=== PATIENT | male | born 1965 | race Asian ===

== ENCOUNTER 2024-12-13 15:51 | Inpatient (IN) | payer MEDICAID, SELFPAY ==
[2024-12-13] VITALS (12 sets, daily range): BP systolic 82–129; BP diastolic 28–87; PULSE 90–138; RESP 18–24; TEMP 36.4–39.4; O2SAT 93–98; BMI 27.3
--- NOTE | 2024-12-13 16:04 | PD.EDRME ---
Rapid Medical Screening Exam RME Arrival date/time: 12/13/24 15:51 59-year-old male with history of malignant neoplasm of right leg presents the emergency department today stating he has pain, swelling, infection to the right lower Sepsis protocol initiated Chief Complaint: Extremity Injury, Lower Time Seen by Provider: 12/13/24 15:55 Vital signs: Vital Signs Temperature 103.0 F H 12/13/24 15:59 Pulse Rate 138 H 12/13/24 15:59 Respiratory Rate 20 12/13/24 15:59 Blood Pressure 129/87 H 12/13/24 15:59 Pulse Oximetry (%) 95 12/13/24 15:59 Oxygen Delivery Method Room Air 12/13/24 15:59
[2024-12-13] MEDS: ACETAMINOPHEN 500 MG TABLET 1000 MG PO (16:07)
--- NOTE | 2024-12-13 16:40 | XR_ITS ---
Examination: CT pelvis with intravenous contrast. 2-D sagittal and coronal reconstructions. Date and time of exam:December 13, 2024 at 1914 hours INDICATIONS: Generalized pelvic discomfort beginning 5 days ago CTDI: vol (mGy) : 7.17 DLP: (mGycm) : 269 Technique: Multiple 3 mm axial sections of the pelvis have been obtained with the 64 slice high resolution scanner. 2-D sagittal and coronal reconstructions. Low dose protocols were performed. One or more of the following dose reduction techniques were used; automated exposure control, adjustment of the mA and/or KV according to patient size, use of iterative reconstruction technique. Findings: Normal appendix No bowel obstruction No diverticulitis Mildly distended urinary bladder Transverse prostate dimension 4.3 cm Large soft tissue mass posterior right pelvis, posterior to the right hip and right ischium transverse dimension 11.5 cm, AP dimension and at least 8.9 cm cephalocaudad dimension at least 13 cm this mass is destroying the right ischium and posterior portion of the right inferior pubic ramus as well as the proximal posterior right femoral shaft extending to the subtrochanteric region The masses also destroying the posterior right acetabulum and portions of the posterior right iliac bone 3.4 cm soft tissue tumor mass versus metastatic lymph node anterior to the right common femoral vein with smaller adjacent lymph nodes Soft tissue tumor is also infiltrating into the medial thigh musculature with air densities IMPRESSION: Extensive pelvic mass destroying right ischium right inferior pubic ramus proximal right femoral shaft posterior right acetabulum posterior right iliac bone as above This mass is amenable to CT-guided biopsy for cytologic analysis as well as culture and sensitivity as clinically warranted
--- NOTE | 2024-12-13 16:40 | XR_ITS ---
Examination: CT right lower extremity with intravenous contrast. 2-D sagittal reconstructions. 2-D coronal reconstructions. 3-D reconstructions. Date and time of exam:December 13, 2024 1714 hours INDICATIONS: Discharge and exudate in the leg post surgery 2021 CTDI: vol (mGy):8.03 DLP: (mGycm):815 Technique: Multiple 1.25 mm axial sections of the right lower extremity have been obtained. 2-D sagittal and coronal reconstructions have been obtained. 3-D reconstructions have been obtained. 60 cc [id number] Low dose protocols were performed. One or more of the following dose reduction techniques were used; automated exposure control, adjustment of the mA and/or KV according to patient size, use of iterative reconstruction technique. Findings: Please see the CT pelvis report indicating extensive soft tissue pelvic mass destroying the right ischium and right inferior pubic ramus, proximal right femoral shaft, posterior right acetabulum, posterior right iliac bone This mass extends caudad into the semimembranosus abductor longus and gracilis musculature with air densities at the caudad and There is fluid in the subcutaneous fatty tissue posterior to the distal femur The mass does not extend into the lower leg IMPRESSION: Please see the CT pelvis report indicating extensive soft tissue mass destroying the right ischium, right inferior pubic ramus, proximal right femoral shaft, posterior right acetabulum, posterior right iliac bone This mass extends caudad into the medial thigh muscles as above
--- NOTE | 2024-12-13 16:43 | EDNOTE_ITS ---
ED General RME/HPI General Chief complaint: Extremity Injury, Lower Stated complaint: RIGHT UPPER LEG PAIN AND OOZING Time Seen by Provider: 12/13/24 15:55 Arrival date/time: 12/13/24 15:51 CC: Right leg pain right leg oozing pus HPI ongoing for the past 2 weeks. 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 The patient was initially followed by Dr. Dee and Dr. Granados of the cancer treatment center through July 2024. Patient states he has no primary care doctor takes no medications has no medical allergies. Patient states there is been smelly pus coming from open sites to the back of his right leg. And the pain is significant that he can no longer stand. Patient is awake alert oriented denies chest pain shortness of breath or difficulty breathing. RME / HPI RME / HPI narrative: 12/13/24 15:51 59-year-old male with history of malignant neoplasm of right leg presents the emergency department today stating he has pain, swelling, infection to the right lower Sepsis protocol initiated Related Data Allergies Allergy/AdvReac Type Severity Reaction Status Date / Time No Known Allergies Allergy Verified 04/03/22 14:27 Review of Systems Review of Systems Narrative Review of Systems: GEN: No fever, no chills, no weight loss EYES: No discharge, no visual changes, no pain HEENT: No ear pain, no congestion, no sore throat PULM: No shortness of breath, no cough, no congestion CV: No chest pain, no dyspnea on exertion, no palpitations GI: No nausea, no vomiting, no diarrhea, no pain, no constipation : No frequency, no urgency, no dysuria MUSC/SKEL: + right leg pain SKIN: No rash PSYCH: No hallucinations, no depression HEME/LYMPH: No easy bleeding or bruising tendencies NEURO: No weakness, no headache Past Medical History Past Medical History NEUROLOGIC: Negative Neurological Disorders CARDIAC: Negative Congestive Heart Failure RESPIRATORY: Negative Chronic Obstructive Pulmonary Disease (COPD) GASTROINTESTINAL: Negative Gastrointestinal Disorders GENITOURINARY: Negative Genitourinary Disorders or Renal Disease REPRODUCTIVE: Negative Fibroids MUSCULOSKELETAL: Negative Musculoskeletal Disorders ENDOCRINE: Negative Endocrine Disorders or Diabetes Mellitus Type 1 HEMATOLOGIC: Negative Blood Disorders OTHER HISTORY: Positive Cancer (Tumor on right thigh); Negative Autoimmune Disease, Anesthesia Reactions or MRSA Social History SMOKING STATUS: Never smoker ED Exam Narrative Physical exam: [General: Thin but not emaciated, not in any acute distress Head normocephalic HEENT: Within acceptable limits Neck is supple nontender Chest equal chest rise nontender to palpation Respiratory: Clear to auscultation no wheezes crackles or rubs CV: Rate rhythm is regular no murmurs rubs or clicks Abdomen is distended secondary to body habitus soft nontender no masses positive bowel sounds all 4 quadrants Back: No CVA tenderness no spinous process tenderness from cervical spine thoracic and lumbar spine Skin: Old excoriation with multiple open sites oozing through the base posterior of the right upper leg, including the right buttock, scrotum is not involved this also extends into the medial thigh of the right leg with attenuation with the trunk. It is not warm to touch but darkened colored, firm and warm to touch. Old surgical scar that extends down the posterior upper right leg is well-healed. Cap refill in the right toes is less than 2 seconds neurosensory intact otherwise skin is intact no petechiae rash induration ulceration or crepitus Extremities: Moving all extremity against resistance cap refill less than 2 seconds neurosensory intact Neuro: Awake alert oriented x3 Glascow coma 15 no focal deficits] Course Course Course Narrative: Patient's case discussed with Dr. Rasmussen, for Dr. Abram Wheeler's agrees to accept the patient for admission patient and I had a lengthy discussion in front of Dr. Rasmussen regarding his disposition, the patient wants to seek treatment for his sarcoma but his hip and his leg. He understands that we do not give him chemotherapy in the hospital rather find where the potential source of infection is causing the sepsis and order arrange for him for primary care and follow-up for outpatient oncology. The patient is in agreement with doing this because he wants to continue to seek treatment. Quality Measures none Orders Category Date Time Status Bedside COVID-19 Antigen Test NOW Care 12/13/24 18:[address] Screening NOW Care 12/13/24 16:[address] Screening NOW Care 12/13/24 16:41 Active Insert IV NOW Care 12/13/24 16:[address] lower leg RT w con Stat Exams 12/13/24 16:[address] pelvis w con Stat Exams 12/13/24 16:40 Completed XR chest 1V Stat Exams 12/13/24 20:19 Taken Blood Culture (Lab) Stat Lab 12/13/24 16:16 Received CBC Stat Lab 12/13/24 16:16 Completed CMP [Comprehensive Metabolic Panel] Stat Lab 12/13/24 16:16 Completed CRP [C-Reactive Protein] Stat Lab 12/13/24 16:16 Completed ESR [Sed Rate (ESR)] Stat Lab 12/13/24 16:16 Completed Lactic Acid [Lactate (Lactic Acid)] Stat Lab 12/13/24 16:16 Completed Lactic Acid, 3 HR Stat Lab 12/13/24 20:34 Completed PT [Prothrombin Time with INR] Stat Lab 12/13/24 16:16 Completed Procalcitonin Stat Lab 12/13/24 16:16 Completed Urinalysis, C/S if Indicated Stat Lab 12/13/24 20:19 Ordered Acetaminophen Ivpb [Ofirmev Inj] Med 12/13/24 16:49 Discontinued 1,000 mg in 100 ml IV NOW Acetaminophen Tab [Tylenol ES Tab] Med 12/13/24 16:03 Discontinued 1,000 mg PO X1 ONE HYDROmorphone INJ [Dilaudid Inj] Med 12/13/24 18:47 Discontinued 1 mg IVP X1 ONE Ondansetron Inj [Zofran Inj] Med 12/13/24 18:48 Discontinued 4 mg IV X1 ONE Piper/Tazo 3.375 gm [Zosyn] Med 12/13/24 16:04 Discontinued 3.375 gm in 50 ml IV X1 Ringers Lactated 1000 ml [Lactated Ringers] 1,000 ml Med 12/13/24 17:44 Discontinued IV 999 mls/hr Ringers Lactated 1000 ml [Lactated Ringers] 1,000 ml Med 12/13/24 17:44 Discontinued IV 999 mls/hr Ringers Lactated 500 ml [Lactated Ringers] 500 ml Med 12/13/24 17:44 Discontinued IV 999 mls/hr Vancomycin Inj 1,000 mg Med 12/13/24 16:04 Discontinued Sodium Chloride 0.9% 250 ml [Ns] 250 ml IV X1 Vital Signs Vital signs: Vital Signs Temperature 103.0 F H 12/13/24 15:59 Pulse Rate 138 H 12/13/24 15:59 Respiratory Rate 20 12/13/24 15:59 Blood Pressure 129/87 H 12/13/24 15:59 Pulse Oximetry (%) 95 12/13/24 15:59 Oxygen Delivery Method Room Air 12/13/24 15:59 [facility] Patient data External records reviewed:: [facility] previous records Clinical information provided by:: patient Social determinants that could affect healthcare access:: none Patient has the following chronic illnesses:: Sarcoma with recent surgery How is presenting disease/condition affected by chronic disease/condition?: e xacerbated by Evaluation data The following diagnostics were reviewed and interpreted by me:: lab results, radiology exam(s) and EKG tracing(s) Lab and/or radiology exams considered but not ordered:: CBC shows a leukocytosis of 12.6 anemia and thrombocytopenia CMP shows sodium 133 potassium 3.3 no other significant lecture light imbalances glucose of 141. C-reactive 0.11 0.0 Chest x-ray interpreted me shows no acute infiltrate CT of the pelvis is significant for large mass that is eroding most of the bony structures in the pelvis itself. There appears to be no abscesses interpreted by me and read by radiology. Interpretation Summary: Patient's case discussed with with Dr. Rasmussen resident who agrees to accept on behalf of Dr. Abram Wheeler's attending for admission for sepsis intractable leg pain Medications Medications considered but not ordered:: None Medication administrations:: Medication Administration History Discontinued Medications Acetaminophen (Acetaminophen 500 Mg Tablet) 1,000 mg PO X1 ONE Stop: 12/13/24 16:04 Last Admin: 12/13/24 16:07 Dose: 1,000 mg Documented By: BRITNEY Hydromorphone HCl (Hydromorphone Inj 2 Mg/Ml Vial) 1 mg IVP X1 ONE Stop: 12/13/24 18:48 Last Admin: 12/13/24 18:59 Dose: 1 mg Documented By: JEROMY Piperacillin/Tazobactam/Dextrose (Zosyn) 3.375 gm in 50 mls @ 100 mls/hr IV X1 ONE Stop: 12/13/24 16:33 Last Infusion: 12/13/24 17:45 Dose: Infused Documented By: Admin: 12/13/24 16:56 Dose: 100 mls/hr Documented By: ROWAN Vancomycin HCl 1,000 mg/ (Sodium Chloride) 250 mls @ 150 mls/hr IV X1 ONE Stop: 12/13/24 17:43 Last Infusion: 12/13/24 19:12 Dose: Infused Documented By: Admin: 12/13/24 16:57 Dose: 150 mls/hr Documented By: ROWAN Acetaminophen (Ofirmev Inj) 1,000 mg in 100 mls @ 250 mls/hr IV NOW ONE Stop: 12/13/24 17:12 Last Admin: 12/13/24 18:12 Dose: Not Given Documented By: JEROMY Non-Admin Reason: Cancelled by Provider Lactated Ringer's (Lactated Ringers) 1,000 mls @ 999 mls/hr IV .Q1H1M ONE Stop: 12/13/24 18:44 Last Infusion: 12/13/24 19:11 Dose: Infused Documented By: Admin: 12/13/24 17:55 Dose: 999 mls/hr Documented By: JEROMY Lactated Ringer's (Lactated Ringers) 1,000 mls @ 999 mls/hr IV .Q1H1M ONE Stop: 12/13/24 18:44 Last Infusion: 12/13/24 19:12 Dose: Infused Documented By: Admin: 12/13/24 17:55 Dose: 999 mls/hr Documented By: JEROMY Lactated Ringer's (Lactated Ringers) 500 mls @ 999 mls/hr IV .Q31M ONE Stop: 12/13/24 18:14 Last Admin: 12/13/24 19:04 Dose: 999 mls/hr Documented By: JEROMY Ondansetron HCl (Ondansetron Inj 2 Mg/Ml Inj 2 Ml) 4 mg IV X1 ONE; Protocol Stop: 12/13/24 18:49 Last Admin: 12/13/24 18:58 Dose: 4 mg Documented By: JEROMY None Consultations Consultation(s) initiated? (list below): No Diagnosis Differential Diagnosis ED Complaint MDM: Pelvic mass, sepsis, fever Most likely diagnosis given after review of the tests above:: Sepsis with fever pelvic mass right upper leg mass Admission Indicated Admission indicated?: indicated Explain why admission is indicated or not indicated:: Quires further medical medical workup Admission Request Was there a request for admission?: No Disposition Plan Disposition Plan: Admit Medical Decision Making Differential Diagnosis Differential Diagnosis: Pelvic mass, sepsis, fever Lab Data 12/13/24 16:16 12/13/24 16:16 Labs: Lab Results 12/13/24 12/13/24 Range/Units 16:16 20:34 WBC 12.6 H (3.8-10.6) Thou/mm3 RBC 4.62 (4.50-5.90) Miln/mm3 Hgb 13.9 (13.5-16.0) g/dL Hct 41.1 (41.0-53.0) % MCV 89 (80-100) fL MCH 30.1 (25.0-35.0) pg MCHC 33.8 (31.0-37.0) g/dl RDW Std Deviation 42.4 (35.1-43.9) fL Plt Count 454 H (140-440) Thou/mm3 Neut % (Auto) 82 H (37-80) % Lymph % (Auto) 6 L (10-50) % Prentiss % (Auto) 9 (0-12) % Eos % (Auto) 2 (0-10) % Baso % (Auto) 0 (0-2.5) % Neut # (Auto) 10.3 H (1.8-7.7) Thou/mm3 Lymph # (Auto) 0.8 L (1.0-4.8) Thou/mm3 Prentiss # (Auto) 1.1 H (0.0-0.8) Thou/mm3 Eos # (Auto) 0.3 (0.0-0.5) Thou/mm3 Baso # (Auto) 0.1 (0.0-0.2) Thou/mm3 Immature Gran # (Auto) 0.08 H (0.00-0.00) Thou/mm3 Absolute Nucleated RBC 0.00 (0.00-0.00) Thou/mm3 Immature Gran % 1 H (0-0) % Nucleated RBC % 0 (0) /100 WBC ESR 127 H (0-20) mm/hr PT 11.7 (9.0-12.2) Seconds INR 1.1 (0.9-1.3) Sodium 133 L (136-145) mMol/L Potassium 3.3 L (3.4-5.1) mMol/L Chloride 98 (98-107) mMol/L Carbon Dioxide 23.8 (20.0-31.0) mMol/L Anion Gap 11 (7-16) BUN 14 (9-23) mg/dL Creatinine 1.2 (0.6-1.3) mg/dL Estim Creat Clear Calc 63.3 (>60) mL/min eGFR > 60 (60 - ) See Note BUN/Creatinine Ratio 12 (12-20) Ratio Glucose 141 H (74-106) mg/dL Calculated Osmolality 268 L (275-295) Lactic Acid 4.2 H* 1.6 (0.4-2.0) mMol/L Calcium 9.3 (8.3-10.6) mg/dL Corrected Calcium 9.3 (8.5-10.1) mg/dL Total Bilirubin 0.4 (0.3-1.2) mg/dL AST 22 (0-34) U/L ALT 30 (10-49) U/L Alkaline Phosphatase 103 (46-116) U/L C-Reactive Prot, Quant 11.0 H (0.0-0.9) mg/dL Total Protein 7.8 (5.7-8.2) gm/dL Albumin 4.1 (3.4-4.8) gm/dL Globulin 3.7 H (2.3-3.5) gm/dL Albumin/Globulin Ratio 1.1 L (1.2-2.2) Procalcitonin 0.11 (0.0-0.49) ng/ml Discharge Plan Plan Patient Disposition: Other Care w/in Hosp ([facility]) Patient condition on transfer: Stable Prescriptions/Referrals Referrals: No Primary/Family,Physician [Primary Care Provider] - In 1 week Problem List Clinical Impression: Pelvic mass in male, Leg mass, Intractable neuropathic pain of right lower extremity, Fever, Sepsis Patient/Caregiver Discharge Instructions Print Language: Ecuadorean Stand Alone Forms: Elvia Award Info., Patient Portal Info Letter PA/JONO Supervising Physician RADHA/JONO Supervising Physician: Rafiq Smith ENP
[2024-12-13 16:51] LABS: Basophils # (Auto) 0.1 Thou/mm3 (0.0-0.2); Basophils % (Auto) 0 % (0-2.5); Eosinophils # (Auto) 0.3 Thou/mm3 (0.0-0.5); Eosinophils % (Auto) 2 % (0-10); Hematocrit 41.1 % (41.0-53.0); Hemoglobin 13.9 g/dL (13.5-16.0); Immature Granulocytes % (Auto) 1 % (0-0); Immature Granulocytes Auto 0.08 Thou/mm3 (0.00-0.00); Lymphocytes # (Auto) 0.8 Thou/mm3 (1.0-4.8); Lymphocytes % (Auto) 6 % (10-50); Mean Corpuscular HGB Conc 33.8 g/dl (31.0-37.0); Mean Corpuscular Hemoglobin 30.1 pg (25.0-35.0); Mean Corpuscular Volume 89 fL (80-100); Monocytes # (Auto) 1.1 Thou/mm3 (0.0-0.8); Monocytes % (Auto) 9 % (0-12); Neutrophils # (Auto) 10.3 Thou/mm3 (1.8-7.7); Neutrophils % (Auto) 82 % (37-80); Nucleated Red Blood Cell % 0 /100 WBC (0); Platelet Count 454 Thou/mm3 (140-440); RDW Standard Deviation 42.4 fL (35.1-43.9); Red Blood Count 4.62 Miln/mm3 (4.50-5.90); White Blood Count 12.6 Thou/mm3 (3.8-10.6)
[2024-12-13] MEDS: PIPER/TAZO 3.375 GM 3.375 GM/50 ML BAG IV (16:56)
[2024-12-13 16:57] LABS: Lactate (Lactic Acid) 4.2 mMol/L (0.4-2.0)
[2024-12-13] MEDS: Vancomycin Inj 1,000 MG in SODIUM CHLORIDE 0.9% 250 ML 250 ML 150 MG IV (16:57)
[2024-12-13 17:04] LABS: INR 1.1 (0.9-1.3); Prothrombin Time 11.7 Seconds (9.0-12.2)
[2024-12-13 17:19] LABS: Alanine Aminotransferase 30 U/L (10-49); Albumin, Serum 4.1 gm/dL (3.4-4.8); Albumin/Globulin Ratio 1.1 (1.2-2.2); Alkaline Phosphatase 103 U/L (46-116); Anion Gap 11 (7-16); Aspartate Amino Transferase 22 U/L (0-34); BUN/Creatinine Ratio 12 Ratio (12-20); Bilirubin,Total 0.4 mg/dL (0.3-1.2); Blood Urea Nitrogen 14 mg/dL (9-23); Calcium 9.3 mg/dL (8.3-10.6); Calcium (Corrected) 9.3 mg/dL (8.5-10.1); Carbon Dioxide 23.8 mMol/L (20.0-31.0); Chloride 98 mMol/L (98-107); Creatinine (Component) 1.2 mg/dL (0.6-1.3); Estimated Creatinine Clearance 63.3 mL/min (>60); Globulin 3.7 gm/dL (2.3-3.5); Glucose 141 mg/dL (74-106); Osmolality,Calculated 268 (275-295); Potassium 3.3 mMol/L (3.4-5.1); Procalcitonin 0.11 ng/ml (0.0-0.49); Sodium 133 mMol/L (136-145); Total Protein 7.8 gm/dL (5.7-8.2); eGFR > 60 See Note
[2024-12-13 17:41] LABS: Sed Rate (ESR) 127 mm/hr (0-20)
[2024-12-13] MEDS: RINGERS LACTATED 1000 ML 1,000 ML 999 ML IV ×2 (17:55)
[2024-12-13] MEDS: ONDANSETRON INJ 2 MG/ML INJ 2 ML 4 MG IV (18:58)
[2024-12-13] MEDS: HYDROmorphone INJ 2 MG/ML VIAL 1 MG IVP (18:59)
[2024-12-13] MEDS: RINGERS LACTATED 500 ML 500 ML 999 ML IV (19:04)
[2024-12-13 19:46] LABS: Reflex Lactate? Y
--- NOTE | 2024-12-13 20:19 | XR_ITS ---
Examination: AP chest single view TECHNIQUE: AP portable upright chest single view Exam done: December 13, 2024 202 hours INDICATION: Onset chest pain shortness of breath today, diagnosis malignant neoplasm lower leg FINDINGS: Normal heart size The lungs are clear. No mediastinal lymphadenopathy Prominent osteopenia IMPRESSION: No pneumonia or pulmonary edema
[2024-12-13 20:44] LABS: Lactic Acid, 3 HR 1.6 mMol/L (0.4-2.0)
--- NOTE | 2024-12-13 21:40 | PD.RESHP ---
Documentation for date of: 12/13/24 HPI History of Present Illness Chief complaint: Right lower extremity swelling and pain History of present illness: Patient is a poor historian. 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 Patient does not remember the exact month/year of last chemotherapy cycle, but endorsed that he completed all his chemotherapy. Since 6 weeks, patient noted pain in his leg lower extremity which is making him debilitating and mostly bedridden, relieving with Alleve, also noticed slight discharge coming from the site of sarcoma. Endorsed that he is having fever since 1 week associated with chills and rigors. Denies cough, shortness of breath, low backache, abdominal pain, burning micturition. ED Course: -Initial vitals were blood pressure 129/87 mmHg, pulse rate of 138 bpm, respiratory rate 20/min, temperature 103 ?F, SpO2 95% with room air -Labs significant for WBC 12.6, platelets 454, ESR 127, sodium 133, potassium 3.3, CRP 11, procalcitonin 0.11. Urinalysis showed 5 RBC. -Lower extremity and pelvis CT showed Extensive pelvic mass destroying right ischium right inferior pubic ramus, proximal right femoral shaft posterior right acetabulum posterior right iliac -chest x-ray showed no pulmonary infiltrates. -In the ED, patient was given Zosyn, vancomycin, Dilaudid and IV fluids -Patient was admitted for recurrent sarcoma of posterior right thigh. Past medical history: Sarcoma Past surgical history: Sarcoma removal Social history: Stopped smoking after sarcoma surgery, smoked 1 pack in 3 days for 40 years, occasional alcohol use and denies other illicit drug abuse. Lives at home with his girlfriend Review of Systems Review of Systems Narrative Review of Systems: Constitutional: No Weight Change, Fever, No Chills, No Night Sweats, Fatigue, Malaise ENT/Mouth: No Hearing Changes, No Ear Pain, No Nasal Congestion, No Sinus Pain, No Hoarseness, No sore throat, No Rhinorrhea, No Swallowing Difficulty Eyes: No Eye Pain, No Swelling, No Redness, No Foreign Body, No Discharge, No Vision Changes Cardiovascular: No Chest Pain, No SOB, No PND, No Dyspnea on Exertion, No Orthopnea, No Edema, No Palpitations Respiratory: No Cough, No Sputum, No Wheezing, No Dyspnea Gastrointestinal: No Nausea, No Vomiting, No Diarrhea, No Constipation, No Pain, No Heartburn, No Anorexia, No Dysphagia, No Hematochezia, No Melena, No Flatulence, No Jaundice Genitourinary: No Dysuria, No Urinary Frequency, No Hematuria, No Urinary Incontinence, No Urgency, No Flank Pain, No Urinary Flow Changes, No Hesitancy Musculoskeletal: No Arthralgias, Myalgias , No Joint Swelling, No Joint Stiffness, No Back Pain, No Neck Pain, No Injury History Skin: No Skin Lesions, No Pruritis Neuro: No Weakness, No Numbness, No Paresthesias, No Loss of Consciousness, No Syncope, No Dizziness, No Headache, No Coordination Changes, No Recent Falls Exam Vital Signs Temp Pulse Resp BP Pulse Ox O2 Del Method 97.5 F 94 18 100/65 97 Room Air 12/13/24 18:09 12/13/24 21:00 12/13/24 21:00 12/13/24 21:00 12/13/24 21:00 12/13/24 20:00 Narrative Exam General: Awake. Answers questions appropriately HEENT: Normocephalic, atraumatic, mucous membranes dry. Heart: Regular rate and rhythm, no murmurs. Lungs: Clear to auscultation with no wheezing or crackles. Abdomen: Soft, nondistended, nontender, positive bowel sounds. ?No guarding or rebound tenderness. Neurologic: Alert and oriented x3, no gross neurological deficit, and patient able to move all 4 extremities. Extremities: Right lower extremity wasting is noted, on right posterior thigh, induration and nodular surface is noted with erythema with ulcerations Skin: Erythema on posterior right thigh Results: Labs 12/13/24 16:16 12/13/24 16:16 Labs: Short CBC 12/13/24 Range/Units 16:16 WBC 12.6 H (3.8-10.6) Thou/mm3 Hgb 13.9 (13.5-16.0) g/dL Hct 41.1 (41.0-53.0) % Plt Count 454 H (140-440) Thou/mm3 BMP 12/13/24 16:16 Sodium 133 L Potassium 3.3 L Chloride 98 Carbon Dioxide 23.8 BUN 14 Creatinine 1.2 Glucose 141 H Calcium 9.3 Liver Function 12/13/24 Range/Units 16:16 Total Bilirubin 0.4 (0.3-1.2) mg/dL AST 22 (0-34) U/L ALT 30 (10-49) U/L Alkaline Phosphatase 103 (46-116) U/L Albumin 4.1 (3.4-4.8) gm/dL Quality Measures Quality Measures none Medications Home Medications and Allergies Allergies Allergy/AdvReac Type Severity Reaction Status Date / Time No Known Allergies Allergy Verified 04/03/22 14:27 Visit Medications Acetaminophen (Acetaminophen 325 Mg Tablet) 650 mg PO Q6H PRN PRN Reason: Fever >101.5 Stop: 01/12/25 21:22 Hydrocodone Bitart/Acetaminophen (Hydrocodone/Apap 5/325 Tablet) 1 tab PO Q4HR PRN PRN Reason: Pain Scale 6-10 Stop: 12/18/24 21:28 Enoxaparin Sodium (Enoxaparin Sod Inj 40 Mg/0.4 Ml Syringe) 40 mg SC QDAY BRIAN Stop: 12/28/24 08:59 Magnesium Hydroxide (Milk Of Magnesia Susp 30 Ml Udc) 30 ml PO QDAY PRN; Protocol PRN Reason: CONSTIPATION Stop: 01/12/25 21:22 Ondansetron HCl (Ondansetron Inj 2 Mg/Ml Inj 2 Ml) 4 mg IV Q6H PRN; Protocol PRN Reason: NAUSEA OR VOMITING Stop: 01/12/25 21:22 Discontinued Medications Acetaminophen (Acetaminophen 500 Mg Tablet) 1,000 mg PO X1 ONE Stop: 12/13/24 16:04 Last Admin: 12/13/24 16:07 Dose: 1,000 mg Hydromorphone HCl (Hydromorphone Inj 2 Mg/Ml Vial) 1 mg IVP X1 ONE Stop: 12/13/24 18:48 Last Admin: 12/13/24 18:59 Dose: 1 mg Piperacillin/Tazobactam/Dextrose (Zosyn) 3.375 gm in 50 mls @ 100 mls/hr IV X1 ONE Stop: 12/13/24 16:33 Last Infusion: 12/13/24 17:45 Dose: Infused Vancomycin HCl 1,000 mg/ (Sodium Chloride) 250 mls @ 150 mls/hr IV X1 ONE Stop: 12/13/24 17:43 Last Infusion: 12/13/24 19:12 Dose: Infused Acetaminophen (Ofirmev Inj) 1,000 mg in 100 mls @ 250 mls/hr IV NOW ONE Stop: 12/13/24 17:12 Last Admin: 12/13/24 18:12 Dose: Not Given Lactated Ringer's (Lactated Ringers) 1,000 mls @ 999 mls/hr IV .Q1H1M ONE Stop: 12/13/24 18:44 Last Infusion: 12/13/24 19:11 Dose: Infused Lactated Ringer's (Lactated Ringers) 1,000 mls @ 999 mls/hr IV .Q1H1M ONE Stop: 12/13/24 18:44 Last Infusion: 12/13/24 19:12 Dose: Infused Lactated Ringer's (Lactated Ringers) 500 mls @ 999 mls/hr IV .Q31M ONE Stop: 12/13/24 18:14 Last Admin: 12/13/24 19:04 Dose: 999 mls/hr Ondansetron HCl (Ondansetron Inj 2 Mg/Ml Inj 2 Ml) 4 mg IV X1 ONE; Protocol Stop: 12/13/24 18:49 Last Admin: 12/13/24 18:58 Dose: 4 mg Potassium Chloride (Potassium Chloride 20 Meq Tabcr) 40 meq PO X1 ONE Stop: 12/13/24 21:38 Assessment & Plan Plan A 59-year-old male with past medical history of Stage IIIb (pT4, NX), 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 status post wide excision in [facility] (12/07/2021), S/p adjuvant radiation therapy (01/30/2022 - 03/19/2022), AIM chemotherapy in the adjuvant setting (06/09/2022, 6 cycles per patient), Hepatitis B infection presented to the hospital with chief complaints of pain in the right lower extremity since 6 weeks and fever since 1 week and admitted for Recurrent posterior thigh sarcoma and possible superimposed cellulitis # SIRS - Neoplastic fever versus less likely sepsis # Recurrent sarcoma of posterior right thigh # History of undifferentiated pleomorphic sarcoma s/p chemotherapy and radiotherapy # Suspicion of possible superimposed cellulitis -Patient was diagnosed with pleomorphic sarcoma of posterior right thigh, underwent surgery in [facility] on 12/08/2021 including neurolysis of sciatic and peroneal tibial nerves with clearance of margins of 0.1 cm -Later patient underwent palliative adjuvant radiotherapy by Dr. Dee in 2021 -Later patient underwent chemotherapy in [facility], completed 6 cycles per patient in 2021 -Since then patient did not follow-up with any cancer doctor and patient does not have any primary doctor -Since 6 weeks patient noticed worsening of pain in the posterior right extremity and also developed fever since 1 week. -On examination, posterior right indurated, irregular surface with erythema and small ulcers with discharge was noted, patient did not tolerate complaint of any pain on palpation -Patient fits into sepsis criteria with temperature 103 ?F, pulse rate 138 bpm -Labs showed WBC 12.6, platelets 454, ESR 127, CRP 11 -Lower extremity and pelvis CT showed Extensive pelvic mass destroying right ischium right inferior pubic ramus, proximal right femoral shaft posterior right acetabulum posterior right iliac Plan -Patient received IV fluids in the ED -Started on ceftriaxone 1 g IV daily -Blood cultures were sent -Dr. Streeter saw the patient in the ED and said there is no surgical intervention from her side, official consult was not done -[place] p.o. as needed every fourth hourly -Consulted Dr. Dee # Right foot drop -Patient endorsed that it is present only since 2 weeks -But on chart review, as per patient's history patient underwent neurolysis of sciatic and peroneal tibial nerves which could be causing the foot drop -No acute intervention needed as of now, follow-up in outpatient basis #? Hepatitis B -Dr. Olivera note stated that patient is having hepatitis B and is on Entecavir -No evidence found on chart review -Ordered hepatitis B surface antigen and antibody, follow-up with results Hospital Maintenance: Dispo: MedSurg DVT ppx: Lovenox GI ppx: Not needed Diet: Regular IV lines: Peripheral Code status: Full code Patient plan of care was discussed with the attending physician, Dr. Nini Arenas, PGY1 Attending Provider Attestation/Addendum 59-year-old male patient with right buttock and posterior thigh sarcoma diagnosed 4 years ago. The patient had treatment done in [place]. Patient has draining wound on his right buttock area. Patient is admitted for sepsis secondary to wound infection/cellulitis. Patient is on IV antibiotics he has lactic acidosis. Patient states that he does not have a provider he regularly sees at this point. Will need case finishing machine adjuster/socially responsible investment adviser evaluation.
[2024-12-13] MEDS: POTASSIUM CHLORIDE 20 mEq TABCR 40 MEQ PO (22:00)
[2024-12-13 22:07] LABS: Collection Type, Urine Clean Catch; Squamous Epithelial Cell,Urine 0 /hpf (0-5)
[2024-12-13 22:23] LABS: Magnesium 1.8 mg/dL (1.6-2.6)
[2024-12-13 22:38] LABS: Bilirubin,Urine Negative (Negative); Blood,Urine Negative (Negative); Clarity,Urine Clear (Clear/Hazy); Color,Urine Lt-Yellow (Lt Yel-Yel); Culture Indicated,Urine Not Indicated; Glucose, Urine Negative (Negative); Ketones,Urine Negative (Negative); Leukocyte Esterase,Urine Negative (Negative); Nitrite,Urine Negative (Negative); PH,Urine 6.5 (5.0-7.0); Protein,Urine Negative (Neg - Trace); RBC,Urine 5 /hpf (0-3); Specific Gravity,Urine 1.016 (1.001-1.035); Urobilinogen,Urine Negative mg/dL (0.0-1.0); WBC,Urine 1 /hpf (0-5)
--- NOTE | 2024-12-13 23:02 | XR_ITS ---
Examination: Duplex scan of the lower extremity, unilateral right complete Date and time of exam: December 14, 2024 0108 hours INDICATIONS: Right leg numbness and swelling beginning 2 weeks ago Technique: Duplex scan of the extremity veins using B-mode/grayscale imaging and Doppler spectral analysis and color flow Attention is directed to internal echogenicity, compression and augmentation involving these veins, color flow assessment, spectral analysis Findings: Major deep venous structures in the extremity demonstrate normal course and caliber. There is no evidence of deep vein thrombosis. Normal color flow and spectral analysis Impression: Negative for DVT.. Solid mass in the right groin 2.7 x 3.1 x 2.1 cm, differential would include metastatic lymphadenopathy
[2024-12-14] VITALS (14 sets, daily range): BP systolic 88–152; BP diastolic 60–98; PULSE 81–871; RESP 17–22; TEMP 36.2–36.8; O2SAT 95–100
[2024-12-14] MEDS: cefTRIAXone/D5w 1gm IV premix 50 ML IV ×2 (00:20→09:09)
[2024-12-14 06:42] LABS: Basophils # (Auto) 0.1 Thou/mm3 (0.0-0.2); Basophils % (Auto) 0 % (0-2.5); Eosinophils # (Auto) 0.3 Thou/mm3 (0.0-0.5); Eosinophils % (Auto) 3 % (0-10); Hematocrit 36.1 % (41.0-53.0); Hemoglobin 12.2 g/dL (13.5-16.0); Immature Granulocytes % (Auto) 0 % (0-0); Immature Granulocytes Auto 0.04 Thou/mm3 (0.00-0.00); Lymphocytes # (Auto) 1.2 Thou/mm3 (1.0-4.8); Lymphocytes % (Auto) 11 % (10-50); Mean Corpuscular HGB Conc 33.8 g/dl (31.0-37.0); Mean Corpuscular Hemoglobin 30.1 pg (25.0-35.0); Mean Corpuscular Volume 89 fL (80-100); Monocytes # (Auto) 1.2 Thou/mm3 (0.0-0.8); Monocytes % (Auto) 10 % (0-12); Neutrophils # (Auto) 8.4 Thou/mm3 (1.8-7.7); Neutrophils % (Auto) 75 % (37-80); Nucleated Red Blood Cell % 0 /100 WBC (0); Platelet Count 375 Thou/mm3 (140-440); RDW Standard Deviation 42.6 fL (35.1-43.9); Red Blood Count 4.05 Miln/mm3 (4.50-5.90); White Blood Count 11.2 Thou/mm3 (3.8-10.6)
[2024-12-14 07:01] LABS: Glucose Estimated Average 114 mg/dL (80-131); Hemoglobin A1C 5.6 % Hgb (4.8-6.0)
[2024-12-14 07:26] LABS: Anion Gap 7 (7-16); BUN/Creatinine Ratio 12 Ratio (12-20); Blood Urea Nitrogen 11 mg/dL (9-23); Chloride 101 mMol/L (98-107); Creatinine (Component) 0.9 mg/dL (0.6-1.3); Estimated Creatinine Clearance 84.4 mL/min (>60); Glucose 106 mg/dL (74-106); Osmolality,Calculated 269 (275-295); Phosphorous 3.1 mg/dL (2.4-5.1); Potassium 3.8 mMol/L (3.4-5.1); Sodium 135 mMol/L (136-145); Thyroid Stimulating Hormone 2.16 uIU/mL (0.55-4.78); eGFR > 60 See Note
--- NOTE | 2024-12-14 09:00 | PC.NURSE ---
[facility]24 from 0100 to 0700.
[2024-12-14] MEDS: POTASSIUM CHLORIDE 20 mEq TABCR PO (09:09)
[2024-12-14] MEDS: ENOXAPARIN SOD INJ 40 MG/0.4 ML SYRINGE SC (09:09)
--- NOTE | 2024-12-14 09:45 | ESPR_ITS ---
Documentation for date of: 12/14/24 Subjective Subjective Interval history: No overnight events. Patient admitted overnight. Patient has a past medical history of stage III undifferentiated pleomorphic sarcoma s/p resection (12/07/2021), status post radiation (01/30/2022-03/19/2022) with chemo therapy completed (started on 06/09/2022), and history of Hepatitis B w/ Entecavir as a home medication (not noted in EMR system). Patient stated he fell June of 2024 and noticed increasing pain. Patient stated he has not followed up with a provider in over 2 years and may not have Entecavir on board as a home medication as he does not have a pcp. Patient stated there is pain to site of lesion. Only noted discharge from lesion about 1 week ago. Had pyrexia at home which promoted him to seek medical attention. Denied chills. Denied sick contacts. Denied recent weight loss. Denied hematochezia or melena. Patient stated his femoral biceps feels contracted. Previous history of neurolysis of sciatic, peroneal, tibial. *PT recommend [facility]. and outpatient PT services. Penidng biopsy of site. Continue antibiotics. Added Nystatin cream for possible fungal infection. Dr. Dee, radiation oncology, following patient. Exam Vital Signs Temp Pulse Resp BP Pulse Ox O2 Del Method 97.2 F 84 17 94/65 95 Room Air 12/14/24 08:00 12/14/24 08:00 12/14/24 08:00 12/14/24 08:00 12/14/24 08:00 12/14/24 08:00 Narrative Exam General Appearance: Alert & Oriented X3, well-nourished male who is lying in bed in no acute distress. Open lesion to gluteal region, moving towards biceps femoris, warm to touch, with white discharge. Nondularity noted on physical exam to site as well as right inguinal groin. HEENT: Skull symmetrical and atraumatic. Conjunctivae pink and moist. Pupils equal, round, reactive to light and accommodation (PERRL). External ear without lesion or discharge. Straight, nares patient, mucosa pink, no discharge. No thyroid nodule appreciated. Cardio: Normal Rate and Rhythm with S1 and S2 heart sounds. No murmurs or extra heart sounds auscultated. No bruits on carotid auscultation. No peripheral edema or cyanosis. Lungs: Symmetric with good expansion. Chest and back non-tender. Breath sounds vesicular without crackles, wheezing or rhonchi Abdomen: Non-tender, Non-distended, Normal Reactive Bowel Sounds Neuro: Alert, cooperative, oriented to person, place, and time. Speech clear. CN grossly intact. Upper motor strength 5/5 and Lower motor strength 5/5. Sensation intact. Objective Labs 12/16/24 05:25 12/16/24 05:25 Labs: Laboratory Results - last 24 hr 12/13/24 12/13/24 12/13/24 16:16 20:34 22:00 WBC 12.6 H RBC 4.62 Hgb 13.9 Hct 41.1 MCV 89 MCH 30.1 MCHC 33.8 RDW Std Deviation 42.4 Plt Count 454 H Neut % (Auto) 82 H Lymph % (Auto) 6 L [place] % (Auto) 9 Eos % (Auto) 2 Baso % (Auto) 0 Neut # (Auto) 10.3 H Lymph # (Auto) 0.8 L [place] # (Auto) 1.1 H Eos # (Auto) 0.3 Baso # (Auto) 0.1 Immature Gran # (Auto) 0.08 H Absolute Nucleated RBC 0.00 Immature Gran % 1 H Nucleated RBC % 0 ESR 127 H PT 11.7 INR 1.1 Sodium 133 L Potassium 3.3 L Chloride 98 Carbon Dioxide 23.8 Anion Gap 11 BUN 14 Creatinine 1.2 Estim Creat Clear Calc 63.3 eGFR > 60 BUN/Creatinine Ratio [address] Glu mg/dL Hemoglobin A1c Calculated Osmolality 268 L Lactic Acid 4.2 H* 1.6 Calcium 9.3 Corrected Calcium 9.3 Phosphorus Magnesium 1.8 Total Bilirubin 0.4 AST 22 ALT 30 Alkaline Phosphatase 103 C-Reactive Prot, Quant 11.0 H Total Protein 7.8 Albumin 4.1 Globulin 3.7 H Albumin/Globulin Ratio 1.1 L Procalcitonin 0.11 TSH Ur Collection Type Clean Catch Urine Color Lt-Yellow Urine Clarity Clear Urine pH 6.5 Ur Specific [place] 1.016 Urine Protein Negative Urine Glucose (UA) Negative Urine Ketones Negative Urine Blood Negative Urine Nitrite Negative Urine Bilirubin Negative Urine Urobilinogen (Auto) Negative Ur Leukocyte Esterase Negative Urine RBC 5 H Urine WBC 1 Ur Squamous Epith Cells 0 Urine Bacteria None Ur Culture Indicated? Not Indicated 12/14/24 05:42 WBC 11.2 H RBC 4.05 L Hgb 12.2 L Hct 36.1 L MCV 89 MCH 30.1 MCHC 33.8 RDW Std Deviation 42.6 Plt Count 375 D Neut % (Auto) 75 Lymph % (Auto) 11 [place] % (Auto) 10 Eos % (Auto) 3 Baso % (Auto) 0 Neut # (Auto) 8.4 H Lymph # (Auto) 1.2 [place] # (Auto) 1.2 H Eos # (Auto) 0.3 Baso # (Auto) 0.1 Immature Gran # (Auto) 0.04 H Absolute Nucleated RBC 0.00 Immature Gran % 0 Nucleated RBC % 0 ESR PT INR Sodium 135 L Potassium 3.8 D Chloride 101 Carbon Dioxide 27.0 Anion Gap 7 BUN 11 Creatinine 0.9 Estim Creat Clear Calc 84.4 eGFR > 60 BUN/Creatinine Ratio [address] Glu mg/dL 114 Hemoglobin A1c 5.6 Calculated Osmolality 269 L Lactic Acid Calcium 9.0 Corrected Calcium Phosphorus 3.1 Magnesium 2.0 Total Bilirubin AST ALT Alkaline Phosphatase C-Reactive Prot, Quant Total Protein Albumin Globulin Albumin/Globulin Ratio Procalcitonin TSH 2.16 Ur Collection Type Urine Color Urine Clarity Urine pH Ur Specific [place] Urine Protein Urine Glucose (UA) Urine Ketones Urine Blood Urine Nitrite Urine Bilirubin Urine Urobilinogen (Auto) Ur Leukocyte Esterase Urine RBC Urine WBC Ur Squamous Epith Cells Urine Bacteria Ur Culture Indicated? Quality Measures Quality Measures none Assessment & Plan Assessment Current Active Medications: Generic Name Dose Route Start Last Admin Trade Name Freq PRN Reason Stop Dose Admin Acetaminophen 650 mg 12/13/24 23:42 Acetaminophen 325 Mg Tablet PO 01/12/25 21:22 Q6H PRN Fever >100.4 or Pain Hydrocodone Bitart/Acetaminophen 1 tab 12/13/24 21:29 Hydrocodone/Apap 5/325 Tablet PO 12/18/24 21:28 Q4HR PRN Pain Scale 6-10 Enoxaparin Sodium 40 mg 12/14/24 09:00 12/14/24 09:09 Enoxaparin Sod Inj 40 Mg/0.4 Ml Syringe SC 12/28/24 08:59 40 mg QDAY BRIAN Administration Ceftriaxone Sodium/Dextrose 50 mls @ 100 mls/hr 12/13/24 23:37 01/28/25 09:09 Rocephin/D5w 1gm Iv Premix IV 12/20/24 23:36 100 mls/hr QDAY BRIAN Administration Magnesium Hydroxide 30 ml 12/13/24 21:23 Milk Of Magnesia Susp 30 Ml Udc PO 01/12/25 21:22 QDAY PRN CONSTIPATION Protocol Ondansetron HCl 4 mg 12/13/24 21:23 Ondansetron Inj 2 Mg/Ml Inj 2 Ml IV 01/12/25 21:22 Q6H PRN NAUSEA OR VOMITING Protocol Plan A 59-year-old male with past medical history of Stage IIIb (pT4, NX), 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 #Sepsis, secondary to soft tissue infection #Soft Tissue Infection #Leukocytosis On admission patient met SIRs Criteria with elevated WBC 138, RR 22, and Temperature of 103 F with a known source of infection to lesion at right hamstring region. Site is warm to touch, with drainage, and leukocytosis. Diagnostics: Labs showed WBC 12.6, platelets 454, ESR 127, CRP 11 Lower extremity and pelvis CT showed Extensive pelvic mass destroying right ischium right inferior pubic ramus, proximal right femoral shaft posterior right acetabulum posterior right iliac Blood Culture negative 24 hours. Plan -Started on ceftriaxone 1 g IV daily 12/13/2024 -Blood culture Pending Final report -Wound Care -[place] -OP Wound Healing Dep Routine -Tylenol 650 PRN # Recurrent sarcoma of posterior right thigh #History of undifferentiated polymorphic sarcoma s/p chemotherapy and radiotherapy Patient has a past medical history of sarcoma with s/p chemotherapy and radiotherapy. Patient stated he completed all chemotherapy but has not followed up with a primary care provider or seen Dr. Dee at least 2 years. Patient was under the impression that cancer was under remission. High suspicion of reoccurrence of malignancy given physical exam. Plan -biopsy -[place] p.o. as needed every fourth hourly -Radiation Oncology consulted, Dr. Dee, appreciate recommendations. # Right foot drop #Contracted hamstrings. Adri stated he recently had a fall in June 2024 with worsening symptoms within the last 2 weeks. 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 This could also be reoccurrence of Sarcoma that is now involving nerves as hamstring muscles appear contracted plus the foot drop. Plan: -PT-->FWW and outpatient PT -No acute intervention needed as of now, follow-up in outpatient basis #History Hepatitis B Per chart review,Dr. Olivera note stated that patient is hepatitis B and is on Entecavir. No evidence of continued medication use, may be chronic. Please follow up outpatient. Diagnostics: -Hep Bs Antigen Reactive A, Hep Bs Ag confirmation Pending, Hep Bs antibody Non- reactive Plan: -No evidence found on chart review -Ordered hepatitis B surface antigen and antibody, follow-up with results Hospital Maintenance: Dispo: MedSurg DVT ppx: Lovenox GI ppx: Not needed Diet: Regular IV lines: Peripheral Code status: Full code - The patient's plan was discussed with attending Dr. Roman and senior residents Dr. Saranya Gonzalez MD PGY1 Internal Medicine Senior Resident Attestation: I discussed with and supervised the video editing internship physician involved in the care of this patient. I personally saw and examined the patient and discussed the assessment and plan with the entire medicine team, including my attending. I agree with the assessment and plan as documented above. [Patient seen and examined. Pending biopsy of the right lower extremity. There is a concern for recurrence of the sarcoma. Dr. Dee consulted.] - Patient's care was discussed with my attending physician. Kd Beaver MD Internal Medicine PGY-3 Attending Provider Attestation/Addendum I have examined the patient, reviewed labs and imaging findings, discussed the case with the resident(s), and reviewed entered orders. I agree with the plan of care as outlined in this note, with these additional summaries/recommendations: Patient seen at bedside. Today patient endorses right thigh/pelvic pain although improved from admission. Patient has history of undifferentiated polymorphic sarcoma and received chemotherapy plus radiation and does not appear to have followed up with oncology for surveillance. Patient now presented with severe right thigh pain/pelvic pain with evidence of likely reoccurrence. Pelvis CT showed extensive pelvic mass destroying the right ischium, right inferior pubic ramus, proximal right femoral shaft, posterior right acetabulum, and right iliac bone. Right lower extremity CT revealed extensive soft tissue mass destroying the right ischium, right inferior pubic ramus, proximal right femoral shaft, posterior right acetabulum, and posterior right iliac bone. Oncology was consulted and patient went for IR biopsy today. Possible patient has superimposed cellulitis and we will continue IV antibiotics for now. Wound and blood cultures taken and we will follow-up results when available. Patient also appears to have right foot drop and we will obtain physical therapy evaluation. Consult wound care. Patient has chronic hepatitis B and continue home Entecavir, patient advised to bring to hospital. Repeat hematology and chemistry panel in AM. Dr. Roman
--- NOTE | 2024-12-14 09:45 | PD.ONCCONS ---
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 Patient underwent surgery at [facility] 12/08/2021 undergoing radical surgery involving the right thigh with removal of posterior mass 29 x 18 x 13 cm. Patient received postop radiation therapy [facility]3] 6000 cGy and AIM chemotherapy 6 cycles at [facility]. Patient failed to show after last follow-up in July 2022. Recently patient having pain in the right thigh area which she attributed to possible infection. Came to ER and pelvis and lower extremity CT 12/13/2024 revealed extensive pelvic mass destroying right ischium right inferior pubic ramus proximal right femoral shaft right posterior acetabulum posterior right iliac bone. Chest x-ray negative venous Doppler shows right groin mass. Patient now referred for oncological consultation. Patient states that pain which was severe prior to coming to hospital is better with meds received in the hospital. 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[facility] lives with girlfriend has grown children Past Medical History Comments PMH COMMENT: Denies other than above Meds Home Medications and Allergies Allergies Allergy/AdvReac Type Severity Reaction Status Date / Time No Known Allergies Allergy Verified 04/03/22 14:27 Exam Vital Signs Temp Pulse Resp BP Pulse Ox O2 Del Method 97.2 F 84 17 94/65 95 Room Air 12/14/24 08:00 12/14/24 08:00 12/14/24 08:00 12/14/24 08:00 12/14/24 08:00 12/14/24 08:00 Narrative Exam Lying comfortably answers questions appropriately Results Labs 12/14/24 05:42 12/14/24 05:42 Labs: Short CBC 12/13/24 12/14/24 Range/Units 16:16 05:42 WBC 12.6 H 11.2 H (3.8-10.6) Thou/mm3 Hgb 13.9 12.2 L (13.5-16.0) g/dL Hct 41.1 36.1 L (41.0-53.0) % Plt Count 454 H 375 D (140-440) Thou/mm3 BMP 12/13/24 12/14/24 16:16 05:42 Sodium 133 L 135 L Potassium 3.3 L 3.8 D Chloride 98 101 Carbon Dioxide 23.8 27.0 BUN 14 11 Creatinine 1.2 0.9 Glucose 141 H 106 Calcium 9.3 9.0 Liver Function 12/13/24 Range/Units 16:16 Total Bilirubin 0.4 (0.3-1.2) mg/dL AST 22 (0-34) U/L ALT 30 (10-49) U/L Alkaline Phosphatase 103 (46-116) U/L Albumin 4.1 (3.4-4.8) gm/dL Urine 12/13/24 Range/Units 22:00 Urine Color Lt-Yellow (Lt Yel-Yel) Urine Clarity Clear (Clear/Hazy) Urine pH 6.5 (5.0-7.0) Ur Specific [place] 1.016 (1.001-1.035) Urine Protein Negative (Neg - Trace) Urine Glucose (UA) Negative (Negative) Assessment and Plan Additional Assessment & Plan Additional Plan: 1. 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 2. Postop XRT [address] [facility] and chemo AIM 6 cycles [facility] completed 2021 3. Did not get regular checkups posttreatment and now appears to have major recurrence in the right pelvic area. 4. Patient agrees to get a biopsy at the recurrent area and willing to get what ever further treatments may benefit him. Will l now order. 5. Thank you for allowing me to evaluate this patient.
--- NOTE | 2024-12-14 10:04 | XR_ITS ---
Examination: CT guided percutaneous biopsy posterior right pelvic mass ET pelvis without intravenous contrast Date and time of procedure: December 14, 2024 1342 hours INDICATIONS: Large soft tissue posterior pelvic mass destroying bones of the pelvis and right femoral shaft on CT examination December 13, 2024 Informed consent provided. A timeout was completed verifying correct patient, procedure, site and positioning. Technique: Axial 3 mm sections were obtained for localization of the posterior right pelvic mass Appropriate area is marked. The patient's site was prepped and draped in sterile fashion Maximal sterile barrier technique utilized, including hand hygiene Local anesthesia was obtained with 1% lidocaine. Low dose protocols were performed. One or more of the following dose reduction techniques were used; automated exposure control, adjustment of the mA and/or KV according to patient size, use of iterative reconstruction technique. Utilizing CT fluoroscopic guidance 2 core biopsies obtained of the soft tissue posterior pelvic mass Arterial bleeding precluded additional biopsies Patient appears in stable condition during this procedure. At completion of the procedure, the patient is in satisfactory condition. Estimated blood loss 10 cc Complete pathology culture and sensitivity report to follow. Impression: Successful CT-guided percutaneous biopsy soft tissue posterior pelvic mass
--- NOTE | 2024-12-14 13:31 | PC.PT ---
PT eval only. Patient was xI with bed mobility, transfers and required only supervision with ambulation using a FWW. Patient is safe to ambulate in the gr and to the bathroom with a FWW and 1 staff assist. RN notified.
[2024-12-14 13:52] LABS: Hepatitis B Surface Ab NonReact(Not Immune) (Immune)
[2024-12-14] MEDS: fentaNYL CIT INJ 50 mCg/ML AMP 2ML 75 MCG IVP (13:58)
[2024-12-14 14:34] LABS: Hepatitis B Surface Antigen Reactive (Non React)
[2024-12-14 14:36] LABS: ZZHep B Surface Ag Confrm* See Sep Rpt
--- NOTE | 2024-12-14 15:28 | PC.SS ---
Addendum entered by Lianne Zacarias 12/14/24 15:37: SS follow up note; SS submitted DME inquiry for a FWW through [employer]. Original Note: SS follow up note SS attempted multiple times to complete initial assessment, howerver patient getting procedure. SS was notified by Bassem from PT that patient was needing FWW. Bassem informed SS that patient would benefit for outpatient PT. SS was also contacted by wound care, nurse Tania and informed SS that patient would need HH for wound care. SS will stand by for further needs.
--- NOTE | 2024-12-14 15:37 | PC.SS ---
Patient Chung Peres is a 59 Year old male admitted for Sarcoma. SS contacted patient's , Dong Robert, howerver did not speak greenlandic, She provided me with patient's daughter, Tea's contact information to translate [phone]. Eboni reported that she would be the point of contact since her mother does not speak [place]. She reports that patient's is the decision maker, [phone]. Patient lives at home with family. Prior to admission patient was ambulating with Cane and was able to complete all ADL's independently. Choice of pharmacy is [facility]. Patient's PCP is Nae Flowers. At time of discharge patient will return Home with HH. SS contacted Dr. Beaver and informed him patient would need HH at time of discharge. Family has no HH preference. Emergency Contact, Daughter, Eboni [phone].. Patient's makes decisions, however does not speak [place] Discharge Plan: Home
[2024-12-14] MEDS: BALSAM PERU/CASTOR OIL (Venelex) 60 GM TUBE TOP (21:54)
[2024-12-15] VITALS: BP 108/68; PULSE 78; RESP 17; TEMP 36.7; O2SAT 96
[2024-12-15 04:00] VITALS: BP 99/71; PULSE 76; RESP 18; TEMP 36.8; O2SAT 97
[2024-12-15] MEDS: HYDROcodone/APAP 5/325 TABLET 1 TAB PO ×2 (05:23→22:58)
[2024-12-15 06:16] LABS: Basophils # (Auto) 0.1 Thou/mm3 (0.0-0.2); Basophils % (Auto) 1 % (0-2.5); Eosinophils # (Auto) 0.5 Thou/mm3 (0.0-0.5); Eosinophils % (Auto) 5 % (0-10); Hematocrit 36.6 % (41.0-53.0); Hemoglobin 12.2 g/dL (13.5-16.0); Immature Granulocytes % (Auto) 0 % (0-0); Immature Granulocytes Auto 0.04 Thou/mm3 (0.00-0.00); Lymphocytes % (Auto) 9 % (10-50); Mean Corpuscular HGB Conc 33.3 g/dl (31.0-37.0); Mean Corpuscular Hemoglobin 29.6 pg (25.0-35.0); Mean Corpuscular Volume 89 fL (80-100); Monocytes # (Auto) 1.2 Thou/mm3 (0.0-0.8); Monocytes % (Auto) 11 % (0-12); Neutrophils % (Auto) 75 % (37-80); Nucleated Red Blood Cell % 0 /100 WBC (0); Platelet Count 358 Thou/mm3 (140-440); RDW Standard Deviation 42.7 fL (35.1-43.9); Red Blood Count 4.12 Miln/mm3 (4.50-5.90); White Blood Count 10.8 Thou/mm3 (3.8-10.6)
[2024-12-15 07:18] LABS: Alanine Aminotransferase 20 U/L (10-49); Albumin, Serum 3.5 gm/dL (3.4-4.8); Albumin/Globulin Ratio 1.1 (1.2-2.2); Alkaline Phosphatase 84 U/L (46-116); Anion Gap 9 (7-16); Aspartate Amino Transferase 21 U/L (0-34); BUN/Creatinine Ratio 11 Ratio (12-20); Bilirubin,Total 0.5 mg/dL (0.3-1.2); Blood Urea Nitrogen 10 mg/dL (9-23); Calcium 9.5 mg/dL (8.3-10.6); Calcium (Corrected) 9.9 mg/dL (8.5-10.1); Carbon Dioxide 25.5 mMol/L (20.0-31.0); Chloride 104 mMol/L (98-107); Creatinine (Component) 0.9 mg/dL (0.6-1.3); Estimated Creatinine Clearance 84.4 mL/min (>60); Globulin 3.2 gm/dL (2.3-3.5); Glucose 103 mg/dL (74-106); Magnesium 2.1 mg/dL (1.6-2.6); Osmolality,Calculated 274 (275-295); Phosphorous 3.5 mg/dL (2.4-5.1); Potassium 3.8 mMol/L (3.4-5.1); Sodium 138 mMol/L (136-145); Total Protein 6.7 gm/dL (5.7-8.2); eGFR > 60 See Note
--- NOTE | 2024-12-15 07:55 | ESPR_ITS ---
Documentation for date of: 12/15/24 Subjective Subjective Interval history: Patient underwent successful biopsy of the right pelvic mass yesterday and tolerated well. Exam Vital Signs Temp Pulse Resp BP Pulse Ox O2 Del Method O2 Flow Rate 98.2 F 76 18 99/71 97 Room Air 3 12/15/24 04:00 12/15/24 04:00 12/15/24 04:00 12/15/24 04:00 12/15/24 04:00 12/15/24 04:00 12/14/24 14:09 Objective Labs 12/15/24 05:57 12/15/24 05:57 Labs: Laboratory Results - last 24 hr 12/13/24 12/15/24 20:34 05:57 WBC 10.8 H RBC 4.12 L Hgb 12.2 L Hct 36.6 L MCV 89 MCH 29.6 MCHC 33.3 RDW Std Deviation 42.7 Plt Count 358 Neut % (Auto) 75 Lymph % (Auto) 9 L Cloud % (Auto) 11 Eos % (Auto) 5 Baso % (Auto) 1 Neut # (Auto) 8.0 H Lymph # (Auto) 1.0 Cloud # (Auto) 1.2 H Eos # (Auto) 0.5 Baso # (Auto) 0.1 Immature Gran # (Auto) 0.04 H Absolute Nucleated RBC 0.00 Immature Gran % 0 Nucleated RBC % 0 Sodium 138 Potassium 3.8 Chloride 104 Carbon Dioxide 25.5 Anion Gap 9 BUN 10 Creatinine 0.9 Estim Creat Clear Calc 84.4 eGFR > 60 BUN/Creatinine Ratio 11 L Glucose 103 Calculated Osmolality 274 L Calcium 9.5 Corrected Calcium 9.9 Phosphorus 3.5 Magnesium 2.1 Total Bilirubin 0.5 AST 21 ALT 20 Alkaline Phosphatase 84 Total Protein 6.7 Albumin 3.5 D Globulin 3.2 Albumin/Globulin Ratio 1.1 L Hep Bs Antigen Reactive A Hep Bs Antibody NonReact(Not Immune) L Assessment & Plan A&P Narrative 1. 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 2. Postop XRT 6000 cGy [facility] and chemo AIM 6 cycles [facility] completed 2021 3. Did not get regular checkups posttreatment and now appears to have major recurrence in the right pelvic area. 4. Underwent successful CT-guided biopsy of soft tissue posterior pelvic mass yesterday. 5. Patient will be scheduled at the cancer Center next week for follow-up. Time Spent With Patient Time: Total time spent is greater than 50% in coordination of care (as documented) at patient's floor/unit and/or counseling patient:
[2024-12-15 08:00] VITALS: BP 95/66; PULSE 72; RESP 18; TEMP 36.2; O2SAT 97
[2024-12-15] MEDS: NYSTATIN CR 30 GM TUBE TOP ×2 (08:57→20:51)
[2024-12-15] MEDS: cefTRIAXone/D5w 1gm IV premix 50 ML IV (08:58)
[2024-12-15] MEDS: BALSAM PERU/CASTOR OIL (Venelex) 60 GM TUBE TOP ×2 (08:58→20:51)
[2024-12-15] MEDS: POTASSIUM CHLORIDE 20 mEq TABCR PO (09:00)
--- NOTE | 2024-12-15 10:34 | PC.SS ---
SS made an [facility] appointment for Dec 22 at 1030am, SS provided information to pt dtr.
[2024-12-15 12:00] VITALS: BP 115/75; PULSE 82; RESP 20; TEMP 36.3; O2SAT 97
[2024-12-15 13:24] VITALS: BMI 27.3
--- NOTE | 2024-12-15 13:31 | PD.RESPRO ---
Documentation for date of: 12/15/24 Subjective Subjective Interval history: No overnight events. Patient denied pyrexia overnight or chills. Patient is doing well after biopsy. Explained the likely probability of this being a reoccurrence of previous cancer. Patient understand that he needs to follow up with Dr. Dee, radiation oncology. Patient denied pyrexia. Patient denied chills. Improved pain. PT-->FWW & outpatient PT. One of two blood cultures growing gram negative rods, already on antibiotics. Exam Vital Signs Temp Pulse Resp BP Pulse Ox O2 Del Method O2 Flow Rate 97.3 F 82 20 115/75 97 Room Air 3 12/15/24 12:00 12/15/24 12:00 12/15/24 12:00 12/15/24 12:00 12/15/24 12:00 12/15/24 12:00 12/14/24 14:09 Objective Labs 12/16/24 05:25 12/16/24 05:25 Labs: Laboratory Results - last 24 hr 12/13/24 12/15/24 20:34 05:57 WBC 10.8 H RBC 4.12 L Hgb 12.2 L Hct 36.6 L MCV 89 MCH 29.6 MCHC 33.3 RDW Std Deviation 42.7 Plt Count 358 Neut % (Auto) 75 Lymph % (Auto) 9 L Banner % (Auto) 11 Eos % (Auto) 5 Baso % (Auto) 1 Neut # (Auto) 8.0 H Lymph # (Auto) 1.0 Banner # (Auto) 1.2 H Eos # (Auto) 0.5 Baso # (Auto) 0.1 Immature Gran # (Auto) 0.04 H Absolute Nucleated RBC 0.00 Immature Gran % 0 Nucleated RBC % 0 Sodium 138 Potassium 3.8 Chloride 104 Carbon Dioxide 25.5 Anion Gap 9 BUN 10 Creatinine 0.9 Estim Creat Clear Calc 84.4 eGFR > 60 BUN/Creatinine Ratio 11 L Glucose 103 Calculated Osmolality 274 L Calcium 9.5 Corrected Calcium 9.9 Phosphorus 3.5 Magnesium 2.1 Total Bilirubin 0.5 AST 21 ALT 20 Alkaline Phosphatase 84 Total Protein 6.7 Albumin 3.5 D Globulin 3.2 Albumin/Globulin Ratio 1.1 L Hep Bs Antigen Reactive A Hep Bs Antibody NonReact(Not Immune) L Quality Measures Quality Measures none Assessment & Plan Assessment Current Active Medications: Generic Name Dose Route Start Last Admin Trade Name Freq PRN Reason Stop Dose Admin Acetaminophen 650 mg 12/14/24 14:37 Acetaminophen 325 Mg Tablet PO 01/12/25 21:22 Q6H PRN Fever >100.3 or Pain Hydrocodone Bitart/Acetaminophen 1 tab 12/13/24 21:29 12/15/24 05:23 Hydrocodone/Apap 5/325 Tablet PO 12/18/24 21:28 1 tab Q4HR PRN Administration Pain Scale 6-10 Balsam [place] Oil 0 gm 12/14/24 21:00 12/15/24 08:58 Balsam [place] Oil (Venelex) 60 Gm Tube TOP 01/13/25 20:59 1 applicatio BID BRIAN Administration Enoxaparin Sodium 40 mg 12/14/24 09:00 12/14/24 09:09 Enoxaparin Sod Inj 40 Mg/0.4 Ml Syringe SC 12/28/24 08:59 40 mg QDAY BRIAN Administration Ceftriaxone Sodium/Dextrose 50 mls @ 100 mls/hr 12/13/24 23:37 12/15/24 08:58 Rocephin/D5w 1gm Iv Premix IV 12/20/24 23:36 100 mls/hr QDAY BRIAN Administration Magnesium Hydroxide 30 ml 12/13/24 21:23 Milk Of Magnesia Susp 30 Ml Udc PO 01/12/25 21:22 QDAY PRN CONSTIPATION Protocol Nystatin 0 gm 12/14/24 21:00 12/15/24 08:57 Nystatin Cr 30 Gm Tube TOP 01/13/25 20:59 1 applicatio BID BRIAN Administration Ondansetron HCl 4 mg 12/13/24 21:23 Ondansetron Inj 2 Mg/Ml Inj 2 Ml IV 01/12/25 21:22 Q6H PRN NAUSEA OR VOMITING Protocol Plan A 59-year-old male with past medical history of Stage IIIb (pT4, NX), 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 status post wide excision in [facility] (12/07/2021), S/p adjuvant radiation therapy (01/30/2022 - 03/19/2022), AIM chemotherapy in the adjuvant setting (06/09/2022, 6 cycles per patient), Hepatitis B infection presented to the hospital with chief complaints of pain in the right lower extremity since 6 weeks and fever since 1 week and admitted for Recurrent posterior thigh sarcoma and possible superimposed cellulitis. #Sepsis, secondary to soft tissue infection, improved #Soft Tissue Infection #Leukocytosis, improving On admission patient met SIRs Criteria with elevated WBC 138, RR 22, and Temperature of 103 F with a known source of infection to lesion at right hamstring region. Site is warm to touch, with drainage, and leukocytosis. Diagnostics: Labs showed WBC 12.6, platelets 454, ESR 127, CRP 11 Lower extremity and pelvis CT showed Extensive pelvic mass destroying right ischium right inferior pubic ramus, proximal right femoral shaft posterior right acetabulum posterior right iliac Blood Culture: First bottle Negative after 24 hours and second bottle from anaerobic Gram Negative Rods Plan -Started on ceftriaxone 1 g IV daily 12/13/2024 -Blood culture Pending Final report -Wound Care Pending -Balsam -OP Wound Healing Dep Routine -Tylenol 650 PRN # Recurrent sarcoma of posterior right thigh #History of undifferentiated polymorphic sarcoma s/p chemotherapy and radiotherapy Patient has a past medical history of sarcoma with s/p chemotherapy and radiotherapy. Patient stated he completed all chemotherapy but has not followed up with a primary care provider or seen Dr. Dee at least 2 years. Patient was under the impression that cancer was under remission. High suspicion of reoccurrence of malignancy given physical exam. Plan -biopsy-report pending -[place] p.o. as needed every fourth hourly -Radiation Oncology consulted, Dr. Dee, appreciate recommendations. # Right foot drop #Contracted hamstrings. Adri stated he recently had a fall in June 2024 with worsening symptoms within the last 2 weeks. 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 This could also be reoccurrence of Sarcoma that is now involving nerves as hamstring muscles appear contracted plus the foot drop. Plan: -PT-->FWW and outpatient PT -No acute intervention needed as of now, follow-up in outpatient basis #History Hepatitis B Per chart review,Dr. Olivera note stated that patient is hepatitis B and is on Entecavir. No evidence of continued medication use, may be chronic. Please follow up outpatient. Diagnostics: -Hep Bs Antigen Reactive A, Hep Bs Ag confirmation Pending, Hep Bs antibody Non-reactive Plan: -No evidence found on chart review -Ordered hepatitis B surface antigen and antibody, follow-up with results Hospital Maintenance: Dispo: MedSurg DVT ppx: Lovenox GI ppx: Not needed Diet: Regular IV lines: Peripheral Code status: Full code - The patient's plan was discussed with attending Dr. Saldivar and senior residents Dr. Saranya Gonzalez MD PGY1 Internal Medicine Senior Resident Attestation: I discussed with and supervised the international exchange coordinator physician involved in the care of this patient. I personally saw and examined the patient and discussed the assessment and plan with the entire medicine team, including my attending. I agree with the assessment and plan as documented above. - Patient's care was discussed with my attending physician. Kd Beaver MD Internal Medicine PGY-3 Attending Provider Attestation/Addendum I attest that I was physically present for the evaluation, physical examination, lab and imaging review of the patient with the residents. I discussed the case with the residents and agree with the findings and plans of care as documented above. At bedside today, patient is feeling better. His pain has been well-controlled with analgesics. Continues to be on IV Rocephin. One of the bottles from blood culture grew gram-negative rods, pending final results. Wound care recommended continuation of outpatient wound care, we will obtain home health order. Patient will also need physical therapy with home health. Iris Saldivar MD
--- NOTE | 2024-12-15 13:33 | PC.DIETICIAN ---
1. Flavored Jagdeep 1 pkt BID daily; after lunch and dinner; mix with 6-8 oz water for targeted nutrition and wound healing, RN to administer as medication. 2. Recommendation: add Vitamin C 500mg BID daily, zinc 220mg, Multivitamin-Mineral daily to ensure adequate nutrient intake and promote wound healing.
[2024-12-15 16:00] VITALS: BP 90/64; PULSE 86; RESP 17; TEMP 36.7; O2SAT 94
--- NOTE | 2024-12-15 16:01 | PC.SS ---
SS follow up note; SS contacted Dr. Saldivar to inform him that Wound care nurse recommended HH for wound care and PT also for PT.
[2024-12-15 20:00] VITALS: BP 91/64; PULSE 96; RESP 18; TEMP 36.8; O2SAT 96
[2024-12-16] VITALS: BP 95/66; PULSE 61; RESP 17; TEMP 36.6; O2SAT 96
[2024-12-16 04:00] VITALS: BP 94/67; PULSE 68; RESP 17; TEMP 36.2; O2SAT 96
[2024-12-16 05:58] LABS: Basophils # (Auto) 0.1 Thou/mm3 (0.0-0.2); Basophils % (Auto) 1 % (0-2.5); Eosinophils # (Auto) 0.5 Thou/mm3 (0.0-0.5); Eosinophils % (Auto) 5 % (0-10); Hematocrit 40.2 % (41.0-53.0); Hemoglobin 13.1 g/dL (13.5-16.0); Immature Granulocytes % (Auto) 1 % (0-0); Immature Granulocytes Auto 0.05 Thou/mm3 (0.00-0.00); Lymphocytes % (Auto) 11 % (10-50); Mean Corpuscular HGB Conc 32.6 g/dl (31.0-37.0); Mean Corpuscular Hemoglobin 29.5 pg (25.0-35.0); Mean Corpuscular Volume 91 fL (80-100); Monocytes % (Auto) 10 % (0-12); Neutrophils # (Auto) 7.2 Thou/mm3 (1.8-7.7); Neutrophils % (Auto) 74 % (37-80); Nucleated Red Blood Cell % 0 /100 WBC (0); Platelet Count 433 Thou/mm3 (140-440); RDW Standard Deviation 43.7 fL (35.1-43.9); Red Blood Count 4.44 Miln/mm3 (4.50-5.90); White Blood Count 9.8 Thou/mm3 (3.8-10.6)
[2024-12-16 06:35] LABS: Alanine Aminotransferase 25 U/L (10-49); Albumin, Serum 3.8 gm/dL (3.4-4.8); Albumin/Globulin Ratio 1.1 (1.2-2.2); Alkaline Phosphatase 90 U/L (46-116); Anion Gap 6 (7-16); Aspartate Amino Transferase 21 U/L (0-34); BUN/Creatinine Ratio 16 Ratio (12-20); Bilirubin,Total 0.4 mg/dL (0.3-1.2); Blood Urea Nitrogen 14 mg/dL (9-23); Calcium 9.2 mg/dL (8.3-10.6); Calcium (Corrected) 9.4 mg/dL (8.5-10.1); Carbon Dioxide 28.4 mMol/L (20.0-31.0); Chloride 101 mMol/L (98-107); Creatinine (Component) 0.9 mg/dL (0.6-1.3); Estimated Creatinine Clearance 84.4 mL/min (>60); Globulin 3.6 gm/dL (2.3-3.5); Glucose 110 mg/dL (74-106); Magnesium 2.2 mg/dL (1.6-2.6); Osmolality,Calculated 271 (275-295); Potassium 3.9 mMol/L (3.4-5.1); Sodium 135 mMol/L (136-145); Total Protein 7.4 gm/dL (5.7-8.2); eGFR > 60 See Note
[2024-12-16 08:00] VITALS: BP 95/70; PULSE 73; RESP 18; TEMP 36.2; O2SAT 97
[2024-12-16] MEDS: POTASSIUM CHLORIDE 20 mEq TABCR PO (09:10)
[2024-12-16] MEDS: cefTRIAXone/D5w 1gm IV premix 50 ML IV (09:11)
[2024-12-16] MEDS: BALSAM PERU/CASTOR OIL (Venelex) 60 GM TUBE TOP ×2 (09:30→20:27)
[2024-12-16] MEDS: NYSTATIN CR 30 GM TUBE TOP ×2 (09:50→20:28)
--- NOTE | 2024-12-16 10:55 | PD.RESPRO ---
Documentation for date of: 12/16/24 Subjective Subjective Interval history: No overnight events reported for patient. Patient denied chills of pyrexia. Patient examined at bedside. Updated patient, current biopsy was poor and will need to follow up with cancer center within one week of discharge for right inguinal node biopsy. Patient is understanding. Pending blood culture for final speciazation. Exam Vital Signs Temp Pulse Resp BP Pulse Ox O2 Del Method O2 Flow Rate 97.1 F 73 18 95/70 97 Room Air 3 12/16/24 08:00 12/16/24 08:00 12/16/24 08:00 12/16/24 08:00 12/16/24 08:00 12/16/24 08:00 12/14/24 14:09 Narrative Exam General Appearance: Alert & Oriented X3, well-nourished male who is lying in bed in no acute distress. Erythema noted on right posterior lower extremity, no active drainage noted. Subcutaneous tissue noted on right inguinal groin. HEENT: Skull symmetrical and atraumatic. Conjunctivae pin and moist. Pupils equal, round, reactive to light and accommodation (PERRL). External ear without lesion or discharge. Straight, nares patient, mucosa pink, no discharge. Cardio: Normal Rate and Rhythm with S1 and S2 heart sounds. No murmurs or extra heart sounds auscultated. No bruits on carotid auscultation. No peripheral edema or cyanosis. Lungs: Symmetric with good expansion. Chest and back non-tender. Breath sounds vesicular without crackles, wheezing or rhonchi Abdomen: Non-tender, Non-distended, Normal Reactive Bowel Sounds Neuro: Alert, cooperative, oriented to person, place, and time. Speech clear. CN grossly intact. Upper motor strength 5/5 and Lower motor strength 5/5. Sensation intact. Objective Labs 12/17/24 05:00 12/17/24 05:00 Labs: Laboratory Results - last 24 hr 12/16/24 05:25 WBC 9.8 RBC 4.44 L Hgb 13.1 L Hct 40.2 L MCV 91 MCH 29.5 MCHC 32.6 RDW Std Deviation 43.7 Plt Count 433 D Neut % (Auto) 74 Lymph % (Auto) 11 [place] % (Auto) 10 Eos % (Auto) 5 Baso % (Auto) 1 Neut # (Auto) 7.2 Lymph # (Auto) 1.0 [place] # (Auto) 1.0 H Eos # (Auto) 0.5 Baso # (Auto) 0.1 Immature Gran # (Auto) 0.05 H Absolute Nucleated RBC 0.00 Immature Gran % 1 H Nucleated RBC % 0 Sodium 135 L Potassium 3.9 Chloride 101 Carbon Dioxide 28.4 Anion Gap 6 L BUN 14 Creatinine 0.9 Estim Creat Clear Calc 84.4 eGFR > 60 BUN/Creatinine Ratio 16 Glucose 110 H Calculated Osmolality 271 L Calcium 9.2 Corrected Calcium 9.4 Phosphorus 4.0 Magnesium 2.2 Total Bilirubin 0.4 AST 21 ALT 25 Alkaline Phosphatase 90 Total Protein 7.4 Albumin 3.8 Globulin 3.6 H Albumin/Globulin Ratio 1.1 L Quality Measures Quality Measures none Assessment & Plan Assessment Current Active Medications: Generic Name Dose Route Start Last Admin Trade Name Freq PRN Reason Stop Dose Admin Acetaminophen 650 mg 12/14/24 14:37 Acetaminophen 325 Mg Tablet PO 01/12/25 21:22 Q6H PRN Fever >100.3 or Pain Hydrocodone Bitart/Acetaminophen 1 tab 12/13/24 21:29 12/15/24 22:58 Hydrocodone/Apap 5/325 Tablet PO 12/18/24 21:28 1 tab Q4HR PRN Administration Pain Scale 6-10 Balsam [place] Oil 0 gm 12/14/24 21:00 12/15/24 20:51 Balsam [place] Oil (Venelex) 60 Gm Tube TOP 01/13/25 20:59 1 applicatio BID BRIAN Administration Enoxaparin Sodium 40 mg 12/14/24 09:00 12/14/24 09:09 Enoxaparin Sod Inj 40 Mg/0.4 Ml Syringe SC 12/28/24 08:59 40 mg QDAY BRIAN Administration Ceftriaxone Sodium/Dextrose 50 mls @ 100 mls/hr 12/13/24 23:37 12/16/24 09:11 Rocephin/D5w 1gm Iv Premix IV 12/20/24 23:36 100 mls/hr QDAY BRIAN Administration Magnesium Hydroxide 30 ml 12/13/24 21:23 Milk Of Magnesia Susp 30 Ml Udc PO 01/12/25 21:22 QDAY PRN CONSTIPATION Protocol Nystatin 0 gm 12/14/24 21:00 12/15/24 20:51 Nystatin Cr 30 Gm Tube TOP 01/13/25 20:59 1 applicatio BID BRIAN Administration Ondansetron HCl 4 mg 12/13/24 21:23 Ondansetron Inj 2 Mg/Ml Inj 2 Ml IV 01/12/25 21:22 Q6H PRN NAUSEA OR VOMITING Protocol Plan A 59-year-old male with past medical history of Stage IIIb (pT4, NX), 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 #Bacteremia secondary to soft tissue infection #Sepsis, secondary to soft tissue infection, improved #Soft Tissue Infection #Leukocytosis, resolved. On admission patient met SIRs Criteria with elevated WBC 138, RR 22, and Temperature of 103 F with a known source of infection to lesion at right hamstring region. Site is warm to touch, with drainage, and leukocytosis. Diagnostics: Labs showed WBC 12.6, platelets 454, ESR 127, CRP 11 Lower extremity and pelvis CT showed Extensive pelvic mass destroying right ischium right inferior pubic ramus, proximal right femoral shaft posterior right acetabulum posterior right iliac Blood Culture: First bottle Negative after 24 hours and second bottle from anaerobic Gram Negative Rods Plan -Started on ceftriaxone 1 g IV daily 12/13/2024 -Blood culture Pending Final report -Wound Care Pending -Balsam -OP Wound Healing Dep Routine -Tylenol 650 PRN # Recurrent sarcoma of posterior right thigh #History of undifferentiated polymorphic sarcoma s/p chemotherapy and radiotherapy Patient has a past medical history of sarcoma with s/p chemotherapy and radiotherapy. Patient stated he completed all chemotherapy but has not followed up with a primary care provider or seen Dr. Dee at least 2 years. Patient was under the impression that cancer was under remission. High suspicion of reoccurrence of malignancy given physical exam. Plan -Poor Biopsy-->outpatient follow up w/ Dr. Dee within one week of discharge. Right Inguinal lymph node biopsy. -[place] p.o. as needed every fourth hourly -Radiation Oncology consulted, Dr. Dee, appreciate recommendations. # Right foot drop #Contracted hamstrings. Adri stated he recently had a fall in June 2024 with worsening symptoms within the last 2 weeks. 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 This could also be reoccurrence of Sarcoma that is now involving nerves as hamstring muscles appear contracted plus the foot drop. Plan: -PT-->FWW and outpatient PT -No acute intervention needed as of now, follow-up in outpatient basis #History Hepatitis B Per chart review,Dr. Olivera note stated that patient is hepatitis B and is on Entecavir. No evidence of continued medication use, may be chronic. Please follow up outpatient. Diagnostics: -Hep Bs Antigen Reactive A, Hep Bs Ag confirmation Pending, Hep Bs antibody Non-reactive Plan: -Outpatient follow up. -Ordered hepatitis B surface antigen and antibody, follow-up with results Hospital Maintenance: Dispo: blood culture, final report pending DVT ppx: Lovenox GI ppx: Not needed Diet: Regular IV lines: Peripheral Code status: Full code - The patient's plan was discussed with attending Dr. Saldivar and senior residents Dr. Saranya Gonzalez MD PGY1 Internal Medicine Attending Provider Attestation/Addendum I attest that I was physically present for the evaluation, physical examination, lab and imaging review of the patient with the residents. I discussed the case with the residents and agree with the findings and plans of care as documented above. Iris Saldivar MD
[2024-12-16 12:00] VITALS: BP 90/63; PULSE 81; RESP 18; TEMP 36.3; O2SAT 17
[2024-12-16 16:00] VITALS: BP 94/64; PULSE 88; RESP 16; TEMP 36.1; O2SAT 97
[2024-12-16 20:00] VITALS: BP 97/66; PULSE 81; RESP 17; TEMP 36.9; O2SAT 95
[2024-12-16] MEDS: HYDROcodone/APAP 5/325 TABLET 1 TAB PO (20:28)
[2024-12-17] VITALS: BP 95/69; PULSE 65; RESP 16; TEMP 36.1; O2SAT 98
[2024-12-17 05:28] LABS: Basophils # (Auto) 0.1 Thou/mm3 (0.0-0.2); Basophils % (Auto) 1 % (0-2.5); Eosinophils # (Auto) 0.6 Thou/mm3 (0.0-0.5); Eosinophils % (Auto) 6 % (0-10); Immature Granulocytes % (Auto) 1 % (0-0); Immature Granulocytes Auto 0.05 Thou/mm3 (0.00-0.00); Lymphocytes % (Auto) 11 % (10-50); Mean Corpuscular HGB Conc 33.3 g/dl (31.0-37.0); Mean Corpuscular Volume 90 fL (80-100); Monocytes % (Auto) 11 % (0-12); Neutrophils # (Auto) 6.4 Thou/mm3 (1.8-7.7); Neutrophils % (Auto) 71 % (37-80); Nucleated Red Blood Cell % 0 /100 WBC (0); Platelet Count 293 Thou/mm3 (140-440); Red Blood Count 4.34 Miln/mm3 (4.50-5.90); White Blood Count 9.1 Thou/mm3 (3.8-10.6)
[2024-12-17 05:49] LABS: Alanine Aminotransferase 37 U/L (10-49); Albumin, Serum 3.8 gm/dL (3.4-4.8); Alkaline Phosphatase 92 U/L (46-116); Anion Gap 7 (7-16); Aspartate Amino Transferase 29 U/L (0-34); BUN/Creatinine Ratio 14 Ratio (12-20); Bilirubin,Total 0.4 mg/dL (0.3-1.2); Blood Urea Nitrogen 13 mg/dL (9-23); Calcium 9.5 mg/dL (8.3-10.6); Calcium (Corrected) 9.7 mg/dL (8.5-10.1); Carbon Dioxide 27.9 mMol/L (20.0-31.0); Chloride 103 mMol/L (98-107); Creatinine (Component) 0.9 mg/dL (0.6-1.3); Estimated Creatinine Clearance 84.4 mL/min (>60); Globulin 3.7 gm/dL (2.3-3.5); Glucose 101 mg/dL (74-106); Magnesium 2.2 mg/dL (1.6-2.6); Osmolality,Calculated 275 (275-295); Phosphorous 4.5 mg/dL (2.4-5.1); Potassium 4.2 mMol/L (3.4-5.1); Sodium 138 mMol/L (136-145); Total Protein 7.5 gm/dL (5.7-8.2); eGFR > 60 See Note
[2024-12-17 08:00] VITALS: BP 98/69; PULSE 73; RESP 18; TEMP 36.3; O2SAT 97
[2024-12-17] MEDS: BALSAM PERU/CASTOR OIL (Venelex) 60 GM TUBE TOP ×2 (09:44→21:43)
[2024-12-17] MEDS: NYSTATIN CR 30 GM TUBE TOP ×2 (09:44→21:45)
[2024-12-17] MEDS: cefTRIAXone/D5w 1gm IV premix 50 ML IV (09:44)
[2024-12-17 12:00] VITALS: BP 105/72; PULSE 86; RESP 18; TEMP 36.8; O2SAT 95
--- NOTE | 2024-12-17 14:56 | ESPR_ITS ---
Documentation for date of: 12/17/24 Subjective Subjective Interval history: No overnight events. Pending speciation for blood culture 1 out of 2 bottles showing gram-negative rods. Will be sent home with antibiotics. Needs to follow-up outpatient with Dr. Dee for inguinal biops for likely recurrence of sarcoma. Exam Vital Signs Temp Pulse Resp BP Pulse Ox O2 Del Method O2 Flow Rate 98.3 F 86 18 105/72 95 Room Air 3 12/17/24 12:00 12/17/24 12:00 12/17/24 12:12/17/24 12:12/17/24 12:12/17/24 12:12/14/24 14:09 Narrative Exam General Appearance: Alert & Oriented X3, well-nourished male who is lying in bed in no acute distress. Erythema noted on right posterior lower extremity, no active drainage noted. Subcutaneous tissue noted on right inguinal groin. HEENT: Skull symmetrical and atraumatic. Conjunctivae pin and moist. Pupils equal, round, reactive to light and accommodation (PERRL). External ear without lesion or discharge. Straight, nares patient, mucosa pink, no discharge. Cardio: Normal Rate and Rhythm with S1 and S2 heart sounds. No murmurs or extra heart sounds auscultated. No bruits on carotid auscultation. No peripheral edema or cyanosis. Lungs: Symmetric with good expansion. Chest and back non-tender. Breath sounds vesicular without crackles, wheezing or rhonchi Abdomen: Non-tender, Non-distended, Normal Reactive Bowel Sounds Neuro: Alert, cooperative, oriented to person, place, and time. Speech clear. CN grossly intact. Upper motor strength 5/5 and Lower motor strength 5/5. Sensation intact. Objective Labs 12/19/24 05:21 12/19/24 05:21 Labs: Laboratory Results - last 24 hr 12/17/24 05:00 WBC 9.1 RBC 4.34 L Hgb 13.0 L Hct 39.0 L MCV 90 MCH 30.0 MCHC 33.3 RDW Std Deviation 43.0 Plt Count 293 D Neut % (Auto) 71 Lymph % (Auto) 11 [place] % (Auto) 11 Eos % (Auto) 6 Baso % (Auto) 1 Neut # (Auto) 6.4 Lymph # (Auto) 1.0 [place] # (Auto) 1.0 H Eos # (Auto) 0.6 H Baso # (Auto) 0.1 Immature Gran # (Auto) 0.05 H Absolute Nucleated RBC 0.00 Immature Gran % 1 H Nucleated RBC % 0 Sodium 138 Potassium 4.2 Chloride 103 Carbon Dioxide 27.9 Anion Gap 7 BUN 13 Creatinine 0.9 Estim Creat Clear Calc 84.4 eGFR > 60 BUN/Creatinine Ratio 14 Glucose 101 Calculated Osmolality 275 Calcium 9.5 Corrected Calcium 9.7 Phosphorus 4.5 Magnesium 2.2 Total Bilirubin 0.4 AST 29 ALT 37 Alkaline Phosphatase 92 Total Protein 7.5 Albumin 3.8 Globulin 3.7 H Albumin/Globulin Ratio 1.0 L Quality Measures Quality Measures none Assessment & Plan Assessment Current Active Medications: Generic Name Dose Route Start Last Admin Trade Name Freq PRN Reason Stop Dose Admin Acetaminophen 650 mg 12/14/24 14:37 Acetaminophen 325 Mg Tablet PO 01/12/25 21:22 Q6H PRN Fever >100.3 or Pain Hydrocodone Bitart/Acetaminophen 1 tab 12/13/24 21:29 12/16/24 20:28 Hydrocodone/Apap 5/325 Tablet PO 12/18/24 21:28 1 tab Q4HR PRN Administration Pain Scale 6-10 Balsam [place] Oil 0 gm 12/14/24 21:00 12/17/24 09:44 Balsam [place] Oil (Venelex) 60 Gm Tube TOP 01/13/25 20:59 1 applicatio BID BRIAN Administration Enoxaparin Sodium 40 mg 12/17/24 14:39 Enoxaparin Sod Inj 40 Mg/0.4 Ml Syringe SC 12/28/24 08:59 QDAY BRIAN Ceftriaxone Sodium/Dextrose 50 mls @ 100 mls/hr 12/13/24 23:37 12/17/24 09:44 Rocephin/D5w 1gm Iv Premix IV 12/20/24 23:36 100 mls/hr QDAY BRIAN Administration Magnesium Hydroxide 30 ml 12/13/24 21:23 Milk Of Magnesia Susp 30 Ml Udc PO 01/12/25 21:22 QDAY PRN CONSTIPATION Protocol Nystatin 0 gm 12/14/24 21:00 12/17/24 09:44 Nystatin Cr 30 Gm Tube TOP 01/13/25 20:59 1 applicatio BID BRIAN Administration Ondansetron HCl 4 mg 12/13/24 21:23 Ondansetron Inj 2 Mg/Ml Inj 2 Ml IV 01/12/25 21:22 Q6H PRN NAUSEA OR VOMITING Protocol Plan A 59-year-old male with past medical history of Stage IIIb (pT4, NX), 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 #Bacteremia secondary to soft tissue infection #Sepsis, secondary to soft tissue infection, improved #Soft Tissue Infection #Leukocytosis, resolved. On admission patient met SIRs Criteria with elevated WBC 138, RR 22, and Temperature of 103 F with a known source of infection to lesion at right hamstring region. Site is warm to touch, with drainage, and leukocytosis. Diagnostics: Labs showed WBC 12.6, platelets 454, ESR 127, CRP 11 Lower extremity and pelvis CT showed Extensive pelvic mass destroying right ischium right inferior pubic ramus, proximal right femoral shaft posterior right acetabulum posterior right iliac Blood Culture: First bottle Negative after 24 hours and second bottle from anaerobic Gram Negative Rods Plan -Started on ceftriaxone 1 g IV daily 12/13/2024 -Blood culture Pending Final report -Wound Care Pending -Balsam -OP Wound Healing Dep Routine -Tylenol 650 PRN # Recurrent sarcoma of posterior right thigh #History of undifferentiated polymorphic sarcoma s/p chemotherapy and radiotherapy Patient has a past medical history of sarcoma with s/p chemotherapy and radiotherapy. Patient stated he completed all chemotherapy but has not followed up with a primary care provider or seen Dr. Dee at least 2 years. Patient was under the impression that cancer was under remission. High suspicion of reoccurrence of malignancy given physical exam. Plan -Poor Biopsy-->outpatient follow up w/ Dr. Dee within one week of discharge. Right Inguinal lymph node biopsy. -[place] p.o. as needed every fourth hourly -Radiation Oncology consulted, Dr. Dee, appreciate recommendations. # Right foot drop #Contracted hamstrings. [place] stated he recently had a fall in June 2024 with worsening symptoms within the last 2 weeks. 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 This could also be reoccurrence of Sarcoma that is now involving nerves as hamstring muscles appear contracted plus the foot drop. Plan: -PT-->FWW and outpatient PT -No acute intervention needed as of now, follow-up in outpatient basis #History Hepatitis B Per chart review,Dr. Olivera note stated that patient is hepatitis B and is on Entecavir. No evidence of continued medication use, may be chronic. Please follow up outpatient. Diagnostics: -Hep Bs Antigen Reactive A, Hep Bs Ag confirmation Pending, Hep Bs antibody Non- reactive Plan: -Outpatient follow up. -Ordered hepatitis B surface antigen and antibody, follow-up with results Hospital Maintenance: Dispo: blood culture, final report pending DVT ppx: Lovenox GI ppx: Not needed Diet: Regular IV lines: Peripheral Code status: Full code - The patient's plan was discussed with attending Dr. Talley and senior residents Dr. Saranya Gonzalez MD PGY1 Internal Medicine Attending Provider Attestation/Addendum I have examined the patient, reviewed labs and imaging findings, discussed the case with the resident(s), and reviewed entered orders. I agree with the plan of care as outlined in this note, with these additional summaries/recommendations: Patient appears stable today at bedside. Not complaining of any new issues. Currently pending final wound cultures for adjustment of antibiotic regimen. Anticipate discharge in next 48 hours once finalized. Mihir Talley MD
--- NOTE | 2024-12-17 15:22 | PC.SS ---
Rounding note: plan is to d/c tomorrow. Pending cultures.
[2024-12-17 16:00] VITALS: BP 107/70; PULSE 80; RESP 19; TEMP 37.1; O2SAT 95
[2024-12-17 20:00] VITALS: BP 95/70; PULSE 91; RESP 18; TEMP 36.5; O2SAT 97
[2024-12-17] MEDS: HYDROcodone/APAP 5/325 TABLET 1 TAB PO (21:41)
[2024-12-18] VITALS: BP 94/74; PULSE 73; PULSE 91; RESP 18; TEMP 36.2; O2SAT 97
[2024-12-18 04:00] VITALS: BP 112/77; PULSE 56; RESP 18; TEMP 36.3; O2SAT 95
[2024-12-18 06:02] LABS: Basophils # (Auto) 0.1 Thou/mm3 (0.0-0.2); Basophils % (Auto) 1 % (0-2.5); Eosinophils # (Auto) 0.6 Thou/mm3 (0.0-0.5); Eosinophils % (Auto) 6 % (0-10); Hematocrit 39.4 % (41.0-53.0); Immature Granulocytes % (Auto) 1 % (0-0); Immature Granulocytes Auto 0.06 Thou/mm3 (0.00-0.00); Lymphocytes # (Auto) 1.2 Thou/mm3 (1.0-4.8); Lymphocytes % (Auto) 14 % (10-50); Mean Corpuscular Volume 91 fL (80-100); Monocytes # (Auto) 1.1 Thou/mm3 (0.0-0.8); Monocytes % (Auto) 12 % (0-12); Neutrophils # (Auto) 6.1 Thou/mm3 (1.8-7.7); Neutrophils % (Auto) 67 % (37-80); Nucleated Red Blood Cell % 0 /100 WBC (0); Platelet Count 376 Thou/mm3 (140-440); RDW Standard Deviation 43.8 fL (35.1-43.9); Red Blood Count 4.34 Miln/mm3 (4.50-5.90); White Blood Count 9.1 Thou/mm3 (3.8-10.6)
[2024-12-18 06:46] LABS: Alanine Aminotransferase 35 U/L (10-49); Albumin, Serum 3.8 gm/dL (3.4-4.8); Alkaline Phosphatase 93 U/L (46-116); Anion Gap 7 (7-16); Aspartate Amino Transferase 22 U/L (0-34); BUN/Creatinine Ratio 17 Ratio (12-20); Bilirubin,Total 0.4 mg/dL (0.3-1.2); Blood Urea Nitrogen 17 mg/dL (9-23); Calcium 9.6 mg/dL (8.3-10.6); Calcium (Corrected) 9.8 mg/dL (8.5-10.1); Carbon Dioxide 29.4 mMol/L (20.0-31.0); Chloride 101 mMol/L (98-107); Globulin 3.7 gm/dL (2.3-3.5); Glucose 99 mg/dL (74-106); Magnesium 2.4 mg/dL (1.6-2.6); Osmolality,Calculated 275 (275-295); Phosphorous 4.3 mg/dL (2.4-5.1); Potassium 4.1 mMol/L (3.4-5.1); Sodium 137 mMol/L (136-145); Total Protein 7.5 gm/dL (5.7-8.2); eGFR > 60 See Note
[2024-12-18 08:00] VITALS: BP 114/76; PULSE 78; RESP 17; TEMP 36.3; O2SAT 96
[2024-12-18] MEDS: BALSAM PERU/CASTOR OIL (Venelex) 60 GM TUBE TOP ×2 (10:00→22:06)
[2024-12-18] MEDS: NYSTATIN CR 30 GM TUBE TOP ×2 (10:01→22:06)
[2024-12-18] MEDS: cefTRIAXone/D5w 1gm IV premix 50 ML IV (10:05)
[2024-12-18 12:00] VITALS: BP 107/69; PULSE 82; RESP 18; TEMP 36.3; O2SAT 98
[2024-12-18] MEDS: Milk Of Magnesia Susp 30 ML UDC PO (14:57)
--- NOTE | 2024-12-18 15:00 | PD.RESPRO ---
Documentation for date of: 12/18/24 Subjective Subjective Interval history: Patient seen and examined at bedside. No acute problems overnight. Afebrile. Tolerating PO intake. No BM x 2 days per patient. Pending final blood culture. Exam Vital Signs Temp Pulse Resp BP Pulse Ox O2 Del Method O2 Flow Rate 97.3 F 82 18 107/69 98 Room Air 3 12/18/24 12:00 12/18/24 12:00 12/18/24 12:00 12/18/24 12:00 12/18/24 12:12/18/24 12:12/18/24 12:00 Narrative Exam Constitutional: NAD. Awake, alert, pleasant. HEENT: Vision grossly intact. Respiratory: CTAB bilaterally. Cardiac: RRR. Abdomen: BS+. Soft, non-distended, non-tender. MSK: No B/L LE edema. Skin: Warm, dry, intact. Neuro: Motor and sensation grossly intact. Psychiatric: Appropriate mood and affect. Objective Labs 12/19/24 05:21 12/19/24 05:21 Labs: Laboratory Results - last 24 hr 12/18/24 05:39 WBC 9.1 RBC 4.34 L Hgb 13.0 L Hct 39.4 L MCV 91 MCH 30.0 MCHC 33.0 RDW Std Deviation 43.8 Plt Count 376 D Neut % (Auto) 67 Lymph % (Auto) 14 [place] % (Auto) 12 Eos % (Auto) 6 Baso % (Auto) 1 Neut # (Auto) 6.1 Lymph # (Auto) 1.2 [place] # (Auto) 1.1 H Eos # (Auto) 0.6 H Baso # (Auto) 0.1 Immature Gran # (Auto) 0.06 H Absolute Nucleated RBC 0.00 Immature Gran % 1 H Nucleated RBC % 0 Sodium 137 Potassium 4.1 Chloride 101 Carbon Dioxide 29.4 Anion Gap 7 BUN 17 Creatinine 1.0 Estim Creat Clear Calc 76.0 eGFR > 60 BUN/Creatinine Ratio 17 Glucose 99 Calculated Osmolality 275 Calcium 9.6 Corrected Calcium 9.8 Phosphorus 4.3 Magnesium 2.4 Total Bilirubin 0.4 AST 22 ALT 35 Alkaline Phosphatase 93 Total Protein 7.5 Albumin 3.8 Globulin 3.7 H Albumin/Globulin Ratio 1.0 L Quality Measures Quality Measures none Assessment & Plan Assessment Current Active Medications: Generic Name Dose Route Start Last Admin Trade Name Freq PRN Reason Stop Dose Admin Acetaminophen 650 mg 12/14/24 14:37 Acetaminophen 325 Mg Tablet PO 01/12/25 21:22 Q6H PRN Fever >100.3 or Pain Hydrocodone Bitart/Acetaminophen 1 tab 12/13/24 21:29 12/17/24 21:41 Hydrocodone/Apap 5/325 Tablet PO 12/18/24 21:28 1 tab Q4HR PRN Administration Pain Scale 6-10 Balsam [place] Oil 0 gm 12/14/24 21:00 12/18/24 10:00 Balsam [place] Oil (Venelex) 60 Gm Tube TOP 01/13/25 20:59 1 applicatio BID BRIAN Administration Enoxaparin Sodium 40 mg 12/17/24 14:39 Enoxaparin Sod Inj 40 Mg/0.4 Ml Syringe SC 12/28/24 08:59 QDAY BRIAN Ceftriaxone Sodium/Dextrose 50 mls @ 100 mls/hr 12/13/24 23:37 12/18/24 10:05 Rocephin/D5w 1gm Iv Premix IV 12/20/24 23:36 100 mls/hr QDAY BRIAN Administration Magnesium Hydroxide 30 ml 12/13/24 21:23 12/18/24 14:57 Milk Of Magnesia Susp 30 Ml Udc PO 01/12/25 21:22 30 ml QDAY PRN Administration CONSTIPATION Protocol Nystatin 0 gm 12/14/24 21:00 12/18/24 10:01 Nystatin Cr 30 Gm Tube TOP 01/13/25 20:59 1 applicatio BID BRIAN Administration Ondansetron HCl 4 mg 12/13/24 21:23 Ondansetron Inj 2 Mg/Ml Inj 2 Ml IV 01/12/25 21:22 Q6H PRN NAUSEA OR VOMITING Protocol Plan Patient is a 59-year-old male with past medical history of Stage IIIb (pT4, NX), 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 #GNR Bacteremia 2/2 to cellulitis #Sepsis, secondary to cellulitis, improved Patient met SIRS Criteria with known infection at right hamstring region Lower extremity and pelvis CT: Extensive pelvic mass destroying right ischium right inferior pubic ramus, proximal right femoral shaft posterior right acetabulum posterior right iliac Blood culture: GNR 1 out of 2 bottles, pending final speciation - Rocephin 1g Qday - Follow up final BCx - Wound care #Recurrent sarcoma of posterior right thigh #History of undifferentiated polymorphic sarcoma s/p chemotherapy and radiotherapy Has not followed up with PCP, oncology within 2 years. High suspicion recurrent malignancy given exam Inpatient biopsy showed ghost cells, recommend re-biopsy outpatient - [place] q4H PRN - Radiation Oncology consulted, Dr. Dee, appreciate recommendations. #Right foot drop #Contracted hamstrings. Adri stated he recently had a fall in June 2024 with worsening symptoms within the last 2 weeks. 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 This could also be reoccurrence of Sarcoma that is now involving nerves as hamstring muscles appear contracted plus the foot drop. - FWW and outpatient PT #History Hepatitis B Previously on entecavir. Hep Bs Antigen Reactive - Hep Bs Ag confirmation Pending - Hep Bs antibody Non-reactive Health Maintenance Disposition: pending final BCx, on IV antibiotics Diet and fluids: regular DVT prophylaxis: lovenox GI prophylaxis: none Lines: PIV CODE STATUS: full I have reviewed and discussed the patient's care with my attending, Dr. Mayank Ernandez MD PGY-3 Attending Provider Attestation/Addendum I have examined the patient, reviewed labs and imaging findings, discussed the case with the resident(s), and reviewed entered orders. I agree with the plan of care as outlined in this note, with these additional summaries/recommendations: Patient seen and examined at bedside. Patient doing well. Currently pending final wound cultures for left leg infection. Otherwise still on IV antibiotics, no fever chills or signs of infection at this time.Anticipate discharge in 24 to 48 hours Mihir Talley MD
[2024-12-18 16:00] VITALS: BP 111/72; PULSE 82; RESP 18; TEMP 36.3; O2SAT 96
[2024-12-18 20:00] VITALS: BP 94/72; PULSE 92; RESP 18; TEMP 36.5; O2SAT 98
[2024-12-18] MEDS: POLYETHYLENE GLYCOL 17 GM PACKET PO (22:05)
[2024-12-18] MEDS: SENNA TABLET 1 TAB PO (22:06)
[2024-12-19] VITALS: BP 111/77; PULSE 77; RESP 18; TEMP 36.4; O2SAT 97
[2024-12-19 04:00] VITALS: BP 104/65; PULSE 76; RESP 18; TEMP 36.5; O2SAT 99
[2024-12-19 05:43] LABS: Basophils # (Auto) 0.1 Thou/mm3 (0.0-0.2); Basophils % (Auto) 1 % (0-2.5); Eosinophils # (Auto) 0.6 Thou/mm3 (0.0-0.5); Eosinophils % (Auto) 6 % (0-10); Hematocrit 40.2 % (41.0-53.0); Hemoglobin 13.2 g/dL (13.5-16.0); Immature Granulocytes % (Auto) 0 % (0-0); Immature Granulocytes Auto 0.03 Thou/mm3 (0.00-0.00); Lymphocytes # (Auto) 1.5 Thou/mm3 (1.0-4.8); Lymphocytes % (Auto) 15 % (10-50); Mean Corpuscular HGB Conc 32.8 g/dl (31.0-37.0); Mean Corpuscular Hemoglobin 29.7 pg (25.0-35.0); Mean Corpuscular Volume 91 fL (80-100); Monocytes # (Auto) 1.1 Thou/mm3 (0.0-0.8); Monocytes % (Auto) 11 % (0-12); Neutrophils # (Auto) 6.8 Thou/mm3 (1.8-7.7); Neutrophils % (Auto) 67 % (37-80); Nucleated Red Blood Cell % 0 /100 WBC (0); Platelet Count 317 Thou/mm3 (140-440); RDW Standard Deviation 43.7 fL (35.1-43.9); Red Blood Count 4.44 Miln/mm3 (4.50-5.90); White Blood Count 10.1 Thou/mm3 (3.8-10.6)
[2024-12-19 06:14] LABS: Alanine Aminotransferase 37 U/L (10-49); Albumin, Serum 3.7 gm/dL (3.4-4.8); Alkaline Phosphatase 93 U/L (46-116); Anion Gap 9 (7-16); Aspartate Amino Transferase 22 U/L (0-34); BUN/Creatinine Ratio 20 Ratio (12-20); Bilirubin,Total 0.3 mg/dL (0.3-1.2); Blood Urea Nitrogen 20 mg/dL (9-23); Calcium (Corrected) 9.2 mg/dL (8.5-10.1); Chloride 102 mMol/L (98-107); Globulin 3.7 gm/dL (2.3-3.5); Glucose 105 mg/dL (74-106); Magnesium 2.4 mg/dL (1.6-2.6); Osmolality,Calculated 278 (275-295); Phosphorous 3.8 mg/dL (2.4-5.1); Potassium 4.3 mMol/L (3.4-5.1); Sodium 138 mMol/L (136-145); Total Protein 7.4 gm/dL (5.7-8.2); eGFR > 60 See Note
[2024-12-19 08:00] VITALS: BP 98/69; PULSE 74; RESP 17; TEMP 36.1; O2SAT 96
[2024-12-19] MEDS: NYSTATIN CR 30 GM TUBE TOP (09:02)
[2024-12-19] MEDS: cefTRIAXone/D5w 1gm IV premix 50 ML IV (09:02)
[2024-12-19] MEDS: Milk Of Magnesia Susp 30 ML UDC PO (09:02)
[2024-12-19] MEDS: BALSAM PERU/CASTOR OIL (Venelex) 60 GM TUBE TOP (09:03)
[2024-12-19 12:00] VITALS: BP 115/77; PULSE 79; RESP 18; TEMP 36.1; O2SAT 98
[2024-12-19] MEDS: ACETAMINOPHEN 325 MG TABLET 650 MG PO (12:43)
--- NOTE | 2024-12-19 13:29 | ESDS_ITS ---
<Statement entered by Mihir Talley MD - 12/19/24 16:41> I have examined the patient, reviewed labs and imaging findings, discussed the case with the resident(s), and reviewed entered orders. I agree with the plan of care as outlined in this note, with these additional summaries/recommendations: Final cultures returned for Bacteroides fragilis. Patient is cleared for d ischarge at this time and will send for 3 additional days of Augmentin to complete course for gram-negative bacteremia. Will send home with wound care and advised patient to follow-up with primary care and with oncology within 1 to 2 weeks. Return to ER if new or worsening symptoms. Mihir Talley MD Planned Discharge Date 12/19/24 DS: Providers Provider Date of admission: 12/13/24 21:23 Primary care physician: Physician No Primary/Family Admitting Provider: Vasiliy Terrazas MD Attending Provider on Admission: Vasiliy Terrazas MD Consults: 12/13/24 23:36 Consult to Oncology Routine Comment: Recurrent pleomorphic sarcoma Consulting Provider: Paul Dee 12/13/24 23:50 Referral Discharge Planning Stat Comment: Patient most likely will require acute rehab Instructions: Patient is unable to walk due to worsening right leg sarcoma. Will need PT and likely SNF placement as he undergoes further cancer treatment. 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 In the ED patient came in with complaints of right lower extremity oozing pus along with fevers and right lower extremity pain. Initially patient was febrile, hypertensive, tachycardic, and tachypneic. Initial labs were relevant for leukocytosis (12.6), hyponatremia (133), hypokalemia (3.3), lactic acidosis (4.2), elevated CRP (11), and hepatitis B antigen was reactive. Initial imaging included lower extremity CT which showed extensive soft tissue mass destroying the right ischium, right inferior pubic ramus, proximal right femoral shaft, posterior right acetabulum, and posterior right iliac bone; pelvis CT showed extensive soft tissue mass destroying the right ischium, right inferior pubic ramus, proximal right femoral shaft, maintenance assistant ior right acetabulum, and posterior right iliac bone; chest x-ray showed no pneumonia; venous Doppler showed a solid mass in the right groin which could be metastatic lymphadenopathy. Given patient's history of sarcoma oncology was consulted and recommended to get a biopsy and follow-up outpatient, patient had muscle biopsy done during the hospital stay. Patient received IV antibiotics as well as wound care for his cellulitis. Patient was noted to have some right foot drop, which was most likely due to sarcoma and possibly cellulitis. Patient's blood cultures did grow GNR's initially and later was found to be Bacteroides fragilis sensitive to Augmentin. Patient remained stable throughout the hospital stay and his right foot drop still mild improvement. At the time of discharge patient was stable enough to be discharged home with home health. Discharge plan: Instructions: -Please continue to apply Nystatin twice a day for antifungal -Please continue to apply Balsam [place]/Spangler one time a day for soft tissue infection -Please continue Augmentin 2 more days for soft tissue infection -Please follow up with Dr. Dee, radiation and oncology -Please follow up with your primary care provider within one week of discharge -If your symptoms worsen,please seek immediate medical attention and return to your nearest emergency room -If you do not have a primary care provider, you may follow up at the [facility] at [address] [facility] [address], [place] [address], WOUND CARE: Wash hands, remove old dressings, cleanse the area with wound cleanser to include the opened surgical incision near scrotum. Wash hands again. Apply skin prep no-sting barrier wipe to the healthy skin surrounding the wounds. May need to wash hands again. Cut appropriate length of packing strip and pack the opened surgical incision using a q-tip and cover with a small pink allyven bandage. Wash hands again and using clean q-tip, apply venelex ointment to soft tissue infection over the right buttocks and cover with a large pink allyven. Wash hands a final time. Problem list: #GNR Bacteremia 2/2 to cellulitis #Sepsis,ruled out #cellulitis R LE #Recurrent sarcoma of posterior right thigh #History of undifferentiated polymorphic sarcoma s/p chemotherapy and radiotherapy #Right foot drop #Contracted hamstrings. #History Hepatitis B Case disclosed with Attending Dr. Mayank Carias PGY1 Status at Discharge Overall status at discharge: patient is progressing back to baseline Time Spent with Patient Time attestation: Total time spent providing and/or coordinating discharge services: >35 min Home Health Home Health Referral Orders: 12/19/24 13:06 Home Health Referral Routine Reason For Exam: wound care Home-Bound The patient must either because of illness or injury, need the aid of supportive devices such as crutches, canes, wheelchairs, and walkers; the use of special transportation; or the assistance of another person in order to leave their place of residence; OR have a condition such that leaving his or her home is medically contraindicated. In addition, the patient also meets the following criteria: patient is normally unable to leave the home and leaving home requires considerable taxing effort. Addendum to Home Health Certification Practitioner's Certification: I certify that the patient has been under my care in the hospital and the care of attending physician (see below). We had a jsly-tf-ulun encounter on (see date below). My clinical findings indicate that the patient is home bound per the above criteria and the Home Health Services noted in these orders are medically necessary. The primary reason for the jthn-fq-eyig encounter is related to the fact that the patient requires home health services. Date Certifying Bnux-ao-Oghj Physician Encounter: 12/13/24 Physician's Name who will Assume Oversight for HH Services: Physician No Primary/Family CHIP MUCKER - Community Resources: No PT to Evaluate: No PT to evaluate and provide a treatmnet plan to increase patient's mobility and strength. Wound Care: Yes Home Health RN - Wound Care Order: per wound nurse IV Therapy: No RN Safety Evaluation: Yes RN to evaluate and create a plan of care that will produce positive outcomes. Palliative Treatment: No Palliative treatment and evaluate the need for hospice. Home Health Aide - Personal Care: No Home Health Aide to assist with any ADL's. Exam Vital Signs Temp Pulse Resp BP Pulse Ox O2 Del Method O2 Flow Rate 97.0 F 74 17 98/69 96 Room Air 3 12/19/24 08:00 12/19/24 08:00 12/19/24 08:00 12/19/24 08:00 12/19/24 08:00 12/19/24 08:00 12/18/24 12:00 Narrative Exam General: A/O x3, no acute distress Eyes: PERRL, EOMI. Anicteric, vision grossly intact. Ears: No ear pain, no ear discharge, Hearing grossly intact. Nose: No nasal discharge. Mouth/Throat: Moist mucous membranes, no redness, no lesions. Neck: Neck supple, non-tender, no cervical lymphadenopathy. Lungs: Clear LORE to auscultation and percussion, No accessory muscle use. Cardio: Normal S1/S2, regular rhythm, no murmurs, no JVD Abdomen: Soft, non-tender, no palpable masses, peristalsis present, no guarding or rebound. Extremities: Symmetrical, no peripheral edema , non-tender, peripheral pulses presents. Skin: No rashes, no lesions, warm to touch. Right gluteal area covered with clean dressing. Neuro: Right foot drop, improving; otherwise no focal neurological deficits and motor and sensory are intact. Psych: Cooperative, appropriate mood and effect. Discharge Plan Plan Patient Disposition: Home w/HOME HEALTH Patient condition on transfer: Stable Care Plan Goals: Instructions: -Please continue to apply Nystatin twice a day for antifungal -Please continue to apply Balsam [place]/Spangler one time a day for soft tissue infection -Please continue Augmentin 2 more days for soft tissue infection -Please follow up with Dr. Dee, radiation and oncology -Please follow up with your primary care provider within one week of discharge -If your symptoms worsen,please seek immediate medical attention and return to your nearest emergency room -If you do not have a primary care provider, you may follow up at the [facility] at [address], [place] [address], WOUND CARE: Wash hands, remove old dressings, cleanse the area with wound cleanser to include the opened surgical incision near scrotum. Wash hands again. Apply skin prep no-sting barrier wipe to the healthy skin surrounding the wounds. May need to wash hands again. Cut appropriate length of packing strip and pack the opened surgical incision using a q-tip and cover with a small pink allyven bandage. Wash hands again and using clean q-tip, apply venelex ointment to soft tissue infection over the right buttocks and cover with a large pink allyven. Wash hands a final time. Prescriptions/Referrals Prescriptions/Med Rec: New balsam yesenia-castor oil Ointment In Packet 1 applic topical BID PRN (Reason: wound healing) Qty: 300 0RF nystatin 100,000 unit/gram Cream 1 applic top BID Qty: 15 0RF magnesium hydroxide [Milk of Magnesia] 400 mg/5 mL Suspension 30 ml PO QDAY PRN (Reason: Constipation) Qty: 3780 0RF hydrocodone-acetaminophen 5-325 mg tablet 1 tab PO BID MDD 2 PRN (Reason: pain) Qty: 14 0RF amoxicillin-pot clavulanate 875-125 mg tablet 1 tab PO BID 2 Days Qty: 4 0RF Referrals: Paul Dee MD [Physician] - No Primary/Family,Physician [Primary Care Provider] - Ramila Gonzalez MD [Resident] - Patient/Caregiver Discharge Instructions Other Discharge Activity Instructions:: Instructions: -Please continue to apply Nystatin twice a day for antifungal -Please continue to apply Balsam Yesenia/Spangler oil twice a day for for soft tissue infection -Please continue Augmentin 2 more days for soft tissue infection -Please follow up with Dr. Dee, radiation on oncology, for further -Please follow up with your primary care provider within one week of discharge -If your symptoms worsen,please seek immediate medical attention and return to your nearest emergency room -If you do not have a primary care provider, you may follow up at the [facility] at [address], [place] [address], Education Materials: Discharge Instructions for Cellulitis, Changing Dressing Dc Print Language: [place] Activity Restrictions/Additional Instructions: Follow up with PCP appointment on Dec [address] Gonzalez at the [facility] Stand Alone Forms: Elvia Award Info., Patient Portal Info Letter Discharge Order Discharge Orders: Discharge (Routine); Ordered 12/19/24 Ordered By: Mihir Talley Quality Discharge Quality Measures VTE prophylaxis
--- NOTE | 2024-12-20 09:02 | PC.CC ---
Addendum entered by Jessica Ahumada RN 12/20/24 10:06: Pt booked with [facility] pending SOC Original Note: referrals sent to all agency pt had no preference
--- NOTE | 2024-12-22 10:56 | PC.CC ---
start of care date with [facility] was 12/21/24.
== END 2024-12-19 15:45 | disposition home health service (06) | DRG 343 ==
LOC: SERX 21:09 → SERHOLD 21:54 → S3SX 22:07
PROVIDERS: Nurse Practitioner Primary Care; Registered Nurse General Practice; Student in an Organized Health Care Education/Training Program; Admitting Provider Internal Medicine; Emergency Provider Emergency Medicine; Visit Provider Internal Medicine
DX: C76.51 Malignant neoplasm of right lower limb (principal); L03.115 Cellulitis of right lower limb; R78.81 Bacteremia; B96.6 Bacteroides fragilis [B. fragilis] as the cause of diseases classified elsewhere; E87.1 Hypo-osmolality and hyponatremia; B18.1 Chronic viral hepatitis B without delta-agent; M21.371 Foot drop, right foot; E87.20 Acidosis, unspecified; E87.6 Hypokalemia; M62.451 Contracture of muscle, right thigh; Z91.81 History of falling; Z87.891 Personal history of nicotine dependence; Z85.831 Personal history of malignant neoplasm of soft tissue; Z92.21 Personal history of antineoplastic chemotherapy; Z92.3 Personal history of irradiation
CPT/HCPCS: 36415; 71045; 72193; 73701; 77012; 80048; 80053; 81001; 83036; 83605; 83735; 84100; 84145; 84443; 85025; 85610; 85652; 86140; 86706; 87040; 87070; 87075; 87076; 87081; 87205; 87340; 87811; 93971; 96361; 96365; 96366; 96375; 97162; 99285; A4649; J0696; J1650; J2405; J2543; J3010; J3371; J3490; J7050; J7120; Q9967; A9270

== ENCOUNTER 2024-12-22 10:33 | Outpatient (AMB) | payer MEDICAID, SELFPAY ==
[2024-12-22 10:41] VITALS: BP 98/67; PULSE 130; RESP 16; TEMP 36.6; O2SAT 97
--- NOTE | 2024-12-22 10:41 | PD.RESCLINIC ---
Vital Signs 12/22/24 10:41 Weight 73.255 kg Weight Measurement Method Standing Scale BP 98/67 Blood Pressure Source Automatic Cuff Blood Pressure Location Left Upper Arm Position Sitting Respiration 16 Pulse 130 H Pulse Source Monitor Temp 97.9 F Temp Source Oral Pulse Oximetry (%) 97 Oxygen Delivery Method Room Air Allergies/Meds Allergies & Medications Allergies No Known Allergies Allergy (Verified 12/22/24 10:43) Medication Reconciliation balsam yesenia-castor oil topical ointment in packet 1 applic topical BID PRN wound healing #300 grams 12/15/24 [Rx Confirmed 12/22/24] hydrocodone 5 mg-acetaminophen 325 mg tablet 1 tab PO BID PRN pain #14 tabs 12/15/24 [Rx Confirmed 12/22/24] magnesium hydroxide 400 mg/5 mL oral suspension (Milk of Magnesia) 30 ml PO QDAY PRN Constipation #3,780 mL 12/15/24 [Rx Confirmed 12/22/24] nystatin 100,000 unit/gram topical cream 1 applic top BID #15 grams 12/15/24 [Rx Confirmed 12/22/24] MA Intake Visit Data Collection New Patient or Established: Established Patient (seen at [facility] within 3 years) Seen by Clinical Staff ONLY (RN/MA): No Pain Present Currently: Yes Pain Location: Thigh Pain scale:: 8 Pain Scale Used: [place]-Mittal/Numerical Rehabilitation Technician Required: No PCP or OBGYN visit in last 3 months: Yes Hx Now: No Do You Feel Safe at Home: Yes Authorities Contacted: N/A Smoking Status Smoking Status: Former smoker Immunization / Flu Flu Vaccine in the Last 12 Months: Yes Flu Vaccine Exclusion Criteria: No Exclusion Criteria Past Medical History Past Medical History NEUROLOGIC: Negative Neurological Disorders CARDIAC: Negative Cardiac Disorders or Congestive Heart Failure RESPIRATORY: Negative Chronic Obstructive Pulmonary Disease (COPD) or Asthma GASTROINTESTINAL: Negative Gastrointestinal Disorders GENITOURINARY: Negative Genitourinary Disorders or Renal Disease REPRODUCTIVE: Negative Fibroids ENDOCRINE: Negative Endocrine Disorders, Diabetes Mellitus Type 1 or Diabetes Mellitus Type 2 HEMATOLOGIC: Negative Blood Disorders or Sickle Cell Disease OTHER HISTORY: Positive Cancer (sarcoma); Negative Autoimmune Disease, Anesthesia Reactions or MRSA Social History SMOKING STATUS: Smoking status: Former smoker ALCOHOL: Alcohol Intake: Current ALCOHOL FREQUENCY: Alcohol Intake Frequency: holidays/special occasions only HOUSING: Housing: House LIVES WITH: Lives With: Family Patient Portal Questionaires Social History Living Situation History Housing: House Tobacco History Smoking Status: Former smoker Alcohol History Alcohol Intake: Current Alcohol Intake Frequency: holidays/special occasions only Domestic Abuse History Do You Feel Safe at Home: Yes Review of Systems Report any current symptoms Only answer those that you have currently: Past Medical History Past Medical History Have you ever been diagnosed with any of the following: Cardiology Problems Congestive Heart Failure: No Respiratory Problems Chronic Obstructive Pulmonary Disease (COPD): No Asthma: No Genital/Urinary Problems Renal Disease: No Reproductive Problems Fibroids: No Endocrine Problems Diabetes Mellitus Type 1: No Diabetes Mellitus Type 2: No Blood Problems Sickle Cell Disease: No Other Problems Autoimmune Disease: No Anesthesia Reactions: No MRSA: No Cancer: Yes (sarcoma) History of Present Illness HPI Narrative 59-year-old male with past medical history of 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 In the ED patient came in with complaints of right lower extremity oozing pus along with fevers and right lower extremity pain Initial imaging included lower extremity CT which showed extensive soft tissue mass destroying the right ischium, right inferior pubic ramus, proximal right femoral shaft, posterior right acetabulum, and posterior right iliac bone; Venous Doppler showed a solid mass in the right groin which could be metastatic lymphadenopathy. Given patient's history of sarcoma oncology was consulted and recommended to get a biopsy and follow-up outpatient. Patient had a byopsy done during hospital stay , Patient's blood cultures found to be Bacteroides fragilis sensitive to Augmentin. 12/22/2024 [facility]. Patient is currently stable,denies any B symptoms,.Pain would rate 8/10, Avella is helpin with pain, he is taking Augmentin. He has a home health wound care, Patient states that had dressing changed by them yesterday. He was referred with Dr. Dee who was also involved in a care during hospital stay and wioll have upcoming appoitnment with him to go over biopsy results and discuss future plan of care.Pathology results showed no viable cells, many necrotic ghost like cells at the background , Rebiopsy is recommended. Patient again was reffered to Oncology and was encoureged to make an appointment Rob. Patient is here to establish care with PCP. He doesn't have any significant PMH.He is not currently not on any medication besides Augmentin. Vitals is stable, last Labs was done 3 days ago. Patient will follow with us in 1 month, we will repeat labs in 1 month. Review of Systems Review of Systems Systems Reviewed: All systems reviewed, normal except as documented Objective/Exam Narrative Physical exam: GENERAL: no acute distress, AAO x3, HEENT: Head AT/ NC. Mucous membranes moist. PERRL. NECK: Supple, no lymphadenopathy, no carotid bruits. CARDIOVASCULAR: RRR. Normal S1/S2, No m/r/g. No pitting edema of bilateral LEs. RESPIRATORY: CTAB. No wheezing, rhonchi, crackles. GASTROINTESTINAL: Abdomen soft, non tender no palpable masses. Bowel sounds present in all 4 quadrants. MUSCULOSKELETAL:? Right gluteal area and posterior thigh deep wound, covered with clean dressing. NEUROLOGICAL: CN II-XII grossly intact. No focal deficits. Sensation intact, symmetric. PSYCHIATRIC: Awake and alert, not agitated, normal mood and affect. INTEGUMENTARY: No obvious rashes, no jaundice, normal turgor. Assessment & Plan Diagnosis / Problem List (1) Right groin mass: Status: Acute Plan: .Pathology results showed no viable cells, many necrotic ghost like cells at the background , Rebiopsy is recommended. Patient was referred to oncology dr. 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 on Augmentin (4) Bacteremia: Status: Acute Assessment & Plan: Patient's blood cultures found to be Bacteroides fragilis sensitive to Augmentin. Plan: complete Augmentin course , denies any B symptoms. Plan continue Augmentin, follow up with wound care, patient has a home health wound care. Orders: Referrals Oncology R19.00 - Intra-abdominal and pelvic swelling, mass and lump, unspecified site Additional Assessment Internal Medicine Attending Note: Case discussed with and agree with note and management plan of Resident Physician as per Resident's Note above. Issues of concern for present visit are as follows: New patient to clinic. Following up from recent hospitalization. Past medical history of stage IIIb undifferentiated pleomorphic sarcoma of the right posterior thigh status post wide excision at [facility] in November 2021. Patient received adjuvant radiation therapy as well as adjuvant chemotherapy. Review of records is not clear whether patient completed the last 3 cycles of chemotherapy, as last note from oncology was after the first 3 cycles. Patient hospitalized with complaint of right lower extremity draining pus with fever and right lower extremity pain. Lower extremity CT scan showed extensive soft tissue mass destroying the right ischium, right inferior pubic ramus, proximal right femoral shaft, posterior right acetabulum, and posterior right iliac bone. Ultrasound also showed a solid mass in the right groin potentially metastatic lymphadenopathy. Needle biopsy was attempted in hospital. However biopsy was negative. Discussed with radiation oncology by myself. Patient needs a wide excision to get a tissue sample for analysis. Recommendation for patient to follow-up with oncology/radiation oncology as soon as possible. Complete antibiotics for sepsis secondary to Bacteroides fragilis. Given current antibiotic treatment, recommendation was made to hold off on rebiopsy at this time, it will be arranged through oncology, may have to be done at tertiary center. Moreno Barbour MD Physician Billing New Patient New Patient: E/M Level 3-CPT 05550 Office Procedures [facility] Level of Care Nursing/Assessment Patient Status: Established Patient Nursing Assessment/Reassessment: BP Monitoring, Medication Reconciliation, Update PMH in EMR and Vital Signs Coordination of Care: Complex Care and Chronic Disease 1-5, Consent,records obtained, informed consent, Education Simp Pt/Fam, Lab and Imaging orders and Staff clarify orders Established Patient Charge Established Patient Point Assignment: 115 Established Patient Point Charge: Level 3 (80-115)
== END 2024-12-22 11:27 | disposition home or self-care (01) ==
LOC: HODAHC 10:33
DX: L03.115 Cellulitis of right lower limb (principal); L02.415 Cutaneous abscess of right lower limb; R19.09 Other intra-abdominal and pelvic swelling, mass and lump; C49.21 Malignant neoplasm of connective and soft tissue of right lower limb, including hip; Z92.3 Personal history of irradiation; Z92.21 Personal history of antineoplastic chemotherapy
CPT/HCPCS: 99213; G0463

== ENCOUNTER 2024-12-29 09:05 | Outpatient (RCR) | payer MEDICAID, SELFPAY ==
--- NOTE | 2024-12-29 10:52 | CTCFLWUP_ITS ---
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 Underwent radical surgery involving the right thigh with removal of posterior mass 29 x 18 x 13 cm and received postoperation radiation therapy is here [facility] 6000 cGy chemo AIM 6 cycles at [facility]. Patient did not come for follow-up for 2-year duration but stated that he completed all his scheduled cancer treatments. Patient was admitted 12/14/2024, with suspected recurrence right pelvic area associated pain and a biopsy attempt wi 6 th subsequent infection sepsis. Blood culture positive for B fragilis had been on both IV antibiotics and completed Augmentin which the antibiotic was susceptible for. Now out of the hospital completing antibiotics. CT of pelvis and lower extremity 12/13/2024 showed extensive pelvic mass destroying right ischium right inferior pubic ramus proximal right femoral shaft posterior right acetabulum posterior right iliac bone. The mass extended caudad into the medial thigh muscles. As I see patient today there is considerable recurrence that is obvious involving the buttock and the right proximal thigh. There is open wound in the right gluteal region which is receiving home health care as well as referral to the wound center. Patient is having moderate pain needing Babcock. A#1. Stage IIIb pleomorphic sarcoma right posterior thigh had resection [place] 12/08/2021. A#2 postop radiation therapy to the tumor bed [facility] Postop 6 cycles of AIM chemo [facility] completed all scheduled treatments A#3 clear recurrence involving right pelvic area and right thigh. Clinically and radiographically. A#4. Receiving home health for wound management and has been referred to the wound center for open wound in the buttock area. Ordered 5 more days of Augmentin antibiotics. A#5. Biopsy attempt unsuccessful and also developed infection and sepsis. A#6. Will refer patient back to [place] for clear need for evaluation for possible more surgery along with getting adequate tissue diagnosis and recommendation for further management.. A#7. Will order PET scan and see him back in 2 months time. Cc: [facility]. Electronically signed by: Paul Dee M.D. 12/29/2024 10:49 AM
== END 2025-01-14 23:59 | disposition home or self-care (01) ==
LOC: SCTC 09:05
PROVIDERS: Referring Provider Radiology Therapeutic Radiology; Visit Provider Radiology Therapeutic Radiology
DX: C49.21 Malignant neoplasm of connective and soft tissue of right lower limb, including hip (principal); Z92.3 Personal history of irradiation
CPT/HCPCS: 99213; G0463

== ENCOUNTER → 2025-01-10 | Outpatient (CLI) | payer MEDICAID, SELFPAY ==
--- NOTE | 2025-01-10 13:15 | XR_ITS ---
EXAMINATION: PET/CT FUSION SKULL CONNECTIVE AND SOFT TISSUE TUMOR UNSPECIFIED, PET/CT THIGH EXAM DATE AND TIME: January 08, 2025 1359 hrs. Comparison December 13, 2024 Indications: Diagnosis colorectal connective and soft tissue tumor, CT pelvis December 13, 2024 extensive pelvic mass destroying the right ischium right inferior pubic ramus proximal right femoral shaft posterior right acetabulum and posterior right iliac bone CTDI:vol (mGy) 4.26 DLP: (mGycm) 442.37 PROCEDURE: 16.2 mCi FDG was administered intravenously To allow for distribution and uptake of radiotracer, the patient was allowed to rest quietly in a shielded room. Imaging was performed on an integrated 16-slice PET/CT scanner, with scanning from the skull base to the mid thigh. Serum blood glucose at the time of the injection was measured 93 mg/dL. CT scanning was performed without oral or intravenous contrast material. FINDINGS: Head and Neck: There is no isidro hypermetabolism in the neck. The visualized portions of the brain are normal in appearance on CT. Chest: There is no isidro hypermetabolism in the chest. There are no pulmonary nodules. Abdomen and Pelvis: Large irregular soft tissue tumor mass posterior pelvis, 11.8 x 8.6 cm, destroying the right ischium posterior right inferior pubic ramus, posterior right hip, posterior right femoral shaft, the mass extending at least 20 cm into the medial right thigh Metastatic right common femoral lymph nodes, the largest 31 mm, metastatic right external iliac lymph nodes, the largest 26 mm Musculoskeletal: Bone destruction is above IMPRESSION: Large irregular soft tissue tumor mass 11.8 x 8.6 x 20 cm, posterior right pelvis, destroying portions of the right ischium right inferior pubic ramus posterior right hip posterior proximal right femoral shaft, the mass extending into the medial and posterior right thigh Metastatic right common femoral right external iliac lymph nodes
== END | disposition home or self-care (01) ==
LOC: CDIM 12:50
PROVIDERS: PCP Family Medicine; Referring Provider Radiology Therapeutic Radiology; Visit Provider Radiology Therapeutic Radiology
DX: R19.09 Other intra-abdominal and pelvic swelling, mass and lump (principal); C79.51 Secondary malignant neoplasm of bone; C49.9 Malignant neoplasm of connective and soft tissue, unspecified
CPT/HCPCS: 78815; A9552

== ENCOUNTER → 2025-01-17 | Outpatient (CLI) | payer MEDICAID, SELFPAY | END | disposition home or self-care (01) | PROVIDERS: PCP Family Medicine; Referring Provider Family Medicine; Visit Provider Student in an Organized Health Care Education/Training Program | DX: S71.001A Unspecified open wound, right hip, initial encounter (principal); X58.XXXA Exposure to other specified factors, initial encounter; T81.89XA Other complications of procedures, not elsewhere classified, initial encounter; Z92.21 Personal history of antineoplastic chemotherapy; B19.10 Unspecified viral hepatitis B without hepatic coma; Z87.891 Personal history of nicotine dependence | CPT/HCPCS: 11042; 99213; A9270; G0463 ==

== ENCOUNTER 2025-01-19 10:18 | Outpatient (AMB) | payer MEDICAID, SELFPAY ==
[2025-01-19 10:31] VITALS: BP 102/64; PULSE 123; RESP 16; TEMP 35.8; O2SAT 98
--- NOTE | 2025-01-19 10:31 | ACNOTE_ITS ---
Vital Signs 01/19/25 10:31 Weight 73.482 kg Weight Measurement Method Standing Scale BP 102/64 Blood Pressure Source Automatic Cuff Blood Pressure Location Left Upper Arm Position Sitting Respiration 16 Pulse 123 H Pulse Source Monitor Temp 96.5 F L Temp Source Temporal Artery Scan Pulse Oximetry (%) 98 Oxygen Delivery Method Room Air Allergies/Meds Allergies & Medications Allergies No Known Allergies Allergy (Verified 01/19/25 10:32) Medication Reconciliation balsam yesenia-castor oil topical ointment in packet 1 applic topical BID PRN wound healing #300 grams 12/15/24 [Rx Confirmed 01/19/25] hydrocodone 5 mg-acetaminophen 325 mg tablet 1 tab PO BID PRN pain #14 tabs 12/15/24 [Rx Confirmed 01/19/25] magnesium hydroxide 400 mg/5 mL oral suspension (Milk of Magnesia) 30 ml PO QDAY PRN Constipation #3,780 mL 12/15/24 [Rx Confirmed 01/19/25] nystatin 100,000 unit/gram topical cream 1 applic top BID #15 grams 12/15/24 [Rx Confirmed 01/19/25] docusate calcium 240 mg capsule 240 mg PO QDAY #30 caps 01/19/25 [Rx] MA Intake Visit Data Collection New Patient or Established: Established Patient (seen at [facility] within 3 years) Seen by Clinical Staff ONLY (RN/MA): No Pain Present Currently: No Pain scale:: 0 Pain Scale Used: [place]-Mittal/Numerical General Accountant Required: No PCP or OBGYN visit in last 3 months: No Hx Now: No Do You Feel Safe at Home: Yes Authorities Contacted: N/A Smoking Status Smoking Status: Former smoker Immunization / Flu Flu Vaccine in the Last 12 Months: No Flu Vaccine Exclusion Criteria: No Exclusion Criteria Past Medical History Past Medical History NEUROLOGIC: Negative Neurological Disorders CARDIAC: Negative Cardiac Disorders or Congestive Heart Failure RESPIRATORY: Negative Chronic Obstructive Pulmonary Disease (COPD) or Asthma GASTROINTESTINAL: Negative Gastrointestinal Disorders GENITOURINARY: Negative Genitourinary Disorders or Renal Disease REPRODUCTIVE: Negative Fibroids ENDOCRINE: Negative Endocrine Disorders, Diabetes Mellitus Type 1 or Diabetes Me llitus Type 2 HEMATOLOGIC: Negative Blood Disorders or Sickle Cell Disease OTHER HISTORY: Positive Cancer (sarcoma); Negative Autoimmune Disease, Anesthesia Reactions or MRSA Social History SMOKING STATUS: Smoking status: Former smoker ALCOHOL: Alcohol Intake: Current ALCOHOL FREQUENCY: Alcohol Intake Frequency: holidays/special occasions only HOUSING: Housing: House LIVES WITH: Lives With: Family Patient Portal Questionaires Social History Living Situation History Housing: House Tobacco History Smoking Status: Former smoker Alcohol History Alcohol Intake: Current Alcohol Intake Frequency: holidays/special occasions only Domestic Abuse History Do You Feel Safe at Home: Yes Review of Systems Report any current symptoms Only answer those that you have currently: Past Medical History Past Medical History Have you ever been diagnosed with any of the following: Cardiology Problems Congestive Heart Failure: No Respiratory Problems Chronic Obstructive Pulmonary Disease (COPD): No Asthma: No Genital/Urinary Problems Renal Disease: No Reproductive Problems Fibroids: No Endocrine Problems Diabetes Mellitus Type 1: No Diabetes Mellitus Type 2: No Blood Problems Sickle Cell Disease: No Other Problems Autoimmune Disease: No Anesthesia Reactions: No MRSA: No Cancer: Yes (sarcoma) History of Present Illness HPI Narrative Patient is a 59 year old male with a past medical history of 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 Patient chief complain is constipation, likely secondary to [place] 5 use for right lower extremity pain from likely reoccurrence of sarcoma. Soft tissue infection, likely complicated by sarcoma. Lower Posterior inner thigh and gluteus cody erythema, foul smelling, and drainage. Patient started on Amoxcillin-Clavulanate 875-125 mg still taking medication by Dr. Barnes. Denied fever or chills. Following wound clinic. Patient following Dr. Dee. Patient following , oncology. Biopsy during previous hospitalization poor quality. Cameron made referral to [facility] in the [place] for further management. Patient will require wide excision biopsy at [facility] for confirmation of likely reoccurrence of sarcoma. Outpatient PET tumor imaging skull to thigh showed, large irregular soft tissue tumor mass, at posterior right pelvis, destroying right ischium, right inferior pubic ramous, posterior right hip, and proximal right femoral shaft. Metastatis to femoral lymph nodes and right external iliac lymph nodes. Tachycardia for vitals inpatient, HR of 123, repeat 100. Patient stated using walker is difficult and requires all high upper body stregthn as his right left unable to move without expereincing pain. Review of Systems Review of Systems Narrative Review of Systems: General appearance: Yes weight change, Yes fatigue, NO weakness, NO fever, NO chills, NO night sweats, No cough Skin: NO rash, NO itching, NO sores, NO moles HEENT: NO Trauma, NO nausea, NO vomiting, NO visual changes, NO blurry vision, NO double vision, NO tinnitus, NO vertigo, NO ear discharge, NO rhinorrhea, NO stuffiness, NO sneezing, NO allergy, NO epistaxis. NO Hoarseness, NO sore throat, NO swollen neck. Cardiac: NO Palpitations, NO dyspnea on exertion, NO orthopnea, NO paroxysmal nocturnal dyspnea, NO edema Respiratory: NO Shortness of Breath, NO Wheezing, NO Cough, NO Sputum, NO hemoptysis GI:NO appetite, NO nausea, NO vomiting, NO dysphagia, NO changes in bowel frequency, NO stool color, NO diarrhea, NO constipation, NO hemetemesis, NO hemorrhoids, NO melena, NO hematechezia, NO abdominal pain, NO jaundice Renal: NO frequency, NO hesitancy, NO urgency, NO hematuria, NO nocturia, NO incontinence MSK: Yes muscle weakness, NO gout, NO arthritis, NO muscle stiffness Neuro: NO headaches, NO tremors, NO weakness, NO paralysis, NO seizures, NO loss of consciousness, NO numbness. Hem: NO anemia, NO easy bruising/bleeding, NO petechiae, NO purpura Endo: NO heat/cold intolerance, NO excessive sweating, NO polyuria, NO polydipsia, NO polyphagia, NO thyroid problems, NO diabetes Pysch: NO mood, NO anxiety, NO depression Objective/Exam Narrative Physical exam: Vitals: T 96.5, BP 102/64, HR 123-->Repeat 100, RR 16 General Appearance: Alert and Orientated x3, thin male who is sitting on exam room in mild discomfort secondary to pain from right leg. Right lower inner thigh with open lesions with some drainage and erthyema spreading to gluteous cody. Thorax/Lungs: Symmetrical with good expansion. Chest and back non-tender. Lungs resonant to percussion. Breath sounds vesicular without crackles, wheezes, or rhonchi Cardiovascular/Peripheral Vascular: No jugular venous distention noted. Tachy rate. S1 and S2 heart sounds regular, no murmurs or extra heart sounds auscultated. No peripheral edema noted. Abdomen: Bowel sounds are active. No tenderness to deep or light palpation. 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 Patient following Dr. Barnes and Dr. Dee. [facility] Appoitment scheduled for January 2025. Plan: [facility] [address] Dee and Dr. Barnes. (2) Cellulitis and abscess of right leg: Status: Acute Assessment & Plan: Soft tissue cellulitis superimposed on sarcoma. Erythema and drainage present. Foal smelling. Patient is following wound clinic. Recent Augmentin prescription by Dr. Barnes. Plan: -Following wound Clinic -Augmentin (3) Constipation due to opioid therapy: Status: Acute Assessment & Plan: Patient has been going having less bowel movements, now going every three days, likely secondary to opioid medication. Docusate and increase fiber intake. Plan: Docusate increased water intake Plan Follow up in three months or earlier if need be. - The patient's plan was discussed with attending Dr. Km Gonzalez MD PGY1 Internal Medicine Office Procedures [facility] Level of Care Nursing/Assessment Patient Status: Established Patient Nursing Assessment/Reassessment: Medication Reconciliation, Update PMH in EMR and Vital Signs Coordination of Care: Complex Care and Chronic Disease 1-5, Consent,records obtained, informed consent, Education Simp Pt/Fam, Lab and Imaging orders and Staff clarify orders Established Patient Charge Established Patient Point Assignment: 100 Established Patient Point Charge: Level 3 (80-115)
== END 2025-01-19 11:30 | disposition home or self-care (01) ==
LOC: HODAHC 10:18
PROVIDERS: Supervising Provider Internal Medicine
DX: K59.03 Drug induced constipation (principal); T40.2X5A Adverse effect of other opioids, initial encounter; L03.115 Cellulitis of right lower limb; Z85.831 Personal history of malignant neoplasm of soft tissue
CPT/HCPCS: 99213; G0463

== ENCOUNTER → 2025-01-24 | Outpatient (CLI) | payer MEDICAID, SELFPAY | END | disposition home or self-care (01) | PROVIDERS: PCP Family Medicine; Referring Provider Family Medicine; Visit Provider Surgery | DX: S71.001A Unspecified open wound, right hip, initial encounter (principal); X58.XXXA Exposure to other specified factors, initial encounter; T81.89XA Other complications of procedures, not elsewhere classified, initial encounter; Z92.3 Personal history of irradiation; Z92.21 Personal history of antineoplastic chemotherapy; B19.10 Unspecified viral hepatitis B without hepatic coma; Z87.891 Personal history of nicotine dependence | CPT/HCPCS: 99213; A9270; G0463 ==

== ENCOUNTER → 2025-01-31 | Outpatient (CLI) | payer MEDICAID, SELFPAY | END | disposition home or self-care (01) | LOC: SWHD 09:07 | PROVIDERS: PCP Family Medicine; Referring Provider Family Medicine; Visit Provider Student in an Organized Health Care Education/Training Program | DX: S71.001A Unspecified open wound, right hip, initial encounter (principal); X58.XXXA Exposure to other specified factors, initial encounter; Z92.3 Personal history of irradiation; Z92.21 Personal history of antineoplastic chemotherapy; B19.10 Unspecified viral hepatitis B without hepatic coma; Z87.891 Personal history of nicotine dependence | CPT/HCPCS: 10061; A9270 ==

== ENCOUNTER → 2025-02-07 | Outpatient (CLI) | payer MEDICAID, SELFPAY | END | disposition home or self-care (01) | LOC: SWHD 09:10 | PROVIDERS: PCP Family Medicine; Referring Provider Family Medicine; Visit Provider Student in an Organized Health Care Education/Training Program | DX: S71.001A Unspecified open wound, right hip, initial encounter (principal); S31.819A Unspecified open wound of right buttock, initial encounter; X58.XXXA Exposure to other specified factors, initial encounter; Z92.3 Personal history of irradiation; Z92.21 Personal history of antineoplastic chemotherapy; B19.10 Unspecified viral hepatitis B without hepatic coma; Z87.891 Personal history of nicotine dependence | CPT/HCPCS: 97597; 97598; A9270 ==

== ENCOUNTER → 2025-02-14 | Outpatient (CLI) | payer MEDICAID, SELFPAY | END | disposition home or self-care (01) | PROVIDERS: PCP Family Medicine; Referring Provider Family Medicine; Visit Provider Student in an Organized Health Care Education/Training Program | DX: S71.001A Unspecified open wound, right hip, initial encounter (principal); S31.819A Unspecified open wound of right buttock, initial encounter; X58.XXXA Exposure to other specified factors, initial encounter; Z92.3 Personal history of irradiation; Z92.21 Personal history of antineoplastic chemotherapy; B19.10 Unspecified viral hepatitis B without hepatic coma; Z87.891 Personal history of nicotine dependence | CPT/HCPCS: 99214; A9270; G0463 ==

== ENCOUNTER → 2025-02-21 | Outpatient (CLI) | payer MEDICAID, SELFPAY | END | disposition home or self-care (01) | LOC: SWHD 09:11 | PROVIDERS: PCP Family Medicine; Referring Provider Family Medicine; Visit Provider Student in an Organized Health Care Education/Training Program | DX: S91.001A Unspecified open wound, right ankle, initial encounter (principal); S31.819A Unspecified open wound of right buttock, initial encounter; X58.XXXA Exposure to other specified factors, initial encounter; Z92.3 Personal history of irradiation; Z92.21 Personal history of antineoplastic chemotherapy; B19.10 Unspecified viral hepatitis B without hepatic coma; Z87.891 Personal history of nicotine dependence | CPT/HCPCS: 17250; 10060; A9270 ==

== ENCOUNTER → 2025-02-28 | Outpatient (CLI) | payer MEDICAID, SELFPAY | END | disposition home or self-care (01) | LOC: SWHD 09:46 | PROVIDERS: PCP Family Medicine; Referring Provider Family Medicine; Visit Provider Surgery | DX: S71.001A Unspecified open wound, right hip, initial encounter (principal); S31.819A Unspecified open wound of right buttock, initial encounter; X58.XXXA Exposure to other specified factors, initial encounter; Z92.21 Personal history of antineoplastic chemotherapy; B19.10 Unspecified viral hepatitis B without hepatic coma; Z87.891 Personal history of nicotine dependence | CPT/HCPCS: 11042; A9270 ==

== ENCOUNTER → 2025-03-14 | Outpatient (CLI) | payer MEDICAID, SELFPAY | END | disposition home or self-care (01) | PROVIDERS: PCP Family Medicine; Referring Provider Family Medicine; Visit Provider Student in an Organized Health Care Education/Training Program | DX: S71.001A Unspecified open wound, right hip, initial encounter (principal); S31.819A Unspecified open wound of right buttock, initial encounter; X58.XXXA Exposure to other specified factors, initial encounter; T81.89XA Other complications of procedures, not elsewhere classified, initial encounter; B19.10 Unspecified viral hepatitis B without hepatic coma; Z87.891 Personal history of nicotine dependence | CPT/HCPCS: 10061; A9270 ==

== ENCOUNTER → 2025-03-15 | Outpatient (CLI) | payer MEDICAID, SELFPAY ==
--- NOTE | 2025-03-15 14:09 | XR_ITS ---
Examination: CT chest, without intravenous contrast. Sagittal and coronal 2-D reconstructions. Exam date and time: March 15, 2025 1427 hours Comparison PET/CT scan January 10, 2025, CT chest abdomen pelvis March 25, 2022 INDICATIONS: Diagnosis malignant neoplasm connective soft tissue sarcoma right hip post surgery November 2021, right leg pain (wound right leg this week, restaging CTDI:vol (mGy) 8.14 DLP: (mGycm) 322 Technique: Multiple 3.0 mm axial sections of the chest to been obtained. Bone and lung density settings are obtained. Sagittal and coronal 2-D reconstructions have been obtained. Low dose protocols were performed. One or more of the following dose reduction techniques were used; automated exposure control, adjustment of the mA and/or KV according to patient size, use of iterative reconstruction technique. Findings: AP dimension ascending thoracic aorta 3.5 cm No paratracheal tracheobronchial or bronchopulmonary adenopathy At least 28 bilateral pulmonary nodules ranging in size from 2 to 12 mm No pneumonia or pulmonary edema No interval liver or splenic lesions Cholelithiasis No pancreatic or adrenal mass Abdominal aorta normal size Moderate osteopenia IMPRESSION: Interval pulmonary nodular metastatic disease
== END | disposition home or self-care (01) ==
PROVIDERS: Referring Provider Orthopaedic Surgery; Visit Provider Orthopaedic Surgery
DX: R91.8 Other nonspecific abnormal finding of lung field (principal); C49.21 Malignant neoplasm of connective and soft tissue of right lower limb, including hip
CPT/HCPCS: 71250

== ENCOUNTER → 2025-03-19 | Outpatient (CLI) | payer MEDICAID, SELFPAY ==
--- NOTE | 2025-03-19 13:15 | XR_ITS ---
Examination: MRI pelvis, without contrast Date and time of exam: March 19, 2025, 1325 hours INDICATIONS: Diagnosis connected tissue tumor, PET CT scan January 10, 2025 large irregular soft tissue tumor mass 11.8 x 8.6 x 20 cm posterior right pelvis destroying portions of the right ischium and right inferior pubic ramus posterior right hip posterior proximal right femoral shaft, the mass extending into the medial and posterior right thigh with metastatic right lymphadenopathy Technique: Multiple axial sagittal and coronal images of the pelvis have been obtained with the Siemens high-resolution 1.5 Margo MRI scanner. Images obtained include T2-weighted fat-suppressed sagittal sections, TR 3500, TE 46, T2 weighted coronal fat suppressed images, TR 3050, TE 84, T2-weighted transverse fat suppressed images, TR 3260, TE 63, proton density transverse images, TR 4720 TE 46, and T1 weighted coronal images, TR 560, TE 13. Findings: Soft tissue tumor mass centered posterior to the right hip, mediolateral dimension 15 cm, cephalad caudad dimension 16 cm, AP dimension 14 cm This mass is destroying the posterior right acetabulum, the right ischium, posterior margin of the right femoral head, posterior margin of the proximal right femoral shaft, the medial margin of the right acetabulum Larger metastatic isidro mass in the right groin measuring at least 5 cm in dimension This mass is destroying the entire inferior right pubic ramus and is extending into the anterior right perineum Progression also of right external iliac lymphadenopathy, 36 mm compared to 27 mm on the PET/CT scan IMPRESSION: Marked progression in size of the soft tissue tumor mass centered posterior to the right hip as above, with more pronounced bone destruction described above Progression of right-sided pelvic lymphadenopathy
== END | disposition home or self-care (01) ==
LOC: SMRI 12:57
PROVIDERS: PCP Family Medicine; Referring Provider Orthopaedic Surgery; Visit Provider Orthopaedic Surgery
DX: R59.0 Localized enlarged lymph nodes (principal); M89.8X8 Other specified disorders of bone, other site; C49.21 Malignant neoplasm of connective and soft tissue of right lower limb, including hip
CPT/HCPCS: 72195

== ENCOUNTER → 2025-04-04 | Outpatient (CLI) | payer MEDICAID, SELFPAY | END | disposition home or self-care (01) | LOC: SWHD 10:48 | PROVIDERS: PCP Family Medicine; Referring Provider Family Medicine; Visit Provider Student in an Organized Health Care Education/Training Program | DX: S71.001A Unspecified open wound, right hip, initial encounter (principal); S31.819A Unspecified open wound of right buttock, initial encounter; X58.XXXA Exposure to other specified factors, initial encounter; B19.10 Unspecified viral hepatitis B without hepatic coma; Z87.891 Personal history of nicotine dependence | CPT/HCPCS: 17250; A9270 ==

== ENCOUNTER 2025-04-06 09:26 | Outpatient (RCR) | payer MEDICAID, SELFPAY ==
--- NOTE | 2025-03-29 09:03 | CTCFLWUP_ITS ---
[facility] [address] [place], [place] [address] FOLLOW-UP NOTE Date: 03/29/2025 MR#: [id number] Name: DULCE MARIA TSAI : 1965 Dx: C49.9 Malignant neoplasm of connective and soft tissue, unspecified Identification. 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 Underwent radical surgery involving right thigh with removal of posterior mass 29 x 18 x 13 cm and received postoperation therapy 6000 cGy 6 01/20/2022 through 03/19/2022 with AIM chemotherapy 6 cycles at [facility]. Patient did not come in for follow-up for 2-year duration and was admitted 12/06/2024 [facility] with suspected recurrence right pelvic area. Biopsy was nondiagnostic. Patient was septic with blood culture positive for B fragilis needing antibiotic therapy. PET scan 01/10/2025 showed large irregular soft tissue tumor mass 11.8 x 8.6 x 20 cm posterior right pelvis destroying portions of right ischium right inferior pubic ramus posterior right hip posterior proximal right femoral shaft with mass extending to the medial and posterior right thigh. There were metastatic right common femoral right external iliac lymph nodes. Patient was evaluated at [facility] where pelvic mass core biopsy 02/03/2025 revealed high-grade pleomorphic sarcoma grade 3/3. Chest CT showed metastatic disease with MRI 03/19/2025 showing extensive disease in the pelvis. The recommendation at [facility] was resuming chemotherapy and consider local radia tion therapy to the pelvic area for pain control. As I see him today patient was in acute distress with malodorous wound right pelvic area extensive involving much of the right pelvis and upper thigh. Assessment #1 History of stage IIIb undifferentiated pelvic sarcoma posterior right thigh surgery [facility] 12/08/2021. #2. postop XRT 6000 cGy completed 03/19/2022 with AIM chemo [facility] 6 cycles beginning 06/09/2022 completing at end of October 2022. #3. significant recurrence noted on PET 01/10/2025 large mass posterior right pelvis involving proximal thigh. #4. Evaluated [facility]. biopsy 02/03/2025 recurrence high-grade pleomorphic sarcoma 01/1703/15/2025 CT metastatic disease MRI 03/19/2025 extensive disease in the pelvis. #5. [facility] recommends chemo for the spreading disease and consideration of local radiation therapy for pain control. #6. 2500 cGy 10 fractions via VMAT to right thigh buttock area for palliative purposes #7 port placement as the previous one has been removed for anticipated chemo. #8. Dr. Barnes, medical oncologist referral #9. Home health for wound care with Dakin's solution for odor control and antiseptic purposes. Cc: Live Bond MD [facility] Zia Jorge MD [facility] Electronically signed by: Paul Dee M.D. 03/29/2025 9:01 AM
--- NOTE | 2025-03-29 09:08 | CTCTXPLN_ITS ---
[facility] [address] [place], [place] [address] Physician Clinical Treatment Planning Note Date of Service: 03/29/2025 Name: DULCE MARIA ROOTDEMETRIASHLEY : 1965 The patient has agreed to proceed with Radiation therapy. Tests and supporting medical records were interpreted to assist in defining the tumor location and extent of disease. Further imaging will be necessary to contour and delineate the volume to which the XRT will be provided. A. Treatment Intent: Palliative B. Modality: 6 MV C. Requested Technique: VMAT D. Treatment Site: Buttock right thigh E. Critical structures to be contoured on plan: F. In order to accomplish this plan, I am ordering/Prescribing the followin. Simulations (s) will be performed to accomplish a reproducible treatment position, to determine optimal treatment portals/beam arrangements, to design beam modifying devices and verify treatment portals on patient prior to the commencement of Radiation Therapy. Pelvis 2. Devices; for immobilization and beam shaping: Vac-Yoli 3. CT Guidance for placement of XRT luna Scan area: 4. Portal images Frequency: 5. Invivo transit dose measurement once per week on all VMAT patients. 6. Special Physics Consult Requested for: 7. Other requests: Special procedures I am getting chemo and radiation Dose Objectives: Palliative Electronically signed by: Paul Dee M.D. 03/29/2025 9:06 AM
--- NOTE | 2025-03-29 09:11 | CTCTXPLNST_ITS ---
Radiation Oncology Treatment Planning Sheet Name: DULCE MARIA TSAI MR#: [id number] : 1965 Dx: C49.9 Malignant neoplasm of connective and soft tissue, unspecified Date of Service: 03/29/2025 Account #: ?? Pt Treatment Intent: curative palliative other: Stage: Procedure CPT # Ordered Spec. Procedure 23084 1 Powell Complex (set-up) 34962 pelvis 1 Powell Simple 21400 IMRT Plan 16849 1 MLC Devices VMAT 35436 4 Powell 3 D 50657 TRTMT dev Complex 73723 vaklok 1 TRTMT dev simple 16349 Basic Domingo 33276 6 Special Dosimetry 70738 Spec Physics 15531 Port Films 32532 SRS Cranial/1FX 58906 SBR 5 FX or Less /ex: 5 = 5 fx 38898 IMRT Simple 31873 3000 10 IMRT Complex 15249 IGRT 70458 8 Rad del com 6-10 47193 Rad del com 11- 08939 Cont Med Physics 48195 2 Treatment Planning 96107 1 Rad del com 20 mev 64305 Rad del inter 6-10 65719 Rad del inter 11 03240 Rad del simple 6-10 69390 Rad del simple 11-19 77078 Special Port Plan 29802 TRTMT dev inter 80534 Isodose Complex 33453 Isodose simple 18035 Resp Motion Mgmt Simulation 06777 Placement of Fiducial Markers 74778 Electronically Signed By: Paul Dee MD, DABR 03/29/2025 9:09 AM
== END 2025-04-16 23:59 | disposition home or self-care (01) ==
LOC: SCTC 09:26
PROVIDERS: PCP Family Medicine; Referring Provider Family Medicine; Visit Provider Radiology Therapeutic Radiology
DX: Z51.0 Encounter for antineoplastic radiation therapy (principal); C49.21 Malignant neoplasm of connective and soft tissue of right lower limb, including hip; C79.89 Secondary malignant neoplasm of other specified sites
CPT/HCPCS: 77014; 77290; 77300; 77301; 77334; 77338; 77470; 99213; G0463

== ENCOUNTER 2025-04-11 21:04 | Inpatient (IN) | payer MEDICAID, SELFPAY ==
[2025-04-11 21:06] VITALS: BMI 19.8
[2025-04-11 21:08] VITALS: BP 95/65; PULSE 98; RESP 19; TEMP 37.1; O2SAT 96
--- NOTE | 2025-04-11 21:15 | EDNOTE_ITS ---
ED Extremity Problem RME/HPI General Chief complaint: Wound/Laceration Stated complaint: ABCESS BUTTOCK Time Seen by Provider: 04/11/25 21:40 Arrival date/time: 04/11/25 21:04 RME / HPI RME / HPI Narrative: This section includes all my notes and documentations, including HPI, PE, and ED course. 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 Patient is currently being followed by our oncologist Dr. Paul Dee at [facility] and at [place]. No fevers, chills, nausea, vomiting or any other associated symptoms. No other complaints reported. ROS: All negative except as documented in HPI. Physical Exam: General: Alert and oriented. In obvious pain. Eyes: Conjunctivae and lids clear. ENT: No nasal congestion. Neck: Supple. Heart: RRR. Lungs: No respiratory distress. Good air movement. No significant rhonchi, wheezing, rales. Abdomen: Soft and nontender. Normal bowel sounds. No distension. No rebound or guarding. Skin: Warm and dry. In the right buttock area, there are multiple open wounds, varying in size and shape and depth with erythema and edema and calor and tenderness. Neuro: Alert and oriented X 3. I reviewed EMS notes. I reviewed all diagnostic test results. My interpretation of the chest x-ray is unremarkable. My review of the CT abdomen pelvis report is: - Large enhancing heterogeneous fungating mass in the right gluteal region with destruction of the underlying osseous structures - Enhancing soft tissue density lesion in the right inguinal region with possible invasion of adjacent vessels -Multiple enlarged lymph nodes in the abdomen and pelvis -Thrombus in the right superficial femoral vein -Cholelithiasis with mild intra and extrahepatic biliary ductal dilatation -Constipation with rectal fecal impaction -Nodules in bilateral lungs My review of the US gallbladder report is cholelithiasis with no signs of cholecystitis. My review of the US venous doppler of the bilateral lower extremities is no DVT. Blood tests show WBC 43.4, Hemoglobin 6.7, Hematocrit 21.4, ESR 98, Lactic Acid 7.5, Sodium 126, CRP is greater than 10, Procalcitonin 2.97. Bedside COVID and Influenza are negative. At this point, diagnoses include sepsis, pelvic sarcoma, severe anemia. Treatment here included blood transfusion, IV fluid, cefepime, vancomycin, Zofr an, and morphine. Patient remained stable. I discussed the case with our hospitalist. About the presentation and exam and diagnostics and treatments here. And need of further care in the hospital. Will accept the patient. Oscar Dee MD Related Data Previous Rx's ?Medication ?Instructions ?Recorded balsam yesenia-castor oil topical [address] N wound 12/15/24 ointment in packet healing #300 grams hydrocodone 5 mg-acetaminophen 325 1 tab PO BID PRN pa in #14 tabs 12/15/24 mg tablet magnesium hydroxide 400 mg/5 mL 30 ml PO QDAY PRN Cons tipation 12/15/24 oral suspension (Milk of Magnesia) #3,780 mL nystatin 100,000 unit/gram topical 1 applic top BID #1 5 grams 12/15/24 cream docusate calcium 240 mg capsule 240 mg PO QDAY #30 cap s 01/19/25 hydrocodone 5 mg-acetaminophen 325 1 tab PO BID PRN pa in #20 tabs 03/14/25 mg tablet Allergies Allergy/AdvReac Type Severity Reaction Status Date / Time No Known Allergies Allergy Verified 01/19/25 10:32 Review of Systems Review of Systems Systems Reviewed: All systems reviewed, normal except as documented ED Exam Narrative Physical exam: As noted in HPI. Course Course Course Narrative: 2202: Sepsis alert initiated. Orders made at this time are congruent with ED Adult Sepsis Order List. Re-evaluation is to be completed. 2212: NS IVF started. 5: Sepsis reassessment performed consisting of lab review, vitals, physical exam including auscultation of heart, lungs, and visual evaluation of capillary refills, mucosal membranes and extremities. Quality Measures Possible source: bone/joint and skin/soft tissue Blood cultures ordered: yes Antibiotic ordered: Yes Pertinent labs: 04/11/25 04/12/25 21:46 01:09 Lactic Acid 7.5 H* mMol/L 1.7 mMol/L (0.4-2.0) (0.4-2.0) Procalcitonin 2.97 H ng/ml (0.0-0.49) sepsis Orders Category Date Time Status Bedside COVID-19 Antigen Test NOW Care 04/11/25 21:24 Active Bedside Influenza A&B Antigen Test NOW Care 04/11/25 21:24 Completed COVID-19 Screening Questionnaire NOW Care 04/11/25 23:49 Active COVID-19 Screening Questionnaire NOW Care 04/12/25 05:[address] Screening NOW Care 04/11/25 21:25 Active Leasing Coordinator Q4H START 00 Care 04/11/25 21:42 Active Decision to Admit X1 Care 04/12/25 05:17 Active Saline [Insert IV] NOW Care 04/11/25 21:24 Active Transfuse,blood/blood products NOW Care 04/11/25 22:[address] abdomen pelvis w con Stat Exams 04/11/25 21:25 Taken US gall bladder Stat Exams 04/12/25 02:20 Taken US venous doppler LE BI Stat Exams 04/12/25 02:21 Taken XR chest 1V portable Stat Exams 04/11/25 21:25 Completed Bilirubin,Direct Stat Lab 04/11/25 21:46 Completed Blood Culture (Lab) Stat Lab 04/11/25 21:40 Received CBC Stat Lab 04/11/25 21:46 Completed CMP [Comprehensive Metabolic Panel] Stat Lab 04/11/25 21:46 Completed CRP [C-Reactive Protein] Stat Lab 04/11/25 21:46 Completed ESR [Sed Rate (ESR)] Stat Lab 04/11/25 21:46 Completed Lactate (Lactic Acid) Stat Lab 04/11/25 21:46 Completed Lactic Acid, 3 HR Stat Lab 04/12/25 01:09 Completed Magnesium Stat Lab 04/11/25 21:46 Completed Path Review Blood Smear Stat Lab 04/11/25 21:46 Completed Procalcitonin Stat Lab 04/11/25 21:46 Completed Type and Screen Stat Lab 04/11/25 22:23 Completed UA, C/S IF [Urinalysis, C/S if Indicated] Stat Lab 04/12/25 00:41 Completed prbc [Red Blood Cells] Stat Lab 04/11/25 22:23 Completed Cefepime Inj [Maxipime Inj] 2 gm Med 04/11/25 22:04 Discontinued SODIUM CHLORIDE 0.9% (Popper) [Ns 0.9% (P)] 50 ml IV X1 Morphine Inj Med 04/11/25 21:24 Discontinued 4 mg IVP X1 ONE Ondansetron Inj [Zofran Inj] Med 04/11/25 21:24 Discontinued 4 mg IVP X1 ONE Sodium Chloride 0.9% 1000 ml [Ns] 1,000 ml Med 04/11/25 21:24 Discontinued IV 999 mls/hr Sodium Chloride 0.9% 1000 ml [Ns] 1,000 ml Med 04/11/25 22:04 Discontinued IV 999 mls/hr Sodium Chloride 0.9% 1000 ml [Ns] 1,000 ml Med 04/12/25 05:01 Active IV 999 mls/hr Vancomycin Inj 1,000 mg Med 04/11/25 23:18 Discontinued Sodium Chloride 0.9% 500 ml [Ns] 500 ml IV X1 Vancomycin Inj 2,000 mg Med 04/11/25 22:04 Discontinued Sodium Chloride 0.9% 500 ml [Ns] 500 ml IV X1 Vital Signs Vital signs: Vital Signs Temperature 98.7 F 04/11/25 21:08 Pulse Rate 98 04/11/25 21:08 Respiratory Rate 19 04/11/25 21:08 Blood Pressure 95/65 04/11/25 21:08 Pulse Oximetry (%) 96 04/11/25 21:08 Oxygen Delivery Method Room Air 04/11/25 21:08 Extremity Problem MDM Narrative MDM Narrative:: 59yo male with a history of stage IIIb undifferentiated pleomorphic sarcoma right posterior thigh status post wide excision in [facility] (12/07/2021), s/p radiation and chemotherapy, 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 Patient is currently being followed by Dr. Dee at [facility] and at [place]. No fevers, chills, nausea, vomiting or any other associated symptoms. No other complaints reported. Patient data External records reviewed:: [facility] previous records (Per chart review, patient was admitted here on 12/13/24 for fever.) Clinical information provided by:: patient and EMS Social determinants that could affect healthcare access:: none Patient has the following chronic illnesses:: stage IIIb undifferentiated pleomorphic sarcoma right posterior thigh status post wide excision in [facility] (12/07/2021), s/p radiation and chemotherapy, high- grade pleomorphic sarcoma grade 3/3 (03/19/25), Hepatitis B infection How is presenting disease/condition affected by chronic disease/condition?: uneffected by Evaluation data The following diagnostics were reviewed and interpreted by me:: lab results and radiology exam(s) Lab and/or radiology exams considered but not ordered:: none Interpretation Summary: I reviewed all diagnostic test results. My interpretation of the chest x-ray is unremarkable. My review of the CT abdomen pelvis report is: - Large enhancing heterogeneous fungating mass in the right gluteal region with destruction of the underlying osseous structures - Enhancing soft tissue density lesion in the right inguinal region with possible invasion of adjacent vessels -Multiple enlarged lymph nodes in the abdomen and pelvis -Thrombus in the right superficial femoral vein -Cholelithiasis with mild intra and extrahepatic biliary ductal dilatation -Constipation with rectal fecal impaction -Nodules in bilateral lungs My review of the US gallbladder report is cholelithiasis with no signs of cholecystitis. My review of the US venous doppler of the bilateral lower extremities is no DVT. Blood tests show WBC 43.4, Hemoglobin 6.7, Hematocrit 21.4, ESR 98, Lactic Acid 7.5, Sodium 126, CRP is greater than 10, Procalcitonin 2.97. Bedside COVID and Influenza are negative. Medications / Prescriptions Medications or Prescriptions considered but not ordered:: none Medication administrations:: Medication Administration History Sodium Chloride (Ns) 1,000 mls @ 999 mls/hr IV .Q1H1M ONE Stop: 04/12/25 06:01 Last Admin: 04/12/25 05:06 Dose: 999 mls/hr Documented By: BD Discontinued Medications Sodium Chloride (Ns) 1,000 mls @ 999 mls/hr IV .Q1H1M ONE Stop: 04/11/25 22:24 Last Infusion: 04/11/25 23:15 Dose: Infused Documented By: Admin: 04/11/25 22:13 Dose: 999 mls/hr Documented By: BD Cefepime HCl 2 gm/ Sodium (Chloride) 50 mls @ 100 mls/hr IV X1 ONE Stop: 04/11/25 22:33 Last Infusion: 04/11/25 23:14 Dose: Infused Documented By: Admin: 04/11/25 22:37 Dose: 100 mls/hr Documented By: BD Sodium Chloride (Ns) 1,000 mls @ 999 mls/hr IV .Q1H1M ONE Stop: 04/11/25 23:04 Last Infusion: 04/12/25 00:51 Dose: Infused Documented By: Admin: 04/11/25 23:19 Dose: 999 mls/hr Documented By: BD Vancomycin HCl 2,000 mg/ (Sodium Chloride) 500 mls @ 150 mls/hr IV X1 ONE Stop: 04/12/25 01:23 Last Admin: 04/11/25 23:39 Dose: Not Given Documented By: BD Non-Admin Reason: Cancelled by Provider Vancomycin HCl 1,000 mg/ (Sodium Chloride) 500 mls @ 150 mls/hr IV X1 ONE Stop: 04/12/25 02:37 Last Infusion: 04/12/25 03:58 Dose: Infused Documented By: Admin: 04/12/25 00:17 Dose: 150 mls/hr Documented By: BD Morphine Sulfate (Morphine Sulf Inj 10 Mg/Ml Vial) 4 mg IVP X1 ONE Stop: 04/11/25 21:25 Last Admin: 04/11/25 22:11 Dose: 4 mg Documented By: BD Ondansetron HCl (Ondansetron Inj 2 Mg/Ml Inj 2 Ml) 4 mg IVP X1 ONE; Protocol Stop: 04/11/25 21:25 Last Admin: 04/11/25 22:11 Dose: 4 mg Documented By: BD Zofran, Morphine, NS, Vancomycin, Cefepime Consultations Consultation(s) initiated? (list below): No Diagnosis Extremity Problem Differential Diagnosis: cellulitis, superficial thrombophlebitis, deep vein thrombosis of lower extremity and other (Sepsis) Most likely diagnosis given after review of the tests above:: sepsis, pelvic sarcoma, severe anemia. Admission Indicated Admission indicated?: indicated Explain why admission is indicated or not indicated:: Sepsis Admission Request Was there a request for admission?: Yes Admission Attestation Admission request attestation: Discussed case with Hospitalist service regarding admission. Discussed patients ED course, exam findings, labs, and radiology results. The Hospitalist [agrees] to accept the patient for admission. Disposition Plan Disposition Plan: Admit Critical Care Time Critical Care Time Critical Care Time: Yes Total Critical Care Time (min.): 52 Attestation: Due to a high probability of clinically significant, life threatening deterioration, the patient required my highest level of preparedness to intervene emergently and I personally spent this critical care time directly and personally managing the patient. This critical care time included obtaining a history; examining the patient; ordering and review of studies; arranging urgent treatment with development of a management plan; evaluation of patient's response to treatment; frequent reassessment; and discussions with family and other providers. It was exclusive of separately billable procedures and treating other patients and teaching time. Oscar Dee MD Discharge Plan Plan Patient Disposition: Admit Acute Care w/in Hospital Prescriptions/Referrals Prescriptions/Med Rec: No Action docusate calcium 240 mg capsule 240 mg PO QDAY Qty: 30 6RF hydrocodone-acetaminophen 5-325 mg tablet 1 tab PO BID MDD 10mg hydrocodone PRN (Reason: pain) Qty: 20 0RF balsam yesenia-castor oil Ointment In Packet 1 applic topical BID PRN (Reason: wound healing) Qty: 300 0RF nystatin 100,000 unit/gram Cream 1 applic top BID Qty: 15 0RF magnesium hydroxide [Milk of Magnesia] 400 mg/5 mL Suspension 30 ml PO QDAY PRN (Reason: Constipation) Qty: 3780 0RF hydrocodone-acetaminophen 5-325 mg tablet 1 tab PO BID MDD 2 PRN (Reason: pain) Qty: 14 0RF Referrals: Zia Jorge MD [Primary Care Provider] - In 1 week Problem List Clinical Impression: Sepsis, Sarcoma of pelvis, Severe anemia Patient/Caregiver Discharge Instructions Print Language: Kyrgyz Stand Alone Forms: Elvia Award Info., Patient Portal Info Letter
--- NOTE | 2025-04-11 21:25 | XR_ITS ---
Examination: AP chest single view Technique one AP portable semiupright chest single view Date and time: 07/12/2025 0945 hours INDICATIONS: Shortness of breath today FINDINGS: Normal heart size Lungs are clear No pneumonia or pulmonary edema Intact osseous structures IMPRESSION: No pneumonia or pulmonary edema
--- NOTE | 2025-04-11 21:25 | XR_ITS ---
Examination: CT abdomen with intravenous contrast CT pelvis with intravenous contrast 2-D coronal reconstructions 2-D sagittal reconstructions Date and time of exam:April 11, 2025 at 11:41 PM Comparison PET/CT scan January 10, 2025 INDICATIONS: Diagnosis colorectal connective and soft tissue tumor, soft tissue mass destroying the right ischium right inferior pubic ramus proximal right femoral shaft right acetabulum on PET CT scan January 10, 2025, right buttock erythema and redness this week. CTDI: vol (mGy) 5.87 DLP: (mGycm) 338 Technique: Multiple axial sections of the abdomen and pelvis have been obtained. 64 slice high-resolution scanner used. 3 mm axial sections have been obtained, post intravenous injection 60 cc [id number] 2-D sagittal, coronal reconstructions obtained. Low dose protocols were performed. One or more of the following dose reduction techniques were used; automated exposure control, adjustment of the mA and/or KV according to patient size, use of iterative reconstruction technique. Findings: Multiple metastatic pulmonary nodules, the largest in the right lower lobe 20 mm Mild intrahepatic biliary tract dilatation Cholelithiasis 5 mm right lobe liver lesion Spleen is nonenlarged No pancreatic or adrenal mass No hydronephrosis Multiple periaortic pericaval lymph nodes, the largest 15 mm which have markedly progressed in size compared to January 10, 2025 Common iliac lymph nodes, the largest 18 mm which have also progressed in size Bulky right external iliac lymphadenopathy, the largest mass 34 mm Normal appendix No bowel obstruction Common femoral metastatic lymphadenopathy, the largest 38 mm and in the right groin 57 mm The very large necrotic enhancing tumor mass in the right gluteal region with destruction of posterior acetabular right inferior pubic ramus and proximal femoral shaft again depicted, measuring on the current study at least 14 x 13 x 15 cm extending into the gluteal region and medial right hemipelvis Findings consistent with thrombus in the right superficial femoral vein IMPRESSION: Marked progression of metastatic pulmonary disease compared with PET CT scan January 10, 2025 Marked progression of abdominal and pelvic lymphadenopathy compared with the CT scan January 10, 2025 Large necrotic mass posterior right pelvis right gluteal region again noted destroying right hemipelvis bones and posterior right femur again noted Recommend venous Doppler to confirm thrombus in the right superficial femoral vein
[2025-04-11 21:30] VITALS: PULSE 62; O2SAT 96
[2025-04-11 21:53] LABS: Lactate (Lactic Acid) 7.5 mMol/L (0.4-2.0)
[2025-04-11 21:54] LABS: Basophils # (Auto) 0.1 Thou/mm3 (0.0-0.2); Basophils % (Auto) 0 % (0-2.5); Eosinophils # (Auto) 0.1 Thou/mm3 (0.0-0.5); Eosinophils % (Auto) 0 % (0-10); Hematocrit 21.4 % (41.0-53.0); Immature Granulocytes % (Auto) 2 % (0-0); Immature Granulocytes Auto 1.03 Thou/mm3 (0.00-0.00); Lymphocytes # (Auto) 2.3 Thou/mm3 (1.0-4.8); Lymphocytes % (Auto) 5 % (10-50); Mean Corpuscular HGB Conc 31.3 g/dl (31.0-37.0); Mean Corpuscular Hemoglobin 25.4 pg (25.0-35.0); Mean Corpuscular Volume 81 fL (80-100); Monocytes # (Auto) 2.1 Thou/mm3 (0.0-0.8); Monocytes % (Auto) 5 % (0-12); Neutrophils # (Auto) 37.7 Thou/mm3 (1.8-7.7); Neutrophils % (Auto) 87 % (37-80); Nucleated Red Blood Cell # 0.02 Thou/mm3 (0.00-0.00); Nucleated Red Blood Cell % 0 /100 WBC (0); Platelet Count 622 Thou/mm3 (140-440); RDW Standard Deviation 56.5 fL (35.1-43.9); Red Blood Count 2.64 Miln/mm3 (4.50-5.90)
[2025-04-11 22:02] LABS: Sed Rate (ESR) 98 mm/hr (0-20)
[2025-04-11 22:04] LABS: White Blood Count 43.4 Thou/mm3 (3.8-10.6)
[2025-04-11 22:05] LABS: Hemoglobin 6.7 g/dL (13.5-16.0)
[2025-04-11 22:07] LABS: Path Review Blood Smear Sent to Pathologist
[2025-04-11] MEDS: ONDANSETRON INJ 2 MG/ML INJ 2 ML 4 MG IVP (22:11)
[2025-04-11] MEDS: MORPHINE SULF INJ 10 MG/ML VIAL 4 MG IVP (22:11)
[2025-04-11] MEDS: SODIUM CHLORIDE 0.9% 1000 ML 1,000 ML 999 ML IV ×2 (22:13→23:19)
[2025-04-11 22:18] LABS: Alanine Aminotransferase 16 U/L (10-49); Albumin, Serum 2.8 gm/dL (3.4-4.8); Anion Gap 15 (7-16); Aspartate Amino Transferase 24 U/L (0-34); BUN/Creatinine Ratio 21 Ratio (12-20); Bilirubin,Direct 0.4 mg/dL (0.0-0.3); Bilirubin,Total 0.8 mg/dL (0.3-1.2); Blood Urea Nitrogen 21 mg/dL (9-23); C-Reactive Protein > 10.0 mg/dL (0.0-0.9); Carbon Dioxide 21.2 mMol/L (20.0-31.0); Chloride 90 mMol/L (98-107); Estimated Creatinine Clearance 65.5 mL/min (>60); Glucose 139 mg/dL (74-106); Osmolality,Calculated 258 (275-295); Potassium 4.4 mMol/L (3.4-5.1); Sodium 126 mMol/L (136-145); Total Protein 6.3 gm/dL (5.7-8.2); eGFR > 60 See Note
[2025-04-11 22:19] LABS: Albumin/Globulin Ratio 0.8 (1.2-2.2); Alkaline Phosphatase 130 U/L (46-116); Globulin 3.5 gm/dL (2.3-3.5); Procalcitonin 2.97 ng/ml (0.0-0.49)
[2025-04-11] MEDS: CEFEPIME INJ 2 GM in SODIUM CHLORIDE 0.9% (Popper) 50 ML IV (22:37)
--- NOTE | 2025-04-11 23:38 | PC.NURSE ---
pt in ct unable to get updated vitals
[2025-04-11 23:59] VITALS: BP 101/65; PULSE 122; RESP 21; TEMP 37.2; O2SAT 100
[2025-04-12] VITALS (17 sets, daily range): BP systolic 87–105; BP diastolic 56–69; PULSE 58–142; RESP 16–100; TEMP 36.2–36.6; O2SAT 92–100; BMI 27.3
[2025-04-12] MEDS: Vancomycin Inj 1,000 MG in SODIUM CHLORIDE 0.9% 500 ML 500 ML 150 MG IV (00:17)
--- NOTE | 2025-04-12 00:43 | PC.NURSE ---
in and out cath cancel pt was able to use urinal
--- NOTE | 2025-04-12 00:46 | PC.NURSE ---
Pt refused to have labs drawn from nurse and lab. Pt stated that he feels fine just like normal. Educated pt that he needs to follow up with PCP regarding heart rate and BP because it should be taken care of or could cause . Pt refused medication and fluids to lower heart rate. aware
[2025-04-12 00:48] LABS: Reflex Lactate? Y
[2025-04-12 00:50] LABS: Collection Type, Urine Clean Catch; Squamous Epithelial Cell,Urine 0 /hpf (0-5)
[2025-04-12 01:15] LABS: Lactic Acid, 3 HR 1.7 mMol/L (0.4-2.0)
--- NOTE | 2025-04-12 02:03 | PRELIM_ITS ---
CT scan of the abdomen and pelvis with intravenous contrast (axial sections with sagittal and coronal reformats) April 11, 2025 at 2341 hours Clinical History: Right buttock wounds, erythema, edema, calor, pain. No prior study is available for comparison. Findings: There are multiple round nodules in bilateral lower lungs, the largest measuring 2 cm in the right lower lobe (axial image 9/274). A small hypodense lesion is noted in the liver, which is too small to characterize. There is a gallbladder calculus without any evidence of wall thickening, pericholecystic fluid/fat stranding. There is mild intrahepatic biliary duct dilatation. The common bile duct is dilated and measures 10 mm. No evidence of radiodense common bile duct calculus. Small hypodense lesions are noted in the left kidney, which are too small to characterize. The pancreas, spleen, right kidney and adrenals are unremarkable. No evidence of bowel dilatation. Moderate amount of fecal material is present in the colon. There is rectal fecal distension. There are occasional colonic diverticula without evidence of diverticulitis. The appendix is within normal limits. There is an enhancing soft tissue density mass, measuring 4.6 x 5.5 cm in the right inguinal region with possible invasion of the adjacent femoral vessels (axial image 203/274). There are multiple enlarged lymph nodes in the retrocrural, retrocaval, para-aortic and right iliac region, the largest measu ring 3.7 x 3.2 cm in the right pelvis (axial image 182/274). There is a filling defect in the right superficial femoral vein, likely thrombus (axial image 222/274). The urinary bladder is not well distended with apparent wall thickening. There is no free fluid or free air. There is a large 14 x 13 x14 cm enhancing heterogeneous fungating mass with ulcerations involving the right gluteal muscles, muscles in anterior thigh extending into right upper thigh (partial i federico) with erosions and destruction of the posterior acetabulum, inferior pubic ramus. There are multiple lytic lesions involving the head of the femur. Mild [id number] changes are identified in the spine. Impression: Large enhancing heterogeneous fungating mass in the right gluteal region with destruction of the underlying osseous structures as described, likely of neoplasm/metastatic etiology. Recommended further evaluation. Enhancing soft tissue density lesion in the right inguinal region with possible invasion of adjacent vessels described, likely of metastatic etiology. Recommend follow up. Multiple enlarged lymph nodes in the abdomen and pelvis as described, likely of metastatic etiology. Recommend follow up. Thrombus in the right superficial femoral vein as described. Recommend further evaluation with venous Doppler. Cholelithiasis with mild intra and extrahepatic biliary ductal dilatation as described. Recommend further evaluation with sonography / MRCP as clinically indicated. Constipation with rectal fecal impaction as described. Nodules in bilateral lungs as described, likely of metastases. Recommend follow-up. Other findings as described above. Report Electronically Signed By: Kirit Castaneda 04/12/2025 2:02:59 AM [EST]
--- NOTE | 2025-04-12 02:20 | XR_ITS ---
Examination: Abdomen sonogram, Limited Date and time of exam: April 12, 2025 0427 hours INDICATIONS: Right upper abdomen tenderness today Technique: Real-time encarnacion scale transabdominal sonographic images of the upper abdomen obtained. Findings: Cholelithiasis, normal gallbladder wall Normal common bile duct 0.5 cm Pancreatic head 2.1 cm Liver 14.2 cm fatty infiltration no focal liver lesions And normal hepatopedal portal venous flow. Patent IVC. IMPRESSION: Cholelithiasis, negative for cholecystitis Fatty liver
--- NOTE | 2025-04-12 02:21 | XR_ITS ---
Examination: Venous duplex lower extremity sonogram, bilateral. Date and time of exam: April 12, 2025, 0434 hours INDICATIONS: Bilateral leg pain months Technique: Multiple sonographic images of the deep venous system have been obtained. B-mode/2-D grayscale imaging of vascular structures and Doppler spectral analysis (waveforms) and color performed Both legs are examined. Findings: Deep venous systems do not demonstrate abnormal echogenicity. No diagnostic visualization right common femoral vein All visualized deep veins exhibit compressibility. All visualized deep veins exhibit augmentation. Impression: Limited study No DVT demonstrated Given the findings on the CT examination this morning, I would repeat the venous Doppler study with attention to the right superficial femoral and right common femoral veins
[2025-04-12 03:14] LABS: Bilirubin,Urine Negative (Negative); Blood,Urine Negative (Negative); Clarity,Urine Clear (Clear/Hazy); Color,Urine Yellow (Lt Yel-Yel); Culture Indicated,Urine Not Indicated; Glucose, Urine Negative (Negative); Hyaline Casts,Urine 1 /hpf (0-1); Ketones,Urine Negative (Negative); Leukocyte Esterase,Urine Negative (Negative); Nitrite,Urine Negative (Negative); Protein,Urine 1+ (Neg - Trace); RBC,Urine 4 /hpf (0-3); Specific Gravity,Urine 1.036 (1.001-1.035); WBC,Urine 2 /hpf (0-5)
[2025-04-12] MEDS: SODIUM CHLORIDE 0.9% 1000 ML 1,000 ML 999 ML IV (05:06)
--- NOTE | 2025-04-12 05:56 | PRELIM_ITS ---
Bilateral lower extremity venous Doppler ultrasound. April 12, 2025 at 0434 hours Clinical history: Edema high dimer. Technique: Duplex scan of the bilateral lower extremity deep venous systems was performed utilizing 2D grayscale imaging, Doppler spectral analysis and color flow Doppler and with compression. Comparison: None. Findings: The evaluation is limited due to patient position and pain due to extension. Gonzales scale, color flow and spectral Doppler evaluation of the lower extremity deep veins was performed. Right: The superficial femoral and popliteal veins are patent and compressible. The calf veins to the extent visualized are patent. The common femoral vein is not visualized. Normal respiratory variation is noted. There is no evidence of occlusive or nonocclusive thrombus. The great saphenous vein is patent at the level of the saphenofemoral junction. Left: The common femoral, superficial femoral and popliteal veins are patent and compressible. The calf veins to the extent visualized are patent. Normal respiratory variation is noted. There is no evidence of occlusive or nonocclusive thrombus. The great saphenous vein is patent at the level of the sa phenofemoral junction. Impression: Limited evaluation as described. No sonographic evidence of deep venous thrombosis in both lower extremities to the extent visualized. Report Electronically Signed By: Pricilla Jeff 04/12/2025 5:55:20 AM [EST]
--- NOTE | 2025-04-12 06:03 | PRELIM_ITS ---
Gallbladder ultrasound. April 12, 2025 0427 hours Clinical history: RUQ tenderness Comparison: Correlated with prior CT abdomen and pelvis study dated 04/11/2025. Findings: The visualized demonstrates increased echogenicity without mass or ductal dilatation. The main portal vein is patent and demonstrates hepatopetal flow. There is a large gallbladder calculus causing posterior acoustic shadowing. No evidence of gallbladder wall thickening or pericholecystic fluid. The common duct is normal in caliber at 5 mm. The pancreas is unremarkable to the extent visualized. The inferior vena cava is patent. Impression: Cholelithiasis without evidence of acute cholecystitis or biliary ductal dilatation. Fatty infiltration of the liver. Report Electronically Signed By: Pricilla Jeff 04/12/2025 6:02:28 AM [EST]
--- NOTE | 2025-04-12 06:18 | PD.RESHP ---
Documentation for date of: 04/12/25 [facility] History of Present Illness History of present illness: Patient is a 59-year-old male with a past medical history of metastatic cancer, Hepatitis B, Undifferentiated pleomorphic sarcoma of right pelvis, status postchemotherapy and excision, currently scheduled with rad oncologist Dr. Dee to undergo radiation, who presented to the emergency room complaining of severe pain and discharge from the sacral wound. The patient was previously established at [facility], stated he has already completed his chemotherapy, and is currently awaiting to start radiation therapy with Dr. Leila Miller. Denied fever, but did complain of discharge and pain, associated with complaints of constipation, last bowel movement was 1 week ago. Patient takes hydrocodone for pain at home. Denies any fever, chest pain, shortness of breath, orthopnea or diarrhea. Denies dysuria dizziness or passing out. in the emergency room, Initial Blood tests show WBC 43.4, Hemoglobin 6.7, Hematocrit 21.4, ESR 98, Lactic Acid 7.5, Sodium 126, CRP is greater than 10, Procalcitonin 2.97. Bedside COVID and Influenza are negative. CT abdomen pelvis showed large enhancing fungating mass in the right gluteal region with destruction of underlying osseous structures, multiple enlarged lymph nodes, thrombus in the right superficial femoral vein, constipation with rectal fecal impaction. Patient was given blood transfusion, 1 PRBC, IV fluids, cefepime and vancomycin, lactic acid improved after IV fluid boluses. Patient will be admitted to medical floor for further treatment management. Review of Systems Review of Systems Systems Reviewed: All systems reviewed, normal except as documented Narrative Review of Systems: General: Denies fevers or chills HEENT: Denies congestion or sore throat Heart: Denies chest pain or palpitations Lungs: Denies shortness of breath or cough Abdomen: Denies diarrhea, nausea, vomiting, bright red blood per rectum or melena, endorses constipation Genitourinary: Denies frequency, urgency, dysuria, or hematuria Musculoskeletal: Endorses severe pain in the lower back and saccrum. Neurology: Denies any numbness, tingling Review of systems otherwise negative except what is mentioned above. Past Medical History Past Medical History NEUROLOGIC: Negative Neurological Disorders CARDIAC: Negative Cardiac Disorders or Congestive Heart Failure RESPIRATORY: Negative Chronic Obstructive Pulmonary Disease (COPD) or Asthma GASTROINTESTINAL: Negative Gastrointestinal Disorders GENITOURINARY: Negative Genitourinary Disorders or Renal Disease REPRODUCTIVE: Negative Fibroids MUSCULOSKELETAL: Negative Musculoskeletal Disorders ENDOCRINE: Negative Endocrine Disorders, Diabetes Mellitus Type 1 or Diabetes Mellitus Type 2 HEMATOLOGIC: Negative Blood Disorders or Sickle Cell Disease OTHER HISTORY: Positive Cancer (sarcoma) and Lung Cancer; Negative Autoimmune Disease, Anesthesia Reactions or MRSA Social History SMOKING STATUS: Former smoker Exam Vital Signs Temp Pulse Resp BP Pulse Ox O2 Del Method O2 Flow Rate 97.9 F 105 H 16 100/56 L 100 Room Air 100 04/12/25 05:59 04/12/25 06:14 04/12/25 06:14 04/12/25 05:59 04/12/25 05:59 04/12/25 05:59 04/12/25 03:40 Narrative Exam General: AOx3, cooperative, emaciated Skin: Intact, no cyanosis or edema noted. Noted multiple wounds in the lower back and perennial area, foul-smelling discharge, wound care packing with gauze in place, HEENT: Atraumatic/normocephalic, RIGO, neck supple Heart: RRR, S1 and S2 without clicks or murmurs Lungs: Clear on auscultation bilaterally, no difficulty breathing Abdomen: Soft, nontender. Bowel sounds present . Vascular: Peripheral pulses palpable Neuro: No focal neurological deficits noted. Results: Labs 04/16/25 04:56 04/16/25 04:56 Labs: Short CBC 04/11/25 Range/Units 21:46 WBC 43.4 H* (3.8-10.6) Thou/mm3 Hgb 6.7 L* (13.5-16.0) g/dL Hct 21.4 L* (41.0-53.0) % Plt Count 622 H (140-440) Thou/mm3 BMP 04/11/25 21:46 Sodium 126 L Potassium 4.4 Chloride 90 L Carbon Dioxide 21.2 BUN 21 Creatinine 1.0 Glucose 139 H Calcium 8.0 L Liver Function 04/11/25 Range/Units 21:46 Total Bilirubin 0.8 (0.3-1.2) mg/dL Direct Bilirubin 0.4 H (0.0-0.3) mg/dL AST 24 (0-34) U/L ALT 16 (10-49) U/L Alkaline Phosphatase 130 H (46-116) U/L Albumin 2.8 L (3.4-4.8) gm/dL Urine 04/12/25 Range/Units 00:41 Urine Color Yellow (Lt Yel-Yel) Urine Clarity Clear (Clear/Hazy) Urine pH 6.0 (5.0-7.0) Ur Specific [place] 1.036 H (1.001-1.035) Urine Protein 1+ A (Neg - Trace) Urine Glucose (UA) Negative (Negative) Quality Measures Quality Measures sepsis Current suspected stage: sepsis Possible source: bone/joint and skin/soft tissue Blood cultures ordered: yes Antibiotic ordered: Yes Medications Home Medications and Allergies Allergies Allergy/AdvReac Type Severity Reaction Status Date / Time No Known Allergies Allergy Verified 01/19/25 10:32 Visit Medications Acetaminophen (Acetaminophen 325 Mg Tablet) 650 mg PO Q6H PRN PRN Reason: PAIN OR FEVER > 101 Stop: 05/12/25 06:07 Enoxaparin Sodium (Enoxaparin Sod Inj 100 Mg/Ml Syringe) 60 mg 1 mg/kg (60 mg) SC BID [facility] Stop: 04/26/25 08:59 Piperacillin/Tazobactam/Dextrose (Zosyn) 50 mls @ 100 mls/hr IV Q8HR BRIAN Stop: 04/19/25 06:12 Piperacillin/Tazobactam/Dextrose (Zosyn) 3.375 gm in 50 mls @ 100 mls/hr IV X1 ONE Stop: 04/12/25 06:46 Ondansetron HCl (Ondansetron Inj 2 Mg/Ml Inj 2 Ml) 4 mg IV Q6H PRN; Protocol PRN Reason: NAUSEA OR VOMITING Stop: 05/12/25 06:07 Pharmacy Consult (Vancomycin Pharmacy To Dose 1 Each Each) 1 each IV QDAY [facility] Stop: 05/12/25 08:59 Sennosides (Senna Tablet) 2 tab PO BID PRN; Protocol PRN Reason: CONSTIPATION Stop: 05/12/25 06:07 Discontinued Medications Sodium Chloride (Ns) 1,000 mls @ 999 mls/hr IV .Q1H1M ONE Stop: 04/11/25 22:24 Last Infusion: 04/11/25 23:15 Dose: Infused Cefepime HCl 2 gm/ Sodium (Chloride) 50 mls @ 100 mls/hr IV X1 ONE Stop: 04/11/25 22:33 Last Infusion: 04/11/25 23:14 Dose: Infused Sodium Chloride (Ns) 1,000 mls @ 999 mls/hr IV .Q1H1M ONE Stop: 04/11/25 23:04 Last Infusion: 04/12/25 00:51 Dose: Infused Vancomycin HCl 2,000 mg/ (Sodium Chloride) 500 mls @ 150 mls/hr IV X1 ONE Stop: 04/12/25 01:23 Last Admin: 04/11/25 23:39 Dose: Not Given Vancomycin HCl 1,000 mg/ (Sodium Chloride) 500 mls @ 150 mls/hr IV X1 ONE Stop: 04/12/25 02:37 Last Infusion: 04/12/25 03:58 Dose: Infused Sodium Chloride (Ns) 1,000 mls @ 999 mls/hr IV .Q1H1M ONE Stop: 04/12/25 06:01 Last Admin: 04/12/25 05:06 Dose: 999 mls/hr Morphine Sulfate (Morphine Sulf Inj 10 Mg/Ml Vial) 4 mg IVP X1 ONE Stop: 04/11/25 21:25 Last Admin: 04/11/25 22:11 Dose: 4 mg Ondansetron HCl (Ondansetron Inj 2 Mg/Ml Inj 2 Ml) 4 mg IVP X1 ONE; Protocol Stop: 04/11/25 21:25 Last Admin: 04/11/25 22:11 Dose: 4 mg Assessment & Plan Plan Patient is a 59-year-old male with a past medical history of metastatic cancer, Hepatitis B, Undifferentiated pleomorphic sarcoma of right pelvis, status postchemotherapy and excision, currently scheduled with rad oncologist Dr. Dee to undergo radiation, who presented to the emergency room complaining of severe pain and discharge from the sacral wound. #Sepsis #Soft tissue abscess with draining sinuses #Lactic acidosis?now resolved ? IV vancomycin, pharmacy to dose ? IV Zosyn every 8 hours, as likely polymicrobial infection ? Follow microbiology cultures ? Wound care referral in place ? Consider general surgery consult for possible I&D /source control #Acute anemia #Concern for GI bleed Patient's baseline hemoglobin seems to be within normal range, but presented with hemoglobin 6.7, likely acute anemia. Patient has not had a bowel movement in 1 week, also denied hematemesis. Unable to rule out GI bleed. ? 1 PRBC ordered by ER ? Follow H&H, transfuse if hemoglobin less than 7 ? IV Protonix for GI prophylaxis, consider twice daily dosing if confirmed GI bleed #DVT Right superficial femoral vein DVT reported on CT, pending official read for Doppler ultrasound. ? Given concern for GI bleed and acute anemia, will hold off on anticoagulation for now. #History of metastatic sarcoma of pelvis, stage IIIb ? Consult to radiation oncologist Dr. Dee is placed, pending recommendations Plan of care discussed with attending Dr. Nini Jaquez PGY2 Attending Provider Attestation/Addendum 59 hyr old male with undiff pleomorphic sarcoma of the right pelvis, sees Dr. Dee and pharmacovigilance specialist admitted for foul smelling infected wound of the postero-lateral right thigh. He has sepsis and has low hemoglobin on admission. He was given IV antibiotic treatment. He is alert and is normotensive in the ER during my evaluation. Discussed with housestaff.
--- NOTE | 2025-04-12 06:28 | PC.NURSE ---
CALLED PHARMACY HAS ENOXAPARIN ON HOLD LOW HGB ADVISED TO HAVE REPEAT CBC PRIOR
[2025-04-12] MEDS: PIPER/TAZO 3.375 GM PREMIX 3.375 GM/50 ML BAG IV ×3 (06:37→22:40)
[2025-04-12 07:21] LABS: Basophils # (Auto) 0.1 Thou/mm3 (0.0-0.2); Basophils % (Auto) 0 % (0-2.5); Eosinophils # (Auto) 0.1 Thou/mm3 (0.0-0.5); Eosinophils % (Auto) 0 % (0-10); Hematocrit 25.7 % (41.0-53.0); Immature Granulocytes % (Auto) 2 % (0-0); Immature Granulocytes Auto 0.68 Thou/mm3 (0.00-0.00); Lymphocytes % (Auto) 3 % (10-50); Mean Corpuscular HGB Conc 32.7 g/dl (31.0-37.0); Mean Corpuscular Volume 83 fL (80-100); Monocytes # (Auto) 1.7 Thou/mm3 (0.0-0.8); Monocytes % (Auto) 5 % (0-12); Neutrophils # (Auto) 31.1 Thou/mm3 (1.8-7.7); Neutrophils % (Auto) 90 % (37-80); Nucleated Red Blood Cell % 0 /100 WBC (0); Platelet Count 447 Thou/mm3 (140-440); RDW Standard Deviation 51.5 fL (35.1-43.9); Red Blood Count 3.11 Miln/mm3 (4.50-5.90); White Blood Count 34.5 Thou/mm3 (3.8-10.6)
[2025-04-12 07:23] LABS: Hemoglobin 8.4 g/dL (13.5-16.0)
--- NOTE | 2025-04-12 07:59 | XR_ITS ---
Examination: Duplex scan of the lower extremity, unilateral right Date and time of exam: April 12, 2025 1133 hours INDICATIONS: Large necrotic right pelvic mass, filling defects in the right superficial femoral vein on CT abdomen pelvis study yesterday Technique: Duplex scan of the extremity veins using B-mode/grayscale imaging and Doppler spectral analysis and color flow Attention is directed to internal echogenicity, compression and augmentation involving these veins, color flow assessment, spectral analysis Findings: Positive for occlusive thrombus in the right common femoral vein Remaining deep venous system is open IMPRESSION: Positive for occlusive thrombus in the right common femoral vein
[2025-04-12] MEDS: PANTOPRAZOLE INJ 40 MG VIAL IVP (08:15)
--- NOTE | 2025-04-12 09:26 | PD.RESPRO ---
Documentation for date of: 04/12/25 Subjective Subjective Interval history: 04/12/2025: Overnight admission for 59-year-old male past medical history of sarcoma stage IIIb with extensive metastasis to lungs and bony destruction presenting to the hospital with increased pain in the region and admitted for initially suspected sepsis secondary to wound infection and started on IV antibiotics. Patient seen and assessed in hospital bed, denies having any concerning cardiac symptoms at this time such as chest pain, shortness of breath, palpitations or dizziness. Patient's wound expected on physical exam shows extensive, penetrating lesions with foul-smelling purulent discharge extending from the ischium to anterior pelvis. Dr. Dee, radiology oncology, consulted and we will follow-up with recommendations. Patient has right superficial femoral and right common femoral vein attenuation which venous Doppler study was not able to detect but we will repeat as suspicion is high. Patient also transfused 2 units of PRBC for anemia likely secondary to myelosuppression as there are no signs of acute GI bleed at this time. Will continue to monitor for any acute changes. Exam Vital Signs Temp Pulse Resp BP Pulse Ox O2 Del Method O2 Flow Rate 97.9 F 104 H 20 100/56 L 100 Room Air 100 04/12/25 05:59 04/12/25 07:17 04/12/25 07:17 04/12/25 05:59 04/12/25 05:59 04/12/25 05:59 04/12/25 03:40 Narrative Exam Physical Exam: General: Awake answering questions appropriately, appears stated age, underweight HEENT: Atraumatic/normocephalic, RIGO, neck supple Heart: RRR, S1 and S2 without clicks or murmurs Lungs: Clear on auscultation bilaterally, no difficulty breathing Abdomen: Soft, nontender. Bowel sounds present MSK: Extensive, penetrating lesions with foul-smelling purulent discharge extending from the ischium to anterior pelvis Vascular: Peripheral pulses palpable Neuro: Alert and oriented x 3, no focal neurological deficits noted. Objective Labs 04/13/25 04:24 04/13/25 04:24 Labs: Laboratory Results - last 24 hr 04/11/25 04/11/25 04/12/25 21:46 22:23 00:41 WBC 43.4 H* RBC 2.64 L Hgb 6.7 L* Hct 21.4 L* MCV 81 MCH 25.4 MCHC 31.3 RDW Std Deviation 56.5 H Plt Count 622 H Neut % (Auto) 87 H Lymph % (Auto) 5 L [place] % (Auto) 5 Eos % (Auto) 0 Baso % (Auto) 0 Neut # (Auto) 37.7 H Lymph # (Auto) 2.3 [place] # (Auto) 2.1 H Eos # (Auto) 0.1 Baso # (Auto) 0.1 Immature Gran # (Auto) 1.03 H Absolute Nucleated RBC 0.02 H Immature Gran % 2 H Nucleated RBC % 0 Smear Path Review Sent to Pathologist ESR 98 H Sodium 126 L Potassium 4.4 Chloride 90 L Carbon Dioxide 21.2 Anion Gap 15 BUN 21 Creatinine 1.0 Estim Creat Clear Calc 65.5 eGFR > 60 BUN/Creatinine Ratio 21 H Glucose 139 H Calculated Osmolality 258 L Lactic Acid 7.5 H* Calcium 8.0 L Corrected Calcium 9.0 Magnesium 2.0 Total Bilirubin 0.8 Direct Bilirubin 0.4 H AST 24 ALT 16 Alkaline Phosphatase 130 H C-Reactive Prot, Quant > 10.0 H Total Protein 6.3 Albumin 2.8 L Globulin 3.5 Albumin/Globulin Ratio 0.8 L Procalcitonin 2.97 H Ur Collection Type Clean Catch Urine Color Yellow Urine Clarity Clear Urine pH 6.0 Ur Specific [place] 1.036 H Urine Protein 1+ A Urine Glucose (UA) Negative Urine Ketones Negative Urine Blood Negative Urine Nitrite Negative Urine Bilirubin Negative Urine Urobilinogen (Auto) 2.0 Ur Leukocyte Esterase Negative Urine RBC 4 H Urine WBC 2 Ur Squamous Epith Cells 0 Urine Bacteria None Hyaline Casts 1 Ur Culture Indicated? Not Indicated Blood Type B Positive Antibody Screen NEGATIVE Crossmatch See Detail Blood Bank Wristband ID Yes 04/12/25 04/12/25 01:09 07:08 WBC 34.5 H D RBC 3.11 L Hgb 8.4 L D Hct 25.7 L MCV 83 MCH 27.0 MCHC 32.7 RDW Std Deviation 51.5 H Plt Count 447 H D Neut % (Auto) 90 H Lymph % (Auto) 3 L [place] % (Auto) 5 Eos % (Auto) 0 Baso % (Auto) 0 Neut # (Auto) 31.1 H Lymph # (Auto) 1.0 [place] # (Auto) 1.7 H Eos # (Auto) 0.1 Baso # (Auto) 0.1 Immature Gran # (Auto) 0.68 H Absolute Nucleated RBC 0.00 Immature Gran % 2 H Nucleated RBC % 0 Smear Path Review ESR Sodium Potassium Chloride Carbon Dioxide Anion Gap BUN Creatinine Estim Creat Clear Calc eGFR BUN/Creatinine Ratio Glucose Calculated Osmolality Lactic Acid 1.7 Calcium Corrected Calcium Magnesium Total Bilirubin Direct Bilirubin AST ALT Alkaline Phosphatase C-Reactive Prot, Quant Total Protein Albumin Globulin Albumin/Globulin Ratio Procalcitonin Ur Collection Type Urine Color Urine Clarity Urine pH Ur Specific [place] Urine Protein Urine Glucose (UA) Urine Ketones Urine Blood Urine Nitrite Urine Bilirubin Urine Urobilinogen (Auto) Ur Leukocyte Esterase Urine RBC Urine WBC Ur Squamous Epith Cells Urine Bacteria Hyaline Casts Ur Culture Indicated? Blood Type Antibody Screen Crossmatch Blood Bank Wristband ID Quality Measures Quality Measures sepsis Current suspected stage: ruled out Possible source: bone/joint and skin/soft tissue Blood cultures ordered: yes Antibiotic ordered: Yes Assessment & Plan Assessment Current Active Medications: Generic Name Dose Route Start Last Admin Trade Name Freq PRN Reason Stop Dose Admin Acetaminophen 650 mg 04/12/25 06:08 Acetaminophen 325 Mg Tablet PO 05/12/25 06:07 Q6H PRN PAIN OR FEVER > 101 Hydrocodone Bitart/Acetaminophen 1 tab 04/12/25 07:15 Hydrocodone/Apap 10/325 Tab PO 04/17/25 07:14 Q6HR PRN PAIN SCALE 6-10(Mod-Sev Piperacillin/Tazobactam/Dextrose 3.375 gm in 50 mls @ 12.5 mls/hr 04/12/25 14:00 Zosyn IV 04/19/25 13:59 Q8HR BRIAN Protocol Vancomycin/Sodium Chloride 200 mls @ 120 mls/hr 04/12/25 22:00 Vancomycin/Ns 1 Gm Ivpb IV 04/19/25 21:59 Q24H BRIAN Ondansetron HCl 4 mg 04/12/25 06:08 Ondansetron Inj 2 Mg/Ml Inj 2 Ml IV 05/12/25 06:07 Q6H PRN NAUSEA OR VOMITING Protocol Pantoprazole Sodium 40 mg 04/12/25 09:00 04/12/25 08:15 Pantoprazole Inj 40 Mg Vial IVP 05/12/25 08:59 40 mg QDAY [facility] Administration Pharmacy Consult 1 each 04/12/25 09:00 Vancomycin Pharmacy To Dose 1 Each Each IV 05/12/25 08:59 QDAY PRN CONSULT Sennosides 2 tab 04/12/25 06:08 Senna Tablet PO 05/12/25 06:07 BID PRN CONSTIPATION Protocol Sennosides 1 tab 04/12/25 07:21 Senna/Docusate Sod 1 Tab Tablet PO 05/12/25 07:20 QDAY PRN CONSTIPATION Protocol Plan Patient came in and found to have 2 or more SIRS criteria and was evaluated for sepsis. However, based upon further work-up, sepsis was ruled out. 59-year-old male with a past medical history of metastatic cancer, hepatitis B, undifferentiated pleomorphic sarcoma of right pelvis, status post chemotherapy and excision, currently scheduled with rad oncologist Dr. Dee to undergo radiation, who presented to the emergency room complaining of severe pain and discharge from the sacral wound. #Soft tissue abscess with draining sinuses #Lactic acidosis?now resolved #Leukocytosis, downtrending Differentials include As noted from HPI, patient has history of metastatic sarcoma of the pelvis with extensive lesions noted WBC of 43.4 has down trended to 34.[address] Abd/P shows: Large necrotic mass posterior right pelvis right gluteal region again noted destroying right hemipelvis bones and posterior right femur again noted Plan: Continue IV vancomycin, pharmacy to dose Continue IV Zosyn every 8 hours, as likely polymicrobial infection Follow microbiology cultures Wound care referral in place Will consider general surgery consult for possible I&D /source control #Normocytic anemia #Draining Sinus, bleeding #Acute blood loss anemia Patient's baseline hemoglobin seems to be within normal range, but presented with hemoglobin 6.7, likely acute anemia. Patient has not had a bowel movement in 1 week, also denied hematemesis. Unable to rule out GI bleed. Differentials include: Acute blood loss anemia, myelosuppression from chemotherapy, iron deficiency anemia, anemia of chronic disease, vitamin deficiency, hemolytic anemia 2 PRBC transfused in hemoglobin went up from 6.7-8.4 Plan: Wound care for draining sinus with heavy packing Follow-up on iron panel, ferritin, reticulocyte count, peripheral blood smear, LDH H&H every 6 Transfuse if hemoglobin less than 7 Continue IV Protonix for GI prophylaxis #DVT Right superficial femoral vein DVT reported on CT Venous Doppler study negative for DVT Plan: Repeat Doppler as suspicion is high for right superficial femoral and right common femoral vein attenuations seen on CT imaging Given concern for GI bleed and acute anemia, will hold off on anticoagulation for now. #History of metastatic sarcoma of pelvis, stage IIIb Patient apparently has chemotherapy sessions, last session 1 year ago; currently following up with Dr. Dee to set up radiotherapy (next appointment April 22) CT Abd/Pelvis 04/11 shows: Marked progression of metastatic pulmonary disease compared with PET CT scan January 10, 2025 and marked progression of abdominal and pelvic lymphadenopathy compared with the CT scan January 10, 2025 Plan: Consult to radiation oncologist Dr. Dee is placed, pending recommendations #MASLD #Cholelithiasis During workup, patient had elevated T. bili and D bili US Gallbladder findngs Patient denies any RUQ tenderness at this time Plan: Follow-up outpatient for elective procedures Monitor LFTs Hospital Management: Lines: PIV Diet: Regular Bowel: Senna GI prophylaxis: On Protonix DVT prophylaxis: SCDs Dispo: Pending wound cultures, Dr. Dee recommendations Code: Full Patient seen and examined with attending Dr. Johanny Gautam, PGY-1 Attending Provider Attestation/Addendum Yuliana Dorsey DO, attest that I was physically present for the aparicio portions of the service and evaluated the patient with the resident and I reviewed and discussed the case with the resident and agree with the resident's findings and plans of care as documented above Patient is a 59-year-old male with stage IIIb undifferentiated pelvic sarcoma status post resection and radiation who presented to the ED due to her worsening pain and discomfort from right hip/gluteal region. He was found to have an elevated white blood cell count of 43 on presentation and anemia of 6.7. Patient states that he is mostly in bed due to pain and immobility. Patient has a large firm mass in his right hip region extending down to his gluteal cleft where there are multiple large nodular growth and craters. Imaging from CAT scan shows marked progression of his metastatic lung disease, abdominal and pelvic lymphadenopathy and large necrotic mass to posterior right pelvis and gluteal region with destruction of right hemipelvic bones and femur. Patient is due to see his oncologist on April 29. He denies any fevers or chills. Wound care was consulted due to wound. There are several areas of necrosis and per wound nurse, there is a small sinus that is actively bleeding. Suspect that this is the source of anemia. Will transfuse 1 unit of PRBC. Will follow-up with oncology recommendations and continue with antibiotics at this time. Patient has expressed that he wants to maintain full code and continue with outpatient cancer treatment.
[2025-04-12 09:58] LABS: Alanine Aminotransferase 12 U/L (10-49); Albumin, Serum 2.2 gm/dL (3.4-4.8); Albumin/Globulin Ratio 0.8 (1.2-2.2); Alkaline Phosphatase 114 U/L (46-116); Anion Gap 8 (7-16); Aspartate Amino Transferase 18 U/L (0-34); BUN/Creatinine Ratio 23 Ratio (12-20); Bilirubin,Total 1.4 mg/dL (0.3-1.2); Blood Urea Nitrogen 16 mg/dL (9-23); Calcium (Corrected) 8.2 mg/dL (8.5-10.1); Carbon Dioxide 22.9 mMol/L (20.0-31.0); Chloride 103 mMol/L (98-107); Creatinine (Component) 0.7 mg/dL (0.6-1.3); Estimated Creatinine Clearance 93.6 mL/min (>60); Globulin 2.7 gm/dL (2.3-3.5); Glucose 114 mg/dL (74-106); Osmolality,Calculated 270 (275-295); Sodium 134 mMol/L (136-145); Total Protein 4.9 gm/dL (5.7-8.2); eGFR > 60 See Note
[2025-04-12 10:03] LABS: Calcium 6.8 mg/dL (8.3-10.6)
[2025-04-12] MEDS: CALCIUM CARBONATE 600 MG TABLET PO (11:12)
[2025-04-12 13:04] LABS: Immature Reticulocyte Fraction 33.1 % (2.3-13.4); Reticulocyte % (Auto) 3.5 % (0.5-1.5); Reticulocyte Absolute Auto 106.6 Biln/L (25.0-75.0); Reticulocyte Hgb Content 26.1 pg (28.0-35.0)
[2025-04-12] MEDS: HYDROcodone/APAP 10/325 TAB PO ×2 (13:39→22:41)
[2025-04-12] MEDS: VANCOMYCIN/NS 1 GM IVPB 200 ML IV ×2 (13:51→21:06)
[2025-04-12 14:26] LABS: Hematocrit 28.5 % (41.0-53.0); Hemoglobin 9.3 g/dL (13.5-16.0)
--- NOTE | 2025-04-12 14:41 | ESCONSULT_ITS ---
HPI Data of Consult Consult date: 04/12/25 Requesting Physician: Vasiliy Terrazas MD Primary Care Provider: Zia Jorge MD Consult Narrative Reason for consult: Stage IV sarcoma History of present illness: Unfortunate 59-year-old Laotian male with history of stage IIIb undifferentiated pelvic sarcoma status post resection [place] 12/08/2021. Had postop XRT along with AIM chemo in [place] with initial good response. Recurrence noted on PET of 01/10/2025 with large mass posterior right pelvis involving proximal thigh. Evaluated [place] felt to be unresectable and also noted both large recurrence as well as lung mets. Scheduled for more radiation and chemo with home health care for caring her sacral wound when patient came to ER complaining of pain and discharge with WBC elevated at ER 40.3 WBC hemoglobin 6.7 sed rate 98 lactic acid 7.5 CRP greater than 10. CT of the pelvis showed large enhancing fungating mass right gluteal region with destruction of underlying osseous structures. Patient was given 2 units packed cells fluids antibiotics with some improvement of his clinical condition this a.m. WBC has come down to 34.5 hemoglobin improved to 8.4 lactic acid dropped from 7.5-1.7. Noted to have occlusive thrombus right common femoral vein on duplex scan right lower extremity. Patient appears to be better clinically this a.m. Patient now referred for oncological consultation. cc:: cc: Vasiliy Terrazas MD Past Medical History Past Medical History Comments PMH COMMENT: Denies other than above Meds Home Medications and Allergies Allergies Allergy/AdvReac Type Severity Reaction Status Date / Time No Known Allergies Allergy Verified 01/19/25 10:32 Exam Vital Signs Temp Pulse Resp BP Pulse Ox O2 Del Method O2 Flow Rate 97.5 F 107 H 22 H 97/65 95 Room Air 100 04/12/25 12:00 04/12/25 12:00 04/12/25 12:00 04/12/25 12:00 04/12/25 12:00 04/12/25 12:00 04/12/25 03:40 Narrative Exam Appears more comfortable this a.m. answering questions appropriately Results Labs 04/12/25 07:08 04/12/25 07:08 Labs: Short CBC 04/11/25 04/12/25 Range/Units 21:46 07:08 WBC 43.4 H* 34.5 H D (3.8-10.6) Thou/mm3 Hgb 6.7 L* 8.4 L D (13.5-16.0) g/dL Hct 21.4 L* 25.7 L (41.0-53.0) % Plt Count 622 H 447 H D (140-440) Thou/mm3 BMP 04/11/25 04/12/25 21:46 07:08 Sodium 126 L 134 L Potassium 4.4 4.0 Chloride 90 L 103 Carbon Dioxide 21.2 22.9 BUN 21 16 Creatinine 1.0 0.7 Glucose 139 H 114 H Calcium 8.0 L 6.8 L* Liver Function 04/11/25 04/12/25 Range/Units 21:46 07:08 Total Bilirubin 0.8 1.4 H D (0.3-1.2) mg/dL Direct Bilirubin 0.4 H (0.0-0.3) mg/dL AST 24 18 (0-34) U/L ALT 16 12 (10-49) U/L Alkaline Phosphatase 130 H 114 (46-116) U/L Albumin 2.8 L 2.2 L D (3.4-4.8) gm/dL Urine 04/12/25 Range/Units 00:41 Urine Color Yellow (Lt Yel-Yel) Urine Clarity Clear (Clear/Hazy) Urine pH 6.0 (5.0-7.0) Ur Specific [place] 1.036 H (1.001-1.035) Urine Protein 1+ A (Neg - Trace) Urine Glucose (UA) Negative (Negative) Assessment and Plan Additional Assessment & Plan Additional Plan: 1. 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 2. Admitted with pelvic pain anemia sepsis, clinically improving and appears comfortable at this p.m. 2. Obviously faces a guarded prognosis, and goals of care will be discussed with family.
[2025-04-12 15:02] LABS: LDH (Lactate Dehydrogenase) 149 U/L (120-246)
[2025-04-12 15:14] LABS: Ferritin 1104 ng/mL (10.5-307.3); Iron < 5 mcg/dL (65-175); Percent Iron Saturation 3 % (20-55); Total Iron Binding Capacity 137 mcg/dL (250-425); Unsaturated Iron Binding 132 (225-295)
[2025-04-12 18:39] LABS: Collection Type, Urine Clean Catch
[2025-04-12 18:43] LABS: Bilirubin,Urine Negative (Negative); Blood,Urine Negative (Negative); Clarity,Urine Clear (Clear/Hazy); Color,Urine Yellow (Lt Yel-Yel); Glucose, Urine 1+ (Negative); Ketones,Urine Negative (Negative); Leukocyte Esterase,Urine Negative (Negative); Nitrite,Urine Negative (Negative); Protein,Urine Trace (Neg - Trace); RBC,Urine < 1 /hpf (0-3); Specific Gravity,Urine 1.028 (1.001-1.035); Squamous Epithelial Cell,Urine < 1 /hpf (0-5); WBC,Urine 2 /hpf (0-5)
[2025-04-12 19:29] LABS: Hematocrit 23.1 % (41.0-53.0)
[2025-04-12 19:34] LABS: Hemoglobin 7.6 g/dL (13.5-16.0)
[2025-04-13] VITALS (15 sets, daily range): BP systolic 76–107; BP diastolic 53–76; PULSE 89–123; RESP 14–192; TEMP 36.1–36.8; O2SAT 91–100
--- NOTE | 2025-04-13 | XR_ITS ---
Examination: Percutaneous placement retrievable inferior venacavogram filter Inferior venacavogram Fluoroscopy Selective catheterization inferior vena cava Ultrasound-guided venous access right common femoral vein. AP Abdomen, portable, 2 views Date: April 05, 2025 1411 hours INDICATIONS: Positive sonogram April 12, 2024 right common femoral vein Informed consent provided. Time out performed Technique And Findings: Skin prepped over the left groin. 1 % Lidocaine administered for local anesthesia. Sterile drape applied. Maximum sterile barrier technique, hand hygiene, ultrasound sterile technique. Ultrasound utilized for localization left common femoral vein. Utilizing ultrasonographic guidance, puncture left common femoral vein with a 21-gauge needle. Placement 0.18 wire guide through the needle into the common femoral vein under fluoroscopic guidance. Placement 5 Vietnamese introducer catheter over the wire guide. Core removed and 0.35 wire guide and placed in the IVC under fluoroscopic guidance. Percutaneous retrievable IVC filter deployment catheter then placed over the wire guide under fluoroscopic guidance to the level L4 level. Inferior venacavogram performed, hand injection 20 cc Isovue 300, serial filming 2 frames per second with the [facility] digital subtraction apparatus Normal caliber inferior vena cava and normal position renal veins. Retrievable IVC filter then deployed below the renal veins and above the IVC bifurcation. No complications observed. Impression: Successful percutaneous placement retrievable IVC filter Normal inferior vena cavogram. Selective catheterization inferior vena cava. Successful ultrasound-guided venous access left common femoral vein. Fluoroscopy 5 seconds.. AP abdomen completion procedure demonstrates satisfactory position IVC filter.
[2025-04-13] MEDS: RINGERS LACTATED 1000 ML 1,000 ML 999 ML IV (00:44)
[2025-04-13] MEDS: PIPER/TAZO 3.375 GM PREMIX 3.375 GM/50 ML BAG IV ×3 (05:29→21:06)
[2025-04-13 05:36] LABS: Basophils # (Auto) 0.1 Thou/mm3 (0.0-0.2); Basophils % (Auto) 0 % (0-2.5); Eosinophils # (Auto) 0.2 Thou/mm3 (0.0-0.5); Eosinophils % (Auto) 1 % (0-10); Hematocrit 27.3 % (41.0-53.0); Immature Granulocytes % (Auto) 1 % (0-0); Immature Granulocytes Auto 0.41 Thou/mm3 (0.00-0.00); Lymphocytes # (Auto) 1.2 Thou/mm3 (1.0-4.8); Lymphocytes % (Auto) 4 % (10-50); Mean Corpuscular HGB Conc 31.5 g/dl (31.0-37.0); Mean Corpuscular Hemoglobin 26.7 pg (25.0-35.0); Mean Corpuscular Volume 85 fL (80-100); Monocytes # (Auto) 1.3 Thou/mm3 (0.0-0.8); Monocytes % (Auto) 5 % (0-12); Neutrophils # (Auto) 25.6 Thou/mm3 (1.8-7.7); Neutrophils % (Auto) 89 % (37-80); Nucleated Red Blood Cell % 0 /100 WBC (0); Platelet Count 397 Thou/mm3 (140-440); RDW Standard Deviation 53.5 fL (35.1-43.9); Red Blood Count 3.22 Miln/mm3 (4.50-5.90); White Blood Count 28.8 Thou/mm3 (3.8-10.6)
[2025-04-13 05:53] LABS: INR 1.2 (0.9-1.3)
[2025-04-13 06:15] LABS: Alanine Aminotransferase 12 U/L (10-49); Albumin, Serum 2.1 gm/dL (3.4-4.8); Alkaline Phosphatase 106 U/L (46-116); Anion Gap 9 (7-16); Aspartate Amino Transferase 20 U/L (0-34); BUN/Creatinine Ratio 18 Ratio (12-20); Bilirubin,Direct 0.5 mg/dL (0.0-0.3); Bilirubin,Total 0.8 mg/dL (0.3-1.2); Blood Urea Nitrogen 11 mg/dL (9-23); Calcium 7.4 mg/dL (8.3-10.6); Carbon Dioxide 22.8 mMol/L (20.0-31.0); Cardiac Risk Estimate 4.6 RATIO (4.0-6.7); Chloride 100 mMol/L (98-107); Cholesterol 60 mg/dL (132-200); Creatinine (Component) 0.6 mg/dL (0.6-1.3); Estimated Creatinine Clearance 126.7 mL/min (>60); Glucose 78 mg/dL (74-106); HDL Cholesterol 13 mg/dL (40-60); LDL Cholesterol,Calculated 31 mg/dL (0-130); Magnesium 1.7 mg/dL (1.6-2.6); Osmolality,Calculated 262 (275-295); Phosphorous 2.2 mg/dL (2.4-5.1); Potassium 3.4 mMol/L (3.4-5.1); Sodium 132 mMol/L (136-145); Thyroid Stimulating Hormone 7.39 uIU/mL (0.55-4.78); Total Protein 4.8 gm/dL (5.7-8.2); Triglycerides 81 mg/dL (30-150); eGFR > 60 See Note
[2025-04-13 06:18] LABS: Hemoglobin 8.6 g/dL (13.5-16.0)
[2025-04-13] MEDS: Magnesium Sulfate 4 GM Ivpb 4 GM/50 ML BAG IV (07:53)
[2025-04-13] MEDS: PANTOPRAZOLE INJ 40 MG VIAL IVP (07:54)
[2025-04-13] MEDS: SOD PHOS ADDITIVE 15 MMOL in SODIUM CHLORIDE 0.9% 250 ML 250 ML 62.5 MMOL IV (08:36)
[2025-04-13] MEDS: HYDROcodone/APAP 10/325 TAB PO ×2 (08:41→21:05)
[2025-04-13 09:16] LABS: Path Review Blood Smear Sent to Pathologist
[2025-04-13 09:42] LABS: Free T4 (Free Thyroxine) 1.56 ng/dL (0.89-1.76); Vancomycin,Trough 14.3 mcg/mL (5.0-10.0)
[2025-04-13] MEDS: VANCOMYCIN/NS 1 GM IVPB 200 ML IV ×2 (09:56→22:09)
--- NOTE | 2025-04-13 10:03 | XR_ITS ---
Examination: CTA chest with intravenous contrast 2-D reconstructions 3-D reconstructions, vascular Date and time of exam: April 05, 2025 1110 hours INDICATIONS: Shortness of breath this week, positive for occlusive thrombus in the right common femoral vein on venous Doppler study April 12, 2025 CTDI: vol (mGy) 11 DLP: (mGycm) 280 Technique: Multiple axial sections of the thorax have been obtained. 3 mm slice thickness, from below the hemidiaphragms to above the apices of the lungs. Mediastinal and lung density settings have been obtained. 2-D sagittal and coronal reconstructions. 3-D angiographic renderings, 3-D volume renderings, 3D post processing, vascular maximum intensity projections obtained. Contrast administered is 95 cc Isovue-370. Low dose protocols were performed. One or more of the following dose reduction techniques were used; automated exposure control, adjustment of the mA and/or KV according to patient size, use of iterative reconstruction technique. Findings: No thoracic aortic aneurysm dilatation or dissection No pulmonary artery filling defects No paratracheal tracheobronchial or bronchopulmonary adenopathy At least 40 bilateral noncalcified pulmonary nodules ranging in size from 2 to 19 mm No pneumonia or pulmonary edema Fatty infiltration throughout the liver Gallstones No pancreatic mass IMPRESSION: Negative for pulmonary artery emboli Numerous metastatic pulmonary nodules
--- NOTE | 2025-04-13 10:18 | PC.SS ---
Patient is alert/oriented. He was able to verify demographics. Patient is independent with ADL's. No DME. He was admitted for sepsis. He states he resides with and daughter. Patient states his family provides transportation assistance. Patient states he follows with [facility]. His last appt. was 2 years ago. Pharmacy: [facility]. Discharge plan is to return home. Alt medical decision maker is his daughter, Lizett. Alt medical decision maker: Lizett, daughter, transportation: family d/c plan: home no needs.
--- NOTE | 2025-04-13 13:03 | ESPR_ITS ---
<Statement entered by Tramaine Hayward MD - 04/13/25 15:06> LPatient examined and case discussed with the team including attending physician. Note reviewed, I agree with the care plan as documented. Mr Larisa pham pleasant 59-year-old male with a past medical history of metastatic cancer, hepatitis B, undifferentiated pleomorphic sarcoma of right pelvis, status post chemotherapy and excision, who is admitted for soft tissue abscess with draining sinuses. Patient has history of metastatic sarcoma of the pelvis with extensive lesions, currently scheduled to undergo radiation with rad oncologist Dr. Dee. On admission, WBC of 43.4 has down trended to 34.5, CXR negative. CT A/P showsed a large necrotic mass posterior right pelvis right gluteal region again noted destroying right hemipelvis bones and posterior right femur again noted. Blood cultures no growth within 24 hours Plan: IV vancomycin + Zosyn. Wound care and Oncology consulted, appreciate recommendations. Will scheduled goals of care discussion with family, unless further intervention planned by Oncology. Please refer to the note above for further details. - Tramaine Hayward MD, PGY 2 Disclaimer: The document may contain phonetic/typographic errors due to voice recognition software. These errors are purely due to imperfections in the software program and should not be misconstrued in any way to compromise the substance of the patient's medical care during this visit. Documentation for date of: 04/13/25 Subjective Subjective Interval history: 04/13/2025: Overnight patient's blood pressure was on the softer side 88/60, night team initiated 1 L of IV fluid bolus with improvement. Patient seen and examined in hospital bed reports persistent pain secondary to the primary cancer lesion site with necrotic lesions. Otherwise, patient denies having any concerning symptoms such as chest pain, shortness of breath, abdominal pain or dizziness. Patient has a right common femoral thrombus noted on ultrasound Doppler studies. As the patient was having bleeding secondary to the wound; discussed need for IVC filter placement. Patient amenable and agreed to procedure. Patient's prognosis remains guarded as he has stage IV metastatic pleomorphic sarcoma and per Dr. Dee's recommendations goals of care to be discussed with family. Patient understands his diagnosis and would prefer pursuing treatment at this time. Appreciate Dr. Dee's recommendations regarding treatment. Will continue monitor the patient and expect discharge within the next 24 to 48 hours. Exam Vital Signs Temp Pulse Resp BP Pulse Ox O2 Del Method O2 Flow Rate 97.0 F 102 H 19 92/62 92 L Room Air 100 04/13/25 12:00 04/13/25 12:00 04/13/25 12:00 04/13/25 12:00 04/13/25 12:00 04/13/25 12:00 04/13/25 08:00 Narrative Exam Physical Exam: General: Awake answering questions appropriately, appears stated age, underweight HEENT: Atraumatic/normocephalic, RIGO, neck supple Heart: RRR, S1 and S2 without clicks or murmurs Lungs: Clear on auscultation bilaterally, no difficulty breathing Abdomen: Soft, nontender. Bowel sounds present MSK: Extensive, penetrating lesions with foul-smelling purulent discharge extending from the ischium to anterior pelvis Vascular: Peripheral pulses palpable Neuro: Alert and oriented x 3, no focal neurological deficits noted. Objective Labs 04/14/25 04:28 04/14/25 04:28 Labs: Laboratory Results - last 24 hr 04/12/25 04/12/25 04/12/25 07:08 10:30 14:00 WBC RBC Hgb 9.3 L Hct 28.5 L MCV MCH MCHC RDW Std Deviation Plt Count Neut % (Auto) Lymph % (Auto) Mathews % (Auto) Eos % (Auto) Baso % (Auto) Neut # (Auto) Lymph # (Auto) Mathews # (Auto) Eos # (Auto) Baso # (Auto) Immature Gran # (Auto) Absolute Nucleated RBC Immature Gran % Nucleated RBC % Smear Path Review Retic Count (auto) 3.5 H Absolute Retic 106.6 H Immature Retic Fraction 33.1 H Retic Hgb Content CHr 26.1 L PT INR Sodium Potassium Chloride Carbon Dioxide Anion Gap BUN Creatinine Estim Creat Clear Calc eGFR BUN/Creatinine Ratio Glucose Calculated Osmolality Calcium Phosphorus Magnesium Iron < 5 L TIBC 137 L Iron Saturation 3 L Unsat Iron Binding 132 L Ferritin 1104 H Total Bilirubin Direct Bilirubin AST ALT Alkaline Phosphatase Lactate Dehydrogenase 149 Total Protein Albumin Triglycerides Cholesterol LDL Cholesterol, Calc HDL Cholesterol Cholesterol/HDL Ratio TSH Free T4 Ur Collection Type Clean Catch Urine Color Yellow Urine Clarity Clear Urine pH 6.0 Ur Specific [place] 1.028 Urine Protein Trace Urine Glucose (UA) 1+ A Urine Ketones Negative Urine Blood Negative Urine Nitrite Negative Urine Bilirubin Negative Urine Urobilinogen (Auto) 2.0 Ur Leukocyte Esterase Negative Urine RBC < 1 Urine WBC 2 Ur Squamous Epith Cells < 1 Urine Bacteria None Vancomycin Trough 04/12/25 04/13/25 04/13/25 19:12 04:24 08:55 WBC 28.8 H D RBC 3.22 L Hgb 7.6 L 8.6 L Hct 23.1 L 27.3 L MCV 85 MCH 26.7 MCHC 31.5 RDW Std Deviation 53.5 H Plt Count 397 D Neut % (Auto) 89 H Lymph % (Auto) 4 L Mathews % (Auto) 5 Eos % (Auto) 1 Baso % (Auto) 0 Neut # (Auto) 25.6 H Lymph # (Auto) 1.2 Mathews # (Auto) 1.3 H Eos # (Auto) 0.2 Baso # (Auto) 0.1 Immature Gran # (Auto) 0.41 H Absolute Nucleated RBC 0.00 Immature Gran % 1 H Nucleated RBC % 0 Smear Path Review Sent to Pathologist Retic Count (auto) Absolute Retic Immature Retic Fraction Retic Hgb Content CHr PT 13.0 H INR 1.2 Sodium 132 L Potassium 3.4 D Chloride 100 Carbon Dioxide 22.8 Anion Gap 9 BUN 11 Creatinine 0.6 Estim Creat Clear Calc 126.7 eGFR > 60 BUN/Creatinine Ratio 18 Glucose 78 Calculated Osmolality 262 L Calcium 7.4 L Phosphorus 2.2 L Magnesium 1.7 Iron TIBC Iron Saturation Unsat Iron Binding Ferritin Total Bilirubin 0.8 D Direct Bilirubin 0.5 H AST 20 ALT 12 Alkaline Phosphatase 106 Lactate Dehydrogenase Total Protein 4.8 L Albumin 2.1 L Triglycerides 81 Cholesterol 60 L LDL Cholesterol, Calc 31 HDL Cholesterol 13 L Cholesterol/HDL Ratio 4.6 TSH 7.39 H Free T4 1.56 Ur Collection Type Urine Color Urine Clarity Urine pH Ur Specific [place] Urine Protein Urine Glucose (UA) Urine Ketones Urine Blood Urine Nitrite Urine Bilirubin Urine Urobilinogen (Auto) Ur Leukocyte Esterase Urine RBC Urine WBC Ur Squamous Epith Cells Urine Bacteria Vancomycin Trough 14.3 H Quality Measures Quality Measures sepsis Current suspected stage: ruled out Possible source: bone/joint and skin/soft tissue Blood cultures ordered: yes Antibiotic ordered: Yes Assessment & Plan Assessment Current Active Medications: Generic Name Dose Route Start Last Admin Trade Name Freq PRN Reason Stop Dose Admin Acetaminophen 650 mg 04/12/25 06:08 Acetaminophen 325 Mg Tablet PO 05/12/25 06:07 Q6H PRN PAIN OR FEVER > 101 Protocol Hydrocodone Bitart/Acetaminophen 1 tab 04/12/25 07:15 04/13/25 08:41 Hydrocodone/Apap 10/325 Tab PO 04/17/25 07:14 1 tab Q6HR PRN Administration PAIN SCALE 6-10(Mod-Sev Piperacillin/Tazobactam/Dextrose 3.375 gm in 50 mls @ 12.5 mls/hr 04/12/25 14:00 04/13/25 05:29 Zosyn IV 04/19/25 13:59 12.5 mls/hr Q8HR BRIAN Administration Protocol Vancomycin/Sodium Chloride 200 mls @ 120 mls/hr 04/12/25 13:30 04/13/25 09:56 Vancomycin/Ns 1 Gm Ivpb IV 04/19/25 13:29 120 mls/hr BID@1000,2200 BRIAN Administration Mirtazapine 15 mg 04/13/25 21:00 Mirtazapine 15 Mg Tablet PO 05/13/25 20:59 HS BRIAN Ondansetron HCl 4 mg 04/12/25 06:08 Ondansetron Inj 2 Mg/Ml Inj 2 Ml IV 05/12/25 06:07 Q6H PRN NAUSEA OR VOMITING Protocol Pantoprazole Sodium 40 mg 04/12/25 09:00 04/13/25 07:54 Pantoprazole Inj 40 Mg Vial IVP 05/12/25 08:59 40 mg QDAY BRIAN Administration Pharmacy Consult 1 each 04/12/25 09:00 Vancomycin Pharmacy To Dose 1 Each Each IV 05/12/25 08:59 QDAY PRN CONSULT Sennosides 2 tab 04/12/25 06:08 Senna Tablet PO 05/12/25 06:07 BID PRN CONSTIPATION Protocol Sennosides 1 tab 04/12/25 07:21 Senna/Docusate Sod 1 Tab Tablet PO 05/12/25 07:20 QDAY PRN CONSTIPATION Protocol Plan Patient came in and found to have 2 or more SIRS criteria and was evaluated for sepsis. However, based upon further work-up, sepsis was ruled out. 59-year-old male with a past medical history of metastatic cancer, hepatitis B, undifferentiated pleomorphic sarcoma of right pelvis, status post chemotherapy and excision, currently scheduled with rad oncologist Dr. Dee to undergo radiation, who presented to the emergency room complaining of severe pain and discharge from the sacral wound. #Soft tissue abscess with draining sinuses #Lactic acidosis?now resolved #Leukocytosis, downtrending Differentials include As noted from HPI, patient has history of metastatic sarcoma of the pelvis with extensive lesions noted WBC of 43.4 has down trended to 34.[address] Abd/P shows: Large necrotic mass posterior right pelvis right gluteal region again noted destroying right hemipelvis bones and posterior right femur again noted Blood cultures no growth within 24 hours Plan: Continue IV vancomycin, pharmacy to dose Continue IV Zosyn every 8 hours, as likely polymicrobial infection Wound care referral in place Will consider general surgery consult for possible I&D /source control #Normocytic anemia #Draining Sinus, bleeding #Acute blood loss anemia Patient's baseline hemoglobin seems to be within normal range, but presented with hemoglobin 6.7, likely acute anemia. Patient has not had a bowel movement in 1 week, also denied hematemesis. Unable to rule out GI bleed. Differentials include: Acute blood loss anemia, myelosuppression from chemotherapy, iron deficiency anemia, anemia of chronic disease, vitamin deficiency, hemolytic anemia 2 PRBC transfused in hemoglobin went up from 6.7-8.4 Iron panel shows iron less than 5, TIBC 137, iron saturation 3%, unsaturated iron binding 132, ferritin 1104, T. bili downtrending to 0.8 but the D. bili at 0.5, LDH 149 WNL Plan: Wound care for draining sinus with heavy packing Anemia secondary to acute blood loss along with iron deficiency anemia, anemia of chronic disease secondary to myelosuppression H&H every 6 Transfuse if hemoglobin less than 7 Replete iron once discharged, follow-up with PCP #DVT Right superficial femoral vein DVT reported on CT Venous Doppler study negative for DVT Repeat Doppler as suspicion is high for right superficial femoral and right common femoral vein attenuations seen on CT imaging Doppler studies show positive for occlusive thrombus in the right common femoral vein Plan: IVC Filter to be placed Given concern for GI bleed and acute anemia, will hold off on anticoagulation for now. #History of metastatic sarcoma of pelvis, stage IIIb Patient apparently has chemotherapy sessions, last session 1 year ago; currently following up with Dr. Dee to set up radiotherapy (next appointment April 22) CT Abd/Pelvis 5/26 shows: Marked progression of metastatic pulmonary disease compared with PET CT scan January 10, 2025 and marked progression of abdominal and pelvic lymphadenopathy compared with the CT scan January 10, 2025 Plan: Consult to radiation oncologist Dr. Dee is placed, pending recommendations Patient understands prognosis is guarded; however, would like to pursue full treatment at this time #MASLD #Cholelithiasis During workup, patient had elevated T. bili and D bili US Gallbladder findngs Patient denies any RUQ tenderness at this time Plan: Follow-up outpatient for elective procedures Monitor LFTs Hospital Management: Lines: PIV Diet: Regular Bowel: Senna GI prophylaxis: On Protonix DVT prophylaxis: SCDs Dispo: Pending wound cultures, Dr. Dee recommendations Code: Full Patient seen and examined with attending Dr. Johanny Gautam, PGY-1 Attending Provider Attestation/Addendum Willian, Yuliana Orladno DO, attest that I was physically present for the aparicio portions of the service and evaluated the patient with the resident and I reviewed and discussed the case with the resident and agree with the resident's findings and plans of care as documented above Patient seen and eval this a.m. Patient complains of pain in his right gluteal region, but has no other acute complaints at this time. Leukocytosis has been downtrending. Hemoglobin appears stable. Patient was noted to be hypotensive overnight and received IV fluid bolus at midnight. Found to have occlusive DVT in right common femoral vein. Discussed concern for bleeding risk on anticoagulation with patient thus the best option at this point would be placing an IVC filter. Chest CTA shows no evidence of PE, but numerous metastatic pulmonary nodules. Patient denies any shortness of breath at this time. Patient is aware of his widespread disease and marked progression from his PET scan from March 19. Patient states he would like to continue with full treatment. He is agreeable to IVC filter and understanding of his bleeding risk due to his pelvic mass. All questions and concerns were addressed at bedside.
--- NOTE | 2025-04-13 14:30 | PC.SS ---
Addendum entered by Brandie Weinstein 04/13/25 14:40: Patient has been seen at [facility] prior and notes indicate was open to home health and had undergone radiation and chemo. Patient did not mention this during assessment. However, he stated his daughter would know more details. Daughter called back and states she would be available tonight for a family meeting at 6:30pm. Daughter works in [employer] and gets off work at 5p.m. Physician team agreeable with this and will be available this evening. Original Note: rounding note: [place] [facility] [place], Lizett, to arrange a family meeting. Patient has hx: Cancer and has a blood clot.
[2025-04-13] MEDS: SILVER NITRATE 1 APPL EA 5 APPL TOP (16:14)
[2025-04-13] MEDS: SODIUM CHLORIDE 0.9% 250 ML 250 ML 75 ML IV (16:21)
[2025-04-13 16:24] LABS: Hematocrit 24.3 % (41.0-53.0)
--- NOTE | 2025-04-13 16:32 | EVENTNT_ITS ---
Documentation for date of: 04/13/25 Event Note Event Note: 04/13/2025: Rapid response called sometime around 4 PM for patient in room 275, 59-year-old male with history of stage IV metastatic pleomorphic sarcoma. Rapid response called for bleeding lesion spurting arterial blood. Patient's airway/breathing/circulation assessed and intact. Patient's vitals were stable initially but blood pressure with MAP in the mid 60s improved during the rapid response. On examination of the lesion (area of primary cancer noted in previous notes) there is gallo blood with blood clots noted. An order of silver nitrate was put in, H&H stat along with 75 cc an hour of maintenance IV fluid to keep blood pressure at reasonable state. Patient to have continued wound care for the region. Also ordered 1 unit PRBC in case the patient's H&H shows a drop in hemoglobin; moreover, will continue monitor for any acute changes. Leonel Gautam, PGY-1 I, Yuliana Orlando DO, attest that I was physically present for the aparicio portions of the service and evaluated the patient with the resident and I reviewed and discussed the case with the resident and agree with the resident's findings and plans of care as documented above Wound care and bedside nurse at bedside. Bleeding better controlled with pr essure. Due to persistent bleeding, I spoke with surgeon who evaluated wound at bedside. I also discussed case with Oncology. No further recommendations at this time. Patient can have palliative radiation once discharged. Discussed with patient and brother at bedside regarding patient condition and plan of care. Goals of care were also discussed during which patient states he would like to maintain full code status. Patient would like to have and daughter at bedside to further discuss goals of care.
--- NOTE | 2025-04-13 17:38 | PC.WOUND ---
Responded to [employer] for active bleeding from fungating tumors over right gilberto rectal/pelvis. Original dressing removed with multiple sites of active bleeds. Multiple attempts to cauterize with topical sliver nitrate sticks and surgicel gauze with pressure. Dr. Taylor called to bedside able to stop bleeding. Orders received for PRN dressings with surgicel powder, gauze and pressure dressings. Per MD further attempts of cautery with bovie or sticks may cause further bleeding, will require PRN dressing and topical cautery to achieve hemostatis.
[2025-04-13 17:52] LABS: Hemoglobin 8.1 g/dL (13.5-16.0)
--- NOTE | 2025-04-13 18:16 | PD.SURCONS ---
HPI Consult details History of present illness: Patient was seen for consultation because of the bleeding over the ulcerated growth which was apparently a sarcoma Meds Home Medications and Allergies Allergies Allergy/AdvReac Type Severity Reaction Status Date / Time No Known Allergies Allergy Verified 01/19/25 10:32 Exam Vital Signs Temp Pulse Resp BP Pulse Ox O2 Del Method O2 Flow Rate 97.8 F 114 H 19 101/53 L 97 Room Air 3 04/13/25 16:04/13/25 16:04/13/25 16:04/13/25 16:04/13/25 16:04/13/25 16:00 04/13/25 15:30 Routine Back/Spine/Pelvis Exam Comments: Examination of the pelvic area on the right buttock showed slight oozing of the entire ulcerated surface. Wound was dressed with Surgicel and compression with Lokesh bandage and Coband. Assessment & Plan Additional Assessment Additional comments: Laceration right buttock from malignant lesion Plan Plan: Patient will not be a candidate for any cauterization because wound is oozing due to breakdown of the skin. I suggest we dressed the wound with Surgicel powder and Surgicel gauze and compression with Coband if he bleeds. You
--- NOTE | 2025-04-13 19:41 | EVENTNT_ITS ---
Documentation for date of: 04/13/25 Event Note Event Note: Met with patient and family at bedside at 1856 regarding patient condition concern for bleeding of right gluteal lesion. Discussed goals of care with patient and family. Patient would like to maintain full code status. They sta claudio that [facility] had reviewed patient's PET scan and deemed the pelvic mass nonoperative. Patient and family are aware of the advanced disease that patient has. They are understanding about hospice care, but wish to continue with current management so that patient can have palliative radiation done. Patient was evaluated by surgeon due to active bleeding. Bleeding controlled with surgicel and compression dressing. Will leave dressing in place and if bleeding happens, surgicel powder is at bedside and can be applied to bleeding wound prior to placement of surgicel and compression dressing.
[2025-04-13] MEDS: MIRTAZAPINE 15 MG TABLET PO (21:05)
[2025-04-13 22:32] LABS: Hematocrit 22.6 % (41.0-53.0)
[2025-04-13 22:34] LABS: Hemoglobin 7.5 g/dL (13.5-16.0)
[2025-04-14] VITALS (8 sets, daily range): BP systolic 91–119; BP diastolic 66–83; PULSE 93–118; RESP 13–98; TEMP 36.1–36.8; O2SAT 95–99; BMI 27.3
[2025-04-14] MEDS: PIPER/TAZO 3.375 GM PREMIX 3.375 GM/50 ML BAG IV ×3 (05:18→21:20)
[2025-04-14] MEDS: HYDROcodone/APAP 10/325 TAB PO ×2 (05:18→13:29)
[2025-04-14] MEDS: SENNA/DOCUSATE SOD 1 TAB TABLET PO (05:19)
[2025-04-14 06:09] LABS: Anion Gap 10 (7-16); BUN/Creatinine Ratio 18 Ratio (12-20); Blood Urea Nitrogen 11 mg/dL (9-23); Calcium 7.2 mg/dL (8.3-10.6); Carbon Dioxide 24.8 mMol/L (20.0-31.0); Chloride 98 mMol/L (98-107); Creatinine (Component) 0.6 mg/dL (0.6-1.3); Estimated Creatinine Clearance 126.7 mL/min (>60); Glucose 83 mg/dL (74-106); Osmolality,Calculated 264 (275-295); Potassium 2.8 mMol/L (3.4-5.1); Sodium 133 mMol/L (136-145); eGFR > 60 See Note
[2025-04-14 06:11] LABS: Basophils # (Auto) 0.1 Thou/mm3 (0.0-0.2); Basophils % (Auto) 0 % (0-2.5); Eosinophils # (Auto) 0.1 Thou/mm3 (0.0-0.5); Eosinophils % (Auto) 0 % (0-10); Hematocrit 24.9 % (41.0-53.0); Immature Granulocytes % (Auto) 1 % (0-0); Lymphocytes # (Auto) 1.1 Thou/mm3 (1.0-4.8); Lymphocytes % (Auto) 4 % (10-50); Mean Corpuscular HGB Conc 31.7 g/dl (31.0-37.0); Mean Corpuscular Hemoglobin 26.9 pg (25.0-35.0); Mean Corpuscular Volume 85 fL (80-100); Monocytes # (Auto) 1.3 Thou/mm3 (0.0-0.8); Monocytes % (Auto) 5 % (0-12); Neutrophils % (Auto) 89 % (37-80); Nucleated Red Blood Cell % 0 /100 WBC (0); Platelet Count 378 Thou/mm3 (140-440); RDW Standard Deviation 54.4 fL (35.1-43.9); Red Blood Count 2.94 Miln/mm3 (4.50-5.90); White Blood Count 25.8 Thou/mm3 (3.8-10.6)
[2025-04-14 06:12] LABS: Hemoglobin 7.9 g/dL (13.5-16.0)
--- NOTE | 2025-04-14 06:47 | ESPR_ITS ---
Documentation for date of: 04/14/25 Subjective Subjective Interval history: Patient had wound dressed with Surgicel and compression with Lokesh bandage yesterday has no significant bruising as of this a.m. Hemoglobin was 7.9. Exam Vital Signs Temp Pulse Resp BP Pulse Ox O2 Del Method O2 Flow Rate 98.3 F 118 H 19 107/82 96 Room Air 3 04/14/25 04:00 04/14/25 04:00 04/14/25 04:00 04/14/25 04:00 04/14/25 04:00 04/14/25 04:00 04/13/25 15:30 Narrative Exam Appears comfortable with no obvious oozing through the dressing on the right buttock area. Objective Labs 04/14/25 04:28 04/14/25 04:28 Labs: Laboratory Results - last 24 hr 04/11/25 04/13/25 04/13/25 22:23 04:24 08:55 WBC RBC Hgb Hct MCV MCH MCHC RDW Std Deviation Plt Count Neut % (Auto) Lymph % (Auto) [place] % (Auto) Eos % (Auto) Baso % (Auto) Neut # (Auto) Lymph # (Auto) [place] # (Auto) Eos # (Auto) Baso # (Auto) Immature Gran # (Auto) Absolute Nucleated RBC Immature Gran % Nucleated RBC % Smear Path Review Sent to Pathologist Sodium Potassium Chloride Carbon Dioxide Anion Gap BUN Creatinine Estim Creat Clear Calc eGFR BUN/Creatinine Ratio Glucose Calculated Osmolality Calcium Free T4 1.56 Vancomycin Trough 14.3 H Blood Type B Positive Antibody Screen NEGATIVE Crossmatch See Detail Blood Bank Wristband ID Yes 04/13/25 04/13/25 04/14/25 16:07 22:05 04:28 WBC 25.8 H RBC 2.94 L Hgb 8.1 L 7.5 L 7.9 L Hct 24.3 L 22.6 L 24.9 L MCV 85 MCH 26.9 MCHC 31.7 RDW Std Deviation 54.4 H Plt Count 378 Neut % (Auto) 89 H Lymph % (Auto) 4 L [place] % (Auto) 5 Eos % (Auto) 0 Baso % (Auto) 0 Neut # (Auto) 23.0 H Lymph # (Auto) 1.1 [place] # (Auto) 1.3 H Eos # (Auto) 0.1 Baso # (Auto) 0.1 Immature Gran # (Auto) 0.30 H Absolute Nucleated RBC 0.00 Immature Gran % 1 H Nucleated RBC % 0 Smear Path Review Sodium 133 L Potassium 2.8 L D Chloride 98 Carbon Dioxide 24.8 Anion Gap 10 BUN 11 Creatinine 0.6 Estim Creat Clear Calc 126.7 eGFR > 60 BUN/Creatinine Ratio 18 Glucose 83 Calculated Osmolality 264 L Calcium 7.2 L Free T4 Vancomycin Trough Blood Type Antibody Screen Crossmatch Blood Bank Wristband ID Assessment & Plan A&P Narrative 1. 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 2. Admitted with pelvic pain anemia sepsis, clinically improving and appears comfortable at this a.m dressed with Surgicel and compression Lokesh bandage. no obvious oozing with hemoglobin 7.9 this a.m. 2. Would like to get the scheduled radiation next week to the right hemipelvis area to alleviate pain and bleeding symptoms. May consider hospice afterward as patient reluctant to get chemo particularly since he had to get it in [place] 3 years ago to get the intensive inpatient AIM chemotherapy. Time Spent With Patient Time: Total time spent is greater than 50% in coordination of care (as documented) at patient's floor/unit and/or counseling patient:
[2025-04-14] MEDS: POTASSIUM CHLORIDE 20 mEq TABCR 40 MEQ PO ×2 (09:06→13:29)
[2025-04-14] MEDS: VANCOMYCIN/NS 1 GM IVPB 200 ML IV ×2 (10:25→22:02)
--- NOTE | 2025-04-14 12:09 | PC.SS ---
Follow up note: SS and CIRCULATION MANAGER met with patient at bedside to discuss plan of care. Patient verbalized he wants to remain full code. He wants CPR if needed. He wants to follow up with CTC. Patient asked about a wheelchair. He verbalized he already has a walker at home and that he was previously open to home health but could not remember which agency. SS will follow up with daughter, Lizett on further plans.
--- NOTE | 2025-04-14 13:10 | ESPR_ITS ---
<Statement entered by Tramaine Hayward MD - 04/14/25 15:26> Patient examined and case discussed with the team including attending physician. Note reviewed, I agree with the care plan as documented. S/p surgicel dressing by Dr Taylor on 04/13, tool and die machinist following closely. Dressing looks dry and intact today, pain is well controlled. Discussed goals of care with family yesterday, would like to pursue treatment with radiation therapy and if needed, chemotherapy. Per Oncology Dr Dee, patient will be scheduled for radiation sessions at [facility] from Friday. Plan: Will defer Hospice for now. Please refer to the note below for further details. - Tramaine Hayward MD, PGY 2 Disclaimer: The document may contain phonetic/typographic errors due to voice recognition software. These errors are purely due to imperfections in the software program. Documentation for date of: 04/14/25 Subjective Subjective Interval history: 04/14/2025: No acute overnight events to report. Patient seen and examined in hospital bed at current baseline denies having any concerning cardiac symptoms such as chest pain, shortness of breath, palpitations or new dizziness. Patient wound is not bleeding and general surgery has placed surgical powder along with gauze. Regarding patient's stage IV pleomorphic sarcoma, Dr. Dee radiation oncologist has set up an appointment for palliative radiation on Friday, April 18, 2025 at the [facility]. Will monitor the patient's vitals, labs and if everything is stable we will consider discharge within the next 24 to 48 hours so that he can make that appointment. Exam Vital Signs Temp Pulse Resp BP Pulse Ox O2 Del Method O2 Flow Rate 97.1 F 99 18 91/66 99 Room Air 3 04/14/25 12:04/14/25 12:04/14/25 12:04/14/25 12:04/14/25 12:04/14/25 12:04/13/25 15:30 Narrative Exam Physical Exam: General: Awake answering questions appropriately, appears stated age, underweight HEENT: Atraumatic/normocephalic, RIGO, neck supple Heart: RRR, S1 and S2 without clicks or murmurs Lungs: Clear on auscultation bilaterally, no difficulty breathing Abdomen: Soft, nontender. Bowel sounds present MSK: Extensive, penetrating lesions with foul-smelling purulent discharge extending from the ischium to anterior pelvis Vascular: Peripheral pulses palpable Neuro: Alert and oriented x 3, no focal neurological deficits noted. Objective Labs 04/14/25 04:28 04/14/25 04:28 Labs: Laboratory Results - last 24 hr 04/11/25 04/13/25 04/13/25 22:23 16:07 22:05 WBC RBC Hgb 8.1 L 7.5 L Hct 24.3 L 22.6 L MCV MCH MCHC RDW Std Deviation Plt Count Neut % (Auto) Lymph % (Auto) [place] % (Auto) Eos % (Auto) Baso % (Auto) Neut # (Auto) Lymph # (Auto) [place] # (Auto) Eos # (Auto) Baso # (Auto) Immature Gran # (Auto) Absolute Nucleated RBC Immature Gran % Nucleated RBC % Sodium Potassium Chloride Carbon Dioxide Anion Gap BUN Creatinine Estim Creat Clear Calc eGFR BUN/Creatinine Ratio Glucose Calculated Osmolality Calcium Blood Type B Positive Antibody Screen NEGATIVE Crossmatch See Detail Blood Bank Wristband ID Yes 04/14/25 04:28 WBC 25.8 H RBC 2.94 L Hgb 7.9 L Hct 24.9 L MCV 85 MCH 26.9 MCHC 31.7 RDW Std Deviation 54.4 H Plt Count 378 Neut % (Auto) 89 H Lymph % (Auto) 4 L [place] % (Auto) 5 Eos % (Auto) 0 Baso % (Auto) 0 Neut # (Auto) 23.0 H Lymph # (Auto) 1.1 [place] # (Auto) 1.3 H Eos # (Auto) 0.1 Baso # (Auto) 0.1 Immature Gran # (Auto) 0.30 H Absolute Nucleated RBC 0.00 Immature Gran % 1 H Nucleated RBC % 0 Sodium 133 L Potassium 2.8 L D Chloride 98 Carbon Dioxide 24.8 Anion Gap 10 BUN 11 Creatinine 0.6 Estim Creat Clear Calc 126.7 eGFR > 60 BUN/Creatinine Ratio 18 Glucose 83 Calculated Osmolality 264 L Calcium 7.2 L Blood Type Antibody Screen Crossmatch Blood Bank Wristband ID Quality Measures Quality Measures sepsis Current suspected stage: ruled out Possible source: bone/joint and skin/soft tissue Blood cultures ordered: yes Antibiotic ordered: Yes Assessment & Plan Assessment Current Active Medications: Generic Name Dose Route Start Last Admin Trade Name Freq PRN Reason Stop Dose Admin Acetaminophen 650 mg 04/12/25 06:08 Acetaminophen 325 Mg Tablet PO 05/12/25 06:07 Q6H PRN PAIN OR FEVER > 101 Protocol Hydrocodone Bitart/Acetaminophen 1 tab 04/12/25 07:15 04/14/25 05:18 Hydrocodone/Apap 10/325 Tab PO 04/17/25 07:14 1 tab Q6HR PRN Administration PAIN SCALE 6-10(Mod-Sev Piperacillin/Tazobactam/Dextrose 3.375 gm in 50 mls @ 12.5 mls/hr 04/12/25 14:00 04/14/25 05:18 Zosyn IV 04/19/25 13:59 12.5 mls/hr Q8HR BRIAN Administration Protocol Vancomycin/Sodium Chloride 200 mls @ 120 mls/hr 04/12/25 13:30 04/14/25 10:25 Vancomycin/Ns 1 Gm Ivpb IV 04/19/25 13:29 120 mls/hr BID@1000,2200 BRIAN Administration Mirtazapine 15 mg 04/13/25 21:00 04/13/25 21:05 Mirtazapine 15 Mg Tablet PO 05/13/25 20:59 15 mg HS BRIAN Administration Ondansetron HCl 4 mg 04/12/25 06:08 Ondansetron Inj 2 Mg/Ml Inj 2 Ml IV 05/12/25 06:07 Q6H PRN NAUSEA OR VOMITING Protocol Pharmacy Consult 1 each 04/12/25 09:00 Vancomycin Pharmacy To Dose 1 Each Each IV 05/12/25 08:59 QDAY PRN CONSULT Potassium Chloride 40 meq 04/14/25 14:00 Potassium Chloride 20 Meq Tabcr PO 04/14/25 14:01 X1 ONE Sennosides 2 tab 04/12/25 06:08 Senna Tablet PO 05/12/25 06:07 BID PRN CONSTIPATION Protocol Sennosides 1 tab 04/12/25 07:21 04/14/25 05:19 Senna/Docusate Sod 1 Tab Tablet PO 05/12/25 07:20 1 tab QDAY PRN Administration CONSTIPATION Protocol Plan Patient came in and found to have 2 or more SIRS criteria and was evaluated for sepsis. However, based upon further work-up, sepsis was ruled out. 59-year-old male with a past medical history of metastatic cancer, hepatitis B, undifferentiated pleomorphic sarcoma of right pelvis, status post chemotherapy and excision, currently scheduled with rad oncologist Dr. Dee to undergo radiation, who presented to the emergency room complaining of severe pain and discharge from the sacral wound. #Soft tissue abscess with draining sinuses #Lactic acidosis?now resolved #Leukocytosis, downtrending Differentials include As noted from HPI, patient has history of metastatic sarcoma of the pelvis with extensive lesions noted WBC of 43.4 has down trended to 34.[address] Abd/P shows: Large necrotic mass posterior right pelvis right gluteal region again noted destroying right hemipelvis bones and posterior right femur again noted Blood cultures no growth within 48 hours Patient and patient's family would like to pursue full treatment at this time. Plan: Dr. Dee, radiation oncology, consulted appreciate recommendations - has set up appointment for the patient to get palliative radiation on 04/18/2025 General Surgery consulted, appreciate recommendations Patient's wound is now covered with surgical powder, gauze Continue IV antibiotics, will discontinue when appropriate Wound care referral in place #Normocytic anemia #Draining Sinus, bleeding #Acute blood loss anemia Patient's baseline hemoglobin seems to be within normal range, but presented with hemoglobin 6.7, likely acute anemia. Patient has not had a bowel movement in 1 week, also denied hematemesis. Unable to rule out GI bleed. Differentials include: Acute blood loss anemia, myelosuppression from chemotherapy, iron deficiency anemia, anemia of chronic disease, vitamin deficiency, hemolytic anemia 2 PRBC transfused in hemoglobin went up from 6.7-8.4 Iron panel shows iron less than 5, TIBC 137, iron saturation 3%, unsaturated iron binding 132, ferritin 1104, T. bili downtrending to 0.8 but the D. bili at 0.5, LDH 149 WNL Plan: Wound care for draining sinus with heavy packing, surgery consultation as above Anemia secondary to acute blood loss along with iron deficiency anemia, anemia of chronic disease secondary to myelosuppression Transfuse if hemoglobin less than 7 Replete iron once discharged, follow-up with PCP #DVT Right superficial femoral vein DVT reported on CT Venous Doppler study negative for DVT Repeat Doppler as suspicion is high for right superficial femoral and right common femoral vein attenuations seen on CT imaging Doppler studies show positive for occlusive thrombus in the right common femoral vein Plan: IVC Filter placed, monitoring #History of metastatic sarcoma of pelvis, stage IIIb Patient apparently has chemotherapy sessions, last session 1 year ago; currently following up with Dr. Dee to set up radiotherapy (next appointment April 22) CT Abd/Pelvis 04/11 shows: Marked progression of metastatic pulmonary disease compared with PET CT scan January 10, 2025 and marked progression of abdominal and pelvic lymphadenopathy compared with the CT scan January 10, 2025 Plan: Consult to radiation oncologist Dr. Dee is placed, pending recommendations Patient understands prognosis is guarded; however, would like to pursue full treatment at this time #MASLD #Cholelithiasis During workup, patient had elevated T. bili and D bili US Gallbladder findngs Patient denies any RUQ tenderness at this time Plan: Follow-up outpatient for elective procedures Monitor LFTs Hospital Management: Lines: PIV Diet: Regular Bowel: Senna GI prophylaxis: Not needed DVT prophylaxis: IVC filter Dispo: Pending wound cultures, Dr. Dee recommendations Code: Full Patient seen and examined with attending Dr. Orlando and senior resident Dr. Mainor Gautam, PGY-1 Attending Provider Attestation/Addendum Yuliana Dorsey, , attest that I was physically present for the aparicio portions of the service and evaluated the patient with the resident and I reviewed and discussed the case with the resident and agree with the resident's findings and plans of care as documented above Patient seen and eval this a.m. He states that he is feeling well. Dressing appears clean dry and intact. No acute events overnight. Hemoglobin appears to be stable. Patient denies any shortness of breath, chest pain, fevers or chills otherwise. Patient is scheduled for radiation on Friday. Will continue with wound care at this time. Patient may benefit from hyperbaric oxygen. Will need referral to wound care center as well. Will continue to monitor H&H and wound. If patient remains stable, anticipate discharge within the next 48 hours. Continue with broad-spectrum antibiotics at this time.
[2025-04-14] MEDS: ACETAMINOPHEN 325 MG TABLET 650 MG PO (16:01)
[2025-04-14] MEDS: MORPHINE SULF INJ 10 MG/ML VIAL 2 MG IVP (17:23)
--- NOTE | 2025-04-14 17:55 | PC.NURSE ---
Dr. Hayward notified of increased HR and pain post wound care. New order sets ordered for pain management. Dr. Hayward at bedside with Charge Colette to check wound dressing. Loosened dressing as edema and swelling was building up on leg.
[2025-04-14] MEDS: MIRTAZAPINE 15 MG TABLET PO (20:36)
[2025-04-14] MEDS: HYDROcodone/APAP 5/325 TABLET 1 TAB PO (20:36)
[2025-04-15] VITALS: BP 100/65; PULSE 97; PULSE 98; RESP 16; TEMP 36.2; O2SAT 97
[2025-04-15] MEDS: MORPHINE SULF INJ 10 MG/ML VIAL 2 MG IVP (01:12)
[2025-04-15 04:00] VITALS: BP 108/68; PULSE 108; RESP 16; TEMP 36.7; O2SAT 98
[2025-04-15] MEDS: HYDROmorphone INJ 2 MG/ML VIAL 1 MG IVP (04:45)
[2025-04-15] MEDS: PIPER/TAZO 3.375 GM PREMIX 3.375 GM/50 ML BAG IV ×3 (05:10→21:03)
[2025-04-15 05:28] VITALS: BMI 27.3
[2025-04-15 06:23] LABS: Basophils % (Auto) 0 % (0-2.5); Eosinophils # (Auto) 0.2 Thou/mm3 (0.0-0.5); Eosinophils % (Auto) 1 % (0-10); Hematocrit 24.4 % (41.0-53.0); Immature Granulocytes % (Auto) 1 % (0-0); Immature Granulocytes Auto 0.26 Thou/mm3 (0.00-0.00); Lymphocytes # (Auto) 0.6 Thou/mm3 (1.0-4.8); Lymphocytes % (Auto) 2 % (10-50); Mean Corpuscular HGB Conc 32.8 g/dl (31.0-37.0); Mean Corpuscular Hemoglobin 27.3 pg (25.0-35.0); Mean Corpuscular Volume 83 fL (80-100); Monocytes # (Auto) 1.2 Thou/mm3 (0.0-0.8); Monocytes % (Auto) 4 % (0-12); Neutrophils # (Auto) 27.3 Thou/mm3 (1.8-7.7); Neutrophils % (Auto) 93 % (37-80); Nucleated Red Blood Cell % 0 /100 WBC (0); Platelet Count 445 Thou/mm3 (140-440); RDW Standard Deviation 56.3 fL (35.1-43.9); Red Blood Count 2.93 Miln/mm3 (4.50-5.90); White Blood Count 29.6 Thou/mm3 (3.8-10.6)
[2025-04-15 06:31] LABS: Anion Gap 8 (7-16); BUN/Creatinine Ratio 17 Ratio (12-20); Blood Urea Nitrogen 10 mg/dL (9-23); Calcium 7.5 mg/dL (8.3-10.6); Carbon Dioxide 25.7 mMol/L (20.0-31.0); Chloride 102 mMol/L (98-107); Creatinine (Component) 0.6 mg/dL (0.6-1.3); Estimated Creatinine Clearance 126.7 mL/min (>60); Glucose 87 mg/dL (74-106); Magnesium 1.8 mg/dL (1.6-2.6); Osmolality,Calculated 269 (275-295); Phosphorous 2.7 mg/dL (2.4-5.1); Potassium 3.6 mMol/L (3.4-5.1); Sodium 136 mMol/L (136-145); eGFR > 60 See Note
[2025-04-15 08:00] VITALS: BP 97/64; PULSE 111; PULSE 113; RESP 15; TEMP 36.7; O2SAT 98
--- NOTE | 2025-04-15 09:20 | PC.SS ---
Addendum entered by Brandie Weinstein 04/15/25 15:20: Follow up note: SS ordered DME through [facility], [place]. [facility] confirmed they will deliver and coordinated with daughter for 4p.m. SS set up gurney transport through [employer] with a refe# [id number] for 6p.m. burr picker. Addendum entered by Brandie Weinstein 04/15/25 12:59: SS spoke to family at bedside and provided a list of community resources. SS confirmed d/c plans again with hh and dme. Patient needs a armando lift as well, per PT. SS will receive orders and submit on [employer]. Addendum entered by Brandie Weinstein 04/15/25 09:57: SS spoke to patient's daughter,Lizett, and she's requesting a hospital bed as well. Updated PT who recommended a specialty mattress for hospital bed. Patient will need to d/c via gurney transport. Original Note: Follow up note: Patient will d/c home today. [place] [facility] [place]. Patient has had [facility] in the past. He requested a wheelchair for home. SS will follow up with physician team on DME.
--- NOTE | 2025-04-15 09:24 | PC.SS ---
Addendum entered by Brandie Weinstein 04/15/25 13:00: Patient needs a armando lift for home for transfers Patient requires transfer between the bed, chair, wheelchair and commode that requires the assistance of more than one person. Without the use of the lift the patient would be confined or dependent transfer. Original Note: Patient needs a manual wheelchair for home. The patient and her family are requesting a wheel chair. Patients diagnosis creates mobility limitations that significantly impairs ability to participate in the patient?s activities of daily living either in their entirety or in a reasonable timeframe in the home and the patient?s mobility limitations cannot be sufficiently resolved with an appropriately fitted cane or walker. Also, the use of a manual wheelchair will sufficiently improve patients ability to participate in the activities of daily living in the home and the patient is willing to use the wheelchair that is provided in the home. The patient has some one in the home that is available, willing and able to provide assistance with the wheelchair.
[2025-04-15] MEDS: VANCOMYCIN/NS 1 GM IVPB 200 ML IV ×2 (10:04→21:03)
[2025-04-15] MEDS: HYDROcodone/APAP 5/325 TABLET 1 TAB PO (11:49)
[2025-04-15 12:00] VITALS: BP 110/77; PULSE 125; PULSE 129; RESP 20; TEMP 36.9; O2SAT 98
[2025-04-15 13:40] VITALS: BMI 12.0
--- NOTE | 2025-04-15 14:12 | ESDS_ITS ---
<Statement entered by Tramaine Hayward MD - 04/15/25 14:38> Patient was examined with the team including attending physician. Note reviewed, I agree with the discharge plan as documented. - Tramaine Hayward MD PGY2 Disclaimer: The document may contain phonetic/typographic errors due to voice recognition software. Planned Discharge Date 04/15/25 DS: Providers Provider Date of admission: 04/12/25 06:03 Primary care physician: Zia Jorge MD Admitting Provider: Vasiliy Terrazas MD Attending Provider on Admission: Yuliana Orlando DO Consults: 04/12/25 06:14 Consult to Oncology Stat Comment: Consulting Provider: Paul Dee Referral Wound Care Stat Comment: 04/12/25 09:14 Referral Registered Dietitian Routine Comment: Referral Speech Therapy Routine Comment: Health Equity Referral - Knowledge Deficit Routine Comment: Positive screening for knowledge deficit needs. Health Equity Referral - Transportation Routine Comment: Positive screening for transportation needs. 04/15/25 08:37 Referral Physical Therapy Urgent Comment: Physician Instructions: Instructions: in prep for DC 04/15/25 12:01 Referral OP Wound Healing Dept Routine Comment: Instructions: right pelvic sarcoma, with erosion and skin breakdown, visible tumor. Patient discharge anticipated on 04/15/2025-04/16/2025. Attending Provider on DC: Leonel Gautam MD Discharging Provider: Leonel Gautam MD DS: Diagnosis Problem List Completed Was Problem List Reviewed/Reconciled?: Yes Hospital Course Hospital Course Hospital course: 59-year-old male with a past medical history of metastatic cancer, Hepatitis B, Undifferentiated pleomorphic sarcoma of right pelvis, status postchemotherapy and excision, currently scheduled with rad oncologist Dr. Dee to undergo radiation, who presented to the emergency room complaining of severe pain and discharge from the sacral wound. In the emergency room, Initial blood tests showed WBC 43.4, Hemoglobin 6.7, Hematocrit 21.4, ESR 98, lactic acid 7.5, sodium 126, CRP is greater than 10, procalcitonin 2.97. CT abdomen pelvis showed large enhancing fungating mass in the right gluteal region with destruction of underlying osseous structures, multiple enlarged lymph nodes, thrombus in the right superficial femoral vein, constipation with rectal fecal impaction. Patient was given blood transfusion, 1 PRBC, IV fluids, cefepime and vancomycin, lactic acid improved after IV fluid boluses. Venous Doppler studies were positive for right common femoral vein occlusive thrombus; however, patient was sent to IR for IVC filter placement. Oncology was consulted during hospitalization and recommended the patient receive palliative radiation for the bleeding lesion noted above. Patient had rapid response called on 04/13 after it was noted that the wound had an arterial bleed. General surgery was consulted for wound management and hemostasis with Surgicel. Patient's family along with patient well aware of patient's diagnosis and guarded prognosis. Family would like to continue with palliative radiation and an appointment has been set up once the patient is discharged. Oncology will continue goals of care discussion with the patient and offer hospice after palliative radiation is completed. Patient will be discharged stable with the following strict instructions. Take Gratiot (hydrocodone-acetaminophen 10-325) by mouth every four hours as needed for severe pain Please use Onofre Lift as directed to safely move Please take Augmentin 875-125 mg tablet twice a day for 7 days Please take doxycycline 100 mg tablets by mouth twice a day for 7 days Please follow-up with Dr. Dee at the [facility] on Wednesday 04/18 for radiation therapy; [address], [place] [address] Phone:? Please be very cautious with your bandages as you are high risk of rebleeding If your symptoms worsen or if you develop new chest pain, shortness of breath, bleeding or dizziness - please come back to the ED immediately Hospital Diagnosis: #Soft tissue abscess with draining sinuses #Lactic acidosis?now resolved #Leukocytosis, downtrending #Normocytic anemia #Draining Sinus, bleeding #Acute blood loss anemia #DVT #History of metastatic sarcoma of pelvis, stage IIIb #MASLD #Cholelithiasis Leonel Gautam, PGY-1 Status at Discharge Overall status at discharge: patient is progressing back to baseline Time Spent with Patient Time attestation: Total time spent providing and/or coordinating discharge services: 45 minutes Time spent: Greater than 30 minutes Home Health Home Health Referral Orders: 04/15/25 08:52 Home Health Referral Routine Reason For Exam: Sacral abscess Home-Bound The patient must either because of illness or injury, need the aid of supportive devices such as crutches, canes, wheelchairs, and walkers; the use of special transportation; or the assistance of another person in order to leave their place of residence; OR have a condition such that leaving his or her home is medically contraindicated. In addition, the patient also meets the following criteria: patient is normally unable to leave the home and leaving home requires considerable taxing effort. Addendum to Home Health Certification Practitioner's Certification: I certify that the patient has been under my care in the hospital and the care of attending physician (see below). We had a bblh-ma-[id number] encounter on (see date below). My clinical findings indicate that the patient is home bound per the above criteria and the Home Health Services noted in these orders are medically necessary. The primary reason for the gmhw-bz-[id number] encounter is related to the fact that the patient requires home health services. Date Certifying Bthq-sh-Esdh Physician Encounter: 04/12/25 Physician's Name who will Assume Oversight for Services: Zia Jorge Physician's Phone No.who will Assume Oversight for Service: [employer] SITE MONITOR - Community Resources: No PT to Evaluate: Yes PT to evaluate and provide a treatmnet plan to increase patient's mobility and strength. Wound Care: Yes Home Health RN - Wound Care Order: sacral wound IV Therapy: No RN Safety Evaluation: Yes RN to evaluate and create a plan of care that will produce positive outcomes. Palliative Treatment: No Palliative treatment and evaluate the need for hospice. Home Health Aide - Personal Care: No Home Health Aide to assist with any ADL's. Exam Vital Signs Temp Pulse Resp BP Pulse Ox O2 Del Method O2 Flow Rate 98.5 F 129 H 20 110/77 98 Room Air 3 04/15/25 12:04/15/25 12:04/15/25 12:04/15/25 12:04/15/25 12:04/15/25 12:04/13/25 15:30 Narrative Exam Physical Exam: General: Awake answering questions appropriately, appears stated age, underweight HEENT: Atraumatic/normocephalic, RIGO, neck supple Heart: RRR, S1 and S2 without clicks or murmurs Lungs: Clear on auscultation bilaterally, no difficulty breathing Abdomen: Soft, nontender. Bowel sounds present MSK: Extensive, penetrating lesions with foul-smelling purulent discharge extending from the ischium to anterior pelvis Vascular: Peripheral pulses palpable Neuro: Alert and oriented x 3, no focal neurological deficits noted. Discharge Plan Plan Patient Disposition: Home w/HOME HEALTH Patient condition on transfer: Stable Care Plan Goals: Take Gratiot (hydrocodone-acetaminophen 10-325) by mouth every four hours as needed for severe pain Please use Onofre Lift as directed to safely move Please take Augmentin 875-125 mg tablet twice a day for 7 days Please take doxycycline 100 mg tablets by mouth twice a day for 7 days Please follow-up with Dr. Dee at the [facility] on Wednesday 04/18 for radiation therapy; [address], [place] [address] Phone:? Please be very cautious with your bandages as you are high risk of rebleeding. IF bleeding occurs, hold pressure x 5 minutes. If unable to stop return to ED. If your symptoms worsen or if you develop new chest pain, shortness of breath, bleeding or dizziness - please come back to the ED immediately Follow up at [facility], [address] [place] [address] for wound care. Call [phone] for appointment. Dressing Change Home Care You have a wound that needs special care to heal.? Your body will make the new skin needed to close your wound, but you have to help.? Germs and old skin on the wound have to be removed.? This is done by changing the dressing on the wou nd as directed by your doctor. Wound:? Ulcers to Buttocks and rectal area Supplies/Equipment (keep all supplies in one place clean and dry) o?? Normal Saline (salt water) solution.? You can make you own by boiling 2 cups of water with ? teaspoon of salt for 10 minutes.? Keep in a glass jar in the r efrigerator and make a new batch every day. o?? Clean/Irrigate wound with ?normal saline or wound cleanser o?? Medication for wound: normal saline moistened gauze o?? Primary dressing ? o?? Secondary dressing: dry gauze and gauze roll o?? Tape o?? Gloves o?? Q-tips o?? Small trash bag o?? Other supplies Follow these instructions: 1.??? Wash your hands with soap and water. 2.??? Gather all your supplies and place on a clean towel or paper towel. 3.??? Put on gloves.- 4.??? Gently Remove all of the old dressing (including gauze packing if any) and put in the trash bag. Moisten with normal saline to help with gentle removal of dressings and gauze to avoid bleeding. 5.??? Take off the gloves and put in trash bag. 6.??? If not using gloves wash your hands again or put on new gloves. 7.??? Irrigate wound with Normal saline. ?Place gauze in trash bag. 8.??? Cover wounds with calcium alginate, layer with dry gauze and secure with kerlix roll. May wrap with rob wrap to help keep dressing in place. If active bleeding occurs, apply tight dressing and return to MD or ER. ? Notify primary doctor or return to Emergency Room if any of the following: ? Fever above 100.6? F ? Increased pain ? Increase swelling ? Red streaks around your wound ? Drainage becomes foul smelling or changes color ? The wound is larger or deeper ? The wound looks dried out or dark ? Bleeding that does not stop with holding pressure Special Instructions: Follow up with [facility], call [phone] for appointment. Prescriptions/Referrals Prescriptions/Med Rec: New doxycycline monohydrate 100 mg capsule 100 mg PO BID 7 Days Qty: 14 0RF amoxicillin-pot clavulanate 875-125 mg tablet 1 tab PO BID 7 Days Qty: 14 0RF hydrocodone-acetaminophen 10-325 mg tablet 1 tab PO Q4H MDD 40 mg hydrocodone PRN (Reason: pain) 3 Days Qty: 12 0RF Continued docusate calcium 240 mg capsule 240 mg PO QDAY Qty: 30 6RF magnesium hydroxide [Milk of Magnesia] 400 mg/5 mL Suspension 30 ml PO QDAY PRN (Reason: Constipation) Qty: 3780 0RF Discontinued hydrocodone-acetaminophen 5-325 mg tablet 1 tab PO BID MDD 10mg hydrocodone PRN (Reason: pain) Qty: 20 0RF hydrocodone-acetaminophen 5-325 mg tablet 1 tab PO BID MDD 2 PRN (Reason: pain) Qty: 14 0RF Referrals: Zia Jorge MD [Primary Care Provider] - Paul Dee MD [Physician] - Patient/Caregiver Discharge Instructions Education Materials: Radiation Therapy Treatment, Life After Cancer: Managing Pain Print Language: [place] Stand Alone Forms: Elvia Award Info., Patient Portal Info Letter Discharge Order Discharge Orders: Discharge (Routine); Ordered 04/15/25 Ordered By: Leonel Gautam Quality Discharge Quality Measures VTE prophylaxis Attestestation MD Attestation I attest that I was physically present for the evaluation, physical examination, lab and imaging review of the patient with the residents. I discussed the case with the residents and agree with the findings and plans of care as documented above. Iris Saldivar MD
--- NOTE | 2025-04-15 15:21 | PC.NURSE ---
Pt having bigeminy, trigeminy, with pvc. Dr. Lopez notified.
--- NOTE | 2025-04-15 15:31 | PD.ONCPROG ---
Documentation for date of: 04/15/25 Subjective Subjective Interval history: Patient scheduled to leave today with the aid of a Onofre lift and ambulance ride home. Patient still nonambulatory. Exam Vital Signs Temp Pulse Resp BP Pulse Ox O2 Del Method O2 Flow Rate 98.5 F 129 H 20 110/77 98 Room Air 3 04/15/25 12:00 04/15/25 12:00 04/15/25 12:00 04/15/25 12:00 04/15/25 12:00 04/15/25 12:00 04/13/25 15:30 Narrative Exam Appearing comfortable. WBC elevated at 29.6 hemoglobin 8.0 platelets 4 45,000. Objective Labs 04/15/25 05:55 04/15/25 05:55 Labs: Laboratory Results - last 24 hr 04/11/25 04/15/25 22:23 05:55 WBC 29.6 H RBC 2.93 L Hgb 8.0 L Hct 24.4 L MCV 83 MCH 27.3 MCHC 32.8 RDW Std Deviation 56.3 H Plt Count 445 H D Neut % (Auto) 93 H Lymph % (Auto) 2 L [place] % (Auto) 4 Eos % (Auto) 1 Baso % (Auto) 0 Neut # (Auto) 27.3 H Lymph # (Auto) 0.6 L [place] # (Auto) 1.2 H Eos # (Auto) 0.2 Baso # (Auto) 0.0 Immature Gran # (Auto) 0.26 H Absolute Nucleated RBC 0.00 Immature Gran % 1 H Nucleated RBC % 0 Sodium 136 Potassium 3.6 D Chloride 102 Carbon Dioxide 25.7 Anion Gap 8 BUN 10 Creatinine 0.6 Estim Creat Clear Calc 126.7 eGFR > 60 BUN/Creatinine Ratio 17 Glucose 87 Calculated Osmolality 269 L Calcium 7.5 L Phosphorus 2.7 Magnesium 1.8 Crossmatch See Detail Assessment & Plan A&P Narrative 1. 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 2. Admitted with pelvic pain anemia sepsis, clinically improved wound dressed with Surgicel and compression Lokesh bandage. no obvious oozing with hemoglobin 8.0 this a.m. 3. Noted to have right common femoral vein. IVC filter placed. 4. Radiation therapy for pain palliation and bleeding alleviation planned for Tomy. Getting into the cancer center may be a challenge as he is nonambulatory. We will see if we could possibly arrange for ambulance transport. 5. Patient and family are aware of the guarded prognosis and discussion regarding hospice care was also made. Time Spent With Patient Time: Total time spent is greater than 50% in coordination of care (as documented) at patient's floor/unit and/or counseling patient:
[2025-04-15] MEDS: Magnesium Sulfate 2 GM Ivpb 2 GM/50 ML BAG IV (15:45)
[2025-04-15] MEDS: POTASSIUM CHLORIDE 20 mEq TABCR 40 MEQ PO (15:45)
[2025-04-15 16:00] VITALS: BP 104/77; PULSE 108; PULSE 114; RESP 22; TEMP 36.3; O2SAT 98
--- NOTE | 2025-04-15 16:08 | PC.SS ---
Follow up note: [facility] and provided reference# [id number] and they still did not assign a transportation co. Dispatch requested to expedite request. Requested for [place]. Tentative cook pickled meat for 6pm
[2025-04-15] MEDS: LACTULOSE SYRUP 20 GM/30 ML UDC 30 GM PO (17:02)
--- NOTE | 2025-04-15 17:37 | PC.NURSE ---
Called [employer] about ambulance transportation. [employer] gave number for transportation services. Contacted transport at [phone] and they stated that they have not received auth yet for [employer] [facility]. Unknown eta for transportation. Daughter stated would be able to come to hospital for wound care instructions and discharge instructions, but not at bedside yet. Notified Dr. Dalal about no BM for 1 week. Ordered lactulose 30gm.
--- NOTE | 2025-04-15 17:44 | PC.NURSE ---
Tried to contact daughter Lizett about transporation and did not answer.
[2025-04-15] MEDS: SENNA/DOCUSATE SOD 1 TAB TABLET PO (17:55)
[2025-04-15] MEDS: NALOXEGOL OXALATE 25 MG TABLET (NON-FORMULARY) PO (18:33)
[2025-04-15 20:00] VITALS: BP 119/80; PULSE 126; RESP 23; TEMP 36.6; O2SAT 100
--- NOTE | 2025-04-15 20:28 | PC.NURSE ---
Wound care completed with family at bedside. Due to increased bleeding Charge at bedside to assess. Notified prop and effects designer MD of bleeding pending MD assessment. Transportation still has not called about eta. prop and effects designer nurse notified.
[2025-04-15] MEDS: HYDROcodone/APAP 10/325 TAB PO (20:52)
[2025-04-15] MEDS: MIRTAZAPINE 15 MG TABLET PO (20:52)
[2025-04-16] VITALS (14 sets, daily range): BP systolic 92–134; BP diastolic 57–84; PULSE 80–135; RESP 12–20; TEMP 36–36.7; O2SAT 96–100; BMI 21.5
--- NOTE | 2025-04-16 01:31 | PC.NURSE ---
Dr. Murillo at bedside to assess wound bleeding with family. Family requesting to hold discharge tonight because of bleeding. It will be reevaluated tomorrow whether patient will go home. Discharge held by Dr. Murillo
[2025-04-16] MEDS: PIPER/TAZO 3.375 GM PREMIX 3.375 GM/50 ML BAG IV ×3 (05:05→22:08)
[2025-04-16 05:31] LABS: Basophils # (Auto) 0.1 Thou/mm3 (0.0-0.2); Basophils % (Auto) 0 % (0-2.5); Eosinophils % (Auto) 0 % (0-10); Hematocrit 20.3 % (41.0-53.0); Immature Granulocytes % (Auto) 1 % (0-0); Immature Granulocytes Auto 0.42 Thou/mm3 (0.00-0.00); Lymphocytes # (Auto) 1.2 Thou/mm3 (1.0-4.8); Lymphocytes % (Auto) 4 % (10-50); Mean Corpuscular Hemoglobin 27.5 pg (25.0-35.0); Mean Corpuscular Volume 83 fL (80-100); Monocytes # (Auto) 1.5 Thou/mm3 (0.0-0.8); Monocytes % (Auto) 5 % (0-12); Neutrophils # (Auto) 28.9 Thou/mm3 (1.8-7.7); Neutrophils % (Auto) 90 % (37-80); Nucleated Red Blood Cell % 0 /100 WBC (0); Platelet Count 391 Thou/mm3 (140-440); RDW Standard Deviation 58.8 fL (35.1-43.9); Red Blood Count 2.44 Miln/mm3 (4.50-5.90)
[2025-04-16 05:34] LABS: Hemoglobin 6.7 g/dL (13.5-16.0)
[2025-04-16 06:05] LABS: Alanine Aminotransferase 16 U/L (10-49); Albumin/Globulin Ratio 0.7 (1.2-2.2); Alkaline Phosphatase 128 U/L (46-116); Anion Gap 11 (7-16); Aspartate Amino Transferase 21 U/L (0-34); BUN/Creatinine Ratio 14 Ratio (12-20); Bilirubin,Total 0.6 mg/dL (0.3-1.2); Blood Urea Nitrogen 14 mg/dL (9-23); Calcium 7.2 mg/dL (8.3-10.6); Calcium (Corrected) 8.8 mg/dL (8.5-10.1); Carbon Dioxide 23.8 mMol/L (20.0-31.0); Chloride 101 mMol/L (98-107); Globulin 2.8 gm/dL (2.3-3.5); Glucose 128 mg/dL (74-106); Osmolality,Calculated 274 (275-295); Potassium 4.2 mMol/L (3.4-5.1); Sodium 136 mMol/L (136-145); Total Protein 4.8 gm/dL (5.7-8.2); eGFR > 60 See Note
[2025-04-16] MEDS: HYDROcodone/APAP 10/325 TAB PO ×3 (07:48→19:42)
--- NOTE | 2025-04-16 08:39 | PC.CC ---
pt is open with Sujatha CALLES.
[2025-04-16 09:36] LABS: Vancomycin,Trough 25.1 mcg/mL (5.0-10.0)
[2025-04-16] MEDS: SODIUM CHLORIDE 0.9% 250 ML 250 ML 50 ML IV (10:32)
--- NOTE | 2025-04-16 11:14 | ESPR_ITS ---
Documentation for date of: 04/16/25 Subjective Subjective Interval history: 04/16/2025: Overnight patient was not discharged as he had bleeding noted from wound site; moreover, hemoglobin of 6.7 reported. 1 unit of PRBC has been ordered and the patient will receive a transfusion. Patient seen and assessed in hospital bed reporting no concerning symptoms at this time and pain is well- controlled. Will continue to monitor the patient and expect discharge within the next 24 hours. Plan remains that the patient will follow-up with Dr. Dee for palliative radiation on 04/18 for the bleeding wound. Exam Vital Signs Temp Pulse Resp BP Pulse Ox O2 Del Method O2 Flow Rate 97.6 F 100 20 110/72 100 Room Air 3 04/16/25 08:00 04/16/25 08:00 04/16/25 08:00 04/16/25 08:00 04/16/25 08:00 04/16/25 08:00 04/13/25 15:30 Narrative Exam Physical Exam: General: Awake answering questions appropriately, appears stated age, underweight HEENT: Atraumatic/normocephalic, RIGO, neck supple Heart: RRR, S1 and S2 without clicks or murmurs Lungs: Clear on auscultation bilaterally, no difficulty breathing Abdomen: Soft, nontender. Bowel sounds present MSK: Extensive, penetrating lesions with foul-smelling purulent discharge extending from the ischium to anterior pelvis Vascular: Peripheral pulses palpable Neuro: Alert and oriented x 3, no focal neurological deficits noted. Objective Labs 04/16/25 04:56 04/16/25 04:56 Labs: Laboratory Results - last 24 hr 04/16/25 04/16/25 04/16/25 04:56 08:42 11:01 WBC 32.0 H RBC 2.44 L Hgb 6.7 L* Hct 20.3 L* MCV 83 MCH 27.5 MCHC 33.0 RDW Std Deviation 58.8 H Plt Count 391 D Neut % (Auto) 90 H Lymph % (Auto) 4 L [place] % (Auto) 5 Eos % (Auto) 0 Baso % (Auto) 0 Neut # (Auto) 28.9 H Lymph # (Auto) 1.2 [place] # (Auto) 1.5 H Eos # (Auto) 0.0 Baso # (Auto) 0.1 Immature Gran # (Auto) 0.42 H Absolute Nucleated RBC 0.00 Immature Gran % 1 H Nucleated RBC % 0 Sodium 136 Potassium 4.2 D Chloride 101 Carbon Dioxide 23.8 Anion Gap 11 BUN 14 Creatinine 1.0 Estim Creat Clear Calc 76.0 eGFR > 60 BUN/Creatinine Ratio 14 Glucose 128 H Calculated Osmolality 274 L Calcium 7.2 L Corrected Calcium 8.8 Total Bilirubin 0.6 AST 21 ALT 16 Alkaline Phosphatase 128 H Total Protein 4.8 L Albumin 2.0 L Globulin 2.8 Albumin/Globulin Ratio 0.7 L Vancomycin Trough 25.1 H* Crossmatch See Detail Quality Measures Quality Measures VTE prophylaxis Assessment & Plan Assessment Current Active Medications: Generic Name Dose Route Start Last Admin Trade Name Freq PRN Reason Stop Dose Admin Acetaminophen 650 mg 04/15/25 08:08 Acetaminophen 325 Mg Tablet PO 05/12/25 06:07 Q6H PRN PAIN 1-3 OR FEVER > 101 Hydrocodone Bitart/Acetaminophen 1 tab 04/14/25 16:49 04/15/25 11:49 Hydrocodone/Apap 5/325 Tablet PO 04/19/25 16:48 1 tab Q4HR PRN Administration Pain 4-6 Hydrocodone Bitart/Acetaminophen 1 tab 04/15/25 12:42 04/16/25 07:48 Hydrocodone/Apap 10/325 Tab PO 04/20/25 12:41 1 tab Q4HR PRN Administration Pain 7-10 Piperacillin/Tazobactam/Dextrose 3.375 gm in 50 mls @ 12.5 mls/hr 04/12/25 14:00 04/16/25 05:05 Zosyn IV 04/19/25 13:59 12.5 mls/hr Q8HR BRIAN Administration Protocol Sodium Chloride 250 mls @ 50 mls/hr 04/16/25 09:46 04/16/25 10:32 Ns IV 04/16/25 14:45 50 mls/hr .Q5H ONE Administration Vancomycin/Sodium Chloride 750 mg in 150 mls @ 120 mls/hr 04/16/25 22:00 Vancomycin/Ns 750 Mg Ivpb IV 04/23/25 21:59 BID@1000,2200 BRIAN Mirtazapine 15 mg 04/13/25 21:00 04/15/25 20:52 Mirtazapine 15 Mg Tablet PO 05/13/25 20:59 15 mg HS BRIAN Administration Ondansetron HCl 4 mg 05/27/25 06:08 Ondansetron Inj 2 Mg/Ml Inj 2 Ml IV 05/12/25 06:07 Q6H PRN NAUSEA OR VOMITING Protocol Pharmacy Consult 1 each 04/12/25 09:00 Vancomycin Pharmacy To Dose 1 Each Each IV 05/12/25 08:59 QDAY PRN CONSULT Sennosides 2 tab 04/12/25 06:08 Senna Tablet PO 05/12/25 06:07 BID PRN CONSTIPATION Protocol Sennosides 1 tab 04/12/25 07:21 04/15/25 17:55 Senna/Docusate Sod 1 Tab Tablet PO 05/12/25 07:20 1 tab QDAY PRN Administration CONSTIPATION Protocol Plan Patient came in and found to have 2 or more SIRS criteria and was evaluated for sepsis. However, based upon further work-up, sepsis was ruled out. 59-year-old male with a past medical history of metastatic cancer, hepatitis B, undifferentiated pleomorphic sarcoma of right pelvis, status post chemotherapy and excision, currently scheduled with rad oncologist Dr. Dee to undergo radiation, who presented to the emergency room complaining of severe pain and discharge from the sacral wound. #Soft tissue abscess with draining sinuses #Lactic acidosis?now resolved #Leukocytosis, uptrending Differentials include As noted from HPI, patient has history of metastatic sarcoma of the pelvis with extensive lesions noted WBC of 43.4 has down trended to 34.[address] Abd/P shows: Large necrotic mass posterior right pelvis right gluteal region again noted destroying right hemipelvis bones and posterior right femur again noted Blood cultures no growth within 48 hours Patient and patient's family would like to pursue full treatment at this time. Plan: Dr. Dee, radiation oncology, consulted appreciate recommendations - has set up appointment for the patient to get palliative radiation on 04/18/2025 General Surgery consulted, appreciate recommendations Patient's wound is now covered with surgical powder, gauze Continue IV antibiotics, will transition to p.o. antibiotics on discharge Wound care referral in place #Normocytic anemia #Draining Sinus, bleeding #Acute blood loss anemia Patient's baseline hemoglobin seems to be within normal range, but presented with hemoglobin 6.7, likely acute anemia. Patient has not had a bowel movement in 1 week, also denied hematemesis. Unable to rule out GI bleed. Differentials include: Acute blood loss anemia, myelosuppression from chemotherapy, iron deficiency anemia, anemia of chronic disease, vitamin deficiency, hemolytic anemia 2 PRBC transfused in hemoglobin went up from 6.7-8.4 Iron panel shows iron less than 5, TIBC 137, iron saturation 3%, unsaturated iron binding 132, ferritin 1104, T. bili downtrending to 0.8 but the D. bili at 0.5, LDH 149 WNL Plan: Wound care for draining sinus with heavy packing, surgery consultation as above Anemia secondary to acute blood loss along with iron deficiency anemia, anemia of chronic disease secondary to myelosuppression Transfuse if hemoglobin less than 7 Replete iron once discharged, follow-up with PCP #DVT Right superficial femoral vein DVT reported on CT Venous Doppler study negative for DVT Repeat Doppler as suspicion is high for right superficial femoral and right common femoral vein attenuations seen on CT imaging Doppler studies show positive for occlusive thrombus in the right common femoral vein Plan: IVC Filter placed, monitoring #History of metastatic sarcoma of pelvis, stage IIIb Patient apparently has chemotherapy sessions, last session 1 year ago; currently following up with Dr. Dee to set up radiotherapy (next appointment April 22) CT Abd/Pelvis 04/11 shows: Marked progression of metastatic pulmonary disease compared with PET CT scan January 10, 2025 and marked progression of abdominal and pelvic lymphadenopathy compared with the CT scan January 10, 2025 Plan: Consult to radiation oncologist Dr. Dee is placed, pending recommendations Patient understands prognosis is guarded; however, would like to pursue full treatment at this time #MASLD #Cholelithiasis During workup, patient had elevated T. bili and D bili US Gallbladder findngs Patient denies any RUQ tenderness at this time Plan: Follow-up outpatient for elective procedures Monitor LFTs Hospital Management: Lines: PIV Diet: Regular Bowel: Senna GI prophylaxis: Not needed DVT prophylaxis: IVC filter Dispo: Transfusing 1 unit of PRBC, discharge in 24 hours Code: Full Patient seen and examined with attending Dr. Janna Gautam, PGY-1 Attending Provider Attestation/Addendum I attest that I was physically present for the evaluation, physical examination, lab and imaging review of the patient with the residents. I discussed the case with the residents and agree with the findings and plans of care as documented above. Patient was planned for discharge yesterday but in the evening, had a episode of bleeding from his sacral wound and the discharge was canceled. Hemostasis was obtained after the dressing change. This morning, noted to have hemoglobin of 6.7, we will transfuse 1 unit of PRBC. Also noted to have uptrending WBC, 32 today. Continue to saturate well on room air. Also noted to have LACHO, creatinine went from 0.6-1.0 today. We will encourage the patient to drink more fluid and start him on gentle IV hydration. We will closely monitor his hemoglobin level, kidney function and bleeding from the wound. If remains stable, we will plan for discharge tomorrow. Iris Saldivar MD
--- NOTE | 2025-04-16 11:46 | PC.SS ---
Follow up note: Patient d/c was held late yesterday. Physician team updated this morning that patient was bleeding from his wound site. They will continue to monitor patient and keep in hospital until Friday. Patient will follow up with [facility] on Friday. Family was already provided with community resource list as well as [facility] transportation contact number. All DME was delivered late yesterday.
[2025-04-16 19:15] LABS: Hematocrit 22.1 % (41.0-53.0); Hemoglobin 7.6 g/dL (13.5-16.0)
[2025-04-16] MEDS: MIRTAZAPINE 15 MG TABLET PO (20:11)
[2025-04-16] MEDS: VANCOMYCIN/NS 750 MG IVPB 750 MG/150 ML BAG 120 MG IV (22:08)
[2025-04-17] VITALS (9 sets, daily range): BP systolic 99–123; BP diastolic 63–77; PULSE 88–108; RESP 15–20; TEMP 36.1–37.1; O2SAT 95–100; BMI 21.5
[2025-04-17 05:55] LABS: Basophils % (Auto) 0 % (0-2.5); Eosinophils # (Auto) 0.2 Thou/mm3 (0.0-0.5); Eosinophils % (Auto) 1 % (0-10); Hematocrit 24.5 % (41.0-53.0); Immature Granulocytes % (Auto) 1 % (0-0); Immature Granulocytes Auto 0.33 Thou/mm3 (0.00-0.00); Lymphocytes # (Auto) 0.9 Thou/mm3 (1.0-4.8); Lymphocytes % (Auto) 3 % (10-50); Mean Corpuscular HGB Conc 32.2 g/dl (31.0-37.0); Mean Corpuscular Hemoglobin 27.7 pg (25.0-35.0); Mean Corpuscular Volume 86 fL (80-100); Monocytes % (Auto) 4 % (0-12); Neutrophils # (Auto) 24.6 Thou/mm3 (1.8-7.7); Neutrophils % (Auto) 91 % (37-80); Nucleated Red Blood Cell % 0 /100 WBC (0); Platelet Count 429 Thou/mm3 (140-440); RDW Standard Deviation 56.1 fL (35.1-43.9); Red Blood Count 2.85 Miln/mm3 (4.50-5.90)
[2025-04-17] MEDS: PIPER/TAZO 3.375 GM PREMIX 3.375 GM/50 ML BAG IV ×3 (05:59→23:07)
[2025-04-17 06:00] LABS: Hemoglobin 7.9 g/dL (13.5-16.0)
[2025-04-17 06:23] LABS: Alanine Aminotransferase 13 U/L (10-49); Albumin/Globulin Ratio 0.7 (1.2-2.2); Alkaline Phosphatase 124 U/L (46-116); Anion Gap 10 (7-16); Aspartate Amino Transferase 17 U/L (0-34); BUN/Creatinine Ratio 16 Ratio (12-20); Bilirubin,Total 0.8 mg/dL (0.3-1.2); Blood Urea Nitrogen 16 mg/dL (9-23); Calcium 7.3 mg/dL (8.3-10.6); Calcium (Corrected) 8.9 mg/dL (8.5-10.1); Carbon Dioxide 25.4 mMol/L (20.0-31.0); Chloride 102 mMol/L (98-107); Estimated Creatinine Clearance 71.6 mL/min (>60); Globulin 2.9 gm/dL (2.3-3.5); Glucose 79 mg/dL (74-106); Osmolality,Calculated 274 (275-295); Sodium 137 mMol/L (136-145); Total Protein 4.9 gm/dL (5.7-8.2); eGFR > 60 See Note
[2025-04-17] MEDS: VANCOMYCIN/NS 750 MG IVPB 750 MG/150 ML BAG 120 MG IV ×2 (09:22→21:14)
[2025-04-17] MEDS: HYDROcodone/APAP 10/325 TAB PO ×2 (09:23→17:08)
--- NOTE | 2025-04-17 12:07 | PC.SS ---
[employer] confirmed with patient's daughter wheel chair and hospital bed have been delivered. Referral to home health has been submitted. Side table requested by patient's daughter. vp client services to submit request.
--- NOTE | 2025-04-17 14:27 | PC.SS ---
Addendum entered by Isidra Angelo 04/17/25 16:52: Discharge cancelled for today, H&H results obtained and patient will receive transfusion. [employer] contacted and informed of discharge cancellation for today. SS also contacted patient's daughter Lizett [phone] to inform her of cancellation for today. SS encouraged patient's daughter to contact hospitalist team in the morning to determine if patient will be ready for discharge. Patient's daughter is concerned whether patient will miss his 9AM appt. with Dr. Dee if patient discharges late in the day. Original Note: Rounding note: HCT and HG reordered. If patient's levels are low he will discharge 04/18/25. 1331 [employer] was contacted for transportation auth, Reservation#[id number] provided. [employer] stated it will be 3-4 hour window for car pick up driver/transport. 1327 SS attempted to contact patient's daughter Lizett [phone] to confirm if she can receive patient in the home, a message was left requesting a return call to ext. [phone] to confrm.
[2025-04-17 14:41] LABS: Hematocrit 21.6 % (41.0-53.0)
--- NOTE | 2025-04-17 14:47 | ESPR_ITS ---
<Statement entered by Jordy Upton MD - 04/18/25 07:26> I discussed with and supervised the international guest coordinator physician involved in the care of this patient. Patient assessment and plan was discussed with entire medicine team, including my attending. I agree with the assessment and plan as documented by international guest coordinator doctor. Patient care was discussed with my attending physician Dr.Bishwakarma Jordy Upton, PGY-2 Documentation for date of: 04/17/25 Subjective Subjective Interval history: Patient was seen and examined by the bedside. No acute overnight events. Patient reports feeling okay. Follow-up with Dr. Dee is scheduled for 04/18/25. He had some serosanguinous discharge from his gluteal wound. Repeat H&H showed Hgb 6.9, Hgb 21.6%. Will transfuse 1 unit of pRBC. Will hold discharge for today, anticipate discharge tomorrow. Exam Vital Signs Temp Pulse Resp BP Pulse Ox O2 Del Method O2 Flow Rate 97.4 F 108 H 20 101/63 99 Room Air 3 04/17/25 11:37 04/17/25 11:37 04/17/25 11:37 04/17/25 11:37 04/17/25 11:37 04/17/25 07:33 04/13/25 15:30 Narrative Exam Physical Exam: Gen: Chronically ill-appearing male. HEENT: NCAT, PERRLA, EOMI, MMM, anicteric conjunctivae. CVS: normal S1 and S2. RRR. No M/R/G. Resp: CTA B/L. No rhonchi, rales, crackles or wheezing. Abd: soft, non-tender, non-distended. BS+ in all 4 quadrants. MSK: Good ROM in BUE & BLE. Right leg edema. Extensive, penetrating lesions with foul-smelling purulent discharge extending from the ischium to anterior pelvis Neuro: CN II-XII grossly intact. Strength 5/5 in BUE & BLE. Alert and oriented x3. Psych: appropriate mood and affect. Objective Labs 04/17/25 13:38 04/17/25 04:43 Labs: Laboratory Results - last 24 hr 04/16/25 04/16/25 04/17/25 11:01 18:52 04:43 WBC 27.0 H D RBC 2.85 L Hgb 7.6 L 7.9 L Hct 22.1 L 24.5 L MCV 86 MCH 27.7 MCHC 32.2 RDW Std Deviation 56.1 H Plt Count 429 D Neut % (Auto) 91 H Lymph % (Auto) 3 L [place] % (Auto) 4 Eos % (Auto) 1 Baso % (Auto) 0 Neut # (Auto) 24.6 H Lymph # (Auto) 0.9 L [place] # (Auto) 1.0 H Eos # (Auto) 0.2 Baso # (Auto) 0.0 Immature Gran # (Auto) 0.33 H Absolute Nucleated RBC 0.00 Immature Gran % 1 H Nucleated RBC % 0 Sodium 137 Potassium 4.0 Chloride 102 Carbon Dioxide 25.4 Anion Gap 10 BUN 16 Creatinine 1.0 Estim Creat Clear Calc 71.6 eGFR > 60 BUN/Creatinine Ratio 16 Glucose 79 Calculated Osmolality 274 L Calcium 7.3 L Corrected Calcium 8.9 Total Bilirubin 0.8 AST 17 ALT 13 Alkaline Phosphatase 124 H Total Protein 4.9 L Albumin 2.0 L Globulin 2.9 Albumin/Globulin Ratio 0.7 L Crossmatch See Detail Quality Measures Quality Measures VTE prophylaxis Assessment & Plan Assessment Current Active Medications: Generic Name Dose Route Start Last Admin Trade Name Freq PRN Reason Stop Dose Admin Acetaminophen 650 mg 04/15/25 08:08 Acetaminophen 325 Mg Tablet PO 05/12/25 06:07 Q6H PRN PAIN 1-3 OR FEVER > 101 Hydrocodone Bitart/Acetaminophen 1 tab 04/14/25 16:49 04/15/25 11:49 Hydrocodone/Apap 5/325 Tablet PO 04/19/25 16:48 1 tab Q4HR PRN Administration Pain 4-6 Hydrocodone Bitart/Acetaminophen 1 tab 04/15/25 12:42 04/17/25 09:23 Hydrocodone/Apap 10/325 Tab PO 04/20/25 12:41 1 tab Q4HR PRN Administration Pain 7-10 Piperacillin/Tazobactam/Dextrose 3.375 gm in 50 mls @ 12.5 mls/hr 04/12/25 14:00 04/17/25 14:19 Zosyn IV 04/19/25 13:59 12.5 mls/hr Q8HR BRIAN Administration Protocol Vancomycin/Sodium Chloride 750 mg in 150 mls @ 120 mls/hr 04/16/25 22:00 04/17/25 09:22 Vancomycin/Ns 750 Mg Ivpb IV 04/23/25 21:59 120 mls/hr BID@1000,2200 BRIAN Administration Mirtazapine 15 mg 04/13/25 21:00 04/16/25 20:11 Mirtazapine 15 Mg Tablet PO 05/13/25 20:59 15 mg HS BRIAN Administration Ondansetron HCl 4 mg 04/12/25 06:08 Ondansetron Inj 2 Mg/Ml Inj 2 Ml IV 05/12/25 06:07 Q6H PRN NAUSEA OR VOMITING Protocol Pharmacy Consult 1 each 04/12/25 09:00 Vancomycin Pharmacy To Dose 1 Each Each IV 05/12/25 08:59 QDAY PRN CONSULT Sennosides 2 tab 04/12/25 06:08 Senna Tablet PO 05/12/25 06:07 BID PRN CONSTIPATION Protocol Sennosides 1 tab 04/12/25 07:21 04/15/25 17:55 Senna/Docusate Sod 1 Tab Tablet PO 05/12/25 07:20 1 tab QDAY PRN Administration CONSTIPATION Protocol Plan The patient is a 59-year-old male with a past medical history of metastatic cancer, hepatitis B, undifferentiated pleomorphic sarcoma of right pelvis, status post chemotherapy and excision, currently scheduled with rad oncologist Dr. Dee to undergo radiation, who presented to the emergency room complaining of severe pain and discharge from the sacral wound. #Soft tissue abscess with draining sinuses #Lactic acidosis?now resolved #Leukocytosis Patient has history of metastatic sarcoma of the pelvis with extensive lesions noted WBC of 43.4 has down trended to 34.[address] Abd/P shows: Large necrotic mass posterior right pelvis right gluteal region again noted destroying right hemipelvis bones and posterior right femur again noted Blood cultures no growth within 48 hours Patient and patient's family would like to pursue full treatment at this time. Plan: -Dr. Dee, radiation oncology, consulted appreciate recommendations - has set up appointment for the patient to get palliative radiation on 04/18/2025 -General Surgery consulted, appreciate recommendations -Patient's wound covered with surgical powder, gauze -Continue IV antibiotics, will transition to p.o. antibiotics on discharge -Wound care referral in place #Normocytic anemia #Draining Sinus, bleeding #Acute blood loss anemia Patient's baseline hemoglobin seems to be within normal range, but presented with hemoglobin 6.7, likely acute anemia. Patient has not had a bowel movement in 1 week, also denied hematemesis. Unable to rule out GI bleed. Differentials include: Acute blood loss anemia, myelosuppression from chemotherapy, iron deficiency anemia, anemia of chronic disease, vitamin deficiency, hemolytic anemia 2 PRBC transfused in hemoglobin went up from 6.7-8.4 Iron panel shows iron less than 5, TIBC 137, iron saturation 3%, unsaturated iron binding 132, ferritin 1104, T. bili downtrending to 0.8 but the D. bili at 0.5, LDH 149 WNL Plan: -Wound care for draining sinus with heavy packing, surgery consultation as above -Anemia secondary to acute blood loss along with iron deficiency anemia, anemia of chronic disease secondary to myelosuppression -Transfuse if hemoglobin less than 7 -Replete iron once discharged, follow-up with PCP #DVT Right superficial femoral vein DVT reported on CT Venous Doppler study negative for DVT Repeat Doppler as suspicion is high for right superficial femoral and right common femoral vein attenuations seen on CT imaging Doppler studies show positive for occlusive thrombus in the right common femoral vein Plan: -IVC Filter placed, monitoring #History of metastatic sarcoma of pelvis, stage IIIb Patient apparently has chemotherapy sessions, last session 1 year ago; currently following up with Dr. Dee to set up radiotherapy (next appointment April 22) CT Abd/Pelvis 04/11 shows: Marked progression of metastatic pulmonary disease compared with PET CT scan January 10, 2025 and marked progression of abdominal and pelvic lymphadenopathy compared with the CT scan January 10, 2025 Plan: -Consult to radiation oncologist Dr. Dee is placed, pending recommendations -Patient understands prognosis is guarded; however, would like to pursue full treatment at this time #MASLD #Cholelithiasis During workup, patient had elevated T. bili and D bili US Gallbladder findngs Patient denies any RUQ tenderness at this time Plan: -Follow-up outpatient for elective procedures -Monitor LFTs Health maintenance: Lines: PIV Diet: Regular GI prophylaxis: Not needed DVT prophylaxis: IVC filter Dispo: Transfusing 1 unit of PRBC, possible discharge in 24 hours Code: Full code Plan of care discussed with attending Dr. Saldivar, PGY-[address] Upton. Sandra Masters MD, PGY 1. Attending Provider Attestation/Addendum I attest that I was physically present for the evaluation, physical examination, lab and imaging review of the patient with the residents. I discussed the case with the residents and agree with the findings and plans of care as documented above. At bedside today, patient states he is feeling well. He continues to have pain but controlled with analgesics. Patient also has some oozing of sanguinous fluid on his dressing. WBC count is improving, patient continues to be on broad-spectrum antibiotics. With concern for bleeding again, H&H was obtained, showed drop in hemoglobin from 7.9 to 6.9. We will transfuse him with another unit of PRBC. Patient has radiation therapy session tomorrow scheduled with oncology, we will discuss with oncologist for recommendation if patient continues to bleed. Wound care following. Prognosis is guarded. Iris Saldivar MD
[2025-04-17 14:53] LABS: Hemoglobin 6.9 g/dL (13.5-16.0)
[2025-04-17] MEDS: MIRTAZAPINE 15 MG TABLET PO (21:13)
[2025-04-18] VITALS: BP 117/79; PULSE 105; RESP 17; TEMP 36.3; O2SAT 98
[2025-04-18 01:19] LABS: Hematocrit 26.8 % (41.0-53.0)
[2025-04-18 04:00] VITALS: BP 119/79; PULSE 103; PULSE 108; RESP 17; TEMP 36.4; O2SAT 98
[2025-04-18 05:32] LABS: Basophils # (Auto) 0.1 Thou/mm3 (0.0-0.2); Basophils % (Auto) 0 % (0-2.5); Eosinophils # (Auto) 0.1 Thou/mm3 (0.0-0.5); Eosinophils % (Auto) 1 % (0-10); Hematocrit 25.8 % (41.0-53.0); Hemoglobin 8.9 g/dL (13.5-16.0); Immature Granulocytes % (Auto) 1 % (0-0); Immature Granulocytes Auto 0.26 Thou/mm3 (0.00-0.00); Lymphocytes # (Auto) 0.9 Thou/mm3 (1.0-4.8); Lymphocytes % (Auto) 4 % (10-50); Mean Corpuscular HGB Conc 34.5 g/dl (31.0-37.0); Mean Corpuscular Hemoglobin 28.8 pg (25.0-35.0); Mean Corpuscular Volume 84 fL (80-100); Monocytes # (Auto) 1.1 Thou/mm3 (0.0-0.8); Monocytes % (Auto) 5 % (0-12); Neutrophils # (Auto) 22.9 Thou/mm3 (1.8-7.7); Neutrophils % (Auto) 90 % (37-80); Nucleated Red Blood Cell % 0 /100 WBC (0); Platelet Count 345 Thou/mm3 (140-440); RDW Standard Deviation 52.6 fL (35.1-43.9); Red Blood Count 3.09 Miln/mm3 (4.50-5.90); White Blood Count 25.4 Thou/mm3 (3.8-10.6)
[2025-04-18] MEDS: PIPER/TAZO 3.375 GM PREMIX 3.375 GM/50 ML BAG IV (05:39)
[2025-04-18 05:44] LABS: Alanine Aminotransferase 15 U/L (10-49); Albumin/Globulin Ratio 0.7 (1.2-2.2); Alkaline Phosphatase 131 U/L (46-116); Anion Gap 10 (7-16); Aspartate Amino Transferase 19 U/L (0-34); BUN/Creatinine Ratio 12 Ratio (12-20); Bilirubin,Total 0.9 mg/dL (0.3-1.2); Blood Urea Nitrogen 12 mg/dL (9-23); Calcium 7.1 mg/dL (8.3-10.6); Calcium (Corrected) 8.7 mg/dL (8.5-10.1); Carbon Dioxide 25.3 mMol/L (20.0-31.0); Chloride 101 mMol/L (98-107); Estimated Creatinine Clearance 71.6 mL/min (>60); Globulin 2.9 gm/dL (2.3-3.5); Glucose 77 mg/dL (74-106); Osmolality,Calculated 270 (275-295); Potassium 3.2 mMol/L (3.4-5.1); Sodium 136 mMol/L (136-145); Total Protein 4.9 gm/dL (5.7-8.2); eGFR > 60 See Note
[2025-04-18 06:00] VITALS: BMI 21.9
[2025-04-18 08:00] VITALS: BP 134/85; PULSE 100; PULSE 99; RESP 15; TEMP 36.7; O2SAT 99
[2025-04-18] MEDS: HYDROcodone/APAP 10/325 TAB PO (08:02)
[2025-04-18] MEDS: POTASSIUM CHLORIDE 20 mEq TABCR 40 MEQ PO (08:36)
--- NOTE | 2025-04-18 10:10 | PC.SS ---
Follow up note: SS received call from patient's daughter, Lizett. She was questioning if patient is being discharged home today. SS confirmed with physician team that patient is going to d/c home. Originally [facility] appt. was scheduled today at 11:30am. SS spoke to [facility] secondary social studies teacher and Dr. Dee regarding treatment plans. Dr. Dee suggests starting tomorrow. Appt. scheduled for tommorrow at 2:15p.m. at [facility]. [employer] will continue assisting with transportation arrangements. Today, SS contacted [facility] to arrange gurney transport for 1p.m. knot picker cloth to take home. Reference# [id number]. [facility] to transport. SS left [facility] for daughter, Lizett. Floor nurse aware as well.
--- NOTE | 2025-04-18 10:30 | PC.WOUND ---
Made aware by Kaleigh OMNSON, plan for patient to be discharged home today with follow up at [facility] and home health. Spoke with pt at bedside, informed of importance of wound care/dressing teaching prior to discharge due to bleeding. Per pt, family to arrive at 1100 for teaching. Kaleigh MONSON aware to call when family present for teaching.
[2025-04-18 10:56] LABS: Vancomycin,Trough 21.5 mcg/mL (5.0-10.0)
--- NOTE | 2025-04-18 11:00 | PD.ONCPROG ---
Documentation for date of: 04/18/25 Subjective Subjective Interval history: Patient's discharge was delayed due to the need for additional transfusion due to low hemoglobin 6.9, and 2 additional packed cells were transfused with hemoglobin 8.9 this a.m. Exam Vital Signs Temp Pulse Resp BP Pulse Ox O2 Del Method O2 Flow Rate 98.1 F 100 15 134/85 H 99 Room Air 3 04/18/25 08:00 04/18/25 08:00 04/18/25 08:00 04/18/25 08:00 04/18/25 08:00 04/18/25 08:00 04/13/25 15:30 Objective Labs 04/18/25 04:17 04/18/25 04:17 Labs: Laboratory Results - last 24 hr 04/16/25 04/17/25 04/18/25 11:01 13:38 01:00 WBC RBC Hgb 6.9 L* 9.0 L D Hct 21.6 L* 26.8 L MCV MCH MCHC RDW Std Deviation Plt Count Neut % (Auto) Lymph % (Auto) [place] % (Auto) Eos % (Auto) Baso % (Auto) Neut # (Auto) Lymph # (Auto) [place] # (Auto) Eos # (Auto) Baso # (Auto) Immature Gran # (Auto) Absolute Nucleated RBC Immature Gran % Nucleated RBC % Sodium Potassium Chloride Carbon Dioxide Anion Gap BUN Creatinine Estim Creat Clear Calc eGFR BUN/Creatinine Ratio Glucose Calculated Osmolality Calcium Corrected Calcium Total Bilirubin AST ALT Alkaline Phosphatase Total Protein Albumin Globulin Albumin/Globulin Ratio Vancomycin Trough Blood Type B Positive Antibody Screen NEGATIVE Crossmatch See Detail Blood Bank Wristband ID Yes 04/18/25 04/18/25 04:17 09:57 WBC 25.4 H RBC 3.09 L Hgb 8.9 L Hct 25.8 L MCV 84 MCH 28.8 MCHC 34.5 RDW Std Deviation 52.6 H Plt Count 345 D Neut % (Auto) 90 H Lymph % (Auto) 4 L [place] % (Auto) 5 Eos % (Auto) 1 Baso % (Auto) 0 Neut # (Auto) 22.9 H Lymph # (Auto) 0.9 L [place] # (Auto) 1.1 H Eos # (Auto) 0.1 Baso # (Auto) 0.1 Immature Gran # (Auto) 0.26 H Absolute Nucleated RBC 0.00 Immature Gran % 1 H Nucleated RBC % 0 Sodium 136 Potassium 3.2 L D Chloride 101 Carbon Dioxide 25.3 Anion Gap 10 BUN 12 Creatinine 1.0 Estim Creat Clear Calc 71.6 eGFR > 60 BUN/Creatinine Ratio 12 Glucose 77 Calculated Osmolality 270 L Calcium 7.1 L Corrected Calcium 8.7 Total Bilirubin 0.9 AST 19 ALT 15 Alkaline Phosphatase 131 H Total Protein 4.9 L Albumin 2.0 L Globulin 2.9 Albumin/Globulin Ratio 0.7 L Vancomycin Trough 21.5 H* Blood Type Antibody Screen Crossmatch Blood Bank Wristband ID Assessment & Plan A&P Narrative 1. 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 2. Admitted with pelvic pain anemia sepsis, clinically improved wound dressed with Surgicel and compression Lokesh bandage. Has been transfused with 2 units packed cells 2 separate occasions during the admission. 3. Noted to have right common femoral vein. IVC filter placed. 4. Radiation therapy for pain palliation and bleeding alleviation will be scheduled beginning tomorrow following anticipated discharge today. Ambulance transfer for 10 needed visits will be arranged for. 5. Patient and family are aware of the guarded prognosis and discussion regarding hospice care was also made. Time Spent With Patient Time: Total time spent is greater than 50% in coordination of care (as documented) at patient's floor/unit and/or counseling patient:
[2025-04-18 12:00] VITALS: BP 116/74; PULSE 85; PULSE 89; RESP 17; TEMP 36.4; O2SAT 98
--- NOTE | 2025-04-18 15:50 | PC.CC ---
Addendum entered by Nicholas Ram RN 04/18/25 16:34: [facility] accepted and booked, SOC 04/21/25 Original Note: sent HH ref to [facility] since pt is open [facility]. Waiting for response
--- NOTE | 2025-04-18 16:14 | ESDS_ITS ---
<Statement entered by Jordy Upton MD - 04/19/25 07:26> I discussed with and supervised the network internship physician involved in the care of this patient. Patient assessment and plan was discussed with entire medicine team, including my attending. I agree with the assessment and plan as documented by network internship doctor. Patient care was discussed with my attending physician Dr. Felicia Upton, PGY-2 Planned Discharge Date 04/18/25 DS: Providers Provider Date of admission: 04/12/25 06:03 Primary care physician: Zia Jorge MD Admitting Provider: Vasiliy Terrazas MD Attending Provider on Admission: Semaj Duarte DO Consults: 04/12/25 06:14 Consult to Oncology Stat Comment: Consulting Provider: Paul Dee Referral Wound Care Stat Comment: 04/12/25 09:14 Referral Registered Dietitian Routine Comment: Referral Speech Therapy Routine Comment: Health Equity Referral - Knowledge Deficit Routine Comment: Positive screening for knowledge deficit needs. Health Equity Referral - Transportation Routine Comment: Positive screening for transportation needs. 04/15/25 08:37 Referral Physical Therapy Urgent Comment: Physician Instructions: Instructions: in prep for DC 04/15/25 12:01 Referral OP Wound Healing Dept Routine Comment: Instructions: right pelvic sarcoma, with erosion and skin breakdown, visible tumor. Patient discharge anticipated on 04/15/2025-04/16/2025. Attending Provider on DC: Sandra Masters MD Discharging Provider: Sandra Masters MD DS: Diagnosis Problem List Completed Was Problem List Reviewed/Reconciled?: Yes Hospital Course Hospital Course Hospital course: 59-year-old male with a past medical history of metastatic cancer, Hepatitis B, Undifferentiated pleomorphic sarcoma of right pelvis, status postchemotherapy and excision, currently scheduled with rad oncologist Dr. Dee to undergo radiation, who presented to the emergency room complaining of severe pain and discharge from the sacral wound. In the emergency room, Initial blood tests showed WBC 43.4, Hemoglobin 6.7, Hematocrit 21.4, ESR 98, lactic acid 7.5, sodium 126, CRP is greater than 10, procalcitonin 2.97. CT abdomen pelvis showed large enhancing fungating mass in the right gluteal region with destruction of underlying osseous structures, multiple enlarged lymph nodes, thrombus in the right superficial femoral vein, constipation with rectal fecal impaction. Patient was given blood transfusion, 1 PRBC, IV fluids, cefepime and vancomycin, lactic acid improved after IV fluid boluses. Venous Doppler studies were positive for right common femoral vein occlusive thrombus; however, patient was sent to IR for IVC filter placement. Oncology was consulted during hospitalization and recommended the patient receive palliative radiation for the bleeding lesion noted above. Patient had rapid response called on 04/13 after it was noted that the wound had an arterial bleed. General surgery was consulted for wound management and hemostasis with [facility]. Patient's family along with patient well aware of patient's diagnosis and guarded prognosis. Family would like to continue with palliative radiation and an appointment has been set up once the patient is discharged. Oncology will continue goals of care discussion with the patient and offer hospice after palliative radiation is completed. On 04/18/25 patient's discharge was delayed, he continues to bleed to his wound, requiring transfusion of 1 unit of pRBCs due to low hemoglobin 6.9, 04/18/25 in the AM hemoglobin was 8.9. Patient will be discharged stable with the following strict instructions. Take [place] (hydrocodone-acetaminophen 10-325) by mouth every four hours as needed for severe pain Please use Onofre Lift as directed to safely move Please take Augmentin 875-125 mg tablet twice a day for 5 days Please take doxycycline 100 mg tablets by mouth twice a day for 5 days Please follow-up with Dr. Dee at the [facility] on Wednesday 04/18 for radiation therapy; [address], [place] [address] Phone:? Please be very cautious with your bandages as you are high risk of rebleeding If your symptoms worsen or if you develop new chest pain, shortness of breath, bleeding or dizziness - please come back to the ED immediately Hospital Diagnosis: #Soft tissue abscess with draining sinuses #Lactic acidosis?now resolved #Leukocytosis, downtrending #Normocytic anemia #Draining Sinus, bleeding #Acute blood loss anemia #DVT #History of metastatic sarcoma of pelvis, stage IIIb #MASLD #Cholelithiasis Plan of care discussed with attending Dr. Duarte, PGY-[address] Upton. Sandra Masters MD, PGY 1. Status at Discharge Overall status at discharge: patient is progressing back to baseline Time Spent with Patient Time attestation: Total time spent providing and/or coordinating discharge services: Time spent: Greater than 30 minutes Home Health Home Health Referral Orders: 04/18/25 08:55 Home Health Referral Routine Reason For Exam: debility Home-Bound The patient must either because of illness or injury, need the aid of supportive devices such as crutches, canes, wheelchairs, and walkers; the use of special transportation; or the assistance of another person in order to leave their place of residence; OR have a condition such that leaving his or her home is medically contraindicated. In addition, the patient also meets the following criteria: patient is normally unable to leave the home and leaving home requires considerable taxing effort. Addendum to Home Health Certification Practitioner's Certification: I certify that the patient has been under my care in the hospital and the care of attending physician (see below). We had a coac-ex-efzy encounter on (see date below). My clinical findings indicate that the patient is home bound per the above criteria and the Home Health Services noted in these orders are medically necessary. The primary reason for the bbgf-ic-oxit encounter is related to the fact that the patient requires home health services. Date Certifying [id number]-gu-[id number] Physician Encounter: 05/13/25 Physician's Name who will Assume Oversight for Services: Zia Jorge Physician's Phone No.who will Assume Oversight for Service: GLUE JOINTER OPERATOR - Community Resources: No PT to Evaluate: Yes PT to evaluate and provide a treatmnet plan to increase patient's mobility and strength. Wound Care: No Home Health RN - Wound Care Order: sacral wound IV Therapy: No Discontinue PICC Line Once Treatment Complete: No RN Safety Evaluation: Yes RN to evaluate and create a plan of care that will produce positive outcomes. Palliative Treatment: No Palliative treatment and evaluate the need for hospice. Home Health Aide - Personal Care: No Home Health Aide to assist with any ADL's. Exam Vital Signs Temp Pulse Resp BP Pulse Ox O2 Del Method O2 Flow Rate 97.5 F 85 17 116/74 98 Room Air 3 04/18/25 12:00 04/18/25 12:04/18/25 12:04/18/25 12:04/18/25 12:04/18/25 12:04/13/25 15:30 Narrative Exam Physical Exam: Gen: Chronically ill-appearing male. HEENT: NCAT, PERRLA, EOMI, MMM, anicteric conjunctivae. CVS: normal S1 and S2. RRR. No M/R/G. Resp: CTA B/L. No rhonchi, rales, crackles or wheezing. Abd: soft, non-tender, non-distended. BS+ in all 4 quadrants. MSK: Good ROM in BUE & BLE. Right leg edema. Extensive, penetrating lesions with foul-smelling purulent discharge extending from the ischium to anterior pelvis Neuro: CN II-XII grossly intact. Strength 5/5 in BUE & BLE. Alert and oriented x3. Psych: appropriate mood and affect. Discharge Plan Plan Patient Disposition: Home w/HOME HEALTH Patient condition on transfer: Stable Care Plan Goals: Take [place] (hydrocodone-acetaminophen 10-325) by mouth every four hours as needed for severe pain Please use Onofre Lift as directed to safely move Please take Augmentin 875-125 mg tablet twice a day for 5 days Please take doxycycline 100 mg tablets by mouth twice a day for 5 days Follow-up with your Primary Care Physician within 1-2 weeks after discharge Please follow-up with Dr. Dee at the [facility] on Wednesday 04/18 for radiation therapy; [address] [place] [address] Phone:? Please be very cautious with your bandages as you are high risk of rebleeding. IF bleeding occurs, hold pressure x 5 minutes. If unable to stop return to Emergency Department. If your symptoms worsen or if you develop new chest pain, shortness of breath, bleeding or dizziness - please come back to the ED immediately Follow up at [facility], [address] [place] [address] for wound care. Call [phone] for appointment. Dressing Change Home Care You have a wound that needs special care to heal.? Your body will make the new skin needed to close your wound, but you have to help.? Germs and old skin on the wound have to be removed.? This is done by changing the dressing on the wound as directed by your doctor. Wound:? Ulcers to Buttocks and rectal area Supplies/Equipment (keep all supplies in one place clean and dry) o?? Normal Saline (salt water) solution.? You can make you own by boiling 2 cups of water with ? teaspoon of salt for 10 minutes.? Keep in a glass jar in the refrigerator and make a new batch every day. o?? Clean/Irrigate wound with ?normal saline or wound cleanser o?? Medication for wound: normal saline moistened gauze o?? Primary dressing ? o?? Secondary dressing: dry gauze and gauze roll o?? Tape o?? Gloves o?? Q-tips o?? Small trash bag o?? Other supplies Follow these instructions: 1.??? Wash your hands with soap and water. 2.??? Gather all your supplies and place on a clean towel or paper towel. 3.??? Put on gloves.- 4.??? Gently Remove all of the old dressing (including gauze packing if any) and put in the trash bag. Moisten with normal saline to help with gentle removal of dressings and gauze to avoid bleeding. 5.??? Take off the gloves and put in trash bag. 6.??? If not using gloves wash your hands again or put on new gloves. 7.??? Irrigate wound with Normal saline. ?Place gauze in trash bag. 8.??? Cover wounds with calcium alginate, layer with dry gauze and secure with kerlix roll. May wrap with rob wrap to help keep dressing in place. If active bleeding occurs, apply tight dressing and return to MD or ER. ? Notify primary doctor or return to Emergency Room if any of the following: ? Fever above 100.6? F ? Increased pain ? Increase swelling ? Red streaks around your wound ? Drainage becomes foul smelling or changes color ? The wound is larger or deeper ? The wound looks dried out or dark ? Bleeding that does not stop with holding pressure Special Instructions: Follow up with [facility], call [phone] for appointment. Prescriptions/Referrals Prescriptions/Med Rec: New doxycycline monohydrate 100 mg capsule 100 mg PO BID 7 Days Qty: 14 0RF amoxicillin-pot clavulanate 875-125 mg tablet 1 tab PO BID 7 Days Qty: 14 0RF Jagdeep (with collagen) 7-7-1.5 gram powder in packet 1 packet PO QDAY Qty: 30 0RF Rx Instructions: mix 1 packet with 8-10 oz liquid Continued docusate calcium 240 mg capsule 240 mg PO QDAY Qty: 30 6RF magnesium hydroxide [Milk of Magnesia] 400 mg/5 mL Suspension 30 ml PO QDAY PRN (Reason: Constipation) Qty: 3780 0RF Discontinued hydrocodone-acetaminophen 5-325 mg tablet 1 tab PO BID MDD 10mg hydrocodone PRN (Reason: pain) Qty: 20 0RF hydrocodone-acetaminophen 5-325 mg tablet 1 tab PO BID MDD 2 PRN (Reason: pain) Qty: 14 0RF Referrals: Zia Jorge MD [Primary Care Provider] - Paul Dee MD [Physician] - Patient/Caregiver Discharge Instructions Other Discharge Activity Instructions:: Take [place] (hydrocodone-acetaminophen 10-325) by mouth every four hours as needed for severe pain Please use Onofre Lift as directed to safely move Please take Augmentin 875-125 mg tablet twice a day for 5 days Please take doxycycline 100 mg tablets by mouth twice a day for 5 days Follow-up with your Primary Care Physician within 1-2 weeks after discharge Please follow-up with Dr. Dee at the [facility] on Wednesday 04/18 for radiation therapy; [address], [place] [address] Phone:?[phone] Please be very cautious with your bandages as you are high risk of rebleeding. IF bleeding occurs, hold pressure x 5 minutes. If unable to stop return to Emergency Department. If your symptoms worsen or if you develop new chest pain, shortness of breath, bleeding or dizziness - please come back to the ED immediately Follow up at [facility], [address] [place] [address] for wound care. Call [phone] for appointment. Dressing Change Home Care You have a wound that needs special care to heal.? Your body will make the new skin needed to close your wound, but you have to help.? Germs and old skin on the wound have to be removed.? This is done by changing the dressing on the wound as directed by your doctor. Wound:? Ulcers to Buttocks and rectal area Supplies/Equipment (keep all supplies in one place clean and dry) o?? Normal Saline (salt water) solution.? You can make you own by boiling 2 cups of water with ? teaspoon of salt for 10 minutes.? Keep in a glass jar in the refrigerator and make a new batch every day. o?? Clean/Irrigate wound with ?normal saline or wound cleanser o?? Medication for wound: normal saline moistened gauze o?? Primary dressing ? o?? Secondary dressing: dry gauze and gauze roll o?? Tape o?? Gloves o?? Q-tips Small trash bag o?? Other supplies Follow these instructions: 1.??? Wash your hands with soap and water. 2.??? Gather all your supplies and place on a clean towel or paper towel. 3.??? Put on gloves.- 4.??? Gently Remove all of the old dressing (including gauze packing if any) and put in the trash bag. Moisten with normal saline to help with gentle removal of dressings and gauze to avoid bleeding. 5.??? Take off the gloves and put in trash bag. 6.??? If not using gloves wash your hands again or put on new gloves. 7.??? Irrigate wound with Normal saline. ?Place gauze in trash bag. 8.??? Cover wounds with calcium alginate, layer with dry gauze and secure with kerlix roll. May wrap with rob wrap to help keep dressing in place. If active bleeding occurs, apply tight dressing and return to MD or ER. ? Notify primary doctor or return to Emergency Room if any of the following: ? Fever above 100.6? F ? Increased pain ? Increase swelling ? Red streaks around your wound ? Drainage becomes foul smelling or changes color ? The wound is larger or deeper ? The wound looks dried out or dark ? Bleeding that does not stop with holding pressure Special Instructions: Follow up with [facility], call [phone] for appointment. Education Materials: Radiation Therapy Treatment, Changing Dressing Dc, Life After Cancer: Managing Pain Print Language: Thai Stand Alone Forms: Elvia Award Info., Patient Portal Info Letter Discharge Order Discharge Orders: Discharge (Routine); Ordered 04/18/25 Ordered By: Sandra Masters Quality Discharge Quality Measures VTE prophylaxis Attestestation Attestation I have discussed and was present for the essential components of the discharge history, physical examination, diagnosis, and discharge treatment plan with the resident. I agree with the patient's discharge care as documented by the reside nt and amended herein by me. Latrell Duarte, DO. The patient understood all discharge instructions, all questions were answered satisfactorily. The patient was instructed to return to the Emergency De partment is symptoms worsened or persisted. Patient was stable, afebrile and tolerating p.o. intake at time of discharge home. Although this document has been carefully reviewed, there may still be some phonetic and other typographical errors. These errors are purely grammatical due to imperfections in the software program and should not be construed in any way to compromise the substance of the patient's medical care during this visit.
== END 2025-04-18 13:05 | disposition home health service (06) | DRG 383 ==
LOC: SERX 04-12 05:17 → SERHOLD 04-12 06:41 → S2NX 04-12 07:46 → S3NX 04-16 05:47
PROVIDERS: Student in an Organized Health Care Education/Training Program; Admitting Provider Internal Medicine; Emergency Provider Emergency Medicine; PCP Family Medicine; Visit Provider Student in an Organized Health Care Education/Training Program
DX: L02.31 Cutaneous abscess of buttock (principal); I82.411 Acute embolism and thrombosis of right femoral vein; R59.0 Localized enlarged lymph nodes; C78.00 Secondary malignant neoplasm of unspecified lung; D62 Acute posthemorrhagic anemia; K80.20 Calculus of gallbladder without cholecystitis without obstruction; Z85.831 Personal history of malignant neoplasm of soft tissue; E87.20 Acidosis, unspecified; D50.9 Iron deficiency anemia, unspecified; N17.9 Acute kidney failure, unspecified; C49.5 Malignant neoplasm of connective and soft tissue of pelvis; K59.00 Constipation, unspecified; Z51.5 Encounter for palliative care; Z87.891 Personal history of nicotine dependence; B19.10 Unspecified viral hepatitis B without hepatic coma; Z92.21 Personal history of antineoplastic chemotherapy
CPT/HCPCS: 36415; 36430; 71045; 71275; 74177; 76705; 80048; 80053; 80061; 80076; 80202; 81001; 82248; 82728; 83540; 83550; 83605; 83615; 83735; 84100; 84145; 84439; 84443; 85014; 85018; 85025; 85046; 85610; 85652; 86140; 86850; 86900; 86901; 86923; 87040; 87081; 87400; 87811; 92526; 92610; 93970; 93971; 96361; 96365; 96366; 96367; 96375; 97162; 99285; A4649; C1769; C1880; C1894; J0692; J1171; J2270; J2405; J2470; J2543; J3370; J3475; J7030; J7040; J7050; J7120; P9016; Q9967; A9270

== ENCOUNTER 2025-04-19 06:44 | Inpatient (IN) | payer MEDICAID, SELFPAY ==
[2025-04-19] VITALS (72 sets, daily range): BP systolic 77–144; BP diastolic 48–110; PULSE 101–144; RESP 12–40; TEMP 35.3–37.8; O2SAT 88–100; BMI 19.8
--- NOTE | 2025-04-19 07:10 | XR_ITS ---
Examination: AP chest single view TECHNIQUE: Portable AP sitting chest single view Date and time: April 19, 2025, 0722 hours INDICATIONS: Shortness of breath today., Diagnosis colorectal carcinoma FINDINGS: Normal heart size No pneumonia or pulmonary edema Bilateral pulmonary nodules Lordotic chest Moderate osteopenia IMPRESSION: No pneumonia or pulmonary edema Bilateral pulmonary nodules, recommend CT chest post intravenous contrast follow-up to compare with PET CT scan January 10, 2025
--- NOTE | 2025-04-19 07:12 | PD.EDWEAK ---
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 Dee, DVT dx 04/12/2025, status post IVC filter 04/13/2025 presents to the ED BIBA from home for evaluation of bleeding sacral wound. Accompanied by pain. States he is on Webster 10-325mg every 4 hours and last took yesterday evening. Additionally reports feeling globally weak and short of breath at rest. Of note, he was discharged from this facility yesterday following admission for similar episode of bleeding from the sacral wound. During admission received two units of PRBCs. Patient states she was scheduled to start radiation therapy today with Dr. Dee. Related Data Previous Rx's ?Medication ?Instructions ?Recorded magnesium hydroxide 400 mg/5 mL 30 ml PO QDAY PRN Constipation 12/15/24 oral suspension (Milk of Magnesia) #3,780 mL docusate calcium 240 mg capsule 240 mg PO QDAY #30 caps 01/19/25 amoxicillin 875 mg-potassium 1 tab PO BID 1 week #14 tabs 04/15/25 clavulanate 125 mg tablet arginine 7 gram-glutam 7 1 packet PO QDAY #30 ea 04/15/25 gram-CaHMB 1.5 [id number] oral pwd pkt (Jagdeep (with collagen)) doxycycline monohydrate 100 mg 100 mg PO BID 1 week #14 caps 04/15/25 capsule Allergies Allergy/AdvReac Type Severity Reaction Status Date / Time No Known Allergies Allergy Verified 01/19/25 10:32 Review of Systems Review of Systems Systems Reviewed: All systems reviewed, normal except as documented Past Medical History Past Medical History NEUROLOGIC: Negative Neurological Disorders CARDIAC: Negative Cardiac Disorders GASTROINTESTINAL: Negative Gastrointestinal Disorders GENITOURINARY: Negative Genitourinary Disorders or Renal Disease MUSCULOSKELETAL: Negative Musculoskeletal Disorders ENDOCRINE: Negative Endocrine Disorders OTHER HISTORY: Positive Cancer and Lung Cancer Social History SMOKING STATUS: Former smoker ED Exam Narrative Physical exam: GENERAL APPEARANCE: AxOx4, nontoxic appearing, moderate distress, tachypneic, mild to moderate pallor HEENT: NC, AT. MMM. EOMI, clear conjunctiva, oropharynx clear. NECK: Supple without lymphadenopathy. No stiffness or restricted ROM. HEART: Normal rate and regular rhythm, normal S1/S1, no m/r/g LUNGS: CTAB, moving air well. No crackles or wheezes are heard. ABDOMEN: Soft, nontender, nondistended with good bowel sounds heard. BACK: No midline C/T/L spine pain or deformity, No CVAT, no obvious deformity. EXTREMITIES: Right leg with chronic discoloration consistent with radiation treatment, large fungating mass with slow dark venous oozing around it, right leg asymmetric pitting edema. MUSCULOSKELETAL: FROM of all major joints, no chest tenderness NEUROLOGICAL: Grossly nonfocal. Alert and oriented, moving all 4 extremities. CN not formally tested but appear grossly intact. Skin: Warm and dry without any rash. Mild to moderate pallor. Course Quality Measures Current suspected stage: sepsis Possible source: skin/soft tissue Blood cultures ordered: completed in ED Antibiotic ordered: Yes Pertinent labs: 04/19/25 04/19/25 06:55 10:30 Lactic Acid 7.0 H* mMol/L 16.0 H* mMol/L (0.4-2.0) (0.4-2.0) Procalcitonin 0.62 H ng/ml (0.0-0.49) sepsis and comfort care/end of life Orders Category Date Time Status Patient Condition Routine Admission 04/19/25 15:47 Ordered COVID-19 Screening Questionnaire NOW Care 04/19/25 15:[address] Screening NOW Care 04/19/25 09:20 Active Decision to Admit X1 Care 04/19/25 15:43 Completed EKG (ED ONLY) *Do not use* NOW Care 04/19/25 07:10 Completed Transfuse,blood/blood products NOW Care 04/19/25 11:00 Active Referral Wound Care Stat Cons 04/19/25 11:35 Active Diet Full Liquid Diet 04/19/[address] abdomen pelvis w con Stat Exams 04/19/25 09:[address] angio chest Stat Exams 04/19/25 09:20 Completed EKG (ED Only) Stat Exams 04/19/25 07:10 Ordered XR chest 1V Stat Exams 04/19/25 07:10 Completed Blood Culture (Lab) Stat Lab 04/19/25 06:50 Received CBC Stat Lab 04/19/25 06:55 Completed CBC Stat Lab 04/19/25 16:03 Completed CMP [Comprehensive Metabolic Panel] Stat Lab 04/19/25 06:55 Completed Hemoglobin and Hematocrit Stat Lab 04/19/25 10:30 Completed Lactate (Lactic Acid) Stat Lab 04/19/25 06:55 Completed Lactic Acid, 3 HR Stat Lab 04/19/25 10:30 Completed MRSA Nasal Screen Routine Lab 04/19/25 16:02 Ordered Partial Thromboplastin Time Stat Lab 04/19/25 06:[address] Review Blood Smear Stat Lab 04/19/25 16:03 Completed Procalcitonin Stat Lab 04/19/25 06:55 Completed Prothrombin Time with INR Stat Lab 04/19/25 06:55 Completed Type and Screen Stat Lab 04/19/25 07:48 Results Urinalysis Stat Lab 04/19/25 09:19 Completed prbc [Red Blood Cells] Stat Lab 04/19/25 07:48 Results HYDROmorphone INJ [Dilaudid Inj] Med 04/19/25 16:06 Active 0.5 mg IVP Q4HR PRN HYDROmorphone INJ [Dilaudid Inj] Med 04/19/25 07:11 Discontinued 1 mg IVP X1 ONE Piper/Tazo 3.375 gm Premix [Zosyn] Med 04/19/25 16:15 Active 3.375 gm in 50 ml IV Q8HR Piper/Tazo 3.375 gm Premix [Zosyn] Med 04/19/25 10:56 Discontinued 3.375 gm in 50 ml IV X1 Sodium Chloride 0.9% 1000 ml [Ns] 1,000 ml Med 04/19/25 06:58 Discontinued IV 999 mls/hr Sodium Chloride 0.9% 1000 ml [Ns] 1,000 ml Med 04/19/25 07:55 Discontinued IV 999 mls/hr Sodium Chloride 0.9% 1000 ml [Ns] 1,000 ml Med 04/19/25 10:23 Discontinued IV 999 mls/hr Vancomycin Pharmacy to Dose Med 04/20/25 09:00 Active 1 each IV QDAY PRN Vancomycin/Ns 1 gm Ivpb 200 ml Med 04/19/25 11:00 Discontinued IV X1 Vancomycin/Ns 750 mg Ivpb Med 04/19/25 22:00 Discontinued 750 mg in 150 ml IV Q12H cefTRIAXone/D5w 1gm IV premix [Rocephin/D5w 1gm IV Med 04/19/25 07:55 Discontinued premix] 1 gm in 50 ml IV X1 Code Status Routine Oth 04/19/25 15:47 Ordered Oxygen Delivery PRN RT 04/19/25 15:47 Active Vital Signs Vital signs: Vital Signs Temperature 100.1 F 04/19/25 07:02 Pulse Rate 144 H 04/19/25 07:02 Respiratory Rate 28 H 04/19/25 07:02 Blood Pressure 79/48 L 04/19/25 07:02 Pulse Oximetry (%) 98 04/19/25 07:02 Oxygen Delivery Method Room Air 04/19/25 07:02 Pulse ox is 98% on room air which is adequate. Weakness MDM Narrative MDM Narrative:: Mr. 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 He is brought in today because of persistent hemorrhage from the sarcoma as it has eroded out of the surface. He was recently discharged yesterday from the hospital for similar issue after several rounds of blood transfusions in order to maintain his hemoglobin. He was discharged with a hemoglobin of 8.9 in review of the electronic medical record. He presented with a hemoglobin of 7.7, however can be delayed in acute bleeding and on exam he is acutely bleeding. Repeat hemoglobin showed a drop to 6.2 and he was initiated on transfusion immediately. Additionally he has had a persistent elevated white blood cell count, and gradually increasing lactic acid despite IV fluid resuscitation as well. Lactic acid could be from diffuse muscle breakdown, but a concomitant infectious/septic picture would be quite devastating for this gentleman therefore CT scan of the chest abdomen pelvis done to rule out a potential source of infection. Suspicious would be a postobstructive pneumonia giving his significant metastatic infiltration to his lungs, or even erosion now into abdominal viscera. CT scan shows no obvious source of infection, but does show advancement of the metastatic disease. At this point there appears to be no new acute issue, and appears to be the expected advancement and progression of his sarcoma. I initially discussed this with the patient, l however he was in moderate distress, obviously tachypneic on exam, but complaining of severe right hip pain. I am not sure if he understood what I was reviewing. As a result I did speak with his radiation oncologist, Dr. Dee, and he advised that I speak with his daughter. His daughter was contacted and we discussed the gravity of findings today and the spread of his cancer. Continue transfusions is not sustainable as it is seem to just simply aches in his body. It has been understood that his cancer is terminal and would not be cured and expected to advance rapidly. At this point we did agree comfort is priority for him, and they have begun to discuss hospice care with GITA. She would like to discuss further with family members the options for hospice. However she does and we did agree that they are fearful having him back home and hospice as the sight of continued hemorrhage from the wound is quite traumatizing for her mother (the patient's ). And as well they would not know what to do with all the blood or were to dispose it. The ICU team graciously consulted on this very complicated case and we had a lengthy bedside deliberation on best treatment plans. They were able to review with the patient findings today and expectations of treatment and management. He would like to pursue continued transfusion for right now in order to have more time. He will be admitted to the ICU as he does require continued transfusions, wound care/hemorrhage control. This plan was reviewed again with the patient's daughter, and the value of bringing family members at this point his disease severity to participate in his end-of-life IKristen, am scribing for and in the presence of Dr. Gibson. 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 Dee with plan to undergo radiation therapy, DVT dx 04/12/2025, status post IVC filter 04/13/2025 How is presenting disease/condition affected by chronic disease/condition?: exacerbated by Evaluation data The following diagnostics were reviewed and interpreted by me:: lab results and radiology exam(s) Lab and/or radiology exams considered but not ordered:: None Interpretation Summary: Ordering Physician: Aric Gibson MD Date of Service: 04/19/25 Procedure(s): XR chest 1V Accession Number(s): [id number] cc: Zia Jorge MD; Aric Gibson MD; Woody Fink MD~ Examination: AP chest single view TECHNIQUE: Portable AP sitting chest single view Date and time: April 19, 2025, 0722 hours INDICATIONS: Shortness of breath today., Diagnosis colorectal carcinoma FINDINGS: Normal heart size No pneumonia or pulmonary edema Bilateral pulmonary nodules Lordotic chest Moderate osteopenia IMPRESSION: No pneumonia or pulmonary edema Bilateral pulmonary nodules, recommend CT chest post intravenous contrast follow-up to compare with PET CT scan January 10, 2025 Dictated By:Woody Fink MD Signed By:<Electronically signed by Woody Fink MD in OV>04/19/25 0758 Ordering Physician: Aric Gibson MD Date of Service: 04/19/25 Procedure(s): CT abdomen pelvis w con Accession Number(s): [id number] cc: Zia Jorge MD; Aric Gibson MD; Woody Fink MD~ Examination: CT abdomen with intravenous contrast CT pelvis with intravenous contrast 2-D coronal reconstructions 2-D sagittal reconstructions Date and time of exam:April 19, 2025 1219 hours Comparison April 11, 2025 INDICATIONS: Rectal bleeding today, diagnosis colorectal connective and soft tissue tumor, large mass destroying the right ischium right inferior pubic ramus on CT abdomen study April 11, 2025. CTDI: vol (mGy) 6.03 DLP: (mGycm) 375 Technique: Multiple axial sections of the abdomen and pelvis have been obtained. 64 slice high-resolution scanner used. 3 mm axial sections have been obtained, post intravenous injection 60 cc Isovue-370 2-D sagittal, coronal reconstructions obtained. Low dose protocols were performed. One or more of the following dose reduction techniques were used; automated exposure control, adjustment of the mA and/or KV according to patient size, use of iterative reconstruction technique. Findings: The images are significantly degraded by patient motion No focal liver or splenic lesion Aorta not enlarged No hydronephrosis Abdominal pelvic adenopathy is again depicted, no significant change in the 7 day interval compared to the prior study Mild ascites Abundant stool throughout the colon Urinary bladder wall thickening No significant change in the large mass destroying the right hemipelvis Mild rectal wall thickening IMPRESSION: No change in extensive abdominal pelvic adenopathy, no change in the large mass right hemipelvis compared to the examination 7 days ago Mild rectal wall thickening Dictated By:Woody Fink MD Signed By:<Electronically signed by Woody Fink MD in OV>04/19/25 1309 Ordering Physician: Aric Gibson MD Date of Service: 04/19/25 Procedure(s): CT angio chest Accession Number(s): [id number] cc: Zia Jorge MD; Aric Gibson MD; Woody Fink MD~ Examination: CTA chest with intravenous contrast 2-D reconstructions 3-D reconstructions, vascular Date and time of exam: April 19, 2025 1219 hours INDICATIONS: Shortness of breath this week, diagnosis colorectal connective and soft tissue tumor, soft tissue tumor mass posterior right pelvis 11 x 9 x [address] scan January 10, 2025 with abdominal pelvic lymphadenopathy, the mass measuring 14 x 13 x [address] abdomen pelvis April 11, 2025 CTDI: vol (mGy) 9.62 DLP: (mGycm) 315 Low dose protocols, adjustment MA KV according to patient size is iterative reconstruction technique Technique: Multiple axial sections of the thorax have been obtained. 3 mm slice thickness, from below the hemidiaphragms to above the apices of the lungs. Mediastinal and lung density settings have been obtained. 2-D sagittal and coronal reconstructions. 3-D angiographic renderings, 3-D volume renderings, 3D post processing, vascular maximum intensity projections obtained. Contrast administered is 100 cc Isovue-370 no thoracic aortic aneurysm dilatation Pulmonary artery segments are not enlarged No pulmonary artery filling defects Marked progression of mediastinal lymphadenopathy, high left periaortic lymph node now measuring 32 mm compared to 16 mm on March 15, 2025 Interval right hilar lymphadenopathy Significant progression of pulmonary nodular disease, at least 30 Pulmonary parenchymal nodules, several nodules larger, for instance nodule in the posterior right upper lobe measures 11 mm compared to 6 mm on March 15, 2025 No pneumonia or pulmonary edema Diffuse fatty infiltration throughout the liver Cholelithiasis No pancreatic mass. Impression: Negative for pulmonary artery emboli Significant progression of mediastinal lymphadenopathy Marked progression of pulmonary nodular metastatic disease Dictated By:Woody Fink MD Signed By:<Electronically signed by Woody Fink MD in OV>04/19/25 1259 Medications / Prescriptions Medications or Prescriptions considered but not ordered:: None Medication administrations:: Medication Administration History Hydromorphone HCl (Hydromorphone Inj 2 Mg/Ml Vial) 0.5 mg IVP Q4HR PRN PRN Reason: PAIN Stop: 04/24/25 16:05 Last Admin: 04/20/25 04:02 Dose: 0.5 mg Documented By: Admin: 04/19/25 23:48 Dose: 0.5 mg Documented By: Admin: 04/19/25 19:42 Dose: 0.5 mg Documented By: ALEK Piperacillin/Tazobactam/Dextrose (Zosyn) 3.375 gm in 50 mls @ 12.5 mls/hr IV Q8HR BRIAN Stop: 04/26/25 16:14 Last Admin: 04/20/25 05:10 Dose: 12.5 mls/hr Documented By: Infusion: 04/20/25 01:00 Dose: Infused Documented By: Admin: 04/19/25 21:00 Dose: 12.5 mls/hr Documented By: Infusion: 04/19/25 20:13 Dose: Infused Documented By: Admin: 04/19/25 16:13 Dose: 12.5 mls/hr Documented By: MAILE Vancomycin/Sodium Chloride (Vancomycin/Ns 750 Mg Ivpb) 750 mg in 150 mls @ 120 mls/hr IV Q24H [facility]; Protocol Stop: 04/27/25 21:59 Pharmacy Consult (Vancomycin Pharmacy To Dose 1 Each Each) 1 each IV QDAY PRN PRN Reason: consult Stop: 05/20/25 08:59 Discontinued Medications Hydromorphone HCl (Hydromorphone Inj 2 Mg/Ml Vial) 1 mg IVP X1 ONE Stop: 04/19/25 07:12 Last Admin: 04/19/25 07:51 Dose: Not Given Documented By: ISIDRO Non-Admin Reason: Contraindicated Hydromorphone HCl (Hydromorphone Inj 2 Mg/Ml Vial) 0.25 mg IVP X1 ONE Stop: 04/19/25 17:13 Last Admin: 04/19/25 17:16 Dose: 0.25 mg Documented By: Sodium Chloride (Ns) 1,000 mls @ 999 mls/hr IV .Q1H1M ONE Stop: 04/19/25 07:58 Last Infusion: 04/19/25 10:34 Dose: Infused Documented By: Admin: 04/19/25 07:48 Dose: 999 mls/hr Documented By: ISIDRO Sodium Chloride (Ns) 1,000 mls @ 999 mls/hr IV .Q1H1M ONE Stop: 04/19/25 08:55 Last Infusion: 04/19/25 10:34 Dose: Infused Documented By: Admin: 04/19/25 08:06 Dose: 999 mls/hr Documented By: ISIDRO Ceftriaxone Sodium/Dextrose (Rocephin/D5w 1gm Iv Premix) 1 gm in 50 mls @ 100 mls/hr IV X1 ONE Stop: 04/19/25 08:24 Last Infusion: 04/19/25 10:32 Dose: Infused Documented By: Admin: 04/19/25 08:07 Dose: 100 mls/hr Documented By: ISIDRO Sodium Chloride (Ns) 1,000 mls @ 999 mls/hr IV .Q1H1M ONE Stop: 04/19/25 11:23 Last Infusion: 04/19/25 12:54 Dose: Infused Documented By: Admin: 04/19/25 10:43 Dose: 999 mls/hr Documented By: ISIDRO Piperacillin/Tazobactam/Dextrose (Zosyn) 3.375 gm in 50 mls @ 100 mls/hr IV X1 ONE Stop: 04/19/25 11:25 Last Infusion: 04/19/25 12:01 Dose: Infused Documented By: Admin: 04/19/25 11:24 Dose: 100 mls/hr Documented By: SANDRA Vancomycin/Sodium Chloride (Vancomycin/Ns 1 Gm Ivpb) 200 mls @ 120 mls/hr IV X1 ONE Stop: 04/19/25 12:39 Last Infusion: 04/19/25 14:22 Dose: Infused Documented By: Admin: 04/19/25 11:46 Dose: 120 mls/hr Documented By: ISIDRO Vancomycin/Sodium Chloride (Vancomycin/Ns 750 Mg Ivpb) 750 mg in 150 mls @ 120 mls/hr IV Q12H BRIAN Stop: 04/26/25 21:59 Last Admin: 04/19/25 21:00 Dose: 120 mls/hr Documented By: ALEK See above Consultations Consultation(s) initiated? (list below): Yes Consultation #1 (Physician, Specialty, Details): Oncologist Dr. Dee at bedside. Discussed lab results, analysis, and treatment plans. Time: 10:04 Consultation #2 (Physician, Specialty, Details): I spoke with business services analyst Dr. Shin. Discussed patients PMHx, HPI, ED course, exam findings, labs, and radiology results. Patient will be admitted to ICU. Time: 15:25 Diagnosis Weakness Differential Diagnosis: anemia, sepsis, dehydration and other (PE ) Most likely diagnosis given after review of the tests above:: Severe anemia Hemorrhagic shock metastatic sarcoma Admission Indicated Admission indicated?: indicated Admission Request Was there a request for admission?: Yes Admission Attestation Admission request attestation: Discussed case with [] from Hospitalist service regarding admission. Discussed patients ED course, exam findings, labs, and radiology results. The Hospitalist [agrees,declines] to accept the patient for admission. Disposition Plan Disposition Plan: Admit Critical Care Time Critical Care Time Critical Care Time: Yes Total Critical Care Time (min.): 40 Attestation: The high probability of sudden, clinically significant deterioration in the patient's condition required the highest level of my preparedness to intervene urgently. The services I provided to this patient were to treat and/or prevent clinically significant deterioration. Services included the following: chart data review, reviewing nursing notes and/or old charts, documentation time, client consultant collaboration regarding findings and treatment options, medication orders and management, direct patient care, vital sign assessments and ordering, interpreting and reviewing diagnostic studies and lab tests. Aggregate critical care time includes only time during which I was engaged in work directly related to the patient's care, as described above, whether at bedside or elsewhere in the Emergency Department. It did not include time spent performing other reported procedures or the services of residents, students, nurses or physician assistants. Discharge Plan Plan Patient Disposition: Admit Acute Care w/in Hospital Problem List Clinical Impression: Severe anemia, Hemorrhagic shock, Metastatic sarcoma
[2025-04-19 07:27] LABS: Basophils # (Auto) 0.1 Thou/mm3 (0.0-0.2); Basophils % (Auto) 0 % (0-2.5); Eosinophils # (Auto) 0.2 Thou/mm3 (0.0-0.5); Eosinophils % (Auto) 1 % (0-10); Hematocrit 22.8 % (41.0-53.0); Immature Granulocytes % (Auto) 1 % (0-0); Immature Granulocytes Auto 0.25 Thou/mm3 (0.00-0.00); Lymphocytes # (Auto) 2.1 Thou/mm3 (1.0-4.8); Lymphocytes % (Auto) 7 % (10-50); Mean Corpuscular HGB Conc 33.8 g/dl (31.0-37.0); Mean Corpuscular Hemoglobin 29.2 pg (25.0-35.0); Mean Corpuscular Volume 86 fL (80-100); Monocytes # (Auto) 1.4 Thou/mm3 (0.0-0.8); Monocytes % (Auto) 5 % (0-12); Neutrophils # (Auto) 24.4 Thou/mm3 (1.8-7.7); Neutrophils % (Auto) 86 % (37-80); Nucleated Red Blood Cell % 0 /100 WBC (0); Platelet Count 359 Thou/mm3 (140-440); RDW Standard Deviation 56.4 fL (35.1-43.9); Red Blood Count 2.64 Miln/mm3 (4.50-5.90); White Blood Count 28.3 Thou/mm3 (3.8-10.6)
[2025-04-19 07:43] LABS: Alanine Aminotransferase 13 U/L (10-49); Albumin, Serum 1.8 gm/dL (3.4-4.8); Albumin/Globulin Ratio 0.7 (1.2-2.2); Alkaline Phosphatase 116 U/L (46-116); Anion Gap 15 (7-16); Aspartate Amino Transferase 18 U/L (0-34); BUN/Creatinine Ratio 12 Ratio (12-20); Bilirubin,Total 0.6 mg/dL (0.3-1.2); Blood Urea Nitrogen 12 mg/dL (9-23); Calcium 7.1 mg/dL (8.3-10.6); Calcium (Corrected) 8.9 mg/dL (8.5-10.1); Carbon Dioxide 19.4 mMol/L (20.0-31.0); Chloride 101 mMol/L (98-107); Estimated Creatinine Clearance 65.5 mL/min (>60); Globulin 2.6 gm/dL (2.3-3.5); Glucose 186 mg/dL (74-106); Hemoglobin 7.7 g/dL (13.5-16.0); Osmolality,Calculated 274 (275-295); Potassium 3.9 mMol/L (3.4-5.1); Procalcitonin 0.62 ng/ml (0.0-0.49); Sodium 135 mMol/L (136-145); Total Protein 4.4 gm/dL (5.7-8.2); eGFR > 60 See Note
[2025-04-19] MEDS: SODIUM CHLORIDE 0.9% 1000 ML 1,000 ML 999 ML IV ×3 (07:48→10:43)
[2025-04-19] MEDS: cefTRIAXone/D5w 1gm IV premix 1 GM/50 ML BAG IV (08:07)
[2025-04-19 08:43] LABS: INR 1.2 (0.9-1.3); Partial Thromboplastin Time 72.9 Seconds (22.0-36.0)
--- NOTE | 2025-04-19 09:20 | XR_ITS ---
Examination: CT abdomen with intravenous contrast CT pelvis with intravenous contrast 2-D coronal reconstructions 2-D sagittal reconstructions Date and time of exam:April 19, 2025 1219 hours Comparison April 11, 2025 INDICATIONS: Rectal bleeding today, diagnosis colorectal connective and soft tissue tumor, large mass destroying the right ischium right inferior pubic ramus on CT abdomen study April 11, 2025. CTDI: vol (mGy) 6.03 DLP: (mGycm) 375 Technique: Multiple axial sections of the abdomen and pelvis have been obtained. 64 slice high-resolution scanner used. 3 mm axial sections have been obtained, post intravenous injection 60 cc Isovue-370 2-D sagittal, coronal reconstructions obtained. Low dose protocols were performed. One or more of the following dose reduction techniques were used; automated exposure control, adjustment of the mA and/or KV according to patient size, use of iterative reconstruction technique. Findings: The images are significantly degraded by patient motion No focal liver or splenic lesion Aorta not enlarged No hydronephrosis Abdominal pelvic adenopathy is again depicted, no significant change in the 7 day interval compared to the prior study Mild ascites Abundant stool throughout the colon Urinary bladder wall thickening No significant change in the large mass destroying the right hemipelvis Mild rectal wall thickening IMPRESSION: No change in extensive abdominal pelvic adenopathy, no change in the large mass right hemipelvis compared to the examination 7 days ago Mild rectal wall thickening
--- NOTE | 2025-04-19 09:20 | XR_ITS ---
Examination: CTA chest with intravenous contrast 2-D reconstructions 3-D reconstructions, vascular Date and time of exam: April 19, 2025 1219 hours INDICATIONS: Shortness of breath this week, diagnosis colorectal connective and soft tissue tumor, soft tissue tumor mass posterior right pelvis 11 x 9 x [address] scan January 10, 2025 with abdominal pelvic lymphadenopathy, the mass measuring 14 x 13 x [address] abdomen pelvis April 11, 2025 CTDI: vol (mGy) 9.62 DLP: (mGycm) 315 Low dose protocols, adjustment MA KV according to patient size is iterative reconstruction technique Technique: Multiple axial sections of the thorax have been obtained. 3 mm slice thickness, from below the hemidiaphragms to above the apices of the lungs. Mediastinal and lung density settings have been obtained. 2-D sagittal and coronal reconstructions. 3-D angiographic renderings, 3-D volume renderings, 3D post processing, vascular maximum intensity projections obtained. Contrast administered is 100 cc Isovue-370 no thoracic aortic aneurysm dilatation Pulmonary artery segments are not enlarged No pulmonary artery filling defects Marked progression of mediastinal lymphadenopathy, high left periaortic lymph node now measuring 32 mm compared to 16 mm on March 15, 2025 Interval right hilar lymphadenopathy Significant progression of pulmonary nodular disease, at least 30 Pulmonary parenchymal nodules, several nodules larger, for instance nodule in the posterior right upper lobe measures 11 mm compared to 6 mm on March 15, 2025 No pneumonia or pulmonary edema Diffuse fatty infiltration throughout the liver Cholelithiasis No pancreatic mass. Impression: Negative for pulmonary artery emboli Significant progression of mediastinal lymphadenopathy Marked progression of pulmonary nodular metastatic disease
[2025-04-19 09:24] LABS: Collection Type, Urine Catheter
[2025-04-19 09:38] LABS: Bacteria,Urine Rare; Bilirubin,Urine Negative (Negative); Blood,Urine Negative (Negative); Clarity,Urine Clear (Clear/Hazy); Color,Urine Lt-Yellow (Lt Yel-Yel); Glucose, Urine Negative (Negative); Ketones,Urine Negative (Negative); Leukocyte Esterase,Urine Negative (Negative); Nitrite,Urine Negative (Negative); Protein,Urine Trace (Neg - Trace); RBC,Urine 2 /hpf (0-3); Specific Gravity,Urine 1.011 (1.001-1.035); Squamous Epithelial Cell,Urine < 1 /hpf (0-5); Urobilinogen,Urine Negative mg/dL (0.0-1.0); WBC,Urine 5 /hpf (0-5)
[2025-04-19 10:19] LABS: Reflex Lactate? Y
[2025-04-19 10:52] LABS: Hematocrit 19.5 % (41.0-53.0)
[2025-04-19 10:54] LABS: Hemoglobin 6.2 g/dL (13.5-16.0)
[2025-04-19] MEDS: PIPER/TAZO 3.375 GM PREMIX 3.375 GM/50 ML BAG IV ×3 (11:24→21:00)
[2025-04-19] MEDS: VANCOMYCIN/NS 1 GM IVPB 200 ML IV (11:46)
--- NOTE | 2025-04-19 12:21 | PC.NURSE ---
pt very cold to touch did rectal temp 95.5 toro florian MD made aware
--- NOTE | 2025-04-19 15:10 | PC.CC ---
KEVIN Lopez contacted [facility] and spoke with Tala [phone]. KEVIN confirmed that the family would need to pick Home Health or Hospice care, as they cannot pick both paths. Tala offered to come speak with the family and answer any questions they may have.
--- NOTE | 2025-04-19 15:17 | PC.SS ---
SS received a call from YONATHAN Zee at [facility] and if patient is going to be admitted, Dr. Dee would like this patient to begin treatment starting tomorrow, Fri. at 2:15p.m., . and Friday. Patient will need gurney transport and a nurse ride along. For any further questions, we are to contact their nurse, xt. Brooke Calderón or Dr. Dee.
--- NOTE | 2025-04-19 15:47 | PC.NURSE ---
Pt asked about code status and states he wants more time Pt is GCS 15 .pt was explained by MD at bedside the prognosis of his cancer and still feels like he is not ready pt will be admitted to ICU
--- NOTE | 2025-04-19 16:07 | PD.RESHP ---
Documentation for date of: 04/19/25 HPI History of Present Illness Chief complaint: Bleeding Ulcer History of present illness: HPI: Patient is a 59-year-old male with a past medical history of metastatic cancer, Hepatitis B, Undifferentiated pleomorphic sarcoma of right pelvis, status postchemotherapy and excision and Right Leg DVT s/p IVC filter 04/13 currently following with radiation oncologist Dr. Dee, who presented to the emergency room with a chief complaint of profusely bleeding pelvic sinus. Patient stated that this morning his was changing his bandages around 6:30 AM when he started to profusely bleed from his sacral ulcer. He was scheduled to have palliative radiotherapy with Dr. Dee today but had to present to the emergency department instead. Denied any palpitations, chest pain/pressure, shortness of breath, dizziness, melena, coffee-ground emesis, hematemesis and CO bleed. Of note patient was recently discharged from [facility] on 04/18 after being treated for similar problem along with newly diagnosed right leg DVT s/p IVC filter. ED course: BP 98/70, pulse 117, RR 18, temp 96.9 F, SpO2 100% Labs showed WBC 28.3, Hb 6.2, HCT 19.5, APTT 72.9, lactic acid 7 up trended to 16. Chest CTA showed extensive pulmonary metastatic disease. Negative for pulmonary embolism. Abdomen/pelvis CT showed no change in extensive abdominal pelvic adenopathy. Mild rectal wall thickening. And extensive stool in colon. Chest x-ray showed bilateral pulmonary nodules. No signs of consolidation, pulmonary edema or pleural effusion. In the ED patient received 3L normal saline IVF bolus, hydromorphone 1 mg IV x 1, ceftriaxone 1 g IV x 1, Zosyn 3.375 g IV x 2 and vancomycin 1 g IV x 1. Patient will be admitted to the ICU for close monitoring of any further bleeding and possible rapid infusion of blood products. Review of Systems Review of Systems Narrative Review of Systems: GENERAL: Denies fever/chills or diaphoresis. HEENT: Denies headaches or visual changes. Denies discharge. Neuro: Denies unusual weakness or difficulty speaking. CARDIO: Denies chest pain or palpitations. PULM: Denies SOB, coughing or wheezing. GI: Denies abdominal pain, N/V/C/D. Reports having BMs. URO: Denies burning/itching/pain/urinary changes. MSK/EXT/SKIN: Denies joint/skeletal/muscle pain, issues/changes in upper or lower extremities, itchiness. Has severe sacral pain PSYCH: Cooperative, pleasant mood & affect. The rest of the review of systems is otherwise negative. 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 twice daily Augmentin 1 tab p.o. twice daily Jagdeep Docusate calcium 214 Mg Milk of magnesia Past surgical history: Excision of Pelvic Sarcoma [address] [place] [address] 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 Education Level: Graduated high school Marital Status: . 1 Kid Tobacco use: Quit 3 years ago. Approximately 15 pack year history ETHO use: Socially Illicit drug use: Denies Social History Note: lives with . At baseline requires assistance with all ADLs and uses a wheelchair Family History: No significant history Exam Vital Signs Temp Pulse Resp BP Pulse Ox O2 Del Method O2 Flow Rate 96.9 F 117 H 18 98/70 100 Room Air 15 04/19/25 14:26 04/19/25 14:26 04/19/25 14:26 04/19/25 14:26 04/19/25 14:26 04/19/25 14:26 04/19/25 12:15 Narrative Exam Constitutional Alert, oriented x 3 and comfortable. GCS 15/15 HEENT Vision grossly intact. Patent nares. Trachea midline Respiratory Chest normal on inspection and clear auscultation bilaterally on anterior and posterior chest wall. Cardiovascular S1 and S2 audible, RRR. No murmurs carotid bruit. No gross JVD. Abdominal Soft and non tender to palpation in all quadrants. BS + Genitourinary No bladder tenderness, no flank pain. Normal to palpation Musculoskeletal Extremities tone within normal limits. Nonpitting edema of right lower extremity up to tibia tuberosity Neurological CN II - XII grossly intact. No sensation in Right leg ascending to L3, Power 2/5, LLL Power 3/5, RUL & WATSON Power 4/5. Gait not assessed Skin Multiple bleeding sinuses on right pelvis with large ulcerating, fungating mass on right gluteus oozing blood. Some sinuses on right lateral hip and gluteal region draining pus and blood. Large chronic necrotic wound right groin,draing pus, foul smelling. Psychiatric Patient has good affect, is cooperative Results: Labs 04/20/25 04:26 04/20/25 04:26 Labs: Short CBC 04/19/25 04/19/25 Range/Units 06:55 10:30 WBC 28.3 H (3.8-10.6) Thou/mm3 Hgb 7.7 L 6.2 L* (13.5-16.0) g/dL Hct 22.8 L 19.5 L* (41.0-53.0) % Plt Count 359 (140-440) Thou/mm3 BMP 04/19/25 06:55 Sodium 135 L Potassium 3.9 D Chloride 101 Carbon Dioxide 19.4 L BUN 12 Creatinine 1.0 Glucose 186 H D Calcium 7.1 L Liver Function 04/19/25 Range/Units 06:55 Total Bilirubin 0.6 (0.3-1.2) mg/dL AST 18 (0-34) U/L ALT 13 (10-49) U/L Alkaline Phosphatase 116 (46-116) U/L Albumin 1.8 L (3.4-4.8) gm/dL Urine 04/19/25 Range/Units 09:19 Urine Color Lt-Yellow (Lt Yel-Yel) Urine Clarity Clear (Clear/Hazy) Urine pH 6.0 (5.0-7.0) Ur Specific [place] 1.011 (1.001-1.035) Urine Protein Trace (Neg - Trace) Urine Glucose (UA) Negative (Negative) Quality Measures Quality Measures sepsis Current suspected stage: ruled out Possible source: skin/soft tissue Blood cultures ordered: completed in ED Antibiotic ordered: Yes Medications Home Medications and Allergies Allergies Allergy/AdvReac Type Severity Reaction Status Date / Time No Known Allergies Allergy Verified 01/19/25 10:32 Visit Medications Hydromorphone HCl (Hydromorphone Inj 2 Mg/Ml Vial) 0.5 mg IVP Q4HR PRN PRN Reason: PAIN Stop: 04/24/25 16:05 Vancomycin/Sodium Chloride (Vancomycin/Ns 750 Mg Ivpb) 750 mg in 150 mls @ 120 mls/hr IV Q12H BRIAN Stop: 04/26/25 21:59 Piperacillin/Tazobactam/Dextrose (Zosyn) 3.375 gm in 50 mls @ 12.5 mls/hr IV Q8HR BRIAN Stop: 04/26/25 16:14 Pharmacy Consult (Vancomycin Pharmacy To Dose 1 Each Each) 1 each IV QDAY PRN PRN Reason: consult Stop: 05/20/25 08:59 Discontinued Medications Hydromorphone HCl (Hydromorphone Inj 2 Mg/Ml Vial) 1 mg IVP X1 ONE Stop: 04/19/25 07:12 Last Admin: 04/19/25 07:51 Dose: Not Given Hydromorphone HCl (Hydromorphone Inj 2 Mg/Ml Vial) 5 mg IVP Q4HR PRN PRN Reason: PAIN Stop: 04/24/25 15:46 Sodium Chloride (Ns) 1,000 mls @ 999 mls/hr IV .Q1H1M ONE Stop: 04/19/25 07:58 Last Infusion: 04/19/25 10:34 Dose: Infused Sodium Chloride (Ns) 1,000 mls @ 999 mls/hr IV .Q1H1M ONE Stop: 04/19/25 08:55 Last Infusion: 04/19/25 10:34 Dose: Infused Ceftriaxone Sodium/Dextrose (Rocephin/D5w 1gm Iv Premix) 1 gm in 50 mls @ 100 mls/hr IV X1 ONE Stop: 04/19/25 08:24 Last Infusion: 04/19/25 10:32 Dose: Infused Sodium Chloride (Ns) 1,000 mls @ 999 mls/hr IV .Q1H1M ONE Stop: 04/19/25 11:23 Last Infusion: 04/19/25 12:54 Dose: Infused Piperacillin/Tazobactam/Dextrose (Zosyn) 3.375 gm in 50 mls @ 100 mls/hr IV X1 ONE Stop: 04/19/25 11:25 Last Infusion: 04/19/25 12:01 Dose: Infused Vancomycin/Sodium Chloride (Vancomycin/Ns 1 Gm Ivpb) 200 mls @ 120 mls/hr IV X1 ONE Stop: 04/19/25 12:39 Last Infusion: 04/19/25 14:22 Dose: Infused Assessment & Plan Plan Patient is a 59-year-old male with a past medical history of metastatic cancer, Hepatitis B, Undifferentiated pleomorphic sarcoma of right pelvis, status postchemotherapy and excision and Right Leg DVT s/p IVC filter 04/13 currently following with radiation oncologist Dr. Dee, who presented to the emergency room with a chief complaint of profusely bleeding pelvic sinus. Patient will be admitted to the ICU for close monitoring of any further bleeding and possible rapid infusion of blood products. NEURO No acute problems CVS Hypovolemic Shock DDx: Mixed hypovolemic and distributive shock Dx: Hb 6.2 on admission, actively bleeding ulcer on gluteus Rx: 2 unit PRBC infusion. Post transfusion H&H. Will have to use [place] SV and POCUS to fully quantify RRX: Follow repeat H&H to assess need for further transfusions PULM Extensive Pulmonary Metastatic Nodules Chest CTA showed multiple pulmonary nodules GI/Hep Hepatitis B Dx: Hepatitis B antigen positive. Rx: Currently not receiving any treatment. To pursue outpatient follow up RENAL Lactic acidosis , Type A vs Type B DDx: secondary to cancer, shock, anemia, Hepatitis B Dx: Lactic acid 7 ---> 16 Rx: 3L NS IVF bolus given HEME/ONC Acute Blood Loss anemia secondary to Bleeding, Fungating Gluteal Mass Pelvic Sarcoma with extensive metastases Dx: Baselien Hb 12-13. On admission 6.2 Rx:2 Units PRBC infusion. Post transfusion H&H. H&H q 6hrly and monitor for active bleeding. If active bleeding for H&H Q 2 hrly. Previously scheduled for palliative radiotherapy for bleeding ulcer RRX: Follow repeat H&H to assess need for further transfusions. Will reach out to cancer center tomorrow to discuss palliative radiotherapy while inpatient. Right common femoral vein thrombus s/p IVC filter placement 04/13 SCDs on Left leg only. Anticoagulation contraindication due to active bleeding Leukocytosis WBC 26 --> 36.9 DDX : metastases, sepsis Rx: Zosyn 3.375 g IV q 8hrly and Vancomycin 750mg IV daily RRx: Follow up on blood cultures and monitor CBC ENDO No active problems ID Right Groin Ulcer With Abscess DDx: Secondary to cancer and radiation Rx: Zosyn 3.375 g IV q 8hrly and Vancomycin 750mg IV daily MSK/DERM Ulcerating, Fungating mass of Gluteus Rx: Wound care referal. Bleeding precautions, assess for bleeding Q shift ICU Health maintenance: Dispo: Admit to ICU for close monitoring of any further bleeding and possible rapid infusion of blood products. Diet: Full Liquid DVT ppx: SCDs on Left leg GI ppx: None Mechanical ventilattion: No Sedation: No IV lines: 3 pIV. 20 G and 22 G Left arm, 22G Right arm Central line: No Arterial line: No [place]: No Code status: FULL CODE Plan of care discussed with Attending Dr. Shin and PGY 3 Dr. Saranya Dalal MD PGY 1 Disclaimer: This note was dictated by speech recognition. Minor errors in rd manager may be present due to voice recognition software.
[2025-04-19 16:14] LABS: Basophils # (Auto) 0.1 Thou/mm3 (0.0-0.2); Basophils % (Auto) 0 % (0-2.5); Eosinophils % (Auto) 0 % (0-10); Hematocrit 27.2 % (41.0-53.0); Hemoglobin 9.4 g/dL (13.5-16.0); Immature Granulocytes % (Auto) 3 % (0-0); Lymphocytes # (Auto) 0.9 Thou/mm3 (1.0-4.8); Lymphocytes % (Auto) 3 % (10-50); Mean Corpuscular HGB Conc 34.6 g/dl (31.0-37.0); Mean Corpuscular Hemoglobin 30.5 pg (25.0-35.0); Mean Corpuscular Volume 88 fL (80-100); Monocytes # (Auto) 1.4 Thou/mm3 (0.0-0.8); Monocytes % (Auto) 4 % (0-12); Neutrophils # (Auto) 33.4 Thou/mm3 (1.8-7.7); Neutrophils % (Auto) 91 % (37-80); Nucleated Red Blood Cell % 0 /100 WBC (0); Platelet Count 240 Thou/mm3 (140-440); RDW Standard Deviation 47.4 fL (35.1-43.9); Red Blood Count 3.08 Miln/mm3 (4.50-5.90)
[2025-04-19 16:20] LABS: White Blood Count 36.9 Thou/mm3 (3.8-10.6)
[2025-04-19 17:04] LABS: Lactate (Lactic Acid) 5.7 mMol/L (0.4-2.0)
[2025-04-19] MEDS: HYDROmorphone INJ 2 MG/ML VIAL 0.25 MG IVP (17:16)
[2025-04-19 17:47] LABS: Path Review Blood Smear Sent to Pathologist
[2025-04-19] MEDS: HYDROmorphone INJ 2 MG/ML VIAL 0.5 MG IVP ×2 (19:42→23:48)
[2025-04-19 19:44] LABS: Reflex Lactate? Y
[2025-04-19 20:28] LABS: Lactic Acid, 3 HR 5.3 mMol/L (0.4-2.0)
[2025-04-19] MEDS: VANCOMYCIN/NS 750 MG IVPB 750 MG/150 ML BAG 120 MG IV (21:00)
--- NOTE | 2025-04-19 21:00 | PC.NURSE ---
Pharmacy contacted due to vanco trough of 21.5 on 04/18/25 (previous admission), instructed to administer Vanco as scheduled.
[2025-04-20] VITALS (53 sets, daily range): BP systolic 88–127; BP diastolic 63–93; PULSE 99–182; RESP 7–100; TEMP 36–36.9; O2SAT 79–100; BMI 20.2
[2025-04-20 01:04] LABS: Hematocrit 24.3 % (41.0-53.0)
[2025-04-20 01:11] LABS: Hemoglobin 8.8 g/dL (13.5-16.0)
[2025-04-20] MEDS: HYDROmorphone INJ 2 MG/ML VIAL 0.5 MG IVP ×4 (04:02→22:16)
[2025-04-20 05:08] LABS: Basophils # (Auto) 0.1 Thou/mm3 (0.0-0.2); Basophils % (Auto) 0 % (0-2.5); Eosinophils % (Auto) 0 % (0-10); Hematocrit 24.8 % (41.0-53.0); Hemoglobin 8.9 g/dL (13.5-16.0); Immature Granulocytes % (Auto) 2 % (0-0); Immature Granulocytes Auto 0.47 Thou/mm3 (0.00-0.00); Lymphocytes # (Auto) 1.5 Thou/mm3 (1.0-4.8); Lymphocytes % (Auto) 6 % (10-50); Mean Corpuscular HGB Conc 35.9 g/dl (31.0-37.0); Mean Corpuscular Hemoglobin 30.4 pg (25.0-35.0); Mean Corpuscular Volume 85 fL (80-100); Monocytes # (Auto) 1.6 Thou/mm3 (0.0-0.8); Monocytes % (Auto) 6 % (0-12); Neutrophils # (Auto) 22.5 Thou/mm3 (1.8-7.7); Neutrophils % (Auto) 86 % (37-80); Nucleated Red Blood Cell % 0 /100 WBC (0); Platelet Count 276 Thou/mm3 (140-440); RDW Standard Deviation 47.5 fL (35.1-43.9); Red Blood Count 2.93 Miln/mm3 (4.50-5.90); White Blood Count 26.2 Thou/mm3 (3.8-10.6)
[2025-04-20] MEDS: PIPER/TAZO 3.375 GM PREMIX 3.375 GM/50 ML BAG IV ×3 (05:10→21:47)
[2025-04-20 05:37] LABS: Alanine Aminotransferase 16 U/L (10-49); Albumin, Serum 1.7 gm/dL (3.4-4.8); Albumin/Globulin Ratio 0.7 (1.2-2.2); Alkaline Phosphatase 107 U/L (46-116); Anion Gap 12 (7-16); Aspartate Amino Transferase 21 U/L (0-34); BUN/Creatinine Ratio 10 Ratio (12-20); Bilirubin,Total 0.7 mg/dL (0.3-1.2); Blood Urea Nitrogen 16 mg/dL (9-23); Calcium (Corrected) 8.3 mg/dL (8.5-10.1); Carbon Dioxide 19.7 mMol/L (20.0-31.0); Chloride 103 mMol/L (98-107); Creatinine (Component) 1.6 mg/dL (0.6-1.3); Estimated Creatinine Clearance 41.9 mL/min (>60); Globulin 2.4 gm/dL (2.3-3.5); Glucose 120 mg/dL (74-106); Osmolality,Calculated 272 (275-295); Potassium 4.5 mMol/L (3.4-5.1); Sodium 135 mMol/L (136-145); Total Protein 4.1 gm/dL (5.7-8.2); eGFR 49 See Note
[2025-04-20 06:26] LABS: Calcium 6.5 mg/dL (8.3-10.6)
--- NOTE | 2025-04-20 08:30 | PC.SS ---
BOILER TESTER confirmed with ICU charge nurse that patient is stable for transport to chemotherapy appointment at [facility]. BOILER TESTER notified CTC nurse Mariah. Transportation pending.
--- NOTE | 2025-04-20 09:42 | PD.RESPRO ---
Documentation for date of: 04/20/25 Subjective Subjective Interval history: Patient is a 59-year-old male with a past medical history of metastatic cancer, Hepatitis B, Undifferentiated pleomorphic sarcoma of right pelvis, status post chemotherapy and excision and Right Leg DVT s/p IVC filter 04/13 currently following with radiation oncologist Dr. Dee, who presented to the emergency room with a chief complaint of profusely bleeding pelvic sinus. Patient stated that this morning his was changing his bandages around 6:30 AM when he started to profusely bleed from his sacral ulcer. He was scheduled to have palliative radiotherapy with Dr. Dee today but had to present to the emergency department instead. Denied any palpitations, chest pain/pressure, shortness of breath, dizziness, melena, coffee-ground emesis, hematemesis and [place] bleed. Of note patient was recently discharged from [facility] on 04/18 after being treated for similar problem along with newly diagnosed right leg DVT s/p IVC filter. Labs showed WBC 28.3, Hb 6.2, HCT 19.5, APTT 72.9, lactic acid 7 up trended to 16. On imaging, Chest x-ray showed bilateral pulmonary nodules. No signs of consolidation, pulmonary edema or pleural effusion. Chest CTA remarkable for extensive pulmonary metastatic disease. Negative for pulmonary embolism. Abdomen/pelvis CT showed no change in extensive abdominal pelvic adenopathy. Mild rectal wall thickening and extensive stool in colon. ED course: BP 98/70, pulse 117, RR 18, temp 96.9 F, SpO2 100%. Patient received 3L normal saline IVF bolus, hydromorphone 1 mg IV x 1, ceftriaxone 1 g IV x 1, Zosyn 3.375 g IV x 2 and vancomycin 1 g IV x 1. Patient admitted to the ICU on 04/19/2025 for close monitoring of any further bleeding and possible rapid infusion of blood products. 04/20/2025: Patient much more comfortable today. Pain well controlled with PRN Dilaudid. Minimal discharge at the wound site, no active bleeding noted. Hb improved 6.2 -> 8.9 post transfusion, extra PRBCs on hold incase worsening bleed. Patient now has sensory loss at the RT lower extremity dorsal and plantar aspect of the foot. sensation intact above the ankle, minimal motor function/strength. Rad Oncology Dr Dee was contacted as patient [facility]. Pending discussion with family, patient comprehends fully that the prognosis is poor but is open to palliative radiation for pain and bleeding control. Appreciate Dr Dee's input, will arrange transport to move patient to [facility] for radiation dose. Exam Vital Signs Temp Pulse Resp BP Pulse Ox O2 Del Method O2 Flow Rate 96.8 F 118 H 21 H 108/79 94 L Room Air 2 04/20/25 08:00 04/20/25 08:45 04/20/25 08:45 04/20/25 08:45 04/20/25 08:30 04/20/25 08:00 04/19/25 19:00 Narrative Exam Constitutional Alert, oriented x4 , mild discomfort. GCS 15/15 HEENT Vision grossly intact. Patent nares. Trachea midline Respiratory Chest normal on inspection and clear auscultation bilaterally on anterior and posterior chest wall. Cardiovascular S1 and S2 audible, RRR. No murmurs carotid bruit. No gross JVD. Abdominal Soft and non tender to palpation in all quadrants. BS + Genitourinary No bladder tenderness, no flank pain. Normal to palpation Musculoskeletal Extremities tone within normal limits. Nonpitting 2+ edema RT LE up to mid tibia. Neurological CN II - XII grossly intact. Strength 1/5 in RLE ; 3/5 LLE. Unable to assess gait as patient cannot bear weight on RLE. Skin Mixed ulcerating/fungating necrotic lesion of the RT hemipelvis, infiltrative advanced sarcoma. Multiple sinuses noted, oozing bright red blood, likely arterial. Mixed purulent discharge also present, foul smelling. Dressing with bandage wrapped around, sanguineous discharge on the gauze. Psychiatric Patient has good affect, is cooperative. Objective Labs 04/21/25 05:10 04/21/25 05:10 Labs: Laboratory Results - last 24 hr 04/19/25 04/19/25 04/19/25 07:48 09:19 10:30 WBC RBC Hgb 6.2 L* Hct 19.5 L* MCV MCH MCHC RDW Std Deviation Plt Count Neut % (Auto) Lymph % (Auto) Mayes % (Auto) Eos % (Auto) Baso % (Auto) Neut # (Auto) Lymph # (Auto) Mayes # (Auto) Eos # (Auto) Baso # (Auto) Immature Gran # (Auto) Absolute Nucleated RBC Immature Gran % Nucleated RBC % Smear Path Review Sodium Potassium Chloride Carbon Dioxide Anion Gap BUN Creatinine Estim Creat Clear Calc eGFR BUN/Creatinine Ratio Glucose Calculated Osmolality Lactic Acid 16.0 H* Calcium Corrected Calcium Total Bilirubin AST ALT Alkaline Phosphatase Total Protein Albumin Globulin Albumin/Globulin Ratio Ur Collection Type Catheter Urine Color Lt-Yellow Urine Clarity Clear Urine pH 6.0 Ur Specific [place] 1.011 Urine Protein Trace Urine Glucose (UA) Negative Urine Ketones Negative Urine Blood Negative Urine Nitrite Negative Urine Bilirubin Negative Urine Urobilinogen (Auto) Negative Ur Leukocyte Esterase Negative Urine RBC 2 Urine WBC 5 Ur Squamous Epith Cells < 1 Urine Bacteria Rare Blood Type B Positive Antibody Screen NEGATIVE Crossmatch See Detail Blood Bank Wristband ID Yes 04/19/25 04/19/25 04/19/25 16:03 16:38 20:03 WBC 36.9 H* D RBC 3.08 L Hgb 9.4 L D Hct 27.2 L MCV 88 MCH 30.5 MCHC 34.6 RDW Std Deviation 47.4 H Plt Count 240 D Neut % (Auto) 91 H Lymph % (Auto) 3 L Mayes % (Auto) 4 Eos % (Auto) 0 Baso % (Auto) 0 Neut # (Auto) 33.4 H Lymph # (Auto) 0.9 L Mayes # (Auto) 1.4 H Eos # (Auto) 0.0 Baso # (Auto) 0.1 Immature Gran # (Auto) 1.00 H Absolute Nucleated RBC 0.00 Immature Gran % 3 H Nucleated RBC % 0 Smear Path Review Sent to Pathologist Sodium Potassium Chloride Carbon Dioxide Anion Gap BUN Creatinine Estim Creat Clear Calc eGFR BUN/Creatinine Ratio Glucose Calculated Osmolality Lactic Acid 5.7 H* 5.3 H* Calcium Corrected Calcium Total Bilirubin AST ALT Alkaline Phosphatase Total Protein Albumin Globulin Albumin/Globulin Ratio Ur Collection Type Urine Color Urine Clarity Urine pH Ur Specific [place] Urine Protein Urine Glucose (UA) Urine Ketones Urine Blood Urine Nitrite Urine Bilirubin Urine Urobilinogen (Auto) Ur Leukocyte Esterase Urine RBC Urine WBC Ur Squamous Epith Cells Urine Bacteria Blood Type Antibody Screen Crossmatch Blood Bank Wristband ID 04/20/25 04/20/25 00:24 04:26 WBC 26.2 H D RBC 2.93 L Hgb 8.8 L 8.9 L Hct 24.3 L 24.8 L MCV 85 MCH 30.4 MCHC 35.9 RDW Std Deviation 47.5 H Plt Count 276 D Neut % (Auto) 86 H Lymph % (Auto) 6 L Mayes % (Auto) 6 Eos % (Auto) 0 Baso % (Auto) 0 Neut # (Auto) 22.5 H Lymph # (Auto) 1.5 Mayes # (Auto) 1.6 H Eos # (Auto) 0.0 Baso # (Auto) 0.1 Immature Gran # (Auto) 0.47 H Absolute Nucleated RBC 0.00 Immature Gran % 2 H Nucleated RBC % 0 Smear Path Review Sodium 135 L Potassium 4.5 D Chloride 103 Carbon Dioxide 19.7 L Anion Gap 12 BUN 16 Creatinine 1.6 H D Estim Creat Clear Calc 41.9 L eGFR 49 L BUN/Creatinine Ratio 10 L Glucose 120 H D Calculated Osmolality 272 L Lactic Acid Calcium 6.5 L* Corrected Calcium 8.3 L Total Bilirubin 0.7 AST 21 ALT 16 Alkaline Phosphatase 107 Total Protein 4.1 L Albumin 1.7 L Globulin 2.4 Albumin/Globulin Ratio 0.7 L Ur Collection Type Urine Color Urine Clarity Urine pH Ur Specific [place] Urine Protein Urine Glucose (UA) Urine Ketones Urine Blood Urine Nitrite Urine Bilirubin Urine Urobilinogen (Auto) Ur Leukocyte Esterase Urine RBC Urine WBC Ur Squamous Epith Cells Urine Bacteria Blood Type Antibody Screen Crossmatch Blood Bank Wristband ID Quality Measures Quality Measures sepsis Current suspected stage: septic shock (LA >4 and/or hypotension) Sepsis reassessment completed at (date): 04/20/25 Sepsis reassessment completed at (time): 10:00 Possible source: skin/soft tissue Blood cultures ordered: completed in ED Antibiotic ordered: Yes and comfort care/end of life Assessment & Plan Assessment Current Active Medications: Generic Name Dose Route Start Last Admin Trade Name Freq PRN Reason Stop Dose Admin Docusate Sodium 100 mg 04/20/25 09:31 Docusate Sod 100 Mg Capsule PO 05/20/25 09:30 Q12H PRN CONSTIPATION Protocol Hydromorphone HCl 0.5 mg 04/19/25 16:06 04/20/25 08:43 Hydromorphone Inj 2 Mg/Ml Vial IVP 04/24/25 16:05 0.5 mg Q4HR PRN Administration PAIN Piperacillin/Tazobactam/Dextrose 3.375 gm in 50 mls @ 12.5 mls/hr 04/19/25 16:15 04/20/25 05:10 Zosyn IV 04/26/25 16:14 12.5 mls/hr Q8HR BRIAN Administration Vancomycin/Sodium Chloride 750 mg in 150 mls @ 120 mls/hr 04/20/25 22:00 Vancomycin/Ns 750 Mg Ivpb IV 04/27/25 21:59 Q24H BRIAN Protocol Calcium Gluconate/Sodium Chloride 1,000 mg in 50 mls @ 50 mls/hr 04/20/25 09:45 Calcium Gluc/Ns 1000mg Ivpb IV 04/20/25 11:44 Q1H BRIAN Magnesium Hydroxide 30 ml 04/20/25 09:31 Milk Of Magnesia Susp 30 Ml Udc PO 05/20/25 09:30 QDAY PRN CONSTIPATION Protocol Pharmacy Consult 1 each 04/20/25 09:00 Vancomycin Pharmacy To Dose 1 Each Each IV 05/20/25 08:59 QDAY PRN consult Plan Mr Peres is a 59-year-old male with a past medical history of metastatic cancer, Hepatitis B, Undifferentiated pleomorphic sarcoma of right pelvis, status post chemotherapy and excision and Right Leg DVT s/p IVC filter 04/13 currently following with radiation oncologist Dr. Dee, who presented to the emergency room with a chief complaint of profusely bleeding pelvic sinus. Patient will be admitted to the ICU for close monitoring of any further bleeding and possible rapid infusion of blood products. NEURO No acute problems CVS Hypovolemic Shock - improved Dx: BP 70/40s -> 110/80s after IVF, maintaining MAP >65 w/o pressor support Rx: - 2 unit PRBC infusion given. Hb 6.2 on admission -> 9.4 -> 8.9 - 3L IVF given in ICU - PRBC on hold in case there is need for massive transfusion. - Daily labs, monitor H&H closely - Oral intake encouraged Sinus Tachycardia Dx: likley due to pain, sepsis Rx: - IVF + oral hydration - PRN Dilaudid for pain PULM Extensive Pulmonary Metastatic Nodules Dx: Chest CTA : multiple pulmonary nodules Rx: - On palliative treatment for Stage IV pleomorphic sarcoma - Dr Dee consulted, appreciate recommendations. - Patient and family aware of findings. No desaturation at this time, stable on RA. GI/Hep Constipation Dx: Last BM >[address] shows abundant stool throughout colon. DDx: Possibly opiod induced Rx: - Milk of Mag PRN ordered - Dulcolax tabs PRN Hx of Hepatitis B Hypoabuminemia Dx: Hepatitis B antigen positive, Albumin 2 -> 1.7 Rx: - Currently not receiving any treatment for Hep B. - Consider albumin repletion. May benefit from dietary consultation. HEME/ONC Acute Blood Loss anemia secondary to Sarcoma Stag IV Infiltrating, Fungating RT hemipelvis tumor Dx: Baseline Hb 12-13. On admission 6.2 Rx: - 2 Units PRBC infusion. Post transfusion H&H : 6.2 -> 9.4 -> 8.9 ; H&H q 6hrly and monitor for active bleeding. - Rad Oncology Dr Dee was contacted as patient [facility]. - Pending discussion with family, patient comprehends fully that the prognosis is poor but is open to palliative radiation for pain and bleeding control. - PRN 0.5 Dilaudid q4H for pain control - Appreciate Dr Dee's input, will arrange transport for this afternoon to move patient to [facility] for radiation dose. Right common femoral vein thrombus s/p IVC filter placement 04/13 Rx: - SCDs on Left leg only. - Anticoagulation contraindication due to active bleeding RENAL Lactic acidosis - resolved Dx: Lactic acid 7 on admission Rx: - 3L NS IVF bolus given in ICU - LA improved 7 --> 5.3 overnight. ENDO No active problems ID Leukocytosis RT pelvic tumor with purulent, foul smelling discharge Dx: WBC 26 --> 36.9 DDX : metastases, sepsis Rx: - On IV Zosyn 3.375 g IV q 8hrly (04/19 - - On IV Vancomycin 750mg IV daily (04/19 - - Follow up on blood cultures and monitor CBC MSK/DERM Ulcerating, Fungating Stage IV sarcoma Rx: - Wound care referral, appreciate wound nurse input - Bleeding precautions, assess for bleeding Q shift - PRN Dilaudid on board ICU Health maintenance: Dispo: Admit to ICU for close monitoring of any further bleeding and possible rapid infusion of blood products. Diet: Full Liquid DVT ppx: SCDs on Left leg GI ppx: None Mechanical ventilattion: No Sedation: No IV lines: 3 pIV. 20 G and 22 G Left arm, 22G Right arm Central line: No Arterial line: No [place]: No Code status: FULL CODE Plan of care discussed with clinical research coordinator Dr Shin, - Tramaine Hayward M.D. PGY2 Disclaimer: Minor errors in sap integration architect may be present as this note was dictated using voice recognition software. Attending Provider Attestation/Addendum pt seen and examined, d/w residents. in brief this is an unfortunate 59yo M who presents with metastatic sarcoma. he was recently DCd however the is unable to care for him at home. He continues to ooze and bleed from his multiple wounds on his RLE. He has been transfused and his wound have been packed. GOC discussion is pending with family. Oncology has been contacted for palliative radiation for his leg. Ideally pt requires hospice for his metastatic sarcoma. case d/w ICU team labs,imaging, records reviewed ~38min required for eval, exam, review, intervention, discussion and formulation of POC for this pt
[2025-04-20] MEDS: CALCIUM GLUC/NS 1000MG IVPB 1,000 MG/50 ML BAG 50 MG IV ×2 (10:38→11:35)
--- NOTE | 2025-04-20 11:11 | PC.SS ---
POWER PRESS SUPERVISOR attempted to schedule transport on behalf of the patient to participate with chemotherapy at [facility]. POWER PRESS SUPERVISOR contacted [facility] to schedule transport for 02:15 pm appointment. Motiv informed POWER PRESS SUPERVISOR unable to schedule transport due to system not allowing pick-up location and drop off location to possess same address. [facility] and [facility] share [address] address. POWER PRESS SUPERVISOR to obtain [facility] to schedule transport.
--- NOTE | 2025-04-20 11:14 | PC.SS ---
Ambulance transport scheduled for 01:50 pm to day. [place] to transport. Patient to be picked up and dropped off at [facility] for 02:15 pm appointment. Patient will require nurse rider. TANDEM MILL OPERATOR notified ICU charge nurse and bedside nurse of transport time. TANDEM MILL OPERATOR contacted [facility] TANDEM MILL OPERATOR, no response. Voicemail left with transport time. Transport documentation left on patient's chart.
--- NOTE | 2025-04-20 11:20 | PC.SS ---
AUTO HEATER MECHANIC attempted phone contact with patient's daughter, Matthew Robert ; to provide update on patient's CTC appointment to initiate goals of care meeting. No response. AUTO HEATER MECHANIC left voicemail requesting return call.
--- NOTE | 2025-04-20 11:24 | PC.SS ---
AUTOMATIC FANCY MACHINE OPERATOR received return call from patient's daughter, Lizett Robert. AUTOMATIC FANCY MACHINE OPERATOR confirmed arrangements for patient to receive chemotherapy today. In addition, discussed goals of care discussion. Patient's daughter to be available later this evening at around 05:00 pm. AUTOMATIC FANCY MACHINE OPERATOR informed ICU team of daughter's plan to be present at patient's bedside around 05:00 pm this evening.
--- NOTE | 2025-04-20 15:21 | PD.RESPRO ---
Documentation for date of: 04/20/25 Subjective Subjective Interval history: Patient is a downgrade from ICU received to Team B this morning. Mr. 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 Dee, hepatitis B, right leg DVT s/p IVC filter 04/13/2025 who presented to the ED on 04/19/2025 due to profuse bleeding of the right pelvis sinus. He has recent history of admission for similar bleeding from this wound. Initially presented with Hgb of 6.2, lactic acid 7.0 and concerns for hemodynamic instability. Patient has received 2 units PRBCs and 3L crystalloids since admission. Patient has not needed pressor support. Post Hgb 8.9. Pelvic wound was packed with gauze and bleeding has stopped. Patient was taken for radiation therapy today with Dr. Dee. Patient reports it went well. Plan is to continue radiation therapy once daily until Friday. Will continue antibiotics IV vancomycin and IV Zosyn for sepsis secondary to wound infection. Around 6:30 pm family members arrived for goals of care discussion, I arrived to the room and met patient's brother, daughter, , and father. Additionally patient's sister from the [place] was on the phone. Established patient and family's knowledge on current medical condition and metastatic cancer. Patient made apparent that his goals were to continue full treatment and live as long as he can with meaningful interaction. He wishes to continue with the radiation treatment. Code status discussion was held and the patient was alert and oriented with decision making capacity. He determined that should life-threatening events happen, he would not want aggressive compressions nor to end up on life-support mcfp. However he was ok with shocks and chemical resuscitation. Decision was made to change code status from FULL CODE to Limited Code with shocks and chemical resuscitation OK, no intubation or chest compressions. Decision witnessed by bedside nurses ERMIAS James and ERMIAS Holloway. Patient aware that code status may be changed at any time. Review of systems otherwise negative except what is mentioned above. Exam Vital Signs Temp Pulse Resp BP Pulse Ox O2 Del Method O2 Flow Rate 98.5 F 141 H 18 104/69 100 Room Air 2 04/20/25 12:04/20/25 12:04/20/25 12:04/20/25 12:00 04/20/25 12:00 04/20/25 12:00 04/19/25 19:00 Narrative Exam Physical Exam General: Awake and in no acute distress. Conversational and non-toxic appearing. HEENT: Normocephalic, atraumatic, mucous membranes moist. Heart: Tachycardic rate and regular rhythm, normal S1 and S2, no murmurs. Lungs: Clear to auscultation with no wheezing or crackles. Abdomen: Soft, nondistended, nontender, positive bowel sounds. ?No guarding or rebound tenderness. Neurologic: Alert and oriented x3, no gross neurological deficit, and patient able to move all 4 extremities. Extremities: Dressings on right pelvis, no active bleeding noted. Necrotic right gluteal ulcer wrapping in dressings. Edema of right lower extremity present. Skin: No rash or ecchymoses. Objective Labs 04/21/25 11:38 04/21/25 05:10 Labs: Laboratory Results - last 24 hr 04/19/25 04/19/25 04/19/25 07:48 16:03 16:38 WBC 36.9 H* D RBC 3.08 L Hgb 9.4 L D Hct 27.2 L MCV 88 MCH 30.5 MCHC 34.6 RDW Std Deviation 47.4 H Plt Count 240 D Neut % (Auto) 91 H Lymph % (Auto) 3 L [place] % (Auto) 4 Eos % (Auto) 0 Baso % (Auto) 0 Neut # (Auto) 33.4 H Lymph # (Auto) 0.9 L [place] # (Auto) 1.4 H Eos # (Auto) 0.0 Baso # (Auto) 0.1 Immature Gran # (Auto) 1.00 H Absolute Nucleated RBC 0.00 Immature Gran % 3 H Nucleated RBC % 0 Smear Path Review Sent to Pathologist Sodium Potassium Chloride Carbon Dioxide Anion Gap BUN Creatinine Estim Creat Clear Calc eGFR BUN/Creatinine Ratio Glucose Calculated Osmolality Lactic Acid 5.7 H* Calcium Corrected Calcium Total Bilirubin AST ALT Alkaline Phosphatase Total Protein Albumin Globulin Albumin/Globulin Ratio Blood Type B Positive Antibody Screen NEGATIVE Crossmatch See Detail Blood Bank Wristband ID Yes 04/19/25 04/20/25 04/20/25 20:03 00:24 04:26 WBC 26.2 H D RBC 2.93 L Hgb 8.8 L 8.9 L Hct 24.3 L 24.8 L MCV 85 MCH 30.4 MCHC 35.9 RDW Std Deviation 47.5 H Plt Count 276 D Neut % (Auto) 86 H Lymph % (Auto) 6 L [place] % (Auto) 6 Eos % (Auto) 0 Baso % (Auto) 0 Neut # (Auto) 22.5 H Lymph # (Auto) 1.5 [place] # (Auto) 1.6 H Eos # (Auto) 0.0 Baso # (Auto) 0.1 Immature Gran # (Auto) 0.47 H Absolute Nucleated RBC 0.00 Immature Gran % 2 H Nucleated RBC % 0 Smear Path Review Sodium 135 L Potassium 4.5 D Chloride 103 Carbon Dioxide 19.7 L Anion Gap 12 BUN 16 Creatinine 1.6 H D Estim Creat Clear Calc 41.9 L eGFR 49 L BUN/Creatinine Ratio 10 L Glucose 120 H D Calculated Osmolality 272 L Lactic Acid 5.3 H* Calcium 6.5 L* Corrected Calcium 8.3 L Total Bilirubin 0.7 AST 21 ALT 16 Alkaline Phosphatase 107 Total Protein 4.1 L Albumin 1.7 L Globulin 2.4 Albumin/Globulin Ratio 0.7 L Blood Type Antibody Screen Crossmatch Blood Bank Wristband ID Quality Measures Quality Measures sepsis Current suspected stage: sepsis Possible source: skin/soft tissue Blood cultures ordered: completed in ED Antibiotic ordered: Yes and comfort care/end of life Assessment & Plan Assessment Current Active Medications: Generic Name Dose Route Start Last Admin Trade Name Freq PRN Reason Stop Dose Admin Docusate Sodium 100 mg 04/20/25 09:31 Docusate Sod 100 Mg Capsule PO 05/20/25 09:30 Q12H PRN CONSTIPATION Protocol Hydromorphone HCl 0.5 mg 04/19/25 16:06 04/20/25 08:43 Hydromorphone Inj 2 Mg/Ml Vial IVP 04/24/25 16:05 0.5 mg Q4HR PRN Administration PAIN Piperacillin/Tazobactam/Dextrose 3.375 gm in 50 mls @ 12.5 mls/hr 04/19/25 16:15 04/20/25 05:10 Zosyn IV 04/26/25 16:14 12.5 mls/hr Q8HR BRIAN Administration Vancomycin/Sodium Chloride 750 mg in 150 mls @ 120 mls/hr 04/20/25 22:00 Vancomycin/Ns 750 Mg Ivpb IV 04/27/25 21:59 Q24H BRIAN Protocol Magnesium Hydroxide 30 ml 04/20/25 09:31 Milk Of Magnesia Susp 30 Ml Udc PO 05/20/25 09:30 QDAY PRN CONSTIPATION Protocol Pharmacy Consult 1 each 04/20/25 09:00 Vancomycin Pharmacy To Dose 1 Each Each IV 05/20/25 08:59 QDAY PRN consult Plan Mr. 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 Dee, hepatitis B, right leg DVT s/p IVC filter 04/13/2025 who presented to the ED on 04/19/2025 due to profuse bleeding of the right pelvis sinus admitted to ICU due to concerns for hemodynamic instability. Patient was downgraded to medical floors on 04/20/2025. #Severe sepsis secondary to pelvic wounds #Leukocytosis On admission WBC 26 --> 36.9. Purulent discharge found on pelvic/sacral wounds. Previously patient had been seen by surgery on prior admissions who determined wounds are not amenable to debridement. -Continue IV Zosyn 3.375 g IV q8hy (04/19 - -Continue IV Vancomycin 750mg IV daily (04/19 - -Follow up on blood cultures and monitor CBC #Acute blood loss anemia secondary to pelvic tumor/wounds #Hypovolemic shock, resolved Initially presenting with BP 70/40s -> 110/80s after 3L IVF, maintaining MAP >65 w/o pressor support, s/p 2 unit PRBC infusion given. Hb 6.2 on admission -> 9.4 -> 8.9. Currently wound has stopped bleeding as shown on dressing changes. -Monitor for active bleeding -Patient typed and screened -Monitor H&H closely. Transfusing for Hgb <7 or symptomatic. 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 Dee. Chest CTA showed multiple pulmonary nodules. Rad Oncology Dr Dee was contacted as [facility]. Pending discussion with family, patient comprehends fully that the prognosis is poor but is open to palliative radiation for pain and bleeding control. -Continue palliative treatment for Stage IV pleomorphic sarcoma -Dr Dee consulted and following, continue radiation therapy as scheduled -PRN 0.5 Dilaudid q4H for pain control -SCDs on left leg only -Goals of care discussion held today, patient switched from FULL to Limited Code, no compressions or intubation, shocks ok #LACHO, likely prerenal Creatinine increased to 1.6 from baseline 1.0, may have had ischemia secondary to sepsis leading to prerenal LACHO, may develop into ATN -Monitor renal function, urine output -Restarting IV fluids at a rate of 60 ml/hr for 2 bags #Sinus tachycardia Currently rate remains in the 100-110 range, likely secondary to sepsis. -Restarting IV fluids at a rate of 60 ml/hr for 2 bags -PRN Dilaudid for pain control #Lactic acidosis, improving Lactic acid 7 on admission, peaked at 16. Likely mixed type lactic acidosis at this point, clinically patient appears to be perfusing well. -Continue fluids and encourage oral intake, monitor BP #Constipation Patient was reporting last BM >[address] showed abundant stool throughout colon. Could be opioid induced. -Milk of Mag PRN ordered -Dulcolax tabs PRN #Hx of hepatitis B #Hypoabuminemia Hepatitis B antigen positive, Albumin 2 -> 1.7 -Currently not receiving any treatment for Hep B -[facility] following -Ensure plus and Jagdeep supplementation #Right common femoral vein thrombus s/p IVC filter placement 04/13 Patient unable to be anticoagulated due to active/recurrent bleeding. DVT prophylaxis: None GI prophylaxis: Not indicated Diet: Full liquid [place]: None Lines: Peripheral IV Antibiotics: Vancomycin [04/19/2025- ], Zosyn [04/19/2025- ] CODE STATUS: FULL Reason for hospitalization: Severe sepsis secondary to pelvic wounds Patient plan of care was discussed with the attending physician, Dr. Saldivar. Anitha Amador, PGY-2 Attending Provider Attestation/Addendum I attest that I was physically present for the evaluation, physical examination, lab and imaging review of the patient with the residents. I discussed the case with the residents and agree with the findings and plans of care as documented above. At bedside today, patient states he is feeling well except for pain around his wound. Vital signs are stable. Lab results show improvement in WBC, sodium of 135, creatinine 1.6 from 1.0 yesterday. Underwent radiation therapy with oncology. Patient is planned for further sessions of radiation therapy until Friday. Family meeting was held regarding goals of care, decision was made to change the CODE STATUS from full code to limited code with no chest compressions and no intubation, only okay with shocks chemical resuscitation. Continues to be on broad-spectrum antibiotics. Started on gentle IV hydration for LACHO, we will monitor closely. Registered dietitian following for nutritional deficiency. Unable to continue anticoagulation due to blood loss anemia. Iris Saldivar MD
--- NOTE | 2025-04-20 15:40 | ESPR_ITS ---
Documentation for date of: 04/20/25 Subjective Subjective Interval history: Patient who was discharged and expected to get outpatient radiation therapy had to be readmitted with acute blood loss hemoglobin 6.2 and elevated white count of 36.9. Received packed cells and antibiotics being monitored at the ICU. Exam Vital Signs Temp Pulse Resp BP Pulse Ox O2 Del Method O2 Flow Rate 98.5 F 141 H 18 104/69 100 Room Air 2 04/20/25 12:00 04/20/25 12:00 04/20/25 12:00 04/20/25 12:00 04/20/25 12:00 04/20/25 12:00 04/19/25 19:00 Narrative Exam Appearing comfortable this p.m. following 2 additional units of packed cells and receiving antibiotics. Objective Labs 04/20/25 04:26 04/20/25 04:26 Labs: Laboratory Results - last 24 hr 04/19/25 04/19/25 04/19/25 07:48 16:03 16:38 WBC 36.9 H* D RBC 3.08 L Hgb 9.4 L D Hct 27.2 L MCV 88 MCH 30.5 MCHC 34.6 RDW Std Deviation 47.4 H Plt Count 240 D Neut % (Auto) 91 H Lymph % (Auto) 3 L [place] % (Auto) 4 Eos % (Auto) 0 Baso % (Auto) 0 Neut # (Auto) 33.4 H Lymph # (Auto) 0.9 L [place] # (Auto) 1.4 H Eos # (Auto) 0.0 Baso # (Auto) 0.1 Immature Gran # (Auto) 1.00 H Absolute Nucleated RBC 0.00 Immature Gran % 3 H Nucleated RBC % 0 Smear Path Review Sent to Pathologist Sodium Potassium Chloride Carbon Dioxide Anion Gap BUN Creatinine Estim Creat Clear Calc eGFR BUN/Creatinine Ratio Glucose Calculated Osmolality Lactic Acid 5.7 H* Calcium Corrected Calcium Total Bilirubin AST ALT Alkaline Phosphatase Total Protein Albumin Globulin Albumin/Globulin Ratio Blood Type B Positive Antibody Screen NEGATIVE Crossmatch See Detail Blood Bank Wristband ID Yes 04/19/25 04/20/25 04/20/25 20:03 00:24 04:26 WBC 26.2 H D RBC 2.93 L Hgb 8.8 L 8.9 L Hct 24.3 L 24.8 L MCV 85 MCH 30.4 MCHC 35.9 RDW Std Deviation 47.5 H Plt Count 276 D Neut % (Auto) 86 H Lymph % (Auto) 6 L [place] % (Auto) 6 Eos % (Auto) 0 Baso % (Auto) 0 Neut # (Auto) 22.5 H Lymph # (Auto) 1.5 [place] # (Auto) 1.6 H Eos # (Auto) 0.0 Baso # (Auto) 0.1 Immature Gran # (Auto) 0.47 H Absolute Nucleated RBC 0.00 Immature Gran % 2 H Nucleated RBC % 0 Smear Path Review Sodium 135 L Potassium 4.5 D Chloride 103 Carbon Dioxide 19.7 L Anion Gap 12 BUN 16 Creatinine 1.6 H D Estim Creat Clear Calc 41.9 L eGFR 49 L BUN/Creatinine Ratio 10 L Glucose 120 H D Calculated Osmolality 272 L Lactic Acid 5.3 H* Calcium 6.5 L* Corrected Calcium 8.3 L Total Bilirubin 0.7 AST 21 ALT 16 Alkaline Phosphatase 107 Total Protein 4.1 L Albumin 1.7 L Globulin 2.4 Albumin/Globulin Ratio 0.7 L Blood Type Antibody Screen Crossmatch Blood Bank Wristband ID Assessment & Plan A&P Narrative 1. Stage IV metastatic sarcoma continued blood loss right pelvis admitted to ICU for monitoring. 2. Will attempt to initiate radiation therapy today and to continue for the next 3 days which hopefully will reduce bleeding significantly by Friday. 3. The plan is for patient to get 10 fractions or 3000 cGy, and will try to arrange for patient to receive this as outpatient once he leaves the hospital. Time Spent With Patient Time: Total time spent is greater than 50% in coordination of care (as documented) at patient's floor/unit and/or counseling patient:
--- NOTE | 2025-04-20 16:10 | PC.NURSE ---
at 1404, pt transported to [facility] for radiation treatment, pt transported via EMS with RN at [facility] with patient, monitor off at 1417, for procedure, see transfer flow sheet for transportation vitals, pt tolerated well, pt transported back to room 256 and pt vitals completed
--- NOTE | 2025-04-20 16:20 | PC.NURSE ---
Report received from ERMIAS Diego, patient to room in stable condition.
--- NOTE | 2025-04-20 16:21 | PC.SS ---
Update: Patient completed chemotherapy session today. On room air. P.O. feeds in place. Patient to downgrade to [facility].
--- NOTE | 2025-04-20 17:15 | PC.SS ---
[place] transport scheduled for 04-21-25 at 1:50 pm. Patient to be transported to [facility] for 02:15 pm chemotherapy appointment. Patient will require nurse to accompany on transport. [place] transport will wait and return. Transport documentation to be provided to town planner. [place] transport scheduled for 04-22-25 at 9:35 pm. Patient to be transported to [facility] for 10:00 am chemotherapy appointment. Patient will require nurse to accompany on transport. [place] transport will wait and return. Transport documentation to be provided to town planner.
[2025-04-20] MEDS: SODIUM CHLORIDE 0.9% 1000 ML 1,000 ML 60 ML IV (18:09)
[2025-04-20] MEDS: VANCOMYCIN/NS 750 MG IVPB 750 MG/150 ML BAG 120 MG IV (21:39)
[2025-04-21] VITALS (19 sets, daily range): BP systolic 81–99; BP diastolic 50–74; PULSE 78–153; RESP 15–99; TEMP 36.2–36.5; O2SAT 97–100; BMI 22.8
[2025-04-21] MEDS: PIPER/TAZO 3.375 GM PREMIX 3.375 GM/50 ML BAG IV ×3 (05:09→22:14)
[2025-04-21 06:00] LABS: Alanine Aminotransferase 14 U/L (10-49); Albumin, Serum 1.6 gm/dL (3.4-4.8); Albumin/Globulin Ratio 0.7 (1.2-2.2); Alkaline Phosphatase 105 U/L (46-116); Anion Gap 11 (7-16); Aspartate Amino Transferase 21 U/L (0-34); BUN/Creatinine Ratio 14 Ratio (12-20); Bilirubin,Total 0.4 mg/dL (0.3-1.2); Blood Urea Nitrogen 19 mg/dL (9-23); Calcium (Corrected) 8.4 mg/dL (8.5-10.1); Carbon Dioxide 21.9 mMol/L (20.0-31.0); Chloride 102 mMol/L (98-107); Creatinine (Component) 1.4 mg/dL (0.6-1.3); Estimated Creatinine Clearance 47.9 mL/min (>60); Globulin 2.2 gm/dL (2.3-3.5); Glucose 95 mg/dL (74-106); Magnesium 1.8 mg/dL (1.6-2.6); Osmolality,Calculated 272 (275-295); Potassium 3.7 mMol/L (3.4-5.1); Sodium 135 mMol/L (136-145); Total Protein 3.8 gm/dL (5.7-8.2); eGFR 58 See Note
[2025-04-21 06:02] LABS: Basophils % (Auto) 0 % (0-2.5); Eosinophils # (Auto) 0.1 Thou/mm3 (0.0-0.5); Eosinophils % (Auto) 0 % (0-10); Immature Granulocytes % (Auto) 2 % (0-0); Immature Granulocytes Auto 0.61 Thou/mm3 (0.00-0.00); Lymphocytes # (Auto) 1.1 Thou/mm3 (1.0-4.8); Lymphocytes % (Auto) 4 % (10-50); Mean Corpuscular Hemoglobin 30.2 pg (25.0-35.0); Mean Corpuscular Volume 86 fL (80-100); Monocytes # (Auto) 1.3 Thou/mm3 (0.0-0.8); Monocytes % (Auto) 5 % (0-12); Neutrophils # (Auto) 23.9 Thou/mm3 (1.8-7.7); Neutrophils % (Auto) 88 % (37-80); Nucleated Red Blood Cell % 0 /100 WBC (0); Platelet Count 304 Thou/mm3 (140-440); RDW Standard Deviation 50.9 fL (35.1-43.9); Red Blood Count 2.12 Miln/mm3 (4.50-5.90)
[2025-04-21 06:07] LABS: Hematocrit 18.3 % (41.0-53.0); Hemoglobin 6.4 g/dL (13.5-16.0)
[2025-04-21 06:13] LABS: Calcium 6.5 mg/dL (8.3-10.6)
--- NOTE | 2025-04-21 07:32 | PD.ONCPROG ---
Documentation for date of: 04/21/25 Subjective Subjective Interval history: Patient's oozing has slowed after last transfusion of 2 days ago, and hemoglobin 10 this a.m. Completed 3 fractions to the right pelvic area last week. Exam Vital Signs Temp Pulse Resp BP Pulse Ox O2 Del Method O2 Flow Rate 97.5 F 95 16 94/56 L 97 Room Air 2 04/21/25 04:00 04/21/25 04:00 04/21/25 04:00 04/21/25 04:00 04/21/25 04:00 04/21/25 04:00 04/19/25 19:00 Narrative Exam Appears comfortable this a.m. Objective Labs 04/25/25 04:59 04/25/25 04:59 Labs: Laboratory Results - last 24 hr 04/21/25 05:10 WBC 27.0 H RBC 2.12 L Hgb 6.4 L* D Hct 18.3 L* MCV 86 MCH 30.2 MCHC 35.0 RDW Std Deviation 50.9 H Plt Count 304 Neut % (Auto) 88 H Lymph % (Auto) 4 L [place] % (Auto) 5 Eos % (Auto) 0 Baso % (Auto) 0 Neut # (Auto) 23.9 H Lymph # (Auto) 1.1 [place] # (Auto) 1.3 H Eos # (Auto) 0.1 Baso # (Auto) 0.0 Immature Gran # (Auto) 0.61 H Absolute Nucleated RBC 0.00 Immature Gran % 2 H Nucleated RBC % 0 Sodium 135 L Potassium 3.7 D Chloride 102 Carbon Dioxide 21.9 Anion Gap 11 BUN 19 Creatinine 1.4 H Estim Creat Clear Calc 47.9 L eGFR 58 L BUN/Creatinine Ratio 14 Glucose 95 Calculated Osmolality 272 L Calcium 6.5 L* Corrected Calcium 8.4 L Magnesium 1.8 Total Bilirubin 0.4 AST 21 ALT 14 Alkaline Phosphatase 105 Total Protein 3.8 L Albumin 1.6 L Globulin 2.2 L Albumin/Globulin Ratio 0.7 L Assessment & Plan A&P Narrative 1. Stage IV metastatic sarcoma continued blood loss right pelvis admitted with sepsis bleeding. 2. Bleeding has slowed with 3 fractions of radiation to the right pelvis, awaiting transfer to tertiary hospital for possible embolization procedure. 3. Will withhold treatment today, possible resuming tomorrow if bleeding severe, and/or tertiary hospital transfer is delayed. Time Spent With Patient Time: Total time spent is greater than 50% in coordination of care (as documented) at patient's floor/unit and/or counseling patient:
--- NOTE | 2025-04-21 10:35 | PC.SS ---
Addendum entered by PAULO Omalley 04/21/25 15:45: Rounding note: continued treating. Hemoglobin is low. Continued radiation at [facility]. Transport has already been arranged for tomorrow at 9:45am via [facility] to [facility]. Anticipate d/c over the weekend back home. Addendum entered by PAULO Omalley 04/21/25 11:20: Patient was made aware of the transport time to [facility] for today. Original Note: SS follow up: patient to be transported to [facility] by [facility] at 1:50pm for his 2:15pm appointment. Bed side-RN Sophie is aware. Ambulance paperwork in patient's chart.
--- NOTE | 2025-04-21 11:23 | PC.SS ---
Initial assessment: patient is a 59-year old male, ICU downgrade for unstable blood loss anemia. Patient was able to confirm demographic information. Patient informs he lives at home with spouse, Shira. Patient confirmed the demographic information. Patient informs on last admission he received a wheelchair and armando lift, patient requires assistance with ADL's from his spouse. Patient informs in case of an emergency his daughter, Lizett could be contacted. Patient informs he is followed by Dr. Dee at [facility] and different providers at [facility], one being Dr. Jorge. Patient informs a GO discussion was held yesterday and he changed his code status to limited code. Patient declined hospice services. Patient was previously aligned with [facility] home health and wishes to continue at discharge. Patient informs his family is able to transport him home at discharge. D/c plan: Home health Next of kin: daughter, Lizett
[2025-04-21] MEDS: HYDROcodone/APAP 5/325 TABLET 1 TAB PO ×2 (12:55→21:18)
[2025-04-21] MEDS: SODIUM CHLORIDE 0.9% 1000 ML 1,000 ML 100 ML IV ×2 (12:55→23:59)
[2025-04-21 12:57] LABS: Hemoglobin 7.1 g/dL (13.5-16.0)
--- NOTE | 2025-04-21 15:02 | ESPR_ITS ---
Documentation for date of: 04/21/25 Subjective Subjective Interval history: This morning Hgb level dropped to 6.4 therefore night team ordered 2 PRBC and transfused 1.?Patient seen and examined at bedside this AM.?He reports continued right leg pain, otherwise no other symptoms. Patient was encouraged to ask for pain medications if it helps him. Labs and vitals were reviewed.?Blood cultures negative 48 hours. BP is soft so fluids were increased to 100 ml/hr. Hgb after 1 PRBC was 7.1, order given to transfuse the 2nd unit. Patient scheduled to go to [facility] for radiation today at 2:15. No significant bleeding noted from the right sacral and pelvic wound site. Will continue to monitor closely. Review of systems otherwise negative except what is mentioned above. Exam Vital Signs Temp Pulse Resp BP Pulse Ox O2 Del Method O2 Flow Rate 97.6 F 95 18 90/53 L 99 Room Air 2 04/21/25 12:00 04/21/25 12:36 04/21/25 12:36 04/21/25 12:00 04/21/25 12:00 04/21/25 12:00 04/19/25 19:00 Narrative Exam Physical Exam General: Awake and in no acute distress. Conversational and non-toxic appearing. HEENT: Normocephalic, atraumatic, mucous membranes moist. Heart: Tachycardic rate and regular rhythm, normal S1 and S2, no murmurs. Lungs: Clear to auscultation with no wheezing or crackles. Abdomen: Soft, nondistended, nontender, positive bowel sounds. ?No guarding or rebound tenderness. Neurologic: Alert and oriented x3, no gross neurological deficit, and patient able to move all 4 extremities. Extremities: Dressings on right pelvis, no active bleeding noted. Necrotic right gluteal ulcer wrapping in dressings. Edema of right lower extremity present. Skin: No rash or ecchymoses. Objective Labs 04/22/25 04:54 04/22/25 04:54 Labs: Laboratory Results - last 24 hr 04/19/25 04/21/25 04/21/25 07:48 05:10 11:38 WBC 27.0 H RBC 2.12 L Hgb 6.4 L* D 7.1 L Hct 18.3 L* 20.0 L* MCV 86 MCH 30.2 MCHC 35.0 RDW Std Deviation 50.9 H Plt Count 304 Neut % (Auto) 88 H Lymph % (Auto) 4 L [place] % (Auto) 5 Eos % (Auto) 0 Baso % (Auto) 0 Neut # (Auto) 23.9 H Lymph # (Auto) 1.1 [place] # (Auto) 1.3 H Eos # (Auto) 0.1 Baso # (Auto) 0.0 Immature Gran # (Auto) 0.61 H Absolute Nucleated RBC 0.00 Immature Gran % 2 H Nucleated RBC % 0 Sodium 135 L Potassium 3.7 D Chloride 102 Carbon Dioxide 21.9 Anion Gap 11 BUN 19 Creatinine 1.4 H Estim Creat Clear Calc 47.9 L eGFR 58 L BUN/Creatinine Ratio 14 Glucose 95 Calculated Osmolality 272 L Calcium 6.5 L* Corrected Calcium 8.4 L Magnesium 1.8 Total Bilirubin 0.4 AST 21 ALT 14 Alkaline Phosphatase 105 Total Protein 3.8 L Albumin 1.6 L Globulin 2.2 L Albumin/Globulin Ratio 0.7 L Blood Type B Positive Antibody Screen NEGATIVE Crossmatch See Detail Blood Bank Wristband ID Yes Quality Measures Quality Measures sepsis Current suspected stage: sepsis Possible source: skin/soft tissue Blood cultures ordered: completed in ED Antibiotic ordered: Yes and comfort care/end of life Assessment & Plan Assessment Current Active Medications: Generic Name Dose Route Start Last Admin Trade Name Freq PRN Reason Stop Dose Admin Hydrocodone Bitart/Acetaminophen 1 tab 04/21/25 10:30 04/21/25 12:55 Hydrocodone/Apap 5/325 Tablet PO 04/26/25 10:29 1 tab Q4HR PRN Administration PAIN SCALE 4-6 Docusate Sodium 100 mg 04/20/25 09:31 Docusate Sod 100 Mg Capsule PO 05/20/25 09:30 Q12H PRN CONSTIPATION Protocol Hydromorphone HCl 0.5 mg 04/19/25 16:06 04/20/25 22:16 Hydromorphone Inj 2 Mg/Ml Vial IVP 04/24/25 16:05 0.5 mg Q4HR PRN Administration PAIN Protocol Piperacillin/Tazobactam/Dextrose 3.375 gm in 50 mls @ 12.5 mls/hr 04/19/25 16:15 04/21/25 05:09 Zosyn IV 04/26/25 16:14 12.5 mls/hr Q8HR BRIAN Administration Vancomycin/Sodium Chloride 750 mg in 150 mls @ 120 mls/hr 04/20/25 22:00 04/20/25 21:39 Vancomycin/Ns 750 Mg Ivpb IV 04/27/25 21:59 120 mls/hr Q24H BRIAN Administration Protocol Sodium Chloride 1,000 mls @ 100 mls/hr 04/21/25 09:21 04/21/25 12:55 Ns IV 04/22/25 05:20 100 mls/hr .Q10H BRIAN Administration Magnesium Hydroxide 30 ml 04/20/25 09:31 Milk Of Magnesia Susp 30 Ml Udc PO 05/20/25 09:30 QDAY PRN CONSTIPATION Protocol Pharmacy Consult 1 each 04/20/25 09:00 Vancomycin Pharmacy To Dose 1 Each Each IV 05/20/25 08:59 QDAY PRN consult Plan Mr. 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 Dee, hepatitis B, right leg DVT s/p IVC filter 04/13/2025 who presented to the ED on 04/19/2025 due to profuse bleeding of the right pelvis sinus admitted to ICU due to concerns for hemodynamic instability. Patient was downgraded to medical floors on 04/20/2025. #Severe sepsis secondary to pelvic wounds #Leukocytosis On admission WBC 26 --> 36.9. Purulent discharge found on pelvic/sacral wounds. Previously patient had been seen by surgery on prior admissions who determined wounds are not amenable to debridement. Blood cultures negative 48 hours. -Continue IV Zosyn 3.375 g IV q8h (04/19 - -Continue IV Vancomycin 750mg IV daily (04/19 - #Acute blood loss anemia secondary to pelvic tumor/wounds #Hypovolemic shock, resolved Initially presenting with BP 70/40s -> 110/80s after 3L IVF, maintaining MAP >65 w/o pressor support, s/p 2 unit PRBC infusion given. Hb 6.2 on admission -> 9.4 -> 8.9. Currently wound has stopped bleeding as shown on dressing changes. 04/21/2025: 2 PRBC tranfusion -Monitor for active bleeding -Patient typed and screened -Monitor H&H closely. Transfusing for Hgb <7 or symptomatic. 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 Dee. Chest CTA showed multiple pulmonary nodules. Rad Oncology Dr Dee was contacted as [facility]. Pending discussion with family, patient comprehends fully that the prognosis is poor but is open to palliative radiation for pain and bleeding control. -Continue palliative treatment for Stage IV pleomorphic sarcoma -Dr Dee consulted and following, continue radiation therapy as scheduled until Friday -Hydrocodone-acetaminophen 5-325 mg q4h prn -Dilaudid 0.5 mg q4H for pain control -SCDs on left leg only -Wound care following #LACHO, likely prerenal Creatinine increased to 1.6 from baseline 1.0, may have had ischemia secondary to sepsis leading to prerenal LACHO, may develop into ATN -Monitor renal function, urine output -Increased IV fluids to a rate of 100 ml/hr #Sinus tachycardia Currently rate remains in the 100-110 range, likely secondary to sepsis. -Treatment as above #Lactic acidosis, improving Lactic acid 7 on admission, peaked at 16. Likely mixed type lactic acidosis at this point, clinically patient appears to be perfusing well. -Continue fluids and encourage oral intake, monitor BP #Constipation Patient was reporting last BM >[address] showed abundant stool throughout colon. Could be opioid induced. -Milk of Mag PRN -Dulcolax tabs PRN #Hx of hepatitis B #Hypoabuminemia Hepatitis B antigen positive, Albumin 2 -> 1.7 -Currently not receiving any treatment for Hep B -Funeral Arranger following -Ensure plus and Jagdeep supplementation #Right common femoral vein thrombus s/p IVC filter placement 04/13 Patient unable to be anticoagulated due to active/recurrent bleeding. DVT prophylaxis: None GI prophylaxis: Not indicated Diet: Full liquid [place]: None Lines: Peripheral IV Antibiotics: Vancomycin [04/19/2025- ], Zosyn [04/19/2025- ] CODE STATUS: FULL Reason for hospitalization: Severe sepsis secondary to pelvic wounds Patient plan of care was discussed with the attending physician, Dr. Saldivar. Anitha Amador, PGY-2 Attending Provider Attestation/Addendum I attest that I was physically present for the evaluation, physical examination, lab and imaging review of the patient with the residents. I discussed the case with the residents and agree with the findings and plans of care as documented above. At bedside today, patient continues to complain of pain around his sacral region. Continues to be on analgesic regimen. Hemoglobin level this morning dropped to 6.4, 2 units of PRBC has been ordered and getting transfused. Blood pressure will was soft, IV hydration increased to 100 cc/h. BUN/creatinine of 19/1.4 today, slight improvement compared to yesterday. Patient had another session of radiation therapy with oncology today. Plan for another session tomorrow. Blood cultures have been negative for more than 48 hours. Continues to be on IV antibiotics. Iris Saldivar MD
--- NOTE | 2025-04-21 16:36 | PC.SS ---
PHYSICAL ANTHROPOLOGIST informed by transfer nurse that request for 2nd PCS form needed to initiate patient?s return transport from [facility].? Dispatch contacted to confirm need for 2nd PCS form.? Dispatch staff, [place]; confirmed that second PCS form not required for patient?s return transport.? PHYSICAL ANTHROPOLOGIST notified [facility] staff, Kaitlynn.?
--- NOTE | 2025-04-21 20:03 | EKG_ITS ---
[facility] Test Date: 2025-04-21 Pat Name: DULCE MARIA TSAI Department: Room: [facility] Gender: Male Building Equipment Operator: REJI : 1965 Requested By: Rogelio Jorge Order Number: [id number] Reading MD: Rogelio Jorge Measurements Intervals [place] Rate: 99 P: 49 NM: 168 QRS: 78 QRSD: 95 T: 65 QT: 294 QTc: 377 Interpretive Statements SINUS RHYTHM WARNING: DATA QUALITY MAY AFFECT INTERPRETATION No previous ECG available for comparison /store/S0/[id number].pdf
[2025-04-21 20:52] LABS: Hematocrit 27.2 % (41.0-53.0); Hemoglobin 9.5 g/dL (13.5-16.0)
[2025-04-21 22:08] LABS: Vancomycin,Trough 16.2 mcg/mL (5.0-10.0)
[2025-04-21] MEDS: VANCOMYCIN/NS 750 MG IVPB 750 MG/150 ML BAG 120 MG IV (22:45)
[2025-04-22] VITALS (17 sets, daily range): BP systolic 90–110; BP diastolic 61–91; PULSE 75–126; RESP 16–98; TEMP 36.1–36.4; O2SAT 91–100; BMI 22.8
[2025-04-22] MEDS: HYDROcodone/APAP 5/325 TABLET 1 TAB PO ×2 (05:50→10:58)
[2025-04-22] MEDS: PIPER/TAZO 3.375 GM PREMIX 3.375 GM/50 ML BAG IV ×3 (05:53→23:08)
[2025-04-22 06:01] LABS: Basophils # (Auto) 0.1 Thou/mm3 (0.0-0.2); Basophils % (Auto) 0 % (0-2.5); Eosinophils # (Auto) 0.2 Thou/mm3 (0.0-0.5); Eosinophils % (Auto) 1 % (0-10); Hematocrit 23.8 % (41.0-53.0); Immature Granulocytes % (Auto) 2 % (0-0); Immature Granulocytes Auto 0.51 Thou/mm3 (0.00-0.00); Lymphocytes # (Auto) 0.9 Thou/mm3 (1.0-4.8); Lymphocytes % (Auto) 4 % (10-50); Mean Corpuscular HGB Conc 35.3 g/dl (31.0-37.0); Mean Corpuscular Volume 85 fL (80-100); Monocytes % (Auto) 4 % (0-12); Neutrophils # (Auto) 23.7 Thou/mm3 (1.8-7.7); Neutrophils % (Auto) 90 % (37-80); Nucleated Red Blood Cell % 0 /100 WBC (0); Platelet Count 284 Thou/mm3 (140-440); RDW Standard Deviation 50.4 fL (35.1-43.9); White Blood Count 26.3 Thou/mm3 (3.8-10.6)
[2025-04-22 06:04] LABS: Hemoglobin 8.4 g/dL (13.5-16.0)
[2025-04-22 06:17] LABS: Alanine Aminotransferase 16 U/L (10-49); Albumin, Serum 1.7 gm/dL (3.4-4.8); Albumin/Globulin Ratio 0.8 (1.2-2.2); Alkaline Phosphatase 122 U/L (46-116); Anion Gap 9 (7-16); Aspartate Amino Transferase 25 U/L (0-34); BUN/Creatinine Ratio 14 Ratio (12-20); Bilirubin,Total 0.9 mg/dL (0.3-1.2); Blood Urea Nitrogen 14 mg/dL (9-23); Calcium (Corrected) 8.8 mg/dL (8.5-10.1); Chloride 100 mMol/L (98-107); Estimated Creatinine Clearance 75.8 mL/min (>60); Globulin 2.1 gm/dL (2.3-3.5); Glucose 85 mg/dL (74-106); Osmolality,Calculated 264 (275-295); Potassium 2.9 mMol/L (3.4-5.1); Sodium 132 mMol/L (136-145); Total Protein 3.8 gm/dL (5.7-8.2); eGFR > 60 See Note
[2025-04-22] MEDS: POTASSIUM CHLORIDE 10% 20 MEQ/15 ML UDC 40 MEQ PO (08:35)
[2025-04-22] MEDS: POTASSIUM CHL 10 mEq IVPB 10 MEQ/100 ML BAG 100 MEQ IV (08:37)
--- NOTE | 2025-04-22 08:37 | PC.SS ---
SS follow up: [facility] at 9:45am for his 10am appointment. Bed side-RN Rocio and charge nurse Ginger is aware. RN will need to travel with the patient during ride. Ambulance paperwork in patient's chart.
--- NOTE | 2025-04-22 09:37 | PC.NURSE ---
0933, patient transfer to [facility] via gurney accompanied by ambulance staff and Ann RN, secured entrance monitor on, pt is alert and oriented x3.
--- NOTE | 2025-04-22 10:34 | PC.NURSE ---
1030, patient back in his room alert and oriented x3, denies n/v, pain. quality assurance monitor tech made aware.
--- NOTE | 2025-04-22 12:03 | PC.NURSE ---
Doctor rounding, pt assess at bedtime POC discussed, Dr. Jamil to put in orders.
[2025-04-22] MEDS: Magnesium Sulfate 2 GM Ivpb 2 GM/50 ML BAG IV (12:08)
[2025-04-22] MEDS: POTASSIUM CHLORIDE 10% 20 MEQ/15 ML UDC PO (12:08)
[2025-04-22] MEDS: HYDROmorphone INJ 2 MG/ML VIAL 0.5 MG IVP ×2 (12:17→23:07)
--- NOTE | 2025-04-22 13:20 | ESPR_ITS ---
Documentation for date of: 04/22/25 Subjective Subjective Interval history: Patient seen and examined at bedside. Overnight patient continues to have bleeding from the sacral region. Per nurse at bedside, patient continues to have significant bleeding, will repeat H&H later today. Patient's potassium was found to be 2.9 this morning, repleted potassium. Will repeat potassium and magnesium later today as well. Patient continues to get radiation therapy. Will discuss with oncology in a.m. Patient complains of pain, will increase [place] dose. If patient continues to have bleeding and clinical deterioration, will have goals of care discussion in the morning Exam Vital Signs Temp Pulse Resp BP Pulse Ox O2 Del Method O2 Flow Rate 97.4 F 75 17 100/80 91 L Room Air 2 04/22/25 11:56 04/22/25 11:56 04/22/25 11:56 04/22/25 11:56 04/22/25 11:56 04/22/25 11:56 04/19/25 19:00 Narrative Exam Physical Exam General: Awake and in no acute distress. Conversational and non-toxic appearing. HEENT: Normocephalic, atraumatic, mucous membranes moist. Heart: Tachycardic rate and regular rhythm, normal S1 and S2, no murmurs. Lungs: Clear to auscultation with no wheezing or crackles. Abdomen: Soft, nondistended, nontender, positive bowel sounds. ?No guarding or rebound tenderness. Neurologic: Alert and oriented x3, no gross neurological deficit, and patient able to move all 4 extremities. Extremities: Dressings on right pelvis, no active bleeding noted. Necrotic right gluteal ulcer wrapping in dressings. Edema of right lower extremity present. Skin: No rash or ecchymoses. Objective Labs 04/23/25 04:40 04/23/25 04:40 Labs: Laboratory Results - last 24 hr 04/19/25 04/21/25 04/22/25 07:48 20:40 04:54 WBC 26.3 H RBC 2.80 L Hgb 9.5 L D 8.4 L Hct 27.2 L 23.8 L MCV 85 MCH 30.0 MCHC 35.3 RDW Std Deviation 50.4 H Plt Count 284 Neut % (Auto) 90 H Lymph % (Auto) 4 L [place] % (Auto) 4 Eos % (Auto) 1 Baso % (Auto) 0 Neut # (Auto) 23.7 H Lymph # (Auto) 0.9 L [place] # (Auto) 1.0 H Eos # (Auto) 0.2 Baso # (Auto) 0.1 Immature Gran # (Auto) 0.51 H Absolute Nucleated RBC 0.00 Immature Gran % 2 H Nucleated RBC % 0 Sodium 132 L Potassium 2.9 L D Chloride 100 Carbon Dioxide 23.0 Anion Gap 9 BUN 14 Creatinine 1.0 Estim Creat Clear Calc 75.8 eGFR > 60 BUN/Creatinine Ratio 14 Glucose 85 Calculated Osmolality 264 L Calcium 7.0 L Corrected Calcium 8.8 Total Bilirubin 0.9 D AST 25 ALT 16 Alkaline Phosphatase 122 H Total Protein 3.8 L Albumin 1.7 L Globulin 2.1 L Albumin/Globulin Ratio 0.8 L Vancomycin Trough 16.2 H Blood Type B Positive Antibody Screen NEGATIVE Crossmatch See Detail Blood Bank Wristband ID Yes Quality Measures Quality Measures sepsis Current suspected stage: ruled out Possible source: skin/soft tissue Blood cultures ordered: completed in ED Antibiotic ordered: Yes and comfort care/end of life Assessment & Plan Assessment Current Active Medications: Generic Name Dose Route Start Last Admin Trade Name Freq PRN Reason Stop Dose Admin Hydrocodone Bitart/Acetaminophen 1 tab 04/22/25 11:22 Hydrocodone/Apap 10/325 Tab PO 04/27/25 11:21 Q4HR PRN PAIN SCALE 4-6 (Moderate Docusate Sodium 100 mg 04/20/25 09:31 Docusate Sod 100 Mg Capsule PO 05/20/25 09:30 Q12H PRN CONSTIPATION Protocol Hydromorphone HCl 0.5 mg 04/19/25 16:06 04/22/25 12:17 Hydromorphone Inj 2 Mg/Ml Vial IVP 04/24/25 16:05 0.5 mg Q4HR PRN Administration PAIN Protocol Piperacillin/Tazobactam/Dextrose 3.375 gm in 50 mls @ 12.5 mls/hr 04/19/25 16:15 04/22/25 05:53 Zosyn IV 04/26/25 16:14 12.5 mls/hr Q8HR BRIAN Administration Vancomycin/Sodium Chloride 750 mg in 150 mls @ 120 mls/hr 04/20/25 22:00 04/22/25 00:00 Vancomycin/Ns 750 Mg Ivpb IV 04/27/25 21:59 Infused Q24H BRIAN Infusion Protocol Magnesium Sulfate 2 gm in 50 mls @ 25 mls/hr 04/22/25 11:25 04/22/25 12:08 Magnesium Sulfate Ivpb IV 04/22/25 13:24 25 mls/hr X1 ONE Administration Magnesium Hydroxide 30 ml 04/20/25 09:31 Milk Of Magnesia Susp 30 Ml Udc PO 05/20/25 09:30 QDAY PRN CONSTIPATION Protocol Pharmacy Consult 1 each 04/20/25 09:00 Vancomycin Pharmacy To Dose 1 Each Each IV 05/20/25 08:59 QDAY PRN consult Plan Mr. 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 eDe, hepatitis B, right leg DVT s/p IVC filter 04/13/2025 who presented to the ED on 04/19/2025 due to profuse bleeding of the right pelvis sinus admitted to ICU due to concerns for hemodynamic instability. Patient was downgraded to medical floors on 04/20/2025. #Severe sepsis secondary to pelvic wounds #Leukocytosis On admission WBC 26 --> 36.9. Purulent discharge found on pelvic/sacral wounds. Previously patient had been seen by surgery on prior admissions who determined wounds are not amenable to debridement. Blood cultures negative 48 hours. -Continue IV Zosyn 3.375 g IV q8h (04/19 - -Continue IV Vancomycin 750mg IV daily (04/19 - #Acute blood loss anemia secondary to pelvic tumor/wounds #Hypovolemic shock, resolved Initially presenting with BP 70/40s -> 110/80s after 3L IVF, maintaining MAP >65 w/o pressor support, s/p 2 unit PRBC infusion given. Hb 6.2 on admission -> 9.4 -> 8.9. Currently wound has stopped bleeding as shown on dressing changes. 04/21/2025: 2 PRBC tranfusion -Monitor for active bleeding -Patient typed and screened -Monitor H&H closely. Transfusing for Hgb <7 or symptomatic. 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 Dee. Chest CTA showed multiple pulmonary nodules. Rad Oncology Dr Dee was contacted as [facility]. Pending discussion with family, patient comprehends fully that the prognosis is poor but is open to palliative radiation for pain and bleeding control. -Continue palliative treatment for Stage IV pleomorphic sarcoma -Dr Dee consulted and following, continue radiation therapy as scheduled until Friday -Hydrocodone-acetaminophen 10-325 mg q4h prn -Dilaudid 0.5 mg q4H for pain control -SCDs on left leg only -Wound care following #LACHO, resolved Creatinine increased to 1.6 from baseline 1.0, may have had ischemia secondary to sepsis leading to prerenal LACHO, may develop into ATN -Monitor renal function, urine output -Increased IV fluids to a rate of 100 ml/hr #Sinus tachycardia Currently rate remains in the 100-110 range, likely secondary to sepsis. -Treatment as above #Lactic acidosis, improving Lactic acid 7 on admission, peaked at 16. Likely mixed type lactic acidosis at this point, clinically patient appears to be perfusing well. -Continue fluids and encourage oral intake, monitor BP #Constipation Patient was reporting last BM >[address] showed abundant stool throughout colon. Could be opioid induced. -Milk of Mag PRN -Dulcolax tabs PRN #Hx of hepatitis B #Hypoabuminemia Hepatitis B antigen positive, Albumin 2 -> 1.7 -Currently not receiving any treatment for Hep B -Sewing Machine Assembler following -Ensure plus and Jagdeep supplementation #Right common femoral vein thrombus s/p IVC filter placement 04/13 Patient unable to be anticoagulated due to active/recurrent bleeding. DVT prophylaxis: None GI prophylaxis: Not indicated Diet: Dysphagia 2 [place]: None Lines: Peripheral IV Antibiotics: Vancomycin [04/19/2025- ], Zosyn [04/19/2025- ] CODE STATUS: FULL Patient plan of care was discussed with the attending physician, Dr. Saldivar. Cindy Jamil PGY1 Attending Provider Attestation/Addendum I attest that I was physically present for the evaluation, physical examination, lab and imaging review of the patient with the residents. I discussed the case with the residents and agree with the findings and plans of care as documented above. At bedside today, patient continues to complain of mild pain around his leg and back. Controlled with analgesics. Continues to have significant bleeding despite the radiation therapy. WBC count has been downtrending, patient continues to be on IV Zosyn and vancomycin. Hemoglobin decreased to 6.8 this afternoon, will transfuse 2 units of PRBC. Noted to have hypokalemia, repleted accordingly. Discussed with Dr. Dee, we will monitor him overnight for resolution of bleeding, if not improved, we will plan for initiating transfer tomorrow. Iris Saldivar MD
--- NOTE | 2025-04-22 13:32 | PC.SS ---
Addendum entered by PAULO Omalley 04/22/25 14:44: Rounding note: per medical team, patient is having continued bleeding. Pending consult with Dr. Dee and possible d/c over the weekend back home. Original Note: SS follow up: arranged transportation for the patient via [employer] reference number: [id number] for Friday04-25-25 with pick up driver time 1:30-1:45pm from his home residence to [facility] with transport back home to home residence as patient may be discharged home over the weekend. Patient is aware of the scheduled transport date/time and verbalized understanding. Provided the patient with [employer] contact number and resource handout. [facility] nurse Kaitlynn and [facility] can worker Saadia made aware of this via email.
--- NOTE | 2025-04-22 13:50 | PC.NURSE ---
Dr. Dee at bedside to see pt
--- NOTE | 2025-04-22 14:19 | PC.NURSE ---
Dr. Jamil made aware pts HR has been in the 120's, pt denies chest pain, sob, or pain. order received, read back and carried out.
--- NOTE | 2025-04-22 14:31 | PC.NURSE ---
Pharmacy was made aware to draw pt's labs now, no new order needed.
[2025-04-22 15:05] LABS: Hematocrit 19.5 % (41.0-53.0)
[2025-04-22 15:07] LABS: Hemoglobin 6.8 g/dL (13.5-16.0)
[2025-04-22 15:11] LABS: Potassium 4.4 mMol/L (3.4-5.1)
[2025-04-22] MEDS: SODIUM CHLORIDE 0.9% 1000 ML 1,000 ML 70 ML IV (16:25)
[2025-04-22] MEDS: TRANEXAMIC ACID 1,000 MG IVPB 1,000 MG/100 ML BAG 200 MG IV (17:47)
--- NOTE | 2025-04-22 19:30 | PC.NURSE ---
Dr. Murillo made aware of active bleeding. Pt currenlty transfusing 1 U of PRBC, H&H 1 hr post blood transfusion. After H &H results to reassess. no new orders.
--- NOTE | 2025-04-22 20:31 | PC.NURSE ---
Pt completed PRBC no s/s of reaction vital signs stable
--- NOTE | 2025-04-22 20:40 | PC.NURSE ---
Contacted blood bank to thaw FFP, will thaw and call when ready, contacted phlebo stop time blood 2030
[2025-04-22] MEDS: VANCOMYCIN/NS 750 MG IVPB 750 MG/150 ML BAG 120 MG IV (21:17)
[2025-04-22 21:44] LABS: Hematocrit 22.9 % (41.0-53.0)
[2025-04-22 21:51] LABS: Hemoglobin 7.9 g/dL (13.5-16.0)
[2025-04-23] VITALS (17 sets, daily range): BP systolic 92–123; BP diastolic 57–88; PULSE 78–108; RESP 15–24; TEMP 36–36.9; O2SAT 97–100
[2025-04-23] MEDS: PIPER/TAZO 3.375 GM PREMIX 3.375 GM/50 ML BAG IV ×3 (05:45→22:56)
[2025-04-23 05:57] LABS: Basophils % (Auto) 0 % (0-2.5); Eosinophils # (Auto) 0.2 Thou/mm3 (0.0-0.5); Eosinophils % (Auto) 1 % (0-10); Immature Granulocytes % (Auto) 1 % (0-0); Immature Granulocytes Auto 0.35 Thou/mm3 (0.00-0.00); Lymphocytes # (Auto) 1.1 Thou/mm3 (1.0-4.8); Lymphocytes % (Auto) 4 % (10-50); Mean Corpuscular HGB Conc 34.2 g/dl (31.0-37.0); Mean Corpuscular Hemoglobin 28.6 pg (25.0-35.0); Mean Corpuscular Volume 84 fL (80-100); Monocytes # (Auto) 1.3 Thou/mm3 (0.0-0.8); Monocytes % (Auto) 5 % (0-12); Neutrophils # (Auto) 21.3 Thou/mm3 (1.8-7.7); Neutrophils % (Auto) 88 % (37-80); Nucleated Red Blood Cell % 0 /100 WBC (0); Platelet Count 218 Thou/mm3 (140-440); RDW Standard Deviation 57.2 fL (35.1-43.9); White Blood Count 24.2 Thou/mm3 (3.8-10.6)
[2025-04-23 06:01] LABS: Hematocrit 18.4 % (41.0-53.0); Hemoglobin 6.3 g/dL (13.5-16.0)
[2025-04-23 06:24] LABS: Alanine Aminotransferase 14 U/L (10-49); Albumin, Serum 1.6 gm/dL (3.4-4.8); Albumin/Globulin Ratio 0.9 (1.2-2.2); Alkaline Phosphatase 102 U/L (46-116); Anion Gap 9 (7-16); BUN/Creatinine Ratio 16 Ratio (12-20); Bilirubin,Total 0.4 mg/dL (0.3-1.2); Blood Urea Nitrogen 16 mg/dL (9-23); Calcium (Corrected) 8.7 mg/dL (8.5-10.1); Carbon Dioxide 19.8 mMol/L (20.0-31.0); Chloride 101 mMol/L (98-107); Globulin 1.7 gm/dL (2.3-3.5); Glucose 123 mg/dL (74-106); Osmolality,Calculated 263 (275-295); Potassium 3.7 mMol/L (3.4-5.1); Sodium 130 mMol/L (136-145); Total Protein 3.3 gm/dL (5.7-8.2); eGFR > 60 See Note
[2025-04-23 06:25] LABS: Path Review Blood Smear Sent to Pathologist
[2025-04-23 06:29] LABS: Calcium 6.8 mg/dL (8.3-10.6)
[2025-04-23] MEDS: CALCIUM CARBONATE 600 MG TABLET PO (09:28)
--- NOTE | 2025-04-23 11:18 | PC.CM ---
Addendum entered by Christopher Hernandez RN 04/23/25 17:01: 1630- Dr. Saldivar updated on hospitals who have declined hospital at this time, asked if I should reach out to tertiary care centers further away and he stated patient's family would like to stay local. We will hold transfer until Friday and attempt again when IR services are available. Addendum entered by Christopher Hernandez RN 04/23/25 13:11: 1309[facility] provided clinical information and reason for transfer request.They have declined, service not available. Addendum entered by Christopher Hernandez RN 04/23/25 11:52: 1150- Call to [facility], spoke to ERMIAS Michele in the transfer center and provided clinical information. They have declined patient at this time as they do not have the service available on-call this weekend. Addendum entered by Christopher Hernandez RN 04/23/25 11:40: 1135- Call to [facility], spoke with ERMIAS Chadwick and provided clinical information and current vital signs. They have declined patient at this time as they are at capacity at this time. Original Note: 1055- Received call from Dr. Amador requesting transfer for IR embolization, discharge packet and CD with images created. Referrals to sent [facility], , and [facility]. [facility] has declined as they do not have IR on-call for the weekend.
--- NOTE | 2025-04-23 13:10 | ESDS_ITS ---
Planned Discharge Date 04/23/25 DS: Providers Provider Date of admission: 04/19/25 16:13 Primary care physician: Zia Jorge MD Admitting Provider: Felecia Shin MD Attending Provider on Admission: Iris Saldivar MD Consults: 04/19/25 11:35 Referral Wound Care Stat Comment: right coccyx please evaluate 04/19/25 18:23 Referral Registered Dietitian Routine Comment: Referral Wound Care Routine Comment: 04/19/25 18:33 Referral Saroj Routine Comment: 04/19/25 18:42 Referral Registered Dietitian Routine Comment: 04/20/25 07:18 Consult to Oncology Routine Comment: Consulting Provider: Paul Dee 04/22/25 15:14 Consult to General Surgery Routine Comment: Right Pelvic Bleeding Consulting Provider: Baldemar Ureña Attending Provider on DC: Iris Saldivar MD Discharging Provider: Iris Saldivar MD Anticipated date of discharge: 04/23/25 DS: Diagnosis Problem List Completed Was Problem List Reviewed/Reconciled?: Yes Hospital Course Hospital Course Hospital course: Hospital course: Mr. 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 Dee, hepatitis B, right leg DVT s/p IVC filter 04/13/2025 who presented to the ED on 04/19/2025 due to profuse bleeding of the right pelvis sinus. Patient was recently discharged on April 18, 2025 for similar complaint, since going home patient continued to have bleeding, on presentation hemoglobin was 6.2, patient was admitted to intensive care unit for close monitoring for any further bleeding and possible rapid infusion of blood products. Patient was given 2 units PRBC, was started on IV antibiotics, patient was started on palliative radiation therapy by oncologist, was moved to [facility] for radiation dosing. With the progression of hospital course patient continues to have significant b leeding, general surgery was consulted and recommended IV tranexamic acid, transfusion of FFP, patient continues to have significant bleeding despite pressure dressing and other measures. Patient was transfused 1 unit of PRBC yesterday, posttransfusion hemoglobin did improve to 7.9 however this morning patient continues to have bleeding with hemoglobin down trended to 6.3. Transfusion of 2 unit PRBC was ordered, pending posttransfusion H&H. Patient otherwise has no tachycardia, is alert and oriented he is hemodynamically stable, patient's LACHO resolved with the progression of hospital course. Further plan is to transfer patient to higher level of care for interventional radiology embolization of vessel due to continued bleeding. Patient is also on IV antibiotics for possible sepsis, on IV pain medication for pain management. Patient is stable for transfer. 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 Saldivar. Cindy Jamil PGY1 Disclaimer: This note was dictated by speech recognition. Minor errors in maid housekeeper may be present due to voice recognition software. Time Spent with Patient Time attestation: Total time spent providing and/or coordinating discharge services: Time spent: Greater than 30 minutes Exam Vital Signs Temp Pulse Resp BP Pulse Ox O2 Del Method O2 Flow Rate 97.4 F 90 20 111/77 100 Nasal Cannula 2 04/23/25 11:17 04/23/25 11:17 04/23/25 11:17 04/23/25 11:17 04/23/25 08:50 04/23/25 07:57 04/23/25 08:50 Narrative Exam Physical Exam General: Awake and in no acute distress. Conversational and non-toxic appearing. HEENT: Normocephalic, atraumatic, mucous membranes moist. Heart: Tachycardic rate and regular rhythm, normal S1 and S2, no murmurs. Lungs: Clear to auscultation with no wheezing or crackles. Abdomen: Soft, nondistended, nontender, positive bowel sounds. ?No guarding or rebound tenderness. Neurologic: Alert and oriented x3, no gross neurological deficit, and patient able to move all 4 extremities. Extremities: Dressings on right pelvis, no active bleeding noted. Necrotic right gluteal ulcer wrapping in dressings. Edema of right lower extremity present. Skin: No rash or ecchymoses. Discharge Plan Prescriptions/Referrals Prescriptions/Med Rec: No Action docusate calcium 240 mg capsule 240 mg PO QDAY Qty: 30 6RF magnesium hydroxide [Milk of Magnesia] 400 mg/5 mL Suspension 30 ml PO QDAY PRN (Reason: Constipation) Qty: 3780 0RF doxycycline monohydrate 100 mg capsule 100 mg PO BID 7 Days Qty: 14 0RF amoxicillin-pot clavulanate 875-125 mg tablet 1 tab PO BID 7 Days Qty: 14 0RF hydrocodone-acetaminophen 10-325 mg tablet 1 tab PO Q4H PRN (Reason: pain) Patient Comments: 1 tab orally every 4 hours As Needed for pain for 3 days, Max Daily Dose: 40 mg hydrocodone Referrals: Zia Jorge MD [Primary Care Provider] - Patient/Caregiver Discharge Instructions Print Language: Cam[place]onian Quality Discharge Quality Measures VTE prophylaxis MD Attestestation MD Attestation I attest that I was physically present for the evaluation, physical examination, lab and imaging review of the patient with the residents. I discussed the case with the residents and agree with the findings and plans of care as documented above. Iris Saldivar MD
[2025-04-23] MEDS: HYDROmorphone INJ 2 MG/ML VIAL 0.5 MG IVP (13:25)
--- NOTE | 2025-04-23 13:46 | ESPR_ITS ---
Documentation for date of: 04/23/25 Subjective Subjective Interval history: Patient seen and examined at bedside. Patient received 1 unit PRBC yesterday, hemoglobin improved to 7.9. Patient continues to have significant bleeding, this morning hemoglobin was 6.3 2 unit PRBC was ordered. Will follow posttransfusion H&H. We will start the process of transferring the patient to a tertiary level of care for possible IR embolization due to uncontrolled bleeding Exam Vital Signs Temp Pulse Resp BP Pulse Ox O2 Del Method O2 Flow Rate 97.4 F 90 20 111/77 100 Nasal Cannula 2 04/23/25 11:17 04/23/25 11:17 04/23/25 11:17 04/23/25 11:17 04/23/25 08:50 04/23/25 07:57 04/23/25 08:50 Narrative Exam Physical Exam General: Awake and in no acute distress. Conversational and non-toxic appearing. HEENT: Normocephalic, atraumatic, mucous membranes moist. Heart: Tachycardic rate and regular rhythm, normal S1 and S2, no murmurs. Lungs: Clear to auscultation with no wheezing or crackles. Abdomen: Soft, nondistended, nontender, positive bowel sounds. ?No guarding or rebound tenderness. Neurologic: Alert and oriented x3, no gross neurological deficit, and patient able to move all 4 extremities. Extremities: Dressings on right pelvis, no active bleeding noted. Necrotic right gluteal ulcer wrapping in dressings. Edema of right lower extremity present. Skin: No rash or ecchymoses. Objective Labs 04/23/25 04:40 04/23/25 04:40 Labs: Laboratory Results - last 24 hr 04/22/25 04/22/25 04/22/25 14:39 15:15 21:29 WBC RBC Hgb 6.8 L* 7.9 L Hct 19.5 L* 22.9 L MCV MCH MCHC RDW Std Deviation Plt Count Neut % (Auto) Lymph % (Auto) [place] % (Auto) Eos % (Auto) Baso % (Auto) Neut # (Auto) Lymph # (Auto) [place] # (Auto) Eos # (Auto) Baso # (Auto) Immature Gran # (Auto) Absolute Nucleated RBC Immature Gran % Nucleated RBC % Smear Path Review Sodium Potassium 4.4 D Chloride Carbon Dioxide Anion Gap BUN Creatinine Estim Creat Clear Calc eGFR BUN/Creatinine Ratio Glucose Calculated Osmolality Calcium Corrected Calcium Magnesium 2.0 Total Bilirubin ALT Alkaline Phosphatase Total Protein Albumin Globulin Albumin/Globulin Ratio Blood Type B Positive Antibody Screen NEGATIVE Crossmatch See Detail Blood Bank Wristband ID Yes Blood Bank Comment FFP Ready 04/23/25 04:40 WBC 24.2 H RBC 2.20 L Hgb 6.3 L* D Hct 18.4 L* MCV 84 MCH 28.6 MCHC 34.2 RDW Std Deviation 57.2 H Plt Count 218 D Neut % (Auto) 88 H Lymph % (Auto) 4 L [place] % (Auto) 5 Eos % (Auto) 1 Baso % (Auto) 0 Neut # (Auto) 21.3 H Lymph # (Auto) 1.1 [place] # (Auto) 1.3 H Eos # (Auto) 0.2 Baso # (Auto) 0.0 Immature Gran # (Auto) 0.35 H Absolute Nucleated RBC 0.00 Immature Gran % 1 H Nucleated RBC % 0 Smear Path Review Sent to Pathologist Sodium 130 L Potassium 3.7 D Chloride 101 Carbon Dioxide 19.8 L Anion Gap 9 BUN 16 Creatinine 1.0 Estim Creat Clear Calc 76.0 eGFR > 60 BUN/Creatinine Ratio 16 Glucose 123 H Calculated Osmolality 263 L Calcium 6.8 L* Corrected Calcium 8.7 Magnesium Total Bilirubin 0.4 D ALT 14 Alkaline Phosphatase 102 D Total Protein 3.3 L Albumin 1.6 L Globulin 1.7 L Albumin/Globulin Ratio 0.9 L Blood Type Antibody Screen Crossmatch Blood Bank Wristband ID Blood Bank Comment Quality Measures Quality Measures sepsis Current suspected stage: sepsis Possible source: skin/soft tissue Blood cultures ordered: completed in ED Antibiotic ordered: Yes and comfort care/end of life Assessment & Plan Assessment Current Active Medications: Generic Name Dose Route Start Last Admin Trade Name Freq PRN Reason Stop Dose Admin Hydrocodone Bitart/Acetaminophen 1 tab 04/22/25 11:22 Hydrocodone/Apap 10/325 Tab PO 04/27/25 11:21 Q4HR PRN PAIN SCALE 4-6 (Moderate Calcium Carbonate 600 mg 04/23/25 09:00 04/23/25 09:28 Calcium Carbonate 600 Mg Tablet PO 05/23/25 08:59 600 mg QDAY BRIAN Administration Docusate Sodium 100 mg 04/20/25 09:31 Docusate Sod 100 Mg Capsule PO 05/20/25 09:30 Q12H PRN CONSTIPATION Protocol Hydromorphone HCl 0.5 mg 04/19/25 16:06 04/23/25 13:25 Hydromorphone Inj 2 Mg/Ml Vial IVP 04/24/25 16:05 0.5 mg Q4HR PRN Administration PAIN Protocol Piperacillin/Tazobactam/Dextrose 3.375 gm in 50 mls @ 12.5 mls/hr 04/19/25 16:15 04/23/25 13:26 Zosyn IV 04/26/25 16:14 12.5 mls/hr Q8HR BRIAN Administration Vancomycin/Sodium Chloride 750 mg in 150 mls @ 120 mls/hr 04/20/25 22:00 04/22/25 22:32 Vancomycin/Ns 750 Mg Ivpb IV 04/27/25 21:59 Infused Q24H BRIAN Infusion Protocol Magnesium Hydroxide 30 ml 04/20/25 09:31 Milk Of Magnesia Susp 30 Ml Udc PO 05/20/25 09:30 QDAY PRN CONSTIPATION Protocol Pharmacy Consult 1 each 04/20/25 09:00 Vancomycin Pharmacy To Dose 1 Each Each IV 05/20/25 08:59 QDAY PRN consult Plan Mr. 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 Dee, hepatitis B, right leg DVT s/p IVC filter 04/13/2025 who presented to the ED on 04/19/2025 due to profuse bleeding of the right pelvis sinus admitted to ICU due to concerns for hemodynamic instability. Patient was downgraded to medical floors on 04/20/2025. #Acute blood loss anemia secondary to pelvic tumor/wounds #Hypovolemic shock, resolved Initially presenting with BP 70/40s -> 110/80s after 3L IVF, maintaining MAP >65 w/o pressor support, s/p 2 unit PRBC infusion given. Hb 6.2 on admission -> 9.4 -> 8.9. Currently wound has stopped bleeding as shown on dressing changes. 04/21/2025: 2 PRBC tranfusion -Ordered 2 units PRBC, currently transfusing, follow posttransfusion H&H -Monitor for active bleeding -Patient typed and screened -Monitor H&H closely. Transfusing for Hgb <7 or symptomatic. -Avoid NSAIDs/ASA/chemical prophylaxis - Transfer to higher level of care for interventional radiology #Severe sepsis secondary to pelvic wounds #Leukocytosis On admission WBC 26 --> 36.9. Purulent discharge found on pelvic/sacral wounds. Previously patient had been seen by surgery on prior admissions who determined wounds are not amenable to debridement. Blood cultures negative 48 hours. 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 Dee. Chest CTA showed multiple pulmonary nodules. Rad Oncology Dr Dee was contacted as patient [facility]. Pending discussion with family, patient comprehends fully that the prognosis is poor but is open to palliative radiation for pain and bleeding control. -Continue palliative treatment for Stage IV pleomorphic sarcoma -Dr Dee consulted and following, continue radiation therapy as scheduled until Friday -Hydrocodone-acetaminophen 10-325 mg q4h prn -Dilaudid 0.5 mg q4H for pain control -SCDs on left leg only -Wound care following #LACHO, resolved Creatinine increased to 1.6 from baseline 1.0, may have had ischemia secondary to sepsis leading to prerenal LACHO, may develop into ATN -Monitor renal function, urine output -Increased IV fluids to a rate of 100 ml/hr #Sinus tachycardia Currently rate remains in the 100-110 range, likely secondary to sepsis. -Treatment as above #Lactic acidosis, improving Lactic acid 7 on admission, peaked at 16. Likely mixed type lactic acidosis at this point, clinically patient appears to be perfusing well. -Continue fluids and encourage oral intake, monitor BP #Constipation Patient was reporting last BM >[address] showed abundant stool throughout colon. Could be opioid induced. -Milk of Mag PRN -Dulcolax tabs PRN #Hx of hepatitis B #Hypoabuminemia Hepatitis B antigen positive, Albumin 2 -> 1.7 -Currently not receiving any treatment for Hep B -Safety Sitter following -Ensure plus and Jagdeep supplementation #Right common femoral vein thrombus s/p IVC filter placement 04/13 Patient unable to be anticoagulated due to active/recurrent bleeding. DVT prophylaxis: None GI prophylaxis: Not indicated Diet: Dysphagia 2 [place]: None Lines: Peripheral IV Antibiotics: Vancomycin [04/19/2025- ], Zosyn [04/19/2025- ] CODE STATUS: FULL Patient plan of care was discussed with the attending physician, Dr. Saldivar. Cindy Jamil PGY1 Attending Provider Attestation/Addendum I attest that I was physically present for the evaluation, physical examination, lab and imaging review of the patient with the residents. I discussed the case with the residents and agree with the findings and plans of care as documented above. At bedside today, patient states she is feeling well, states that his pain has slightly improved but continues to have mild pain. Continues to be on analgesics. Patient continues to have bleeding from his sacral wound. Hemoglobin dropped to 6.3 this morning, we will transfuse 2 units of PRBC and follow-up with posttransfusion H&H. Transfer to [facility] for interventional radiology for possible IR embolization has been initiated. Continues to be on broad-spectrum antibiotic for sepsis secondary to pelvic wounds. Kidney function has been improving and stable. Oncology following closely, appreciate recommendations. Iris Saldivar MD
[2025-04-23] MEDS: HYDROcodone/APAP 10/325 TAB PO ×2 (16:10→22:55)
--- NOTE | 2025-04-23 17:55 | PC.NURSE ---
Dr. Jamil made aware 2 Units of PRBC complete. He will review chart and put in orders. Order for post H & H.
[2025-04-23] MEDS: SODIUM CHLORIDE 0.9% 1000 ML 1,000 ML 75 ML IV (18:22)
[2025-04-23 19:08] LABS: Hematocrit 26.9 % (41.0-53.0); Hemoglobin 9.8 g/dL (13.5-16.0)
[2025-04-23] MEDS: VANCOMYCIN/NS 750 MG IVPB 750 MG/150 ML BAG 120 MG IV (21:03)
[2025-04-24] VITALS (7 sets, daily range): BP systolic 109–132; BP diastolic 73–88; PULSE 75–98; RESP 16–23; TEMP 36.2–36.8; O2SAT 95–99
[2025-04-24] MEDS: PIPER/TAZO 3.375 GM PREMIX 3.375 GM/50 ML BAG IV ×3 (05:18→21:30)
[2025-04-24] MEDS: SODIUM CHLORIDE 0.9% 1000 ML 1,000 ML 75 ML IV (06:28)
[2025-04-24 08:32] LABS: Basophils % (Auto) 0 % (0-2.5); Eosinophils # (Auto) 0.2 Thou/mm3 (0.0-0.5); Eosinophils % (Auto) 1 % (0-10); Hematocrit 27.1 % (41.0-53.0); Hemoglobin 9.8 g/dL (13.5-16.0); Immature Granulocytes % (Auto) 1 % (0-0); Immature Granulocytes Auto 0.32 Thou/mm3 (0.00-0.00); Lymphocytes # (Auto) 0.8 Thou/mm3 (1.0-4.8); Lymphocytes % (Auto) 3 % (10-50); Mean Corpuscular HGB Conc 36.2 g/dl (31.0-37.0); Mean Corpuscular Hemoglobin 29.4 pg (25.0-35.0); Mean Corpuscular Volume 81 fL (80-100); Monocytes # (Auto) 1.2 Thou/mm3 (0.0-0.8); Monocytes % (Auto) 5 % (0-12); Neutrophils # (Auto) 22.2 Thou/mm3 (1.8-7.7); Neutrophils % (Auto) 90 % (37-80); Nucleated Red Blood Cell % 0 /100 WBC (0); Platelet Count 283 Thou/mm3 (140-440); RDW Standard Deviation 50.6 fL (35.1-43.9); Red Blood Count 3.33 Miln/mm3 (4.50-5.90); White Blood Count 24.7 Thou/mm3 (3.8-10.6)
[2025-04-24 08:53] LABS: Alanine Aminotransferase 19 U/L (10-49); Albumin, Serum 1.7 gm/dL (3.4-4.8); Albumin/Globulin Ratio 0.7 (1.2-2.2); Alkaline Phosphatase 120 U/L (46-116); Anion Gap 7 (7-16); BUN/Creatinine Ratio 16 Ratio (12-20); Bilirubin,Total 0.8 mg/dL (0.3-1.2); Blood Urea Nitrogen 13 mg/dL (9-23); Calcium 7.1 mg/dL (8.3-10.6); Calcium (Corrected) 8.9 mg/dL (8.5-10.1); Carbon Dioxide 22.1 mMol/L (20.0-31.0); Chloride 105 mMol/L (98-107); Creatinine (Component) 0.8 mg/dL (0.6-1.3); Globulin 2.4 gm/dL (2.3-3.5); Glucose 99 mg/dL (74-106); Osmolality,Calculated 268 (275-295); Sodium 134 mMol/L (136-145); Total Protein 4.1 gm/dL (5.7-8.2); eGFR > 60 See Note
[2025-04-24] MEDS: POTASSIUM CHLORIDE 10% 20 MEQ/15 ML UDC 40 MEQ PO ×2 (09:12→11:46)
[2025-04-24] MEDS: CALCIUM CARBONATE 600 MG TABLET PO (09:13)
[2025-04-24] MEDS: Magnesium Sulfate 2 GM Ivpb 2 GM/50 ML BAG IV (09:13)
--- NOTE | 2025-04-24 10:51 | ESPR_ITS ---
Documentation for date of: 04/24/25 Subjective Subjective Interval history: Patient seen and examined at bedside. Hemodynamically stable, labs and vitals reviewed Posttransfusion H&H yesterday 9.8, this morning hemoglobin 9.8 Repleted potassium. Patient is pending transfer for interventional radiology intervention. Exam Vital Signs Temp Pulse Resp BP Pulse Ox O2 Del Method O2 Flow Rate 97.6 F 75 16 111/73 98 Room Air 2 04/24/25 08:00 04/24/25 08:00 04/24/25 08:00 04/24/25 08:00 04/24/25 08:00 04/24/25 08:00 04/24/25 04:00 Narrative Exam Physical Exam General: Awake and in no acute distress. Conversational and non-toxic appearing. HEENT: Normocephalic, atraumatic, mucous membranes moist. Heart: Tachycardic rate and regular rhythm, normal S1 and S2, no murmurs. Lungs: Clear to auscultation with no wheezing or crackles. Abdomen: Soft, nondistended, nontender, positive bowel sounds. ?No guarding or rebound tenderness. Neurologic: Alert and oriented x3, no gross neurological deficit, and patient able to move all 4 extremities. Extremities: Dressings on right pelvis, no active bleeding noted. Necrotic right gluteal ulcer wrapping in dressings. Edema of right lower extremity present. Skin: No rash or ecchymoses. Objective Labs 04/24/25 08:10 04/24/25 08:10 Labs: Laboratory Results - last 24 hr 04/22/25 04/23/25 04/24/25 15:15 18:45 08:10 WBC 24.7 H RBC 3.33 L Hgb 9.8 L D 9.8 L Hct 26.9 L 27.1 L MCV 81 MCH 29.4 MCHC 36.2 RDW Std Deviation 50.6 H Plt Count 283 D Neut % (Auto) 90 H Lymph % (Auto) 3 L [place] % (Auto) 5 Eos % (Auto) 1 Baso % (Auto) 0 Neut # (Auto) 22.2 H Lymph # (Auto) 0.8 L [place] # (Auto) 1.2 H Eos # (Auto) 0.2 Baso # (Auto) 0.0 Immature Gran # (Auto) 0.32 H Absolute Nucleated RBC 0.00 Immature Gran % 1 H Nucleated RBC % 0 Sodium 134 L Potassium 3.0 L D Chloride 105 Carbon Dioxide 22.1 Anion Gap 7 BUN 13 Creatinine 0.8 Estim Creat Clear Calc 95.0 eGFR > 60 BUN/Creatinine Ratio 16 Glucose 99 Calculated Osmolality 268 L Calcium 7.1 L Corrected Calcium 8.9 Total Bilirubin 0.8 ALT 19 Alkaline Phosphatase 120 H Total Protein 4.1 L Albumin 1.7 L Globulin 2.4 Albumin/Globulin Ratio 0.7 L Blood Type B Positive Antibody Screen NEGATIVE Crossmatch See Detail Blood Bank Wristband ID Yes Blood Bank Comment FFP Ready Quality Measures Quality Measures VTE prophylaxis Assessment & Plan Assessment Current Active Medications: Generic Name Dose Route Start Last Admin Trade Name Freq PRN Reason Stop Dose Admin Hydrocodone Bitart/Acetaminophen 1 tab 04/22/25 11:22 04/23/25 22:55 Hydrocodone/Apap 10/325 Tab PO 04/27/25 11:21 1 tab Q4HR PRN Administration PAIN SCALE 4-6 (Moderate Calcium Carbonate 600 mg 04/23/25 09:00 04/24/25 09:13 Calcium Carbonate 600 Mg Tablet PO 05/23/25 08:59 600 mg QDAY BRIAN Administration Docusate Sodium 100 mg 04/20/25 09:31 Docusate Sod 100 Mg Capsule PO 05/20/25 09:30 Q12H PRN CONSTIPATION Protocol Hydromorphone HCl 0.5 mg 04/19/25 16:06 04/23/25 13:25 Hydromorphone Inj 2 Mg/Ml Vial IVP 04/24/25 16:05 0.5 mg Q4HR PRN Administration PAIN Protocol Piperacillin/Tazobactam/Dextrose 3.375 gm in 50 mls @ 12.5 mls/hr 04/19/25 16:15 04/24/25 05:18 Zosyn IV 04/26/25 16:14 12.5 mls/hr Q8HR BRIAN Administration Vancomycin/Sodium Chloride 750 mg in 150 mls @ 120 mls/hr 04/20/25 22:00 04/23/25 21:03 Vancomycin/Ns 750 Mg Ivpb IV 04/27/25 21:59 120 mls/hr Q24H BRIAN Administration Protocol Magnesium Sulfate 2 gm in 50 mls @ 25 mls/hr 04/24/25 09:02 04/24/25 09:13 Magnesium Sulfate Ivpb IV 04/24/25 11:01 25 mls/hr X1 ONE Administration Magnesium Hydroxide 30 ml 04/20/25 09:31 Milk Of Magnesia Susp 30 Ml Udc PO 05/20/25 09:30 QDAY PRN CONSTIPATION Protocol Pharmacy Consult 1 each 04/20/25 09:00 Vancomycin Pharmacy To Dose 1 Each Each IV 05/20/25 08:59 QDAY PRN consult Potassium Chloride 40 meq 04/24/25 12:00 Potassium Chloride 10% 20 Meq/15 Ml Udc PO 04/24/25 12:01 X1 ONE Plan Mr. 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 Dee, hepatitis B, right leg DVT s/p IVC filter 04/13/2025 who presented to the ED on 04/19/2025 due to profuse bleeding of the right pelvis sinus admitted to ICU due to concerns for hemodynamic instability. Patient was downgraded to medical floors on 04/20/2025. #Acute blood loss anemia secondary to pelvic tumor/wounds #Hypovolemic shock, resolved Initially presenting with BP 70/40s -> 110/80s after 3L IVF, maintaining MAP >65 w/o pressor support, s/p 2 unit PRBC infusion given. Hb 6.2 on admission -> 9.4 -> 8.9. Currently wound has stopped bleeding as shown on dressing changes. 04/21/2025: 2 PRBC tranfusion Overall patient has received 7 units PRBC and 1 unit FFP -Monitor for active bleeding -Patient typed and screened -Monitor H&H closely. Transfusing for Hgb <7 or symptomatic. -Avoid NSAIDs/ASA/chemical prophylaxis - Transfer to higher level of care for interventional radiology #Severe sepsis secondary to pelvic wounds #Leukocytosis On admission WBC 26 --> 36.9. Purulent discharge found on pelvic/sacral wounds. Previously patient had been seen by surgery on prior admissions who determined wounds are not amenable to debridement. Blood cultures negative 48 hours. 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 Dee. Chest CTA showed multiple pulmonary nodules. Rad Oncology Dr Dee was contacted as patient [facility] on [facility] 04/18. Pending discussion with family, patient comprehends fully that the prognosis is poor but is open to palliative radiation for pain and bleeding control. -Continue palliative treatment for Stage IV pleomorphic sarcoma -Dr Dee consulted and following, continue radiation therapy as scheduled until Friday -Hydrocodone-acetaminophen 10-325 mg q4h prn -Dilaudid 0.5 mg q4H for pain control -SCDs on left leg only -Wound care following #LACHO, resolved Creatinine increased to 1.6 from baseline 1.0, may have had ischemia secondary to sepsis leading to prerenal LACHO, may develop into ATN -Monitor renal function, urine output -Increased IV fluids to a rate of 100 ml/hr #Sinus tachycardia Currently rate remains in the 100-110 range, likely secondary to sepsis. -Treatment as above #Lactic acidosis, improving Lactic acid 7 on admission, peaked at 16. Likely mixed type lactic acidosis at this point, clinically patient appears to be perfusing well. -Continue fluids and encourage oral intake, monitor BP #Constipation Patient was reporting last BM >[address] showed abundant stool throughout colon. Could be opioid induced. -Milk of Mag PRN -Dulcolax tabs PRN #Hx of hepatitis B #Hypoabuminemia Hepatitis B antigen positive, Albumin 2 -> 1.7 -Currently not receiving any treatment for Hep B -Pruner following -Ensure plus and Jagdeep supplementation #Right common femoral vein thrombus s/p IVC filter placement 04/13 Patient unable to be anticoagulated due to active/recurrent bleeding. DVT prophylaxis: None GI prophylaxis: Not indicated Diet: Dysphagia 2 [place]: None Lines: Peripheral IV Antibiotics: Vancomycin [04/19/2025- ], Zosyn [04/19/2025- ] CODE STATUS: FULL Patient plan of care was discussed with the attending physician, Dr. Saldivar. Cindy Jamil PGY1 Attending Provider Attestation/Addendum I attest that I was physically present for the evaluation, physical examination, lab and imaging review of the patient with the residents. I discussed the case with the residents and agree with the findings and plans of care as documented above. At bedside today, patient states his pain is better compared to yesterday. Denies any new complaints. Vitals are stable. Lab results show stable hemoglobin of 9.8 WBC count is 24 similar to yesterday. Lab results show potassium of 3.0, repleted accordingly. Pending transfer to higher center for IR embolization. Iris Saldivar MD
--- NOTE | 2025-04-24 12:18 | PC.CC ---
Addendum entered by Nicholas Ram RN 04/24/25 12:54: will need to follow up with [employer] for auth on Wednesday 04/25 Original Note: spoke to Vanda at [facility] and discussed transfer request for interventional radiology embolization of vessel due to continued bleeding. she stated they have IR on the weekends for emergency only. She then stated that ins auth will be required but to proceed to send clinicals and images.
[2025-04-24] MEDS: HYDROcodone/APAP 10/325 TAB PO ×2 (14:47→20:25)
[2025-04-24 17:21] LABS: Hematocrit 28.8 % (41.0-53.0); Hemoglobin 10.2 g/dL (13.5-16.0)
[2025-04-24 21:39] LABS: Vancomycin,Trough 11.7 mcg/mL (5.0-10.0)
[2025-04-24] MEDS: VANCOMYCIN/NS 750 MG IVPB 750 MG/150 ML BAG 120 MG IV (21:42)
[2025-04-25] VITALS (8 sets, daily range): BP systolic 109–121; BP diastolic 72–80; PULSE 83–116; RESP 15–23; TEMP 36.1–36.6; O2SAT 95–100; BMI 24.3
[2025-04-25] MEDS: PIPER/TAZO 3.375 GM PREMIX 3.375 GM/50 ML BAG IV ×3 (05:24→23:08)
[2025-04-25] MEDS: HYDROcodone/APAP 10/325 TAB PO (05:30)
[2025-04-25 05:44] LABS: Basophils # (Auto) 0.1 Thou/mm3 (0.0-0.2); Basophils % (Auto) 0 % (0-2.5); Eosinophils # (Auto) 0.4 Thou/mm3 (0.0-0.5); Eosinophils % (Auto) 2 % (0-10); Hematocrit 29.3 % (41.0-53.0); Immature Granulocytes % (Auto) 1 % (0-0); Immature Granulocytes Auto 0.28 Thou/mm3 (0.00-0.00); Lymphocytes # (Auto) 1.3 Thou/mm3 (1.0-4.8); Lymphocytes % (Auto) 6 % (10-50); Mean Corpuscular HGB Conc 34.1 g/dl (31.0-37.0); Mean Corpuscular Hemoglobin 29.2 pg (25.0-35.0); Mean Corpuscular Volume 86 fL (80-100); Monocytes # (Auto) 1.1 Thou/mm3 (0.0-0.8); Monocytes % (Auto) 5 % (0-12); Neutrophils # (Auto) 18.4 Thou/mm3 (1.8-7.7); Neutrophils % (Auto) 85 % (37-80); Nucleated Red Blood Cell % 0 /100 WBC (0); Platelet Count 299 Thou/mm3 (140-440); RDW Standard Deviation 54.7 fL (35.1-43.9); Red Blood Count 3.42 Miln/mm3 (4.50-5.90); White Blood Count 21.5 Thou/mm3 (3.8-10.6)
[2025-04-25 06:01] LABS: Alanine Aminotransferase 19 U/L (10-49); Albumin, Serum 1.7 gm/dL (3.4-4.8); Albumin/Globulin Ratio 0.7 (1.2-2.2); Alkaline Phosphatase 132 U/L (46-116); Anion Gap 6 (7-16); BUN/Creatinine Ratio 14 Ratio (12-20); Bilirubin,Total 0.5 mg/dL (0.3-1.2); Blood Urea Nitrogen 11 mg/dL (9-23); Calcium 7.2 mg/dL (8.3-10.6); Carbon Dioxide 23.8 mMol/L (20.0-31.0); Chloride 103 mMol/L (98-107); Creatinine (Component) 0.8 mg/dL (0.6-1.3); Globulin 2.5 gm/dL (2.3-3.5); Glucose 79 mg/dL (74-106); Magnesium 1.8 mg/dL (1.6-2.6); Osmolality,Calculated 264 (275-295); Potassium 3.9 mMol/L (3.4-5.1); Sodium 133 mMol/L (136-145); Total Protein 4.2 gm/dL (5.7-8.2); eGFR > 60 See Note
[2025-04-25] MEDS: Magnesium Sulfate 4 GM Ivpb 4 GM/50 ML BAG IV (08:20)
[2025-04-25] MEDS: POTASSIUM CHLORIDE 10% 20 MEQ/15 ML UDC 40 MEQ PO (08:20)
[2025-04-25] MEDS: CALCIUM CARBONATE 600 MG TABLET PO (08:22)
--- NOTE | 2025-04-25 08:34 | PC.SS ---
SS called [facility] and spoke to [facility] and cancelled transportation for today. Ref# [id number]. township supervisor time was 1pm from patient's home to [facility]. Transport has been canceled.
--- NOTE | 2025-04-25 08:44 | PC.CC ---
Addendum entered by Nicholas Ram RN 04/25/25 17:35: 1730: called and spoke Mary paredes/ [facility], provided update of the status of insurance auth. Addendum entered by Nicholas Ram RN 04/25/25 17:28: 1655: Received call from Tiarra paredes/ [facility] and she stated the auth request is being reviewed by the special programs director. She stated she should approved auth tomorrow morning. Transfer nurse will need to call Tiarra to f/u 1621: Received call from Basilia pardees/ [facility] and she stated that they [facility]. She stated she will build the auth for [facility] and if facility changes, we need to call them to change or create new auth. 1507: called Tiarra paredes/ Nico to f/u on auth status, she states that she is unable to create an auth without an accepting facility and doctor. I informed her that some facilities request auth to review the case and that without the auth, the patient will not be reviewed for transfer. Tiarra said she will reach out to [facility] for assistance. Original Note: 0845: clinicals faxed to [facility] 0819: Called and spoke to Tiarra with [facility] to request auth for transfer. She stated to fax clinicals to [phone] and she will review.
--- NOTE | 2025-04-25 10:36 | PC.SS ---
GENERAL STUDIES PROGRAM CHAIR notified by [facility] delinquency prevention social worker staff, Saadia Sampson; that patient will not participate with radiation services today per Dr. Dee. GENERAL STUDIES PROGRAM CHAIR notified workforce planner.
[2025-04-25] MEDS: VANCOMYCIN/NS 1 GM IVPB 200 ML IV ×2 (10:44→21:06)
--- NOTE | 2025-04-25 12:48 | ESPR_ITS ---
Documentation for date of: 04/25/25 Subjective Subjective Interval history: Patient seen and examined at bedside. Hemodynamically stable, labs and vitals reviewed Hemoglobin is stable at 10, will continue to monitor Patient is scheduled for radiation today later. Patient is pending transfer for interventional radiology intervention. Patient continues to have oozing from wound, will continue to monitor Exam Vital Signs Temp Pulse Resp BP Pulse Ox O2 Del Method O2 Flow Rate 97.0 F 116 H 16 114/72 95 Nasal Cannula 2 04/25/25 08:00 04/25/25 08:00 04/25/25 08:00 04/25/25 08:00 04/25/25 08:00 04/25/25 08:00 04/25/25 08:00 Narrative Exam Physical Exam General: Awake and in no acute distress. Conversational and non-toxic appearing. HEENT: Normocephalic, atraumatic, mucous membranes moist. Heart: Tachycardic rate and regular rhythm, normal S1 and S2, no murmurs. Lungs: Clear to auscultation with no wheezing or crackles. Abdomen: Soft, nondistended, nontender, positive bowel sounds. ?No guarding or rebound tenderness. Neurologic: Alert and oriented x3, no gross neurological deficit, and patient able to move all 4 extremities. Extremities: Dressings on right pelvis, no active bleeding noted. Necrotic right gluteal ulcer wrapping in dressings. Edema of right lower extremity present. Skin: No rash or ecchymoses. Objective Labs 04/26/25 04:59 04/26/25 04:59 Labs: Laboratory Results - last 24 hr 04/24/25 04/24/25 04/25/25 17:05 20:54 04:59 WBC 21.5 H RBC 3.42 L Hgb 10.2 L 10.0 L Hct 28.8 L 29.3 L MCV 86 MCH 29.2 MCHC 34.1 RDW Std Deviation 54.7 H Plt Count 299 Neut % (Auto) 85 H Lymph % (Auto) 6 L [place] % (Auto) 5 Eos % (Auto) 2 Baso % (Auto) 0 Neut # (Auto) 18.4 H Lymph # (Auto) 1.3 [place] # (Auto) 1.1 H Eos # (Auto) 0.4 Baso # (Auto) 0.1 Immature Gran # (Auto) 0.28 H Absolute Nucleated RBC 0.00 Immature Gran % 1 H Nucleated RBC % 0 Sodium 133 L Potassium 3.9 D Chloride 103 Carbon Dioxide 23.8 Anion Gap 6 L BUN 11 Creatinine 0.8 Estim Creat Clear Calc 95.0 eGFR > 60 BUN/Creatinine Ratio 14 Glucose 79 Calculated Osmolality 264 L Calcium 7.2 L Corrected Calcium 9.0 Magnesium 1.8 Total Bilirubin 0.5 ALT 19 Alkaline Phosphatase 132 H Total Protein 4.2 L Albumin 1.7 L Globulin 2.5 Albumin/Globulin Ratio 0.7 L Vancomycin Trough 11.7 H Quality Measures Quality Measures VTE prophylaxis Assessment & Plan Assessment Current Active Medications: Generic Name Dose Route Start Last Admin Trade Name Freq PRN Reason Stop Dose Admin Hydrocodone Bitart/Acetaminophen 1 tab 04/22/25 11:22 04/25/25 05:30 Hydrocodone/Apap 10/325 Tab PO 04/27/25 11:21 1 tab Q4HR PRN Administration PAIN SCALE 4-6 (Moderate Calcium Carbonate 600 mg 04/23/25 09:00 04/25/25 08:22 Calcium Carbonate 600 Mg Tablet PO 05/23/25 08:59 600 mg QDAY BRIAN Administration Docusate Sodium 100 mg 04/20/25 09:31 Docusate Sod 100 Mg Capsule PO 05/20/25 09:30 Q12H PRN CONSTIPATION Protocol Hydromorphone HCl 0.5 mg 04/24/25 16:42 Hydromorphone Inj 2 Mg/Ml Vial IVP 04/29/25 16:41 Q4HR PRN PAIN SCALE 7-10 (Severe Piperacillin/Tazobactam/Dextrose 3.375 gm in 50 mls @ 12.5 mls/hr 04/19/25 16:15 04/25/25 05:24 Zosyn IV 05/02/25 16:14 12.5 mls/hr Q8HR BRIAN Administration Vancomycin/Sodium Chloride 200 mls @ 120 mls/hr 04/25/25 10:00 04/25/25 10:44 Vancomycin/Ns 1 Gm Ivpb IV 05/02/25 09:59 120 mls/hr BID@1000,2200 BRIAN Administration Magnesium Hydroxide 30 ml 04/20/25 09:31 Milk Of Magnesia Susp 30 Ml Udc PO 05/20/25 09:30 QDAY PRN CONSTIPATION Protocol Pharmacy Consult 1 each 04/20/25 09:00 Vancomycin Pharmacy To Dose 1 Each Each IV 05/20/25 08:59 QDAY PRN consult Plan Mr. 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 Dee, hepatitis B, right leg DVT s/p IVC filter 04/13/2025 who presented to the ED on 04/19/2025 due to profuse bleeding of the right pelvis sinus admitted to ICU due to concerns for hemodynamic instability. Patient was downgraded to medical floors on 04/20/2025. #Acute blood loss anemia secondary to pelvic tumor/wounds #Hypovolemic shock, resolved Initially presenting with BP 70/40s -> 110/80s after 3L IVF, maintaining MAP >65 w/o pressor support, s/p 2 unit PRBC infusion given. Hb 6.2 on admission -> 9.4 -> 8.9. Currently wound has stopped bleeding as shown on dressing changes. 04/21/2025: 2 PRBC tranfusion Overall patient has received 7 units PRBC and 1 unit FFP -Monitor for active bleeding -Patient typed and screened -Monitor H&H closely. Transfusing for Hgb <7 or symptomatic. -Avoid NSAIDs/ASA/chemical prophylaxis -Transfer to higher level of care for interventional radiology #Severe sepsis secondary to pelvic wounds #Leukocytosis On admission WBC 26 --> 36.9. Purulent discharge found on pelvic/sacral wounds. Previously patient had been seen by surgery on prior admissions who determined wounds are not amenable to debridement. Blood cultures negative 48 hours. 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 Dee. Chest CTA showed multiple pulmonary nodules. Rad Oncology Dr Dee was contacted as patient [facility]. Pending discussion with family, patient comprehends fully that the prognosis is poor but is open to palliative radiation for pain and bleeding control. -Continue palliative treatment for Stage IV pleomorphic sarcoma -Dr Dee consulted and following, continue radiation therapy as scheduled until Friday -Hydrocodone-acetaminophen 10-325 mg q4h prn -Dilaudid 0.5 mg q4H for pain control -SCDs on left leg only -Wound care following #LACHO, resolved Creatinine increased to 1.6 from baseline 1.0, may have had ischemia secondary to sepsis leading to prerenal LACHO, may develop into ATN -Monitor renal function, urine output #Constipation Patient was reporting last BM >[address] showed abundant stool throughout colon. Could be opioid induced. -Milk of Mag PRN -Dulcolax tabs PRN #Hx of hepatitis B #Hypoabuminemia Hepatitis B antigen positive, Albumin 2 -> 1.7 -Currently not receiving any treatment for Hep B -Commercial Technician following -Ensure plus and Jagdeep supplementation #Right common femoral vein thrombus s/p IVC filter placement 04/13 Patient unable to be anticoagulated due to active/recurrent bleeding. #Sinus tachycardia, resolved #Lactic acidosis, resolved DVT prophylaxis: None GI prophylaxis: Not indicated Diet: Dysphagia 2 [place]: None Lines: Peripheral IV Antibiotics: Vancomycin [04/19/2025- ], Zosyn [04/19/2025- ] CODE STATUS: FULL Patient plan of care was discussed with the attending physician, Dr. Saldivar. Cindy Jamil PGY1 Attending Provider Attestation/Addendum I attest that I was physically present for the evaluation, physical examination, lab and imaging review of the patient with the residents. I discussed the case with the residents and agree with the findings and plans of care as documented above. Iris Saldivar MD
--- NOTE | 2025-04-25 13:32 | PD.ONCPROG ---
Documentation for date of: 04/25/25 Subjective Subjective Interval history: Patient appearing comfortable this a.m. Hemoglobin this a.m. 10 with minimal oozing from the wound. Exam Vital Signs Temp Pulse Resp BP Pulse Ox O2 Del Method O2 Flow Rate 97.0 F 116 H 16 114/72 95 Nasal Cannula 2 04/25/25 08:00 04/25/25 08:00 04/25/25 08:00 04/25/25 08:00 04/25/25 08:00 04/25/25 08:00 04/25/25 08:00 Objective Labs 04/25/25 04:59 04/25/25 04:59 Labs: Laboratory Results - last 24 hr 04/24/25 04/24/25 04/25/25 17:05 20:54 04:59 WBC 21.5 H RBC 3.42 L Hgb 10.2 L 10.0 L Hct 28.8 L 29.3 L MCV 86 MCH 29.2 MCHC 34.1 RDW Std Deviation 54.7 H Plt Count 299 Neut % (Auto) 85 H Lymph % (Auto) 6 L [place] % (Auto) 5 Eos % (Auto) 2 Baso % (Auto) 0 Neut # (Auto) 18.4 H Lymph # (Auto) 1.3 [place] # (Auto) 1.1 H Eos # (Auto) 0.4 Baso # (Auto) 0.1 Immature Gran # (Auto) 0.28 H Absolute Nucleated RBC 0.00 Immature Gran % 1 H Nucleated RBC % 0 Sodium 133 L Potassium 3.9 D Chloride 103 Carbon Dioxide 23.8 Anion Gap 6 L BUN 11 Creatinine 0.8 Estim Creat Clear Calc 95.0 eGFR > 60 BUN/Creatinine Ratio 14 Glucose 79 Calculated Osmolality 264 L Calcium 7.2 L Corrected Calcium 9.0 Magnesium 1.8 Total Bilirubin 0.5 ALT 19 Alkaline Phosphatase 132 H Total Protein 4.2 L Albumin 1.7 L Globulin 2.5 Albumin/Globulin Ratio 0.7 L Vancomycin Trough 11.7 H Assessment & Plan A&P Narrative 1. Stage IV metastatic sarcoma continued blood loss right pelvis admitted with sepsis bleeding. 2. Bleeding has slowed with 3 fractions of radiation to the right pelvis, awaiting transfer to tertiary hospital for possible embolization procedure. 3. Will withhold treatment today, possible resuming tomorrow if bleeding severe, and/or tertiary hospital transfer is delayed. Time Spent With Patient Time: Total time spent is greater than 50% in coordination of care (as documented) at patient's floor/unit and/or counseling patient:
[2025-04-25] MEDS: HYDROmorphone INJ 2 MG/ML VIAL 0.5 MG IVP (16:30)
[2025-04-26] VITALS (7 sets, daily range): BP systolic 100–120; BP diastolic 71–84; PULSE 89–113; RESP 17–21; TEMP 36.1–36.4; O2SAT 95–100; BMI 25.0
[2025-04-26 05:22] LABS: Basophils # (Auto) 0.1 Thou/mm3 (0.0-0.2); Basophils % (Auto) 0 % (0-2.5); Eosinophils # (Auto) 0.5 Thou/mm3 (0.0-0.5); Eosinophils % (Auto) 2 % (0-10); Hematocrit 27.3 % (41.0-53.0); Hemoglobin 9.1 g/dL (13.5-16.0); Immature Granulocytes % (Auto) 1 % (0-0); Immature Granulocytes Auto 0.26 Thou/mm3 (0.00-0.00); Lymphocytes # (Auto) 0.9 Thou/mm3 (1.0-4.8); Lymphocytes % (Auto) 4 % (10-50); Mean Corpuscular HGB Conc 33.3 g/dl (31.0-37.0); Mean Corpuscular Hemoglobin 29.1 pg (25.0-35.0); Mean Corpuscular Volume 87 fL (80-100); Monocytes # (Auto) 1.6 Thou/mm3 (0.0-0.8); Monocytes % (Auto) 8 % (0-12); Neutrophils % (Auto) 84 % (37-80); Nucleated Red Blood Cell % 0 /100 WBC (0); Platelet Count 340 Thou/mm3 (140-440); RDW Standard Deviation 56.6 fL (35.1-43.9); Red Blood Count 3.13 Miln/mm3 (4.50-5.90); White Blood Count 20.2 Thou/mm3 (3.8-10.6)
[2025-04-26] MEDS: PIPER/TAZO 3.375 GM PREMIX 3.375 GM/50 ML BAG IV (05:26)
[2025-04-26 06:07] LABS: Alanine Aminotransferase 17 U/L (10-49); Albumin, Serum 1.6 gm/dL (3.4-4.8); Albumin/Globulin Ratio 0.7 (1.2-2.2); Alkaline Phosphatase 133 U/L (46-116); Anion Gap 11 (7-16); BUN/Creatinine Ratio 13 Ratio (12-20); Bilirubin,Total 0.4 mg/dL (0.3-1.2); Blood Urea Nitrogen 10 mg/dL (9-23); Calcium (Corrected) 8.9 mg/dL (8.5-10.1); Carbon Dioxide 23.9 mMol/L (20.0-31.0); Chloride 101 mMol/L (98-107); Creatinine (Component) 0.8 mg/dL (0.6-1.3); Globulin 2.4 gm/dL (2.3-3.5); Glucose 95 mg/dL (74-106); Magnesium 1.8 mg/dL (1.6-2.6); Osmolality,Calculated 270 (275-295); Potassium 3.2 mMol/L (3.4-5.1); Sodium 136 mMol/L (136-145); eGFR > 60 See Note
[2025-04-26] MEDS: CALCIUM CARBONATE 600 MG TABLET PO (08:41)
--- NOTE | 2025-04-26 08:45 | PC.SS ---
CUSHION GUM APPLICATOR fielded phone call from [facility] staff, Saadia Sampson; providing following days/times for patient to receive radiation treatment at [facility]: 9:30am or 02:15 pm, Fri 9:30am or 02:15 pm, 9:30am or 02:15 pm. Patient will need transportation arranged from the hospital to [facility]. In addition, nurse will need to accompany patient on the transport. CUSHION GUM APPLICATOR provided update to land use planner via voicemail.
[2025-04-26] MEDS: POTASSIUM CHLORIDE 10% 20 MEQ/15 ML UDC 40 MEQ PO (09:47)
[2025-04-26] MEDS: Magnesium Sulfate 4 GM Ivpb 4 GM/50 ML BAG IV (09:47)
--- NOTE | 2025-04-26 10:02 | PC.SS ---
SS was informed pt is requiring to be transferred to [facility] by mariel. ILANA form, patient's facesheet, and ambulance form has been sent to [facility] using [employer]. SS has spoken to Marietta from [facility] to setup transportation for 1:45pm. Bedside nurse, Pennie is aware. Transfer nurse, Lucrecia is aware. Bisi from [facility] is aware.
--- NOTE | 2025-04-26 10:20 | PC.CC ---
Addendum entered by Kaitlyn Momin RN 04/26/25 13:44: Dr. Amador aware, she will reach out to the family to confirm the patient being out of the area, since previous notes states family wanted PT to remain locally. Addendum entered by Kaitlyn Momin RN 04/26/25 13:37: Received call back from [facility], their 2 IR doctors, Dr. Mayer and DR. Sanchez, state their is nothing they can offer in their services, if transfer still request, they recommend tertiary services. Original Note: Received request From [facility]erg[facility] for progress notes and labs, faxed at [phone], [facility] notified
--- NOTE | 2025-04-26 11:02 | CHAP ---
Patient was visited by a spiritual care volunteer on 04/26/2025 between 0900 and 0920 and received comfort, encouragement and/or prayer.
--- NOTE | 2025-04-26 11:34 | ESPR_ITS ---
Documentation for date of: 04/26/25 Subjective Subjective Interval history: Patient seen and examined at bedside. Noted to be tachycardic at times, hemoglobin did go down to 9.1, will repeat H&H later today Patient has no current complaints, does complain of some shortness of breath at times. Potassium was repleted today, patient will be given magnesium as well. Patient is pending transfer for interventional radiology management for recurrent active bleeding. Exam Vital Signs Temp Pulse Resp BP Pulse Ox O2 Del Method O2 Flow Rate 97.0 F 108 H 17 109/72 95 Nasal Cannula 2 04/26/25 08:00 04/26/25 08:00 04/26/25 08:00 04/26/25 08:00 04/26/25 08:00 04/26/25 08:00 04/26/25 08:00 Narrative Exam Physical Exam General: Awake and in no acute distress. Conversational and non-toxic appearing. HEENT: Normocephalic, atraumatic, mucous membranes moist. Heart: Tachycardic rate and regular rhythm, normal S1 and S2, no murmurs. Lungs: Clear to auscultation with no wheezing or crackles. Abdomen: Soft, nondistended, nontender, positive bowel sounds. ?No guarding or rebound tenderness. Neurologic: Alert and oriented x3, no gross neurological deficit, and patient able to move all 4 extremities. Extremities: Dressings on right pelvis, no active bleeding noted. Necrotic right gluteal ulcer wrapping in dressings. Edema of right lower extremity present. Skin: No rash or ecchymoses. Objective Labs 04/26/25 04:59 04/26/25 04:59 Labs: Laboratory Results - last 24 hr 04/26/25 04:59 WBC 20.2 H RBC 3.13 L Hgb 9.1 L Hct 27.3 L MCV 87 MCH 29.1 MCHC 33.3 RDW Std Deviation 56.6 H Plt Count 340 D Neut % (Auto) 84 H Lymph % (Auto) 4 L [place] % (Auto) 8 Eos % (Auto) 2 Baso % (Auto) 0 Neut # (Auto) 17.0 H Lymph # (Auto) 0.9 L [place] # (Auto) 1.6 H Eos # (Auto) 0.5 Baso # (Auto) 0.1 Immature Gran # (Auto) 0.26 H Absolute Nucleated RBC 0.00 Immature Gran % 1 H Nucleated RBC % 0 Sodium 136 Potassium 3.2 L D Chloride 101 Carbon Dioxide 23.9 Anion Gap 11 BUN 10 Creatinine 0.8 Estim Creat Clear Calc 95.0 eGFR > 60 BUN/Creatinine Ratio 13 Glucose 95 Calculated Osmolality 270 L Calcium 7.0 L Corrected Calcium 8.9 Magnesium 1.8 Total Bilirubin 0.4 ALT 17 Alkaline Phosphatase 133 H Total Protein 4.0 L Albumin 1.6 L Globulin 2.4 Albumin/Globulin Ratio 0.7 L Quality Measures Quality Measures VTE prophylaxis Assessment & Plan Assessment Current Active Medications: Generic Name Dose Route Start Last Admin Trade Name Freq PRN Reason Stop Dose Admin Hydrocodone Bitart/Acetaminophen 1 tab 04/22/25 11:22 04/25/25 05:30 Hydrocodone/Apap 10/325 Tab PO 04/27/25 11:21 1 tab Q4HR PRN Administration PAIN SCALE 4-6 (Moderate Calcium Carbonate 600 mg 04/23/25 09:00 04/26/25 08:41 Calcium Carbonate 600 Mg Tablet PO 05/23/25 08:59 600 mg QDAY BRIAN Administration Docusate Sodium 100 mg 04/20/25 09:31 Docusate Sod 100 Mg Capsule PO 05/20/25 09:30 Q12H PRN CONSTIPATION Protocol Hydromorphone HCl 0.5 mg 04/24/25 16:42 04/25/25 16:30 Hydromorphone Inj 2 Mg/Ml Vial IVP 04/29/25 16:41 0.5 mg Q4HR PRN Administration PAIN SCALE 7-10 (Severe Magnesium Sulfate 4 gm in 50 mls @ 12.5 mls/hr 04/26/25 09:15 04/26/25 09:47 Magnesium Sulfate Ivpb IV 04/26/25 13:14 12.5 mls/hr X1 ONE Administration Magnesium Hydroxide 30 ml 04/20/25 09:31 Milk Of Magnesia Susp 30 Ml Udc PO 05/20/25 09:30 QDAY PRN CONSTIPATION Protocol Plan Mr. 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 Dee, hepatitis B, right leg DVT s/p IVC filter 04/13/2025 who presented to the ED on 04/19/2025 due to profuse bleeding of the right pelvis sinus admitted to ICU due to concerns for hemodynamic instability. Patient was downgraded to medical floors on 04/20/2025. #Acute blood loss anemia secondary to pelvic tumor/wounds #Hypovolemic shock, resolved Initially presenting with BP 70/40s -> 110/80s after 3L IVF, maintaining MAP >65 w/o pressor support, s/p 2 unit PRBC infusion given. Hb 6.2 on admission -> 9.4 -> 8.9. Currently wound has stopped bleeding as shown on dressing changes. 04/21/2025: 2 PRBC tranfusion Overall patient has received 7 units PRBC and 1 unit FFP -Monitor for active bleeding, will repeat H&H later today -Patient typed and screened -Monitor H&H closely. Transfusing for Hgb <7 or symptomatic. 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 Dee. Chest CTA showed multiple pulmonary nodules. Rad Oncology Dr Dee was contacted as patient [facility] on [facility] 04/18. Pending discussion with family, patient comprehends fully that the prognosis is poor but is open to palliative radiation for pain and bleeding control. -Continue palliative treatment for Stage IV pleomorphic sarcoma -Dr Dee consulted and following, continue radiation therapy as scheduled by oncology -Hydrocodone-acetaminophen 10-325 mg q4h prn -Dilaudid 0.5 mg q4H for pain control -SCDs on left leg only -Wound care following #Severe sepsis secondary to pelvic wounds, resolved #Leukocytosis On admission WBC 26 --> 36.9. Purulent discharge found on pelvic/sacral wounds. Previously patient had been seen by surgery on prior admissions who determined wounds are not amenable to debridement. Blood cultures negative 48 hours. - Patient received IV antibiotics for 7 days, will stop antibiotics. #LACHO, resolved Creatinine increased to 1.6 from baseline 1.0, may have had ischemia secondary to sepsis leading to prerenal LACHO, may develop into ATN -Monitor renal function, urine output #Constipation Patient was reporting last BM >[address] showed abundant stool throughout colon. Could be opioid induced. -Milk of Mag PRN -Dulcolax tabs PRN #Hx of hepatitis B #Hypoabuminemia Hepatitis B antigen positive, Albumin 2 -> 1.7 -Currently not receiving any treatment for Hep B -Company Doctor following -Ensure plus and Jagdeep supplementation #Right common femoral vein thrombus s/p IVC filter placement 04/13 Patient unable to be anticoagulated due to active/recurrent bleeding. #Sinus tachycardia, resolved #Lactic acidosis, resolved DVT prophylaxis: None GI prophylaxis: Not indicated Diet: Dysphagia 2 [place]: None Lines: Peripheral IV Antibiotics: Vancomycin [04/19/2025- ], Zosyn [04/19/2025- ] CODE STATUS: FULL Patient plan of care was discussed with the attending physician, Dr. Saldivar. Cidny Jamil PGY1 Attending Provider Attestation/Addendum I attest that I was physically present for the evaluation, physical examination, lab and imaging review of the patient with the residents. I discussed the case with the residents and agree with the findings and plans of care as documented above. At bedside today, patient states she is feeling well. His pain has been well- controlled with analgesics. Vital signs are stable, saturating well on 2 L nasal cannula. WBC has been downtrending nicely. Hemoglobin noted to have dropped to 9.1 from 10.0 yesterday. Patient continues to have some oozing from his wound. Did not receive his radiation therapy yesterday. Patient is pending transfer to [facility] for IR embolization of bleeding vessel. Iris Saldivar MD
[2025-04-26 15:54] LABS: Hemoglobin 9.1 g/dL (13.5-16.0)
[2025-04-26 21:31] LABS: Vancomycin,Trough 14.5 mcg/mL (5.0-10.0)
[2025-04-27] VITALS: BP 125/74; PULSE 102; PULSE 95; RESP 18; TEMP 36.2; O2SAT 99
[2025-04-27 04:00] VITALS: BP 119/55; PULSE 103; PULSE 77; RESP 17; TEMP 36.3; O2SAT 94
[2025-04-27 05:52] VITALS: BMI 55.3
[2025-04-27 05:52] LABS: Basophils % (Auto) 0 % (0-2.5); Eosinophils # (Auto) 0.4 Thou/mm3 (0.0-0.5); Eosinophils % (Auto) 2 % (0-10); Hematocrit 25.8 % (41.0-53.0); Immature Granulocytes % (Auto) 1 % (0-0); Immature Granulocytes Auto 0.18 Thou/mm3 (0.00-0.00); Lymphocytes # (Auto) 0.8 Thou/mm3 (1.0-4.8); Lymphocytes % (Auto) 5 % (10-50); Mean Corpuscular HGB Conc 34.9 g/dl (31.0-37.0); Mean Corpuscular Hemoglobin 29.3 pg (25.0-35.0); Mean Corpuscular Volume 84 fL (80-100); Monocytes # (Auto) 1.4 Thou/mm3 (0.0-0.8); Monocytes % (Auto) 8 % (0-12); Neutrophils # (Auto) 14.6 Thou/mm3 (1.8-7.7); Neutrophils % (Auto) 84 % (37-80); Nucleated Red Blood Cell % 0 /100 WBC (0); Platelet Count 365 Thou/mm3 (140-440); RDW Standard Deviation 55.5 fL (35.1-43.9); Red Blood Count 3.07 Miln/mm3 (4.50-5.90); White Blood Count 17.4 Thou/mm3 (3.8-10.6)
[2025-04-27 06:16] LABS: Anion Gap 10 (7-16); BUN/Creatinine Ratio 13 Ratio (12-20); Blood Urea Nitrogen 9 mg/dL (9-23); Calcium 7.1 mg/dL (8.3-10.6); Carbon Dioxide 25.5 mMol/L (20.0-31.0); Chloride 101 mMol/L (98-107); Creatinine (Component) 0.7 mg/dL (0.6-1.3); Estimated Creatinine Clearance 170.2 mL/min (>60); Glucose 85 mg/dL (74-106); Magnesium 1.7 mg/dL (1.6-2.6); Osmolality,Calculated 269 (275-295); Sodium 136 mMol/L (136-145); eGFR > 60 See Note
[2025-04-27 08:00] VITALS: BP 118/81; PULSE 93; RESP 18; TEMP 36.7; O2SAT 99
[2025-04-27] MEDS: CALCIUM CARBONATE 600 MG TABLET PO (09:03)
[2025-04-27] MEDS: POTASSIUM CHLORIDE 10% 20 MEQ/15 ML UDC 40 MEQ PO (09:07)
--- NOTE | 2025-04-27 09:16 | PC.SS ---
has setup ambulance transportation for wait and return to [facility] for 1:45pm with Charge NurseGinger as ride along. SS has confirmed transportation with Mary Beth from [facility]. SS has sent patient's facesheet, ILANA, and ambulance for to [facility] using [facility]. Bedside nursePennie is aware. Carlee JANSEN is aware. Ginger Charge Nurse is aware. has email Saadia Compounder [employer] at [facility].
--- NOTE | 2025-04-27 09:50 | PC.CC ---
Addendum entered by Nicholas Ram RN 04/27/25 10:18: 0955: called [employer] , spoke to Gypsy, clinical information provided. She will present case and call me back. She requested prior auth, informed her that ins auth is being worked on by [employer]. Original Note: 0950: called and spoke to Tiarra paredes/ [employer] jose luis. i informed her that declined the patient and will need to change the prior auth for [employer]. She state she will work on it.
--- NOTE | 2025-04-27 11:44 | ESPR_ITS ---
<Statement entered by Jovana Velazquez MD - 05/06/25 14:58> I reviewed above note and agree with findings and plans. I have also personally examined the patient with medicine team and went over assessment and plan with medical team including internet technology manager and resident physician. Documentation for date of: 04/27/25 Subjective Subjective Interval history: Patient seen and examined at bedside. Will continue to monitor H&H, otherwise stable. Will go to CTC today radiation. Potassium was repleted today. Patient is pending transfer for interventional radiology management for recurrent active bleeding. Exam Vital Signs Temp Pulse Resp BP Pulse Ox O2 Del Method O2 Flow Rate 98.1 F 93 18 118/81 99 Nasal Cannula 2 04/27/25 08:00 04/27/25 08:00 04/27/25 08:00 04/27/25 08:00 04/27/25 08:00 04/27/25 08:00 04/27/25 08:00 Narrative Exam Physical Exam General: Awake and in no acute distress. Conversational and non-toxic appearing. HEENT: Normocephalic, atraumatic, mucous membranes moist. Heart: Regular rate and regular rhythm, normal S1 and S2, no murmurs. Lungs: Clear to auscultation with no wheezing or crackles. Abdomen: Soft, nondistended, nontender, positive bowel sounds. ?No guarding or rebound tenderness. Neurologic: Alert and oriented x3, no gross neurological deficit, and patient able to move all 4 extremities. Extremities: Dressings on right pelvis, no active bleeding noted. Necrotic right gluteal ulcer wrapping in dressings. mild edema of lokesh lower extremity present. Skin: No rash or ecchymoses. Objective Labs 04/27/25 05:18 04/27/25 05:18 Labs: Laboratory Results - last 24 hr 04/26/25 04/26/25 04/27/25 15:07 20:53 05:18 WBC 17.4 H RBC 3.07 L Hgb 9.1 L 9.0 L Hct 26.0 L 25.8 L MCV 84 MCH 29.3 MCHC 34.9 RDW Std Deviation 55.5 H Plt Count 365 Neut % (Auto) 84 H Lymph % (Auto) 5 L [place] % (Auto) 8 Eos % (Auto) 2 Baso % (Auto) 0 Neut # (Auto) 14.6 H Lymph # (Auto) 0.8 L [place] # (Auto) 1.4 H Eos # (Auto) 0.4 Baso # (Auto) 0.0 Immature Gran # (Auto) 0.18 H Absolute Nucleated RBC 0.00 Immature Gran % 1 H Nucleated RBC % 0 Sodium 136 Potassium 3.0 L Chloride 101 Carbon Dioxide 25.5 Anion Gap 10 BUN 9 Creatinine 0.7 Estim Creat Clear Calc 170.2 eGFR > 60 BUN/Creatinine Ratio 13 Glucose 85 Calculated Osmolality 269 L Calcium 7.1 L Magnesium 1.7 Vancomycin Trough 14.5 H Quality Measures Quality Measures VTE prophylaxis Assessment & Plan Assessment Current Active Medications: Generic Name Dose Route Start Last Admin Trade Name Freq PRN Reason Stop Dose Admin Calcium Carbonate 600 mg 04/23/25 09:00 04/27/25 09:03 Calcium Carbonate 600 Mg Tablet PO 05/23/25 08:59 600 mg QDAY BRIAN Administration Docusate Sodium 100 mg 04/20/25 09:31 Docusate Sod 100 Mg Capsule PO 05/20/25 09:30 Q12H PRN CONSTIPATION Protocol Hydromorphone HCl 0.5 mg 04/24/25 16:42 04/25/25 16:30 Hydromorphone Inj 2 Mg/Ml Vial IVP 04/29/25 16:41 0.5 mg Q4HR PRN Administration PAIN SCALE 7-10 (Severe Magnesium Hydroxide 30 ml 04/20/25 09:31 Milk Of Magnesia Susp 30 Ml Udc PO 05/20/25 09:30 QDAY PRN CONSTIPATION Protocol Plan Mr. 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 Dee, hepatitis B, right leg DVT s/p IVC filter 04/13/2025 who presented to the ED on 04/19/2025 due to profuse bleeding of the right pelvis sinus admitted to ICU due to concerns for hemodynamic instability. Patient was downgraded to medical floors on 04/20/2025. #Acute blood loss anemia secondary to pelvic tumor/wounds #Hypovolemic shock, resolved Initially presenting with BP 70/40s -> 110/80s after 3L IVF, maintaining MAP >65 w/o pressor support, s/p 2 unit PRBC infusion given. Hb 6.2 on admission -> 9.4 -> 8.9. Currently wound has stopped bleeding as shown on dressing changes. 04/21/2025: 2 PRBC tranfusion Overall patient has received 7 units PRBC and 1 unit FFP -Monitor for active bleeding -Patient typed and screened -Monitor H&H closely. Transfusing for Hgb <7 or symptomatic. 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 Dee. Chest CTA showed multiple pulmonary nodules. Rad Oncology Dr Dee was contacted as [facility]. Pending discussion with family, patient comprehends fully that the prognosis is poor but is open to palliative radiation for pain and bleeding control. -Continue palliative treatment for Stage IV pleomorphic sarcoma -Dr Dee consulted and following, continue radiation therapy as scheduled by oncology -Hydrocodone-acetaminophen 10-325 mg q4h prn -Dilaudid 0.5 mg q4H for pain control -SCDs on left leg only -Wound care following #Severe sepsis secondary to pelvic wounds, resolved #Leukocytosis On admission WBC 26 --> 36.9. Purulent discharge found on pelvic/sacral wounds. Previously patient had been seen by surgery on prior admissions who determined wounds are not amenable to debridement. Blood cultures negative 48 hours. - Patient received IV antibiotics for 7 days, will stop antibiotics. #LACHO, resolved Creatinine increased to 1.6 from baseline 1.0, may have had ischemia secondary to sepsis leading to prerenal LACHO, may develop into ATN -Monitor renal function, urine output #Constipation Patient was reporting last BM >[address] showed abundant stool throughout colon. Could be opioid induced. -Milk of Mag PRN -Dulcolax tabs PRN #Hx of hepatitis B #Hypoabuminemia Hepatitis B antigen positive, Albumin 2 -> 1.7 -Currently not receiving any treatment for Hep B -Media Supervisor following -Ensure plus and Jagdeep supplementation #Right common femoral vein thrombus s/p IVC filter placement 04/13 Patient unable to be anticoagulated due to active/recurrent bleeding. #Sinus tachycardia, resolved #Lactic acidosis, resolved DVT prophylaxis: None GI prophylaxis: Not indicated Diet: Dysphagia 2 [place]: None Lines: Peripheral IV Antibiotics: Vancomycin [04/19/2025-04/26/25 ], Zosyn [04/19/2025-04/26/25] CODE STATUS: Limited Code (medications and shock okay) Patient plan of care was discussed with the attending physician, Dr. Velazquez. Cindy Jamil PGY1
[2025-04-27 12:00] VITALS: BP 117/82; PULSE 74; RESP 18; TEMP 36.3; O2SAT 96
--- NOTE | 2025-04-27 12:27 | PC.CM ---
Addendum entered by Jessica Trejo RN 04/27/25 17:16: 1710 I spoke to [facility] transfer nurse Neil and he stated they have a Doctor that is interested in accepting patient, but they would need authorization from [facility] before they would precede. The doctors name is Dr. Dhiraj Rogers. He is with the medicine team. I let Neil know I would reach out to [facility] tomorrow and work on getting authorization. Addendum entered by Jessica Trejo RN 04/27/25 17:05: 1630 Tiarra called me back and stated she called and spoke to Shasta with [facility]. She states Shasta let her know that they need authorization from [facility] Addendum entered by Jessica Trejo RN 04/27/25 16:01: I called and spoke Tiarra Velazquez with patient insurance. phone number [phone]. She states she will follow up with her Retail Sales Associate Bilingual to see if they can give auth without an accepting DR. Tiarra states she will get back to me. Addendum entered by Jessica Trejo RN 04/27/25 15:10: 1510 I recived a call back from Shasta with the finance dept. with [facility] phone # [phone]. She stated they will need authorization before they can move forward of reviewing patient. I let her know I cannot get authorization without an accepting MD. I let her know I will reach out to patient's insurance and I will let them know [facility] is needing authorization and will need a ILANA. 1410 I spoke to [facility] and initiated a transfer. Addendum entered by Jessica Trejo RN 04/27/25 13:24: 0115 Images pushed to [facility]. Addendum entered by Jessica Trejo RN 04/27/25 12:59: I contacted [facility] and I spoke to [employer]. I faxed over paperwork and I will push over images. Addendum entered by Jessica Trejo RN 04/27/25 12:49: I contacted [facility] and faxed over information. Original Note: Patient needs transfer for Stage IV metastatic sarcoma continued blood loss right pelvis admitted with sepsis bleeding. Transfer requested for embolization of bleeding vessel. Per notes patient needs a tertiary center. I send referal to [facility] and to [facility].
[2025-04-27 16:00] VITALS: BP 116/83; PULSE 97; RESP 18; TEMP 36.8; O2SAT 99
--- NOTE | 2025-04-27 16:57 | ESDS_ITS ---
<Statement entered by Jovana Velazquez MD - 05/06/25 15:03> I reviewed above note and agree with findings and plans. I have also personally examined the patient with medicine team and went over assessment and plan with medical team including consulting intern and resident physician. Planned Discharge Date 04/27/25 DS: Providers Provider Date of admission: 04/19/25 16:13 Primary care physician: Zia Jorge MD Admitting Provider: Felecia Shin MD Attending Provider on Admission: Jovana Velazquez MD Consults: 04/19/25 11:35 Referral Wound Care Stat Comment: right coccyx please evaluate 04/19/25 18:23 Referral Registered Dietitian Routine Comment: Referral Wound Care Routine Comment: 04/19/25 18:33 Referral [place] Routine Comment: 04/19/25 18:42 Referral Registered Dietitian Routine Comment: 04/20/25 07:18 Consult to Oncology Routine Comment: Consulting Provider: Paul Dee 04/22/25 15:14 Consult to General Surgery Routine Comment: Right Pelvic Bleeding Consulting Provider: Baldemar Ureña Attending Provider on DC: Jovana Velazquez MD Discharging Provider: Jovana Velazquez MD Anticipated date of discharge: 04/27/25 DS: Diagnosis Problem List Completed Was Problem List Reviewed/Reconciled?: Yes Hospital Course Hospital Course Hospital course: Hospital course: Mr. 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 Dee, hepatitis B, right leg DVT s/p IVC filter 04/13/2025 who presented to the ED on 04/19/2025 due to profuse bleeding of the right pelvis sinus. Patient was recently discharged on April 18, 2025 for similar complaint, since going home patient continued to have bleeding, on presentation hemoglobin was 6.2, patient was admitted to intensive care unit for close monitoring for any further bleeding and possible rapid infusion of blood products. Patient was given 2 units PRBC, was started on IV antibiotics, patient was started on palliative radiation therapy by oncologist, was moved to [facility] for radiation dosing for sessions. With the progression of hospital course patient continues to have significant bleeding, general surgery was consulted and recommended IV tranexamic acid, transfusion of FFP, patient continues to have significant bleeding despite pressure dressing and other measures. Patient was transfused 1 unit of PRBC, posttransfusion hemoglobin did improve to 7.9 however patient continued to have bleeding with hemoglobin down trended to 6.3. Transfusion of 2 unit PRBC was ordered, posttransfusion hemoglobin has been stable however patient continues to have oozing blood. Patient otherwise has no tachycardia, is alert and oriented he is hemodynamically stable, patient's LACHO resolved with the progression of hospital course. Further plan is to transfer patient to higher level of care for interventional radiology embolization of vessel due to continued and recurrent bleeding. Patient completed IV Antibiotic therapy for 7 days. Patient is on IV pain medication for pain management. Patient is stable for transfer. 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 Velazquez. Cindy Jamil PGY1 Disclaimer: This note was dictated by speech recognition. Minor errors in tieing machine operator may be present due to voice recognition software. Time Spent with Patient Time attestation: Total time spent providing and/or coordinating discharge services: Time spent: Greater than 30 minutes Exam Vital Signs Temp Pulse Resp BP Pulse Ox O2 Del Method O2 Flow Rate 97.4 F 74 18 117/82 96 Room Air 2 04/27/25 12:00 04/27/25 12:04/27/25 12:04/27/25 12:04/27/25 12:04/27/25 12:04/27/25 08:00 Narrative Exam Physical Exam General: Awake and in no acute distress. Conversational and non-toxic appearing. HEENT: Normocephalic, atraumatic, mucous membranes moist. Heart: Regular rate and regular rhythm, normal S1 and S2, no murmurs. Lungs: Clear to auscultation with no wheezing or crackles. Abdomen: Soft, nondistended, nontender, positive bowel sounds. ?No guarding or rebound tenderness. Neurologic: Alert and oriented x3, no gross neurological deficit, and patient able to move all 4 extremities. Extremities: Dressings on right pelvis, no active bleeding noted. Necrotic right gluteal ulcer wrapping in dressings. mild edema of lokesh lower extremity present. Skin: No rash or ecchymoses. Discharge Plan Prescriptions/Referrals Prescriptions/Med Rec: No Action docusate calcium 240 mg capsule 240 mg PO QDAY Qty: 30 6RF magnesium hydroxide [Milk of Magnesia] 400 mg/5 mL Suspension 30 ml PO QDAY PRN (Reason: Constipation) Qty: 3780 0RF doxycycline monohydrate 100 mg capsule 100 mg PO BID 7 Days Qty: 14 0RF amoxicillin-pot clavulanate 875-125 mg tablet 1 tab PO BID 7 Days Qty: 14 0RF hydrocodone-acetaminophen 10-325 mg tablet 1 tab PO Q4H PRN (Reason: pain) Patient Comments: 1 tab orally every 4 hours As Needed for pain for 3 days, Max Daily Dose: 40 mg hydrocodone Referrals: Zia Jorge MD [Primary Care Provider] - Patient/Caregiver Discharge Instructions Print Language: Georgian Quality Discharge Quality Measures none
--- NOTE | 2025-04-27 17:02 | PC.NURSE ---
Received call from [facility] TC nurse and gave her a brief summary of pt. She stated we have accepted the pt but do not have insurance auth yet . She stated our transfer centers are working on getting the auth.
[2025-04-27 20:00] VITALS: BP 118/78; PULSE 94; RESP 19; TEMP 36.2; O2SAT 99
[2025-04-27] MEDS: HYDROcodone/APAP 10/325 TAB PO (21:17)
[2025-04-28] VITALS: BP 105/71; PULSE 97; RESP 17; TEMP 36.1; O2SAT 99
[2025-04-28 04:00] VITALS: BP 129/89; PULSE 98; RESP 15; TEMP 36.1; O2SAT 99
[2025-04-28 06:17] LABS: Basophils % (Auto) 0 % (0-2.5); Eosinophils # (Auto) 0.3 Thou/mm3 (0.0-0.5); Eosinophils % (Auto) 2 % (0-10); Hematocrit 28.6 % (41.0-53.0); Hemoglobin 9.4 g/dL (13.5-16.0); Immature Granulocytes % (Auto) 1 % (0-0); Immature Granulocytes Auto 0.14 Thou/mm3 (0.00-0.00); Lymphocytes # (Auto) 0.8 Thou/mm3 (1.0-4.8); Lymphocytes % (Auto) 5 % (10-50); Mean Corpuscular HGB Conc 32.9 g/dl (31.0-37.0); Mean Corpuscular Volume 88 fL (80-100); Monocytes # (Auto) 1.2 Thou/mm3 (0.0-0.8); Monocytes % (Auto) 8 % (0-12); Neutrophils % (Auto) 84 % (37-80); Nucleated Red Blood Cell % 0 /100 WBC (0); Platelet Count 438 Thou/mm3 (140-440); RDW Standard Deviation 59.2 fL (35.1-43.9); Red Blood Count 3.24 Miln/mm3 (4.50-5.90); White Blood Count 15.5 Thou/mm3 (3.8-10.6)
[2025-04-28 06:35] LABS: Anion Gap 8 (7-16); BUN/Creatinine Ratio 13 Ratio (12-20); Blood Urea Nitrogen 9 mg/dL (9-23); Calcium 7.3 mg/dL (8.3-10.6); Carbon Dioxide 27.7 mMol/L (20.0-31.0); Chloride 100 mMol/L (98-107); Creatinine (Component) 0.7 mg/dL (0.6-1.3); Estimated Creatinine Clearance 108.6 mL/min (>60); Glucose 83 mg/dL (74-106); Magnesium 1.7 mg/dL (1.6-2.6); Osmolality,Calculated 269 (275-295); Potassium 3.4 mMol/L (3.4-5.1); Sodium 136 mMol/L (136-145); eGFR > 60 See Note
[2025-04-28 08:00] VITALS: BP 124/78; PULSE 103; PULSE 90; RESP 18; TEMP 36.4; O2SAT 99
[2025-04-28] MEDS: CALCIUM CARBONATE 600 MG TABLET PO (08:34)
[2025-04-28] MEDS: POTASSIUM CHLORIDE 10% 20 MEQ/15 ML UDC PO (08:34)
--- NOTE | 2025-04-28 08:46 | PC.SS ---
INFECTIOUS DISEASE TECHNICIAN received phone call from [facility] staff, Kaitlynn; stating that today will be last session of radiation treatment for the patient. INFECTIOUS DISEASE TECHNICIAN notified account planner.
--- NOTE | 2025-04-28 09:12 | PC.SS ---
has setup ambulance transportation to [facility] for 1:45pm for wait and return. has sent ILANA, patient's facesheet, and ambulance form to [facility] using [facility]. Ginger Charge Nurse will be ride along. Bedside nurse, Jennifer is aware. Tiffanie CORLEY is aware.
[2025-04-28 12:00] VITALS: BP 118/82; PULSE 72; PULSE 95; RESP 20; TEMP 36.1; O2SAT 98
--- NOTE | 2025-04-28 12:19 | PC.CM ---
Addendum entered by Jessica Trejo RN 04/28/25 19:45: [facility] medically willing to accept patient. DR. Dhiraj Rogers willing to accept. Transfer center is stating they would need authorization. I called Tiarra earlier today to relay the information. Tiarra states she needed to speak to her bike shop manager because she did not know if they were contracted with [facility]. Please follow up with Jessica with [facility]. CN is not an IPA. [facility] was stating they needed auth from [facility]. Patient only has the health plan [employer]. Addendum entered by Jessica Trejo RN 04/28/25 16:58: [facility] medically willing to accept patient. DR. Dhiraj Rogers willing to accept. Transfer center is stating they would need authorization. I called Tiarra earlier today to relay the information. Tiarra states she needed to speak to her bike shop manager because she did not know if they were contracted. We need to hear back from [facility]. Addendum entered by Jessica Trejo RN 04/28/25 12:43: 1030 I spoke to Tiarra with [facility] and I let her know that [facility] is interested in patient but they would need authorization from insurance before they procede. Tiarra states she will check with her bike shop manager to see what she needs to do. She was not sure if [facility] was contracted. I let know that patient had already been declined by [facility], [facility]. Original Note: 0772 I reviewed chart and I did not find patient has an IPA attached to the healthplan. [facility]ner stated we need authorization from [facility]. I called and left a message with Lalo Rodriguez, our throw out clerk at [phone]. I left him a message asking if he knew anything about [facility] acting as the IPA for [employer] plan.
[2025-04-28] MEDS: HYDROcodone/APAP 10/325 TAB PO (12:32)
--- NOTE | 2025-04-28 13:20 | ESPR_ITS ---
<Statement entered by Jovana Velazquez MD - 05/10/25 08:53> I reviewed above note and agree with findings and plans. I have also personally examined the patient with medicine team and went over assessment and plan with medical team including internet assessor and resident physician. Documentation for date of: 04/28/25 Subjective Subjective Interval history: Patient seen and examined at bedside. Hemoglobin is stable at 9.4 however patient continues to have oozing of blood from wound. Patient is pending transfer to higher level of care for interventional radiology intervention Otherwise patient has no current complaints, stable, WBC count is trending down, electrolytes within normal limits. Exam Vital Signs Temp Pulse Resp BP Pulse Ox O2 Del Method O2 Flow Rate 97.5 F 90 18 124/78 99 Nasal Cannula 2 04/28/25 08:00 04/28/25 08:00 04/28/25 08:00 04/28/25 08:00 04/28/25 08:00 04/28/25 08:00 04/28/25 08:00 Narrative Exam Physical Exam General: Awake and in no acute distress. Conversational and non-toxic appearing. HEENT: Normocephalic, atraumatic, mucous membranes moist. Heart: Regular rate and regular rhythm, normal S1 and S2, no murmurs. Lungs: Clear to auscultation with no wheezing or crackles. Abdomen: Soft, nondistended, nontender, positive bowel sounds. ?No guarding or rebound tenderness. Neurologic: Alert and oriented x3, no gross neurological deficit, and patient able to move all 4 extremities. Extremities: Dressings on right pelvis, no active bleeding noted. Necrotic right gluteal ulcer wrapping in dressings. mild edema of l[place] lower extremity present. Skin: No rash or ecchymoses. Objective Labs 04/28/25 05:12 04/28/25 05:12 Labs: Laboratory Results - last 24 hr 04/28/25 05:12 WBC 15.5 H RBC 3.24 L Hgb 9.4 L Hct 28.6 L MCV 88 MCH 29.0 MCHC 32.9 RDW Std Deviation 59.2 H Plt Count 438 D Neut % (Auto) 84 H Lymph % (Auto) 5 L [place] % (Auto) 8 Eos % (Auto) 2 Baso % (Auto) 0 Neut # (Auto) 13.0 H Lymph # (Auto) 0.8 L [place] # (Auto) 1.2 H Eos # (Auto) 0.3 Baso # (Auto) 0.0 Immature Gran # (Auto) 0.14 H Absolute Nucleated RBC 0.00 Immature Gran % 1 H Nucleated RBC % 0 Sodium 136 Potassium 3.4 Chloride 100 Carbon Dioxide 27.7 Anion Gap 8 BUN 9 Creatinine 0.7 Estim Creat Clear Calc 108.6 eGFR > 60 BUN/Creatinine Ratio 13 Glucose 83 Calculated Osmolality 269 L Calcium 7.3 L Magnesium 1.7 Quality Measures Quality Measures none Assessment & Plan Assessment Current Active Medications: Generic Name Dose Route Start Last Admin Trade Name Freq PRN Reason Stop Dose Admin Hydrocodone Bitart/Acetaminophen 1 tab 04/27/25 21:00 04/28/25 12:32 Hydrocodone/Apap 10/325 Tab PO 05/02/25 20:59 1 tab Q4HR PRN Administration PAIN SCALE 4-6 (Moderate Calcium Carbonate 600 mg 04/23/25 09:00 04/28/25 08:34 Calcium Carbonate 600 Mg Tablet PO 05/23/25 08:59 600 mg QDAY BRIAN Administration Docusate Sodium 100 mg 04/20/25 09:31 Docusate Sod 100 Mg Capsule PO 05/20/25 09:30 Q12H PRN CONSTIPATION Protocol Hydromorphone HCl 0.5 mg 04/24/25 16:42 04/25/25 16:30 Hydromorphone Inj 2 Mg/Ml Vial IVP 04/29/25 16:41 0.5 mg Q4HR PRN Administration PAIN SCALE 7-10 (Severe Magnesium Hydroxide 30 ml 04/20/25 09:31 Milk Of Magnesia Susp 30 Ml Udc PO 05/20/25 09:30 QDAY PRN CONSTIPATION Protocol Plan Mr. 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 Dee, hepatitis B, right leg DVT s/p IVC filter 04/13/2025 who presented to the ED on 04/19/2025 due to profuse bleeding of the right pelvis sinus admitted to ICU due to concerns for hemodynamic instability. Patient was downgraded to medical floors on 04/20/2025. #Acute blood loss anemia secondary to pelvic tumor/wounds #Hypovolemic shock, resolved Initially presenting with BP 70/40s -> 110/80s after 3L IVF, maintaining MAP >65 w/o pressor support, s/p 2 unit PRBC infusion given. Hb 6.2 on admission -> 9.4 -> 8.9. Currently wound has stopped bleeding as shown on dressing changes. 04/21/2025: 2 PRBC tranfusion Overall patient has received 7 units PRBC and 1 unit FFP -Monitor for active bleeding -Patient typed and screened -Monitor H&H closely. Transfusing for Hgb <7 or symptomatic. 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 Dee. Chest CTA showed multiple pulmonary nodules. Rad Oncology Dr Dee was contacted as [facility]. Pending discussion with family, patient comprehends fully that the prognosis is poor but is open to palliative radiation for pain and bleeding control. -Continue palliative treatment for Stage IV pleomorphic sarcoma -Dr Dee consulted and following, continue radiation therapy as scheduled by oncology -Hydrocodone-acetaminophen 10-325 mg q4h prn -Dilaudid 0.5 mg q4H for pain control -SCDs on left leg only -Wound care following #Severe sepsis secondary to pelvic wounds, resolved #Leukocytosis On admission WBC 26 --> 36.9. Purulent discharge found on pelvic/sacral wounds. Previously patient had been seen by surgery on prior admissions who determined wounds are not amenable to debridement. Blood cultures negative 48 hours. - Patient received IV antibiotics for 7 days, will stop antibiotics. #LACHO, resolved Creatinine increased to 1.6 from baseline 1.0, may have had ischemia secondary to sepsis leading to prerenal LACHO, may develop into ATN -Monitor renal function, urine output #Constipation Patient was reporting last BM >[address] showed abundant stool throughout colon. Could be opioid induced. -Milk of Mag PRN -Dulcolax tabs PRN #Hx of hepatitis B #Hypoabuminemia Hepatitis B antigen positive, Albumin 2 -> 1.7 -Currently not receiving any treatment for Hep B -Corporate Bond Trader following -Ensure plus and Jagdeep supplementation #Right common femoral vein thrombus s/p IVC filter placement 04/13 Patient unable to be anticoagulated due to active/recurrent bleeding. #Sinus tachycardia, resolved #Lactic acidosis, resolved DVT prophylaxis: None GI prophylaxis: Not indicated Diet: Dysphagia 2 [place]: None Lines: Peripheral IV Antibiotics: Vancomycin [04/19/2025-04/26/25 ], Zosyn [04/19/2025-04/26/25] CODE STATUS: Limited Code (medications and shock okay) Patient plan of care was discussed with the attending physician, Dr. Velazquez. Cindy Jamil PGY1
[2025-04-28 16:00] VITALS: BP 103/77; PULSE 70; PULSE 87; RESP 16; TEMP 36.3; O2SAT 99
[2025-04-28 20:00] VITALS: BP 137/87; PULSE 108; RESP 19; TEMP 36.1; O2SAT 96
[2025-04-29] VITALS: BP 119/83; PULSE 108; PULSE 112; RESP 18; TEMP 36.5; O2SAT 97
[2025-04-29 04:00] VITALS: BP 133/87; PULSE 115; PULSE 95; RESP 21; TEMP 36.4; O2SAT 95
[2025-04-29 05:56] LABS: Basophils # (Auto) 0.1 Thou/mm3 (0.0-0.2); Basophils % (Auto) 0 % (0-2.5); Eosinophils # (Auto) 0.3 Thou/mm3 (0.0-0.5); Eosinophils % (Auto) 2 % (0-10); Hematocrit 25.9 % (41.0-53.0); Immature Granulocytes % (Auto) 1 % (0-0); Immature Granulocytes Auto 0.18 Thou/mm3 (0.00-0.00); Lymphocytes # (Auto) 0.8 Thou/mm3 (1.0-4.8); Lymphocytes % (Auto) 4 % (10-50); Mean Corpuscular Hemoglobin 29.4 pg (25.0-35.0); Mean Corpuscular Volume 87 fL (80-100); Monocytes # (Auto) 1.4 Thou/mm3 (0.0-0.8); Monocytes % (Auto) 8 % (0-12); Neutrophils # (Auto) 15.3 Thou/mm3 (1.8-7.7); Neutrophils % (Auto) 85 % (37-80); Nucleated Red Blood Cell % 0 /100 WBC (0); Platelet Count 441 Thou/mm3 (140-440); RDW Standard Deviation 56.4 fL (35.1-43.9); Red Blood Count 2.99 Miln/mm3 (4.50-5.90)
[2025-04-29 05:57] LABS: Hemoglobin 8.8 g/dL (13.5-16.0)
[2025-04-29 06:35] LABS: Anion Gap 10 (7-16); BUN/Creatinine Ratio 13 Ratio (12-20); Blood Urea Nitrogen 9 mg/dL (9-23); Calcium 7.3 mg/dL (8.3-10.6); Carbon Dioxide 25.4 mMol/L (20.0-31.0); Chloride 100 mMol/L (98-107); Creatinine (Component) 0.7 mg/dL (0.6-1.3); Estimated Creatinine Clearance 108.6 mL/min (>60); Glucose 89 mg/dL (74-106); Magnesium 1.5 mg/dL (1.6-2.6); Osmolality,Calculated 267 (275-295); Potassium 3.4 mMol/L (3.4-5.1); Sodium 135 mMol/L (136-145); eGFR > 60 See Note
[2025-04-29 08:00] VITALS: BP 122/81; PULSE 100; PULSE 103; RESP 15; TEMP 36.3; O2SAT 98
[2025-04-29] MEDS: POTASSIUM CHLORIDE 10% 20 MEQ/15 ML UDC PO (08:12)
[2025-04-29] MEDS: CALCIUM CARBONATE 600 MG TABLET PO (08:12)
[2025-04-29] MEDS: Magnesium Sulfate 4 GM Ivpb 4 GM/50 ML BAG IV (08:12)
--- NOTE | 2025-04-29 08:26 | PC.CC ---
Addendum entered by Jessica Ahumada RN 04/29/25 13:08: TBA signed and faxed back Addendum entered by Jessica Ahumada RN 04/29/25 12:32: DC summary faxed at this time Addendum entered by Jessica Ahumada RN 04/29/25 12:31: Spoke to Neil at [facility] transfer center amd gave him auth he is asking for tba and dc summary to be faxed Addendum entered by Jessica Ahumada RN 04/29/25 12:28: Tiarra called back from [employer] and said the patient is approved to be transferred to [facility], Auth # is [id number] Original Note: Spoke to Tiarra who said she needed updated information, information given to her. She states she should have an answer by this afternoon for auth.
--- NOTE | 2025-04-29 09:10 | PC.SS ---
Follow up note: Pt is waiting for higher level of care transfer.
[2025-04-29 09:26] VITALS: BMI 25.0
--- NOTE | 2025-04-29 11:06 | ESPR_ITS ---
Documentation for date of: 04/29/25 Subjective Subjective Interval history: Patient seen and examined at bedside. Has no current complaints, continues to have on and off oozing bleeding from wound. Completed antibiotic treatment, currently has no current complaints, magnesium will be repleted. Patient is pending transfer, pending insurance authorization, was excepted by 2 different facilities. Exam Vital Signs Temp Pulse Resp BP Pulse Ox O2 Del Method O2 Flow Rate 97.3 F 103 H 15 122/81 98 Room Air 2 04/29/25 08:00 04/29/25 08:00 04/29/25 08:00 04/29/25 08:00 04/29/25 08:00 04/29/25 08:00 04/28/25 20:00 Narrative Exam Physical Exam General: Awake and in no acute distress. Conversational and non-toxic appearing. HEENT: Normocephalic, atraumatic, mucous membranes moist. Heart: Regular rate and regular rhythm, normal S1 and S2, no murmurs. Lungs: Clear to auscultation with no wheezing or crackles. Abdomen: Soft, nondistended, nontender, positive bowel sounds. ?No guarding or rebound tenderness. Neurologic: Alert and oriented x3, no gross neurological deficit, and patient able to move all 4 extremities. Extremities: Dressings on right pelvis, no active bleeding noted. Necrotic right gluteal ulcer wrapping in dressings. Skin: No rash or ecchymoses. Objective Labs 05/02/25 07:04 05/02/25 07:04 Labs: Laboratory Results - last 24 hr 04/29/25 05:12 WBC 18.0 H RBC 2.99 L Hgb 8.8 L Hct 25.9 L MCV 87 MCH 29.4 MCHC 34.0 RDW Std Deviation 56.4 H Plt Count 441 H Neut % (Auto) 85 H Lymph % (Auto) 4 L [place] % (Auto) 8 Eos % (Auto) 2 Baso % (Auto) 0 Neut # (Auto) 15.3 H Lymph # (Auto) 0.8 L [place] # (Auto) 1.4 H Eos # (Auto) 0.3 Baso # (Auto) 0.1 Immature Gran # (Auto) 0.18 H Absolute Nucleated RBC 0.00 Immature Gran % 1 H Nucleated RBC % 0 Sodium 135 L Potassium 3.4 Chloride 100 Carbon Dioxide 25.4 Anion Gap 10 BUN 9 Creatinine 0.7 Estim Creat Clear Calc 108.6 eGFR > 60 BUN/Creatinine Ratio 13 Glucose 89 Calculated Osmolality 267 L Calcium 7.3 L Magnesium 1.5 L Quality Measures Quality Measures none Assessment & Plan Assessment Current Active Medications: Generic Name Dose Route Start Last Admin Trade Name Freq PRN Reason Stop Dose Admin Hydrocodone Bitart/Acetaminophen 1 tab 04/27/25 21:00 04/28/25 12:32 Hydrocodone/Apap 10/325 Tab PO 05/02/25 20:59 1 tab Q4HR PRN Administration PAIN SCALE 4-6 (Moderate Calcium Carbonate 600 mg 04/23/25 09:00 04/29/25 08:12 Calcium Carbonate 600 Mg Tablet PO 05/23/25 08:59 600 mg QDAY BRIAN Administration Docusate Sodium 100 mg 04/20/25 09:31 Docusate Sod 100 Mg Capsule PO 05/20/25 09:30 Q12H PRN CONSTIPATION Protocol Hydromorphone HCl 0.5 mg 04/24/25 16:42 04/25/25 16:30 Hydromorphone Inj 2 Mg/Ml Vial IVP 04/29/25 16:41 0.5 mg Q4HR PRN Administration PAIN SCALE 7-10 (Severe Magnesium Sulfate 4 gm in 50 mls @ 12.5 mls/hr 04/29/25 07:30 04/29/25 08:12 Magnesium Sulfate Ivpb IV 04/29/25 11:29 12.5 mls/hr X1 ONE Administration Magnesium Hydroxide 30 ml 04/20/25 09:31 Milk Of Magnesia Susp 30 Ml Udc PO 05/20/25 09:30 QDAY PRN CONSTIPATION Protocol Plan Mr. 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 Dee, hepatitis B, right leg DVT s/p IVC filter 04/13/2025 who presented to the ED on 04/19/2025 due to profuse bleeding of the right pelvis sinus admitted to ICU due to concerns for hemodynamic instability. Patient was downgraded to medical floors on 04/20/2025. #Acute blood loss anemia secondary to pelvic tumor/wounds #Hypovolemic shock, resolved Initially presenting with BP 70/40s -> 110/80s after 3L IVF, maintaining MAP >65 w/o pressor support, s/p 2 unit PRBC infusion given. Hb 6.2 on admission -> 9.4 -> 8.9. Currently wound has stopped bleeding as shown on dressing changes. 04/21/2025: 2 PRBC tranfusion Overall patient has received 7 units PRBC and 1 unit FFP -Monitor for active bleeding -Patient typed and screened -Monitor H&H closely. Transfusing for Hgb <7 or symptomatic. 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 Dee. Chest CTA showed multiple pulmonary nodules. Rad Oncology Dr Dee was contacted as patient [facility] 04[facility]18. Pending discussion with family, patient comprehends fully that the prognosis is poor but is open to palliative radiation for pain and bleeding control. -Continue palliative treatment for Stage IV pleomorphic sarcoma -Dr Dee consulted and following, continue radiation therapy as scheduled by oncology -Hydrocodone-acetaminophen 10-325 mg q4h prn -Dilaudid 0.5 mg q4H for pain control -SCDs on left leg only -Wound care following #Severe sepsis secondary to pelvic wounds, resolved #Leukocytosis On admission WBC 26 --> 36.9. Purulent discharge found on pelvic/sacral wounds. Previously patient had been seen by surgery on prior admissions who determined wounds are not amenable to debridement. Blood cultures negative 48 hours. - Patient received IV antibiotics for 7 days, will stop antibiotics. #LACHO, resolved Creatinine increased to 1.6 from baseline 1.0, may have had ischemia secondary to sepsis leading to prerenal LACHO, may develop into ATN -Monitor renal function, urine output #Constipation Patient was reporting last BM >[address] showed abundant stool throughout colon. Could be opioid induced. -Milk of Mag PRN -Dulcolax tabs PRN #Hx of hepatitis B #Hypoabuminemia Hepatitis B antigen positive, Albumin 2 -> 1.7 -Currently not receiving any treatment for Hep B -Global Compensation Manager following -Ensure plus and Jagdeep supplementation #Right common femoral vein thrombus s/p IVC filter placement 04/13 Patient unable to be anticoagulated due to active/recurrent bleeding. #Sinus tachycardia, resolved #Lactic acidosis, resolved DVT prophylaxis: None GI prophylaxis: Not indicated Diet: Dysphagia 2 [place]: None Lines: Peripheral IV Antibiotics: Vancomycin [04/19/2025-04/26/25 ], Zosyn [04/19/2025-04/26/25] CODE STATUS: Limited Code (medications and shock okay) Patient plan of care was discussed with the attending physician, Dr. Charlton. Cindy Jamil PGY1 Attending Provider Attestation/Addendum Face to face evaluation was performed by me. I have personally seen and examined the patient. I discussed the assessment and plan with the entire medicine team. I reviewed available medical records, imaging studies, laboratory results. 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
[2025-04-29 12:00] VITALS: BP 112/93; PULSE 95; PULSE 96; RESP 20; TEMP 36.1; O2SAT 99
[2025-04-29 16:00] VITALS: BP 130/88; PULSE 105; PULSE 94; RESP 19; TEMP 36.6; O2SAT 99
[2025-04-29 20:00] VITALS: BP 118/87; PULSE 108; PULSE 119; RESP 19; TEMP 36.8; O2SAT 95
[2025-04-30] VITALS (10 sets, daily range): BP systolic 114–136; BP diastolic 74–89; PULSE 75–112; RESP 16–20; TEMP 36.1–37.1; O2SAT 93–99; BMI 24.8
[2025-04-30] MEDS: HYDROcodone/APAP 10/325 TAB PO ×2 (04:37→15:58)
[2025-04-30 06:30] LABS: Basophils # (Auto) 0.1 Thou/mm3 (0.0-0.2); Basophils % (Auto) 0 % (0-2.5); Eosinophils # (Auto) 0.3 Thou/mm3 (0.0-0.5); Eosinophils % (Auto) 2 % (0-10); Hematocrit 29.1 % (41.0-53.0); Hemoglobin 9.8 g/dL (13.5-16.0); Immature Granulocytes % (Auto) 1 % (0-0); Immature Granulocytes Auto 0.12 Thou/mm3 (0.00-0.00); Lymphocytes # (Auto) 0.8 Thou/mm3 (1.0-4.8); Lymphocytes % (Auto) 5 % (10-50); Mean Corpuscular HGB Conc 33.7 g/dl (31.0-37.0); Mean Corpuscular Hemoglobin 29.2 pg (25.0-35.0); Mean Corpuscular Volume 87 fL (80-100); Monocytes # (Auto) 1.2 Thou/mm3 (0.0-0.8); Monocytes % (Auto) 7 % (0-12); Neutrophils # (Auto) 13.6 Thou/mm3 (1.8-7.7); Neutrophils % (Auto) 85 % (37-80); Nucleated Red Blood Cell % 0 /100 WBC (0); Platelet Count 448 Thou/mm3 (140-440); RDW Standard Deviation 56.9 fL (35.1-43.9); Red Blood Count 3.36 Miln/mm3 (4.50-5.90); White Blood Count 15.9 Thou/mm3 (3.8-10.6)
[2025-04-30 06:50] LABS: Anion Gap 11 (7-16); BUN/Creatinine Ratio 11 Ratio (12-20); Blood Urea Nitrogen 8 mg/dL (9-23); Calcium 7.5 mg/dL (8.3-10.6); Carbon Dioxide 26.5 mMol/L (20.0-31.0); Chloride 98 mMol/L (98-107); Creatinine (Component) 0.7 mg/dL (0.6-1.3); Estimated Creatinine Clearance 108.6 mL/min (>60); Glucose 79 mg/dL (74-106); Osmolality,Calculated 267 (275-295); Potassium 3.7 mMol/L (3.4-5.1); Sodium 135 mMol/L (136-145); eGFR > 60 See Note
[2025-04-30] MEDS: CALCIUM CARBONATE 600 MG TABLET PO (08:46)
--- NOTE | 2025-04-30 13:20 | ESPR_ITS ---
Documentation for date of: 04/30/25 Subjective Subjective Interval history: Patient seen and examined at bedside. Patient is pending transfer for IR intervention, does have on and off bleeding from wound. Patient was accepted at [facility], insurance authorization was approved, pending bed. Has no current complaints, will continue to monitor. Exam Vital Signs Temp Pulse Resp BP Pulse Ox O2 Del Method O2 Flow Rate 96.9 F 96 20 115/75 97 Room Air 2 04/30/25 12:00 04/30/25 12:00 04/30/25 12:04/30/25 12:04/30/25 12:04/30/25 12:04/28/25 20:00 Narrative Exam Physical Exam General: Awake and in no acute distress. Conversational and non-toxic appearing. HEENT: Normocephalic, atraumatic, mucous membranes moist. Heart: Regular rate and regular rhythm, normal S1 and S2, no murmurs. Lungs: Clear to auscultation with no wheezing or crackles. Abdomen: Soft, nondistended, nontender, positive bowel sounds. ?No guarding or rebound tenderness. Neurologic: Alert and oriented x3, no gross neurological deficit, and patient able to move all 4 extremities. Extremities: Dressings on right pelvis, no active bleeding noted. Necrotic right gluteal ulcer wrapping in dressings. Skin: No rash or ecchymoses. Objective Labs 05/02/25 07:04 05/02/25 07:04 Labs: Laboratory Results - last 24 hr 04/30/25 04:57 WBC 15.9 H RBC 3.36 L Hgb 9.8 L Hct 29.1 L MCV 87 MCH 29.2 MCHC 33.7 RDW Std Deviation 56.9 H Plt Count 448 H Neut % (Auto) 85 H Lymph % (Auto) 5 L [place] % (Auto) 7 Eos % (Auto) 2 Baso % (Auto) 0 Neut # (Auto) 13.6 H Lymph # (Auto) 0.8 L [place] # (Auto) 1.2 H Eos # (Auto) 0.3 Baso # (Auto) 0.1 Immature Gran # (Auto) 0.12 H Absolute Nucleated RBC 0.00 Immature Gran % 1 H Nucleated RBC % 0 Sodium 135 L Potassium 3.7 Chloride 98 Carbon Dioxide 26.5 Anion Gap 11 BUN 8 L Creatinine 0.7 Estim Creat Clear Calc 108.6 eGFR > 60 BUN/Creatinine Ratio 11 L Glucose 79 Calculated Osmolality 267 L Calcium 7.5 L Quality Measures Quality Measures none Assessment & Plan Assessment Current Active Medications: Generic Name Dose Route Start Last Admin Trade Name Freq PRN Reason Stop Dose Admin Hydrocodone Bitart/Acetaminophen 1 tab 04/27/25 21:00 04/30/25 04:37 Hydrocodone/Apap 10/325 Tab PO 05/02/25 20:59 1 tab Q4HR PRN Administration PAIN SCALE 4-6 (Moderate Calcium Carbonate 600 mg 04/23/25 09:00 04/30/25 08:46 Calcium Carbonate 600 Mg Tablet PO 05/23/25 08:59 600 mg QDAY BRIAN Administration Docusate Sodium 100 mg 04/20/25 09:31 Docusate Sod 100 Mg Capsule PO 05/20/25 09:30 Q12H PRN CONSTIPATION Protocol Magnesium Hydroxide 30 ml 04/20/25 09:31 Milk Of Magnesia Susp 30 Ml Udc PO 05/20/25 09:30 QDAY PRN CONSTIPATION Protocol Plan Mr. 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 Dee, hepatitis B, right leg DVT s/p IVC filter 04/13/2025 who presented to the ED on 04/19/2025 due to profuse bleeding of the right pelvis sinus admitted to ICU due to concerns for hemodynamic instability. Patient was downgraded to medical floors on 04/20/2025. #Acute blood loss anemia secondary to pelvic tumor/wounds #Hypovolemic shock, resolved Initially presenting with BP 70/40s -> 110/80s after 3L IVF, maintaining MAP >65 w/o pressor support, s/p 2 unit PRBC infusion given. Hb 6.2 on admission -> 9.4 -> 8.9. Currently wound has stopped bleeding as shown on dressing changes. 04/21/2025: 2 PRBC tranfusion Overall patient has received 7 units PRBC and 1 unit FFP -Monitor for active bleeding -Patient typed and screened -Monitor H&H closely. Transfusing for Hgb <7 or symptomatic. 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 Dee. Chest CTA showed multiple pulmonary nodules. Rad Oncology Dr Dee was contacted as patient [facility] on [facility] 04[facility]. Pending discussion with family, patient comprehends fully that the prognosis is poor but is open to palliative radiation for pain and bleeding control. -Continue palliative treatment for Stage IV pleomorphic sarcoma -Dr Dee consulted and following, continue radiation therapy as scheduled by oncology -Hydrocodone-acetaminophen 10-325 mg q4h prn -Dilaudid 0.5 mg q4H for pain control -SCDs on left leg only -Wound care following #Severe sepsis secondary to pelvic wounds, resolved #Leukocytosis On admission WBC 26 --> 36.9. Purulent discharge found on pelvic/sacral wounds. Previously patient had been seen by surgery on prior admissions who determined wounds are not amenable to debridement. Blood cultures negative 48 hours. - Patient received IV antibiotics for 7 days, will stop antibiotics. #LACHO, resolved Creatinine increased to 1.6 from baseline 1.0, may have had ischemia secondary to sepsis leading to prerenal LACHO, may develop into ATN -Monitor renal function, urine output #Constipation Patient was reporting last BM >[address] showed abundant stool throughout colon. Could be opioid induced. -Milk of Mag PRN -Dulcolax tabs PRN #Hx of hepatitis B #Hypoabuminemia Hepatitis B antigen positive, Albumin 2 -> 1.7 -Currently not receiving any treatment for Hep B -Supplier Engineer following -Ensure plus and Jagdeep supplementation #Right common femoral vein thrombus s/p IVC filter placement 04/13 Patient unable to be anticoagulated due to active/recurrent bleeding. #Sinus tachycardia, resolved #Lactic acidosis, resolved DVT prophylaxis: None GI prophylaxis: Not indicated Diet: Dysphagia 2 [place]: None Lines: Peripheral IV Antibiotics: Vancomycin [04/19/2025-04/26/25 ], Zosyn [04/19/2025-04/26/25] CODE STATUS: Limited Code (medications and shock okay) Patient plan of care was discussed with the attending physician, Dr. Charlton. Cindy Jamil PGY1 Attending Provider Attestation/Addendum Face to face evaluation was performed by me. I have personally seen and examined the patient. I discussed the assessment and plan with the entire medicine team. I reviewed available medical records, imaging studies, laboratory results. 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
--- NOTE | 2025-04-30 15:24 | PC.CC ---
1523 called [facility], spoke to Romy to get update. She stated pending bed availability.
--- NOTE | 2025-04-30 15:46 | PC.SS ---
SS follow up note; Pending HLOC.
[2025-05-01] VITALS (8 sets, daily range): BP systolic 117–129; BP diastolic 75–87; PULSE 92–115; RESP 15–24; TEMP 36.1–37.2; O2SAT 93–98; BMI 24.5
[2025-05-01] MEDS: HYDROcodone/APAP 10/325 TAB PO ×3 (02:11→22:01)
[2025-05-01 06:26] LABS: Basophils % (Auto) 1 % (0-2.5); Eosinophils # (Auto) 0.3 Thou/mm3 (0.0-0.5); Eosinophils % (Auto) 4 % (0-10); Hematocrit 30.2 % (41.0-53.0); Hemoglobin 9.9 g/dL (13.5-16.0); Immature Granulocytes % (Auto) 1 % (0-0); Immature Granulocytes Auto 0.04 Thou/mm3 (0.00-0.00); Lymphocytes # (Auto) 0.8 Thou/mm3 (1.0-4.8); Lymphocytes % (Auto) 11 % (10-50); Mean Corpuscular HGB Conc 32.8 g/dl (31.0-37.0); Mean Corpuscular Hemoglobin 28.6 pg (25.0-35.0); Mean Corpuscular Volume 87 fL (80-100); Monocytes # (Auto) 0.6 Thou/mm3 (0.0-0.8); Monocytes % (Auto) 9 % (0-12); Neutrophils % (Auto) 75 % (37-80); Nucleated Red Blood Cell % 0 /100 WBC (0); Platelet Count 373 Thou/mm3 (140-440); RDW Standard Deviation 51.8 fL (35.1-43.9); Red Blood Count 3.46 Miln/mm3 (4.50-5.90); White Blood Count 6.6 Thou/mm3 (3.8-10.6)
[2025-05-01 07:05] LABS: Anion Gap 12 (7-16); BUN/Creatinine Ratio 13 Ratio (12-20); Blood Urea Nitrogen < 5 mg/dL (9-23); Calcium 8.9 mg/dL (8.3-10.6); Carbon Dioxide 28.9 mMol/L (20.0-31.0); Chloride 99 mMol/L (98-107); Creatinine (Component) 0.4 mg/dL (0.6-1.3); Glucose 146 mg/dL (74-106); Osmolality,Calculated 279 (275-295); Potassium 3.9 mMol/L (3.4-5.1); Sodium 140 mMol/L (136-145); eGFR > 60 See Note
[2025-05-01] MEDS: CALCIUM CARBONATE 600 MG TABLET PO (09:47)
--- NOTE | 2025-05-01 16:16 | ESPR_ITS ---
Documentation for date of: 05/01/25 Subjective Subjective Interval history: No acute events overnight.?Patient seen and examined at bedside this AM.?Patient asks how are you . He reports that he himself is doing well. Right leg pain is the same. There is still serosanguinous staining of the sacral R leg wound dressings. Labs and vitals were reviewed and stable. Hgb stable at 9.9. No further complaints at this time. Still pending transfer to [facility] for IR embolization of R leg. Review of systems otherwise negative except what is mentioned above. Exam Vital Signs Temp Pulse Resp BP Pulse Ox O2 Del Method O2 Flow Rate 98.9 F 93 15 128/80 97 Room Air 2 05/01/25 11:55 05/01/25 11:55 05/01/25 11:55 05/01/25 11:55 05/01/25 11:55 05/01/25 04:00 04/28/25 20:00 Narrative Exam Physical Exam General: Awake and in no acute distress. Conversational and non-toxic appearing. HEENT: Normocephalic, atraumatic, mucous membranes moist. Heart: Regular rate and regular rhythm, normal S1 and S2, no murmurs. Lungs: Clear to auscultation with no wheezing or crackles. Abdomen: Soft, nondistended, nontender, positive bowel sounds. ?No guarding or rebound tenderness. Neurologic: Alert and oriented x3, no gross neurological deficit, and patient able to move all 4 extremities. Extremities: Dressings on right pelvis, no active bleeding noted. Necrotic right gluteal ulcer wrapping in dressings. Skin: No rash or ecchymoses. Objective Labs 05/02/25 07:04 05/02/25 07:04 Labs: Laboratory Results - last 24 hr 05/01/25 05:03 WBC 6.6 D RBC 3.46 L Hgb 9.9 L Hct 30.2 L MCV 87 MCH 28.6 MCHC 32.8 RDW Std Deviation 51.8 H Plt Count 373 D Neut % (Auto) 75 Lymph % (Auto) 11 [place] % (Auto) 9 Eos % (Auto) 4 Baso % (Auto) 1 Neut # (Auto) 5.0 Lymph # (Auto) 0.8 L [place] # (Auto) 0.6 Eos # (Auto) 0.3 Baso # (Auto) 0.0 Immature Gran # (Auto) 0.04 H Absolute Nucleated RBC 0.00 Immature Gran % 1 H Nucleated RBC % 0 Sodium 140 Potassium 3.9 Chloride 99 Carbon Dioxide 28.9 Anion Gap 12 BUN < 5 L Creatinine 0.4 L Estim Creat Clear Calc 190.0 eGFR > 60 BUN/Creatinine Ratio 13 Glucose 146 H D Calculated Osmolality 279 Calcium 8.9 Quality Measures Quality Measures none Assessment & Plan Assessment Current Active Medications: Generic Name Dose Route Start Last Admin Trade Name Freq PRN Reason Stop Dose Admin Hydrocodone Bitart/Acetaminophen 1 tab 04/27/25 21:00 05/01/25 12:03 Hydrocodone/Apap 10/325 Tab PO 05/02/25 20:59 1 tab Q4HR PRN Administration PAIN SCALE 4-6 (Moderate Calcium Carbonate 600 mg 04/23/25 09:00 05/01/25 09:47 Calcium Carbonate 600 Mg Tablet PO 05/23/25 08:59 600 mg QDAY BRIAN Administration Docusate Sodium 100 mg 04/20/25 09:31 Docusate Sod 100 Mg Capsule PO 05/20/25 09:30 Q12H PRN CONSTIPATION Protocol Magnesium Hydroxide 30 ml 04/20/25 09:31 Milk Of Magnesia Susp 30 Ml Udc PO 05/20/25 09:30 QDAY PRN CONSTIPATION Protocol Plan Mr. 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 Dee, hepatitis B, right leg DVT s/p IVC filter 04/13/2025 who presented to the ED on 04/19/2025 due to profuse bleeding of the right pelvis sinus admitted to ICU due to concerns for hemodynamic instability. Patient was downgraded to medical floors on 04/20/2025. #Acute blood loss anemia secondary to pelvic tumor/wounds #Hypovolemic shock, resolved Initially presenting with BP 70/40s -> 110/80s after 3L IVF, maintaining MAP >65 w/o pressor support, s/p 2 unit PRBC infusion given. Hb 6.2 on admission -> 9.4 -> 8.9. Currently wound has stopped bleeding as shown on dressing changes. 04/21/2025: 2 PRBC tranfusion Overall patient has received 7 units PRBC and 1 unit FFP -Monitor for active bleeding -Patient typed and screened -Monitor H&H closely. Transfusing for Hgb <7 or symptomatic. 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 Dee. Chest CTA showed multiple pulmonary nodules. Rad Oncology Dr Dee was contacted as patient [facility]. Pending discussion with family, patient comprehends fully that the prognosis is poor but is open to palliative radiation for pain and bleeding control. -Continue palliative treatment for Stage IV pleomorphic sarcoma -Dr Dee consulted and following, continue radiation therapy as scheduled by oncology -Hydrocodone-acetaminophen 10-325 mg q4h prn -Dilaudid 0.5 mg q4H for pain control -SCDs on left leg only -Wound care following #Severe sepsis secondary to pelvic wounds, resolved #Leukocytosis, resolved On admission WBC 26 --> 36.9. Purulent discharge found on pelvic/sacral wounds. Previously patient had been seen by surgery on prior admissions who determined wounds are not amenable to debridement. Blood cultures negative 48 hours. -Patient completed IV antibiotics for 7 days. #LACHO, resolved Creatinine increased to 1.6 from baseline 1.0, may have had ischemia secondary to sepsis leading to prerenal LACHO, may develop into ATN -Monitor renal function, urine output #Constipation Patient was reporting last BM >[address] showed abundant stool throughout colon. Could be opioid induced. -Milk of Mag PRN -Dulcolax tabs PRN #History of hepatitis B #Hypoabuminemia Hepatitis B antigen positive, Albumin 2 -> 1.7 -Currently not receiving any treatment for Hep B -Sales Planning Analyst following -Ensure plus and Jagdeep supplementation #Right common femoral vein thrombus s/p IVC filter placement 04/13 Patient unable to be anticoagulated due to active/recurrent bleeding. #Sinus tachycardia, resolved #Lactic acidosis, resolved DVT prophylaxis: None GI prophylaxis: Not indicated Diet: Dysphagia 2 [place]: None Lines: Peripheral IV Antibiotics: Vancomycin [04/19/2025-04/26/25 ], Zosyn [04/19/2025-04/26/25] CODE STATUS: Limited Code (medications and shock okay) Patient plan of care was discussed with the attending physician, Dr. Charlton. Anitha Amador, PGY-2 Attending Provider Attestation/Addendum Suspected to be prerenal etiology due to dehydration and acute blood loss, cannot rule out ATN.Face to face evaluation was performed by me. I have personally seen and examined the patient. I discussed the assessment and plan with the entire medicine team. I reviewed available medical records, imaging studies, laboratory results. 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 He is aware of the plan, Status post IVC filter placement on 04/13, pending transfer to outside facility for IR services, More than > 30 minutes spent on the encounter
[2025-05-02] VITALS (8 sets, daily range): BP systolic 99–124; BP diastolic 68–82; PULSE 84–125; RESP 15–20; TEMP 36.1–36.9; O2SAT 92–100; BMI 24.3
--- NOTE | 2025-05-02 07:25 | PC.CC ---
Spoke to Corey at [facility] who states patient is still pending a bed, bed may become available later in the morning after discharges, will follow up
[2025-05-02 07:43] LABS: Basophils # (Auto) 0.1 Thou/mm3 (0.0-0.2); Basophils % (Auto) 0 % (0-2.5); Eosinophils # (Auto) 0.3 Thou/mm3 (0.0-0.5); Eosinophils % (Auto) 1 % (0-10); Immature Granulocytes % (Auto) 1 % (0-0); Immature Granulocytes Auto 0.15 Thou/mm3 (0.00-0.00); Lymphocytes # (Auto) 0.6 Thou/mm3 (1.0-4.8); Lymphocytes % (Auto) 3 % (10-50); Mean Corpuscular HGB Conc 33.3 g/dl (31.0-37.0); Mean Corpuscular Hemoglobin 29.3 pg (25.0-35.0); Mean Corpuscular Volume 88 fL (80-100); Monocytes # (Auto) 1.1 Thou/mm3 (0.0-0.8); Monocytes % (Auto) 5 % (0-12); Neutrophils # (Auto) 18.6 Thou/mm3 (1.8-7.7); Neutrophils % (Auto) 89 % (37-80); Nucleated Red Blood Cell % 0 /100 WBC (0); Platelet Count 537 Thou/mm3 (140-440); RDW Standard Deviation 58.1 fL (35.1-43.9); Red Blood Count 3.07 Miln/mm3 (4.50-5.90); White Blood Count 20.9 Thou/mm3 (3.8-10.6)
[2025-05-02 07:56] LABS: Anion Gap 7 (7-16); BUN/Creatinine Ratio 14 Ratio (12-20); Blood Urea Nitrogen 10 mg/dL (9-23); Calcium 7.1 mg/dL (8.3-10.6); Carbon Dioxide 28.8 mMol/L (20.0-31.0); Chloride 99 mMol/L (98-107); Creatinine (Component) 0.7 mg/dL (0.6-1.3); Estimated Creatinine Clearance 108.6 mL/min (>60); Glucose 66 mg/dL (74-106); Osmolality,Calculated 267 (275-295); Potassium 2.9 mMol/L (3.4-5.1); Sodium 135 mMol/L (136-145); eGFR > 60 See Note
[2025-05-02] MEDS: CALCIUM CARBONATE 600 MG TABLET PO (08:14)
[2025-05-02] MEDS: HYDROcodone/APAP 10/325 TAB PO (08:14)
[2025-05-02] MEDS: POTASSIUM CHLORIDE 10% 20 MEQ/15 ML UDC 40 MEQ PO ×2 (10:17→11:36)
[2025-05-02] MEDS: Magnesium Sulfate 2 GM Ivpb 2 GM/50 ML BAG IV (10:17)
--- NOTE | 2025-05-02 10:55 | ESPR_ITS ---
Documentation for date of: 05/02/25 Subjective Subjective Interval history: Patient seen and examined at bedside. Currently has no complaints, labs and vitals reviewed. Patient will be given supplemental potassium and magnesium to replace electrolytes. Otherwise patient is stable, has on and off bleeding from wound, other has no other complaints, pending bed at [facility] for interventional radiology evaluation Will continue to monitor. Exam Vital Signs Temp Pulse Resp BP Pulse Ox O2 Del Method O2 Flow Rate 98.2 F 84 17 121/76 97 Room Air 2 05/02/25 08:00 05/02/25 08:00 05/02/25 08:00 05/02/25 08:00 05/02/25 08:00 05/02/25 03:56 04/28/25 20:00 Narrative Exam Physical Exam General: Awake and in no acute distress. Conversational and non-toxic appearing. HEENT: Normocephalic, atraumatic, mucous membranes moist. Heart: Regular rate and regular rhythm, normal S1 and S2, no murmurs. Lungs: Clear to auscultation with no wheezing or crackles. Abdomen: Soft, nondistended, nontender, positive bowel sounds. ?No guarding or rebound tenderness. Neurologic: Alert and oriented x3, no gross neurological deficit, and patient able to move all 4 extremities. Extremities: Dressings on right pelvis, no active bleeding noted. Necrotic right gluteal ulcer wrapping in dressings. Skin: No rash or ecchymoses. Objective Labs 05/02/25 07:04 05/02/25 07:04 Labs: Laboratory Results - last 24 hr 05/02/25 07:04 WBC 20.9 H D RBC 3.07 L Hgb 9.0 L Hct 27.0 L MCV 88 MCH 29.3 MCHC 33.3 RDW Std Deviation 58.1 H Plt Count 537 H D Neut % (Auto) 89 H Lymph % (Auto) 3 L [place] % (Auto) 5 Eos % (Auto) 1 Baso % (Auto) 0 Neut # (Auto) 18.6 H Lymph # (Auto) 0.6 L [place] # (Auto) 1.1 H Eos # (Auto) 0.3 Baso # (Auto) 0.1 Immature Gran # (Auto) 0.15 H Absolute Nucleated RBC 0.00 Immature Gran % 1 H Nucleated RBC % 0 Sodium 135 L Potassium 2.9 L D Chloride 99 Carbon Dioxide 28.8 Anion Gap 7 BUN 10 Creatinine 0.7 Estim Creat Clear Calc 108.6 eGFR > 60 BUN/Creatinine Ratio 14 Glucose 66 L D Calculated Osmolality 267 L Calcium 7.1 L D Quality Measures Quality Measures none Assessment & Plan Assessment Current Active Medications: Generic Name Dose Route Start Last Admin Trade Name Freq PRN Reason Stop Dose Admin Hydrocodone Bitart/Acetaminophen 1 tab 04/27/25 21:00 05/02/25 08:14 Hydrocodone/Apap 10/325 Tab PO 05/02/25 20:59 1 tab Q4HR PRN Administration PAIN SCALE 4-6 (Moderate Calcium Carbonate 600 mg 04/23/25 09:00 05/02/25 08:14 Calcium Carbonate 600 Mg Tablet PO 05/23/25 08:59 600 mg QDAY BRIAN Administration Docusate Sodium 100 mg 04/20/25 09:31 Docusate Sod 100 Mg Capsule PO 05/20/25 09:30 Q12H PRN CONSTIPATION Protocol Magnesium Sulfate 2 gm in 50 mls @ 25 mls/hr 05/02/25 09:56 05/02/25 10:17 Magnesium Sulfate Ivpb IV 05/02/25 11:55 25 mls/hr X1 ONE Administration Magnesium Hydroxide 30 ml 04/20/25 09:31 Milk Of Magnesia Susp 30 Ml Udc PO 05/20/25 09:30 QDAY PRN CONSTIPATION Protocol Potassium Chloride 40 meq 05/02/25 12:00 Potassium Chloride 10% 20 Meq/15 Ml Udc PO 05/02/25 12:01 X1 ONE Plan Mr. 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 Dee, hepatitis B, right leg DVT s/p IVC filter 04/13/2025 who presented to the ED on 04/19/2025 due to profuse bleeding of the right pelvis sinus admitted to ICU due to concerns for hemodynamic instability. Patient was downgraded to medical floors on 04/20/2025. #Acute blood loss anemia secondary to pelvic tumor/wounds #Hypovolemic shock, resolved Initially presenting with BP 70/40s -> 110/80s after 3L IVF, maintaining MAP >65 w/o pressor support, s/p 2 unit PRBC infusion given. Hb 6.2 on admission -> 9.4 -> 8.9. Currently wound has stopped bleeding as shown on dressing changes. 04/21/2025: 2 PRBC tranfusion Overall patient has received 7 units PRBC and 1 unit FFP -Monitor for active bleeding -Patient typed and screened -Monitor H&H closely. Transfusing for Hgb <7 or symptomatic. 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 Dee. Chest CTA showed multiple pulmonary nodules. Rad Oncology Dr Dee was contacted as patient [facility] on [facility] 04/18. Pending discussion with family, patient comprehends fully that the prognosis is poor but is open to palliative radiation for pain and bleeding control. -Continue palliative treatment for Stage IV pleomorphic sarcoma -Dr Dee consulted and following, continue radiation therapy as scheduled by oncology -Hydrocodone-acetaminophen 10-325 mg q4h prn -Dilaudid 0.5 mg q4H for pain control -SCDs on left leg only -Wound care following #Severe sepsis secondary to pelvic wounds, resolved #Leukocytosis, resolved On admission WBC 26 --> 36.9. Purulent discharge found on pelvic/sacral wounds. Previously patient had been seen by surgery on prior admissions who determined wounds are not amenable to debridement. Blood cultures negative 48 hours. -Patient completed IV antibiotics for 7 days. #LACHO, resolved Creatinine increased to 1.6 from baseline 1.0, may have had ischemia secondary to sepsis leading to prerenal LACHO, may develop into ATN -Monitor renal function, urine output #Constipation Patient was reporting last BM >[address] showed abundant stool throughout colon. Could be opioid induced. -Milk of Mag PRN -Dulcolax tabs PRN #History of hepatitis B #Hypoabuminemia Hepatitis B antigen positive, Albumin 2 -> 1.7 -Currently not receiving any treatment for Hep B -Ship Keeper following -Ensure plus and Jagdeep supplementation #Right common femoral vein thrombus s/p IVC filter placement 04/13 Patient unable to be anticoagulated due to active/recurrent bleeding. #Sinus tachycardia, resolved #Lactic acidosis, resolved DVT prophylaxis: None GI prophylaxis: Not indicated Diet: Dysphagia 2 [place]: None Lines: Peripheral IV Antibiotics: Vancomycin [04/19/2025-04/26/25 ], Zosyn [04/19/2025-04/26/25] CODE STATUS: Limited Code (medications and shock okay) Patient plan of care was discussed with the attending physician, Dr. Charlton. Cindy Jamil, PGY1 Attending Provider Attestation/Addendum TeamSuspected to be prerenal etiology due to dehydration and acute blood loss, cannot rule out ATN.Face to face evaluation was performed by me. I have personally seen and examined the patient. I discussed the assessment and plan with the entire medicine team. I reviewed available medical records, imaging studies, laboratory results. 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 He is aware of the plan, Status post IVC filter placement on 04/13, pending transfer to outside facility for IR services, More than > 30 minutes spent on the encounter no visitors at bedside,
--- NOTE | 2025-05-02 16:28 | PC.SS ---
Follow up note: Pt is still waiting for higher level of care transfer.
--- NOTE | 2025-05-02 21:23 | PC.NURSE ---
[facility] transfer center called rn and just requested latest vital signs, No bed available yet.
[2025-05-03] VITALS (9 sets, daily range): BP systolic 113–134; BP diastolic 71–87; PULSE 100–120; RESP 17–23; TEMP 36.1–37; O2SAT 95–99
[2025-05-03] MEDS: HYDROcodone/APAP 10/325 TAB PO ×2 (05:43→17:57)
[2025-05-03 06:01] LABS: Basophils # (Auto) 0.1 Thou/mm3 (0.0-0.2); Basophils % (Auto) 0 % (0-2.5); Eosinophils # (Auto) 0.3 Thou/mm3 (0.0-0.5); Eosinophils % (Auto) 1 % (0-10); Hematocrit 28.8 % (41.0-53.0); Hemoglobin 9.6 g/dL (13.5-16.0); Immature Granulocytes % (Auto) 1 % (0-0); Immature Granulocytes Auto 0.17 Thou/mm3 (0.00-0.00); Lymphocytes # (Auto) 0.9 Thou/mm3 (1.0-4.8); Lymphocytes % (Auto) 5 % (10-50); Mean Corpuscular HGB Conc 33.3 g/dl (31.0-37.0); Mean Corpuscular Hemoglobin 29.3 pg (25.0-35.0); Mean Corpuscular Volume 88 fL (80-100); Monocytes # (Auto) 1.4 Thou/mm3 (0.0-0.8); Monocytes % (Auto) 7 % (0-12); Neutrophils # (Auto) 16.1 Thou/mm3 (1.8-7.7); Neutrophils % (Auto) 85 % (37-80); Nucleated Red Blood Cell % 0 /100 WBC (0); Platelet Count 485 Thou/mm3 (140-440); RDW Standard Deviation 57.4 fL (35.1-43.9); Red Blood Count 3.28 Miln/mm3 (4.50-5.90); White Blood Count 18.9 Thou/mm3 (3.8-10.6)
[2025-05-03 06:26] LABS: Anion Gap 9 (7-16); BUN/Creatinine Ratio 14 Ratio (12-20); Blood Urea Nitrogen 10 mg/dL (9-23); Calcium 7.4 mg/dL (8.3-10.6); Carbon Dioxide 27.9 mMol/L (20.0-31.0); Chloride 100 mMol/L (98-107); Creatinine (Component) 0.7 mg/dL (0.6-1.3); Estimated Creatinine Clearance 108.6 mL/min (>60); Glucose 102 mg/dL (74-106); Osmolality,Calculated 272 (275-295); Potassium 3.6 mMol/L (3.4-5.1); Sodium 137 mMol/L (136-145); eGFR > 60 See Note
[2025-05-03] MEDS: POTASSIUM CHLORIDE 10% 20 MEQ/15 ML UDC PO (08:14)
[2025-05-03] MEDS: CALCIUM CARBONATE 600 MG TABLET PO (08:14)
--- NOTE | 2025-05-03 09:01 | ESPR_ITS ---
Documentation for date of: 05/03/25 Subjective Subjective Interval history: Patient has had that 6 fractions thus far to the right pelvic region and hemoglobin has stayed up above 9 for the past 4 days. Exam Vital Signs Temp Pulse Resp BP Pulse Ox O2 Del Method O2 Flow Rate 98.6 F 116 H 18 116/74 95 Room Air 2 05/03/25 04:00 05/03/25 04:00 05/03/25 04:00 05/03/25 04:00 05/03/25 04:00 05/03/25 04:00 04/28/25 20:00 Narrative Exam Appears comfortable this a.m. Objective Labs 05/03/25 04:46 05/03/25 04:46 Labs: Laboratory Results - last 24 hr 05/03/25 04:46 WBC 18.9 H RBC 3.28 L Hgb 9.6 L Hct 28.8 L MCV 88 MCH 29.3 MCHC 33.3 RDW Std Deviation 57.4 H Plt Count 485 H D Neut % (Auto) 85 H Lymph % (Auto) 5 L [place] % (Auto) 7 Eos % (Auto) 1 Baso % (Auto) 0 Neut # (Auto) 16.1 H Lymph # (Auto) 0.9 L [place] # (Auto) 1.4 H Eos # (Auto) 0.3 Baso # (Auto) 0.1 Immature Gran # (Auto) 0.17 H Absolute Nucleated RBC 0.00 Immature Gran % 1 H Nucleated RBC % 0 Sodium 137 Potassium 3.6 D Chloride 100 Carbon Dioxide 27.9 Anion Gap 9 BUN 10 Creatinine 0.7 Estim Creat Clear Calc 108.6 eGFR > 60 BUN/Creatinine Ratio 14 Glucose 102 D Calculated Osmolality 272 L Calcium 7.4 L Magnesium 2.0 Assessment & Plan A&P Narrative 1. Stage IV metastatic sarcoma continued blood loss right pelvis admitted with sepsis bleeding. 2. Bleeding has slowed quite a bit with 6 fractions of radiation to the right pelvis, awaiting transfer to tertiary hospital for possible embolization procedure. 3. Will withhold treatment for the time being. Possible hospice placement was discussed with patient and family after control of bleeding. Time Spent With Patient Time: Total time spent is greater than 50% in coordination of care (as documented) at patient's floor/unit and/or counseling patient:
--- NOTE | 2025-05-03 10:41 | CHAP ---
[facility] and received comfort, encouragement and/or prayer. Patient did not want prayer at this time.
--- NOTE | 2025-05-03 10:55 | ESPR_ITS ---
Documentation for date of: 05/03/25 Subjective Subjective Interval history: Patient seen and examined at bedside. Bleeding is improved, hemoglobin has been stable. Will continue to monitor patient, case discussed with oncology. Per oncologist patient has significantly extensive disease, stage IV metastatic sarcoma. Will discuss case with patient's family tomorrow, for possible discharge on hospice considering underlying extensive disease. Exam Vital Signs Temp Pulse Resp BP Pulse Ox O2 Del Method O2 Flow Rate 98.6 F 110 H 18 116/74 95 Room Air 2 05/03/25 04:00 05/03/25 08:00 05/03/25 04:00 05/03/25 04:00 05/03/25 04:00 05/03/25 04:00 04/28/25 20:00 Narrative Exam Physical Exam General: Awake and in no acute distress. Conversational and non-toxic appearing. HEENT: Normocephalic, atraumatic, mucous membranes moist. Heart: Regular rate and regular rhythm, normal S1 and S2, no murmurs. Lungs: Clear to auscultation with no wheezing or crackles. Abdomen: Soft, nondistended, nontender, positive bowel sounds. ?No guarding or rebound tenderness. Neurologic: Alert and oriented x3, no gross neurological deficit, and patient able to move all 4 extremities. Extremities: Dressings on right pelvis, no active bleeding noted. Necrotic right gluteal ulcer wrapping in dressings. Skin: No rash or ecchymoses. Objective Labs 05/03/25 04:46 05/03/25 04:46 Labs: Laboratory Results - last 24 hr 05/03/25 04:46 WBC 18.9 H RBC 3.28 L Hgb 9.6 L Hct 28.8 L MCV 88 MCH 29.3 MCHC 33.3 RDW Std Deviation 57.4 H Plt Count 485 H D Neut % (Auto) 85 H Lymph % (Auto) 5 L [place] % (Auto) 7 Eos % (Auto) 1 Baso % (Auto) 0 Neut # (Auto) 16.1 H Lymph # (Auto) 0.9 L [place] # (Auto) 1.4 H Eos # (Auto) 0.3 Baso # (Auto) 0.1 Immature Gran # (Auto) 0.17 H Absolute Nucleated RBC 0.00 Immature Gran % 1 H Nucleated RBC % 0 Sodium 137 Potassium 3.6 D Chloride 100 Carbon Dioxide 27.9 Anion Gap 9 BUN 10 Creatinine 0.7 Estim Creat Clear Calc 108.6 eGFR > 60 BUN/Creatinine Ratio 14 Glucose 102 D Calculated Osmolality 272 L Calcium 7.4 L Magnesium 2.0 Quality Measures Quality Measures none Assessment & Plan Assessment Current Active Medications: Generic Name Dose Route Start Last Admin Trade Name Freq PRN Reason Stop Dose Admin Hydrocodone Bitart/Acetaminophen 1 tab 04/27/25 21:00 05/03/25 05:43 Hydrocodone/Apap 10/325 Tab PO 05/07/25 20:59 1 tab Q4HR PRN Administration PAIN SCALE 4-6 (Moderate Calcium Carbonate 600 mg 04/23/25 09:00 05/03/25 08:14 Calcium Carbonate 600 Mg Tablet PO 05/23/25 08:59 600 mg QDAY BRIAN Administration Docusate Sodium 100 mg 04/20/25 09:31 Docusate Sod 100 Mg Capsule PO 05/20/25 09:30 Q12H PRN CONSTIPATION Protocol Magnesium Hydroxide 30 ml 04/20/25 09:31 Milk Of Magnesia Susp 30 Ml Udc PO 05/20/25 09:30 QDAY PRN CONSTIPATION Protocol Plan Mr. 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 Dee, hepatitis B, right leg DVT s/p IVC filter 04/13/2025 who presented to the ED on 04/19/2025 due to profuse bleeding of the right pelvis sinus admitted to ICU due to concerns for hemodynamic instability. Patient was downgraded to medical floors on 04/20/2025. #Acute blood loss anemia secondary to pelvic tumor/wounds #Hypovolemic shock, resolved Initially presenting with BP 70/40s -> 110/80s after 3L IVF, maintaining MAP >65 w/o pressor support, s/p 2 unit PRBC infusion given. Hb 6.2 on admission -> 9.4 -> 8.9. Currently wound has stopped bleeding as shown on dressing changes. 04/21/2025: 2 PRBC tranfusion Overall patient has received 7 units PRBC and 1 unit FFP -Monitor for active bleeding -Patient typed and screened -Monitor H&H closely. Transfusing for Hgb <7 or symptomatic. 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 Dee. Chest CTA showed multiple pulmonary nodules. Rad Oncology Dr Dee was contacted as [facility]. Pending discussion with family, patient comprehends fully that the prognosis is poor but is open to palliative radiation for pain and bleeding control. -Continue palliative treatment for Stage IV pleomorphic sarcoma -Dr Dee consulted and following, continue radiation therapy as scheduled by oncology -Hydrocodone-acetaminophen 10-325 mg q4h prn -Dilaudid 0.5 mg q4H for pain control -SCDs on left leg only -Wound care following #Severe sepsis secondary to pelvic wounds, resolved #Leukocytosis, resolved On admission WBC 26 --> 36.9. Purulent discharge found on pelvic/sacral wounds. Previously patient had been seen by surgery on prior admissions who determined wounds are not amenable to debridement. Blood cultures negative 48 hours. -Patient completed IV antibiotics for 7 days. #LACHO, resolved Creatinine increased to 1.6 from baseline 1.0, may have had ischemia secondary to sepsis leading to prerenal LACHO, may develop into ATN -Monitor renal function, urine output #Constipation Patient was reporting last BM >[address] showed abundant stool throughout colon. Could be opioid induced. -Milk of Mag PRN -Dulcolax tabs PRN #History of hepatitis B #Hypoabuminemia Hepatitis B antigen positive, Albumin 2 -> 1.7 -Currently not receiving any treatment for Hep B -Brand Planner following -Ensure plus and Jagdeep supplementation #Right common femoral vein thrombus s/p IVC filter placement 04/13 Patient unable to be anticoagulated due to active/recurrent bleeding. #Sinus tachycardia, resolved #Lactic acidosis, resolved DVT prophylaxis: None GI prophylaxis: Not indicated Diet: Dysphagia 2 [place]: None Lines: Peripheral IV Antibiotics: Vancomycin [04/19/2025-04/26/25 ], Zosyn [04/19/2025-04/26/25] CODE STATUS: Limited Code (medications and shock okay) Patient plan of care was discussed with the attending physician, Dr. Charlton. Cindy Jamil, PGY1 Attending Provider Attestation/Addendum Face to face evaluation was performed by me. I have personally seen and examined the patient. I discussed the assessment and plan with the entire medicine team. I reviewed available medical records, imaging studies, laboratory results. I agree with the above subjective data, objective findings, assessment and plan except as corrected by me or noted below Acute blood loss anemia Sarcoma of bone Acute DVT right lower extremity status post IVC filter Hypokalemia = Is stable. Has been waiting for transfer to outside facility for specialty?interventional radiology evaluation and possible intervention. More than > 30 minutes spent on the encounter
--- NOTE | 2025-05-03 16:34 | PC.SS ---
SS was informed by Resident Physician, Dr. Laird he is requesting a family meeting. SS has spoken to dtrLizett who is aware and can be at the hospital at 5:30 due to working during the day. Pt is aware.
--- NOTE | 2025-05-03 21:48 | PC.NURSE ---
[facility] transfer center called rn- rn relayed latest vital signs. No bed available yet. They will call rn if bed will be available.
[2025-05-04] VITALS (10 sets, daily range): BP systolic 114–130; BP diastolic 76–85; PULSE 98–126; RESP 17–18; TEMP 36.1–36.9; O2SAT 98–99; BMI 24.4
[2025-05-04 05:34] LABS: Basophils % (Auto) 1 % (0-2.5); Eosinophils # (Auto) 0.2 Thou/mm3 (0.0-0.5); Eosinophils % (Auto) 4 % (0-10); Hematocrit 41.1 % (41.0-53.0); Hemoglobin 13.9 g/dL (13.5-16.0); Immature Granulocytes % (Auto) 3 % (0-0); Immature Granulocytes Auto 0.12 Thou/mm3 (0.00-0.00); Lymphocytes # (Auto) 2.4 Thou/mm3 (1.0-4.8); Lymphocytes % (Auto) 49 % (10-50); Mean Corpuscular HGB Conc 33.8 g/dl (31.0-37.0); Mean Corpuscular Volume 89 fL (80-100); Monocytes # (Auto) 0.6 Thou/mm3 (0.0-0.8); Monocytes % (Auto) 12 % (0-12); Neutrophils # (Auto) 1.5 Thou/mm3 (1.8-7.7); Neutrophils % (Auto) 32 % (37-80); Nucleated Red Blood Cell % 0 /100 WBC (0); Platelet Count 168 Thou/mm3 (140-440); RDW Standard Deviation 43.9 fL (35.1-43.9); Red Blood Count 4.63 Miln/mm3 (4.50-5.90); White Blood Count 4.8 Thou/mm3 (3.8-10.6)
[2025-05-04 05:41] LABS: Anion Gap 8 (7-16); BUN/Creatinine Ratio 13 Ratio (12-20); Blood Urea Nitrogen 9 mg/dL (9-23); Calcium 9.8 mg/dL (8.3-10.6); Chloride 105 mMol/L (98-107); Creatinine (Component) 0.7 mg/dL (0.6-1.3); Estimated Creatinine Clearance 108.6 mL/min (>60); Glucose 160 mg/dL (74-106); Osmolality,Calculated 277 (275-295); Potassium 4.4 mMol/L (3.4-5.1); Sodium 138 mMol/L (136-145); eGFR > 60 See Note
[2025-05-04] MEDS: CALCIUM CARBONATE 600 MG TABLET PO (08:49)
--- NOTE | 2025-05-04 09:22 | PC.SS ---
Follow up note: SS left voicemail for dtr reminding her to come to hospital for a goals of care meeting with Dr. Laird after 5pm.
[2025-05-04 09:51] LABS: Basophils # (Auto) 0.1 Thou/mm3 (0.0-0.2); Basophils % (Auto) 0 % (0-2.5); Eosinophils # (Auto) 0.2 Thou/mm3 (0.0-0.5); Eosinophils % (Auto) 1 % (0-10); Hematocrit 27.3 % (41.0-53.0); Immature Granulocytes % (Auto) 2 % (0-0); Immature Granulocytes Auto 0.28 Thou/mm3 (0.00-0.00); Lymphocytes # (Auto) 0.8 Thou/mm3 (1.0-4.8); Lymphocytes % (Auto) 4 % (10-50); Mean Corpuscular HGB Conc 32.2 g/dl (31.0-37.0); Mean Corpuscular Hemoglobin 29.1 pg (25.0-35.0); Mean Corpuscular Volume 90 fL (80-100); Monocytes # (Auto) 1.2 Thou/mm3 (0.0-0.8); Monocytes % (Auto) 6 % (0-12); Neutrophils # (Auto) 16.5 Thou/mm3 (1.8-7.7); Neutrophils % (Auto) 87 % (37-80); Nucleated Red Blood Cell % 0 /100 WBC (0); Platelet Count 517 Thou/mm3 (140-440); Red Blood Count 3.02 Miln/mm3 (4.50-5.90)
[2025-05-04 10:02] LABS: Hemoglobin 8.8 g/dL (13.5-16.0)
--- NOTE | 2025-05-04 11:20 | ESPR_ITS ---
<Statement entered by Jovana Velazquez MD - 05/10/25 08:54> I reviewed above note and agree with findings and plans. I have also personally examined the patient with medicine team and went over assessment and plan with medical team including digital intern and resident physician. Documentation for date of: 05/04/25 Subjective Subjective Interval history: Patient seen examined at the bedside. Has no current complaints, CBC showed hemoglobin 13.9, likely lab error, repeat CBC showed hemoglobin 8.8. Patient's hemoglobin has been stable, bleeding stable, case was discussed with oncologist. Oncology recommends discussion of hospice care with patient's family. Discussion scheduled for 6 PM in the evening today with patient's daughter, arranged by social organization professor. Patient is still pending transfer. Exam Vital Signs Temp Pulse Resp BP Pulse Ox O2 Del Method O2 Flow Rate 97.0 F 122 H 17 116/76 99 Room Air 2 05/04/25 07:43 05/04/25 08:00 05/04/25 07:43 05/04/25 07:43 05/04/25 07:43 05/04/25 07:43 04/28/25 20:00 Narrative Exam Physical Exam General: Awake and in no acute distress. Conversational and non-toxic appearing. HEENT: Normocephalic, atraumatic, mucous membranes moist. Heart: Regular rate and regular rhythm, normal S1 and S2, no murmurs. Lungs: Clear to auscultation with no wheezing or crackles. Abdomen: Soft, nondistended, nontender, positive bowel sounds. ?No guarding or rebound tenderness. Neurologic: Alert and oriented x3, no gross neurological deficit, and patient able to move all 4 extremities. Extremities: Dressings on right pelvis, no active bleeding noted. Necrotic right gluteal ulcer wrapping in dressings. Skin: No rash or ecchymoses. Objective Labs 05/04/25 09:19 05/04/25 04:01 Labs: Laboratory Results - last 24 hr 05/04/25 05/04/25 04:01 09:19 WBC 4.8 D 19.0 H D RBC 4.63 3.02 L Hgb 13.9 D 8.8 L D Hct 41.1 D 27.3 L D MCV 89 90 MCH 30.0 29.1 MCHC 33.8 32.2 RDW Std Deviation 43.9 59.0 H Plt Count 168 D 517 H D Neut % (Auto) 32 L 87 H Lymph % (Auto) 49 4 L [place] % (Auto) 12 6 Eos % (Auto) 4 1 Baso % (Auto) 1 0 Neut # (Auto) 1.5 L 16.5 H Lymph # (Auto) 2.4 0.8 L [place] # (Auto) 0.6 1.2 H Eos # (Auto) 0.2 0.2 Baso # (Auto) 0.0 0.1 Immature Gran # (Auto) 0.12 H 0.28 H Absolute Nucleated RBC 0.00 0.00 Immature Gran % 3 H 2 H Nucleated RBC % 0 0 Sodium 138 Potassium 4.4 D Chloride 105 Carbon Dioxide 25.0 Anion Gap 8 BUN 9 Creatinine 0.7 Estim Creat Clear Calc 108.6 eGFR > 60 BUN/Creatinine Ratio 13 Glucose 160 H D Calculated Osmolality 277 Calcium 9.8 D Quality Measures Quality Measures none Assessment & Plan Assessment Current Active Medications: Generic Name Dose Route Start Last Admin Trade Name Freq PRN Reason Stop Dose Admin Hydrocodone Bitart/Acetaminophen 1 tab 04/27/25 21:00 05/03/25 17:57 Hydrocodone/Apap 10/325 Tab PO 05/07/25 20:59 1 tab Q4HR PRN Administration PAIN SCALE 4-6 (Moderate Calcium Carbonate 600 mg 04/23/25 09:00 05/04/25 08:49 Calcium Carbonate 600 Mg Tablet PO 05/23/25 08:59 600 mg QDAY BRIAN Administration Docusate Sodium 100 mg 04/20/25 09:31 Docusate Sod 100 Mg Capsule PO 05/20/25 09:30 Q12H PRN CONSTIPATION Protocol Magnesium Hydroxide 30 ml 04/20/25 09:31 Milk Of Magnesia Susp 30 Ml Udc PO 05/20/25 09:30 QDAY PRN CONSTIPATION Protocol Plan Mr. 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 Dee, hepatitis B, right leg DVT s/p IVC filter 04/13/2025 who presented to the ED on 04/19/2025 due to profuse bleeding of the right pelvis sinus admitted to ICU due to concerns for hemodynamic instability. Patient was downgraded to medical floors on 04/20/2025. #Acute blood loss anemia secondary to pelvic tumor/wounds #Hypovolemic shock, resolved Initially presenting with BP 70/40s -> 110/80s after 3L IVF, maintaining MAP >65 w/o pressor support, s/p 2 unit PRBC infusion given. Hb 6.2 on admission -> 9.4 -> 8.9. Currently wound has stopped bleeding as shown on dressing changes. 04/21/2025: 2 PRBC tranfusion Overall patient has received 7 units PRBC and 1 unit FFP -Monitor for active bleeding -Patient typed and screened -Monitor H&H closely. Transfusing for Hgb <7 or symptomatic. 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 Dee. Chest CTA showed multiple pulmonary nodules. Rad Oncology Dr Dee was contacted as patient [facility] on [facility]. Pending discussion with family, patient comprehends fully that the prognosis is poor but is open to palliative radiation for pain and bleeding control. -Continue palliative treatment for Stage IV pleomorphic sarcoma -Dr Dee consulted and following, continue radiation therapy as scheduled by oncology -Hydrocodone-acetaminophen 10-325 mg q4h prn -SCDs on left leg only -Wound care following #Severe sepsis secondary to pelvic wounds, resolved #Leukocytosis, resolved On admission WBC 26 --> 36.9. Purulent discharge found on pelvic/sacral wounds. Previously patient had been seen by surgery on prior admissions who determined wounds are not amenable to debridement. Blood cultures negative 48 hours. -Patient completed IV antibiotics for 7 days. #LACHO, resolved Creatinine increased to 1.6 from baseline 1.0, may have had ischemia secondary to sepsis leading to prerenal LACHO, may develop into ATN -Monitor renal function, urine output #Constipation Patient was reporting last BM >[address] showed abundant stool throughout colon. Could be opioid induced. -Milk of Mag PRN -Dulcolax tabs PRN #History of hepatitis B #Hypoabuminemia Hepatitis B antigen positive, Albumin 2 -> 1.7 -Currently not receiving any treatment for Hep B -Director Money following -Ensure plus and Jagdeep supplementation #Right common femoral vein thrombus s/p IVC filter placement 04/13 Patient unable to be anticoagulated due to active/recurrent bleeding. #Sinus tachycardia, resolved #Lactic acidosis, resolved DVT prophylaxis: None GI prophylaxis: Not indicated Diet: Dysphagia 2 [place]: None Lines: Peripheral IV Antibiotics: Vancomycin [04/19/2025-04/26/25 ], Zosyn [04/19/2025-04/26/25] CODE STATUS: Limited Code (medications and shock okay) Patient plan of care was discussed with the attending physician, Dr. Velazquez. Cindy Jamil, PGY1
--- NOTE | 2025-05-04 15:30 | PC.CC ---
1515: called [facility] for status updated on bed availability, per Rufino, we will just call you when we have a bed available. He proceeded by requesting dc summary. Informed DC summary is dated 04/27/25. Sent DC summary 04/27 and progress note for 05/04.
--- NOTE | 2025-05-04 21:04 | PC.NURSE ---
Aida from [facility] called ERMIAS Vasquez for patient update. Aida asked for patients last vitals signs and any critical labs.
--- NOTE | 2025-05-04 22:48 | PC.NURSE ---
AMARILYS Thompson called saying that the patient's cardiac surgeon is showing frequent PVC's [address] Lopez asked if the patient is having chest pain. ERMIAS Vasquez told Dr. Lopez that the patient was sleeping. Dr. Lopez told ERMIAS Vasquez that we will just monitor the patient for now.
--- NOTE | 2025-05-04 23:20 | PC.NURSE ---
Recieved phone call from [employer] to notify nurse that the patient's hr went up to 150's. Nurse went to go assessment patient. When nurse entered room, the patient was urinating. Notified monitoring specialist.
[2025-05-05] VITALS (9 sets, daily range): BP systolic 106–129; BP diastolic 72–83; PULSE 103–130; RESP 17–23; TEMP 36.1–36.9; O2SAT 99–100; BMI 23.6
[2025-05-05] MEDS: HYDROcodone/APAP 10/325 TAB PO ×3 (02:26→23:44)
[2025-05-05 05:31] LABS: Basophils # (Auto) 0.1 Thou/mm3 (0.0-0.2); Basophils % (Auto) 0 % (0-2.5); Eosinophils # (Auto) 0.3 Thou/mm3 (0.0-0.5); Eosinophils % (Auto) 2 % (0-10); Hematocrit 24.9 % (41.0-53.0); Immature Granulocytes % (Auto) 1 % (0-0); Immature Granulocytes Auto 0.17 Thou/mm3 (0.00-0.00); Lymphocytes # (Auto) 0.7 Thou/mm3 (1.0-4.8); Lymphocytes % (Auto) 4 % (10-50); Mean Corpuscular HGB Conc 32.9 g/dl (31.0-37.0); Mean Corpuscular Hemoglobin 29.3 pg (25.0-35.0); Mean Corpuscular Volume 89 fL (80-100); Monocytes # (Auto) 1.6 Thou/mm3 (0.0-0.8); Monocytes % (Auto) 9 % (0-12); Neutrophils # (Auto) 15.2 Thou/mm3 (1.8-7.7); Neutrophils % (Auto) 85 % (37-80); Nucleated Red Blood Cell % 0 /100 WBC (0); Platelet Count 408 Thou/mm3 (140-440); RDW Standard Deviation 56.8 fL (35.1-43.9)
[2025-05-05 06:06] LABS: Anion Gap 7 (7-16); BUN/Creatinine Ratio 17 Ratio (12-20); Blood Urea Nitrogen 12 mg/dL (9-23); Calcium 7.2 mg/dL (8.3-10.6); Carbon Dioxide 27.4 mMol/L (20.0-31.0); Chloride 102 mMol/L (98-107); Creatinine (Component) 0.7 mg/dL (0.6-1.3); Estimated Creatinine Clearance 108.6 mL/min (>60); Glucose 106 mg/dL (74-106); Osmolality,Calculated 271 (275-295); Potassium 3.5 mMol/L (3.4-5.1); Sodium 136 mMol/L (136-145); eGFR > 60 See Note
[2025-05-05 06:08] LABS: Hemoglobin 8.2 g/dL (13.5-16.0)
[2025-05-05] MEDS: POTASSIUM CHLORIDE 10% 20 MEQ/15 ML UDC 40 MEQ PO (08:59)
[2025-05-05] MEDS: CALCIUM CARBONATE 600 MG TABLET PO (08:59)
--- NOTE | 2025-05-05 14:28 | ESPR_ITS ---
<Statement entered by Jovana Velazquez MD - 05/10/25 08:56> I reviewed above note and agree with findings and plans. I have also personally examined the patient with medicine team and went over assessment and plan with medical team including internal medicine specialist and resident physician. Documentation for date of: 05/05/25 Subjective Subjective Interval history: Patient seen and examined at bedside. Goals of care discussion held with family yesterday, both patient and family requesting to proceed with transfer. Family for now deferred referral to hospice, they would consider it after getting an opinion from interventional radiology. Otherwise patient is in contact with [facility]. Hemoglobin 8.2 today, will continue to monitor CBC. Electrolytes replaced and corrected. Patient pending bed for transfer nurse, will continue with transfer. Exam Vital Signs Temp Pulse Resp BP Pulse Ox O2 Del Method O2 Flow Rate 97.7 F 108 H 18 129/83 99 Room Air 2 05/05/25 12:00 05/05/25 12:00 05/05/25 12:00 05/05/25 12:00 05/05/25 12:00 05/05/25 12:00 04/28/25 20:00 Narrative Exam Physical Exam General: Awake and in no acute distress. Conversational and non-toxic appearing. HEENT: Normocephalic, atraumatic, mucous membranes moist. Heart: Regular rate and regular rhythm, normal S1 and S2, no murmurs. Lungs: Clear to auscultation with no wheezing or crackles. Abdomen: Soft, nondistended, nontender, positive bowel sounds. ?No guarding or rebound tenderness. Neurologic: Alert and oriented x3, no gross neurological deficit, and patient able to move all 4 extremities. Extremities: Dressings on right pelvis, no active bleeding noted. Necrotic right gluteal ulcer wrapping in dressings. Skin: No rash or ecchymoses. Objective Labs 05/05/25 04:25 05/05/25 04:25 Labs: Laboratory Results - last 24 hr 05/05/25 04:25 WBC 18.0 H RBC 2.80 L Hgb 8.2 L Hct 24.9 L MCV 89 MCH 29.3 MCHC 32.9 RDW Std Deviation 56.8 H Plt Count 408 D Neut % (Auto) 85 H Lymph % (Auto) 4 L [place] % (Auto) 9 Eos % (Auto) 2 Baso % (Auto) 0 Neut # (Auto) 15.2 H Lymph # (Auto) 0.7 L [place] # (Auto) 1.6 H Eos # (Auto) 0.3 Baso # (Auto) 0.1 Immature Gran # (Auto) 0.17 H Absolute Nucleated RBC 0.00 Immature Gran % 1 H Nucleated RBC % 0 Sodium 136 Potassium 3.5 D Chloride 102 Carbon Dioxide 27.4 Anion Gap 7 BUN 12 Creatinine 0.7 Estim Creat Clear Calc 108.6 eGFR > 60 BUN/Creatinine Ratio 17 Glucose 106 D Calculated Osmolality 271 L Calcium 7.2 L D Quality Measures Quality Measures none Assessment & Plan Assessment Current Active Medications: Generic Name Dose Route Start Last Admin Trade Name Freq PRN Reason Stop Dose Admin Hydrocodone Bitart/Acetaminophen 1 tab 04/27/25 21:00 05/05/25 02:26 Hydrocodone/Apap 10/325 Tab PO 05/07/25 20:59 1 tab Q4HR PRN Administration PAIN SCALE 4-6 (Moderate Calcium Carbonate 600 mg 04/23/25 09:00 05/05/25 08:59 Calcium Carbonate 600 Mg Tablet PO 05/23/25 08:59 600 mg QDAY BRIAN Administration Docusate Sodium 100 mg 04/20/25 09:31 Docusate Sod 100 Mg Capsule PO 05/20/25 09:30 Q12H PRN CONSTIPATION Protocol Magnesium Hydroxide 30 ml 04/20/25 09:31 Milk Of Magnesia Susp 30 Ml Udc PO 05/20/25 09:30 QDAY PRN CONSTIPATION Protocol Plan Mr. 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 Dee, hepatitis B, right leg DVT s/p IVC filter 04/13/2025 who presented to the ED on 04/19/2025 due to profuse bleeding of the right pelvis sinus admitted to ICU due to concerns for hemodynamic instability. Patient was downgraded to medical floors on 04/20/2025. #Acute blood loss anemia secondary to pelvic tumor/wounds #Hypovolemic shock, resolved Initially presenting with BP 70/40s -> 110/80s after 3L IVF, maintaining MAP >65 w/o pressor support, s/p 2 unit PRBC infusion given. Hb 6.2 on admission -> 9.4 -> 8.9. Currently wound has stopped bleeding as shown on dressing changes. 04/21/2025: 2 PRBC tranfusion Overall patient has received 7 units PRBC and 1 unit FFP -Monitor for active bleeding -Patient typed and screened -Monitor H&H closely. Transfusing for Hgb <7 or symptomatic. 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 Dee. Chest CTA showed multiple pulmonary nodules. Rad Oncology Dr Dee was contacted as patient [facility]. Pending discussion with family, patient comprehends fully that the prognosis is poor but is open to palliative radiation for pain and bleeding control. -Continue palliative treatment for Stage IV pleomorphic sarcoma -Dr Dee consulted and following, continue radiation therapy as scheduled by oncology -Hydrocodone-acetaminophen 10-325 mg q4h prn -SCDs on left leg only -Wound care following #Severe sepsis secondary to pelvic wounds, resolved #Leukocytosis, resolved On admission WBC 26 --> 36.9. Purulent discharge found on pelvic/sacral wounds. Previously patient had been seen by surgery on prior admissions who determined wounds are not amenable to debridement. Blood cultures negative 48 hours. -Patient completed IV antibiotics for 7 days. #LACHO, resolved Creatinine increased to 1.6 from baseline 1.0, may have had ischemia secondary to sepsis leading to prerenal LACHO, may develop into ATN -Monitor renal function, urine output #Constipation Patient was reporting last BM >[address] showed abundant stool throughout colon. Could be opioid induced. -Milk of Mag PRN -Dulcolax tabs PRN #History of hepatitis B #Hypoabuminemia Hepatitis B antigen positive, Albumin 2 -> 1.7 -Currently not receiving any treatment for Hep B -Garden Machinery Mechanic following -Ensure plus and Jagdeep supplementation #Right common femoral vein thrombus s/p IVC filter placement 04/13 Patient unable to be anticoagulated due to active/recurrent bleeding. #Sinus tachycardia, resolved #Lactic acidosis, resolved DVT prophylaxis: None GI prophylaxis: Not indicated Diet: Dysphagia 2 [place]: None Lines: Peripheral IV Antibiotics: Vancomycin [04/19/2025-04/26/25 ], Zosyn [04/19/2025-04/26/25] CODE STATUS: Limited Code (medications and shock okay) Patient plan of care was discussed with the attending physician, Dr. Velazquez. Cindy Jamil, PGY1
--- NOTE | 2025-05-05 19:28 | PC.CM ---
1930 Patient has been accepted to [facility] and will be going to room [address] [facility]. The number to call and give report is [phone]. The charge nurses number is [phone]. The [place] is [place] [address]. Night charge nurse took packet up to the floor and she was going to help with setting up transport and updating paperwork. M/S charge nurse was aware patient was accepted.
--- NOTE | 2025-05-05 23:05 | PC.NURSE ---
called and report to Mick [facility] kinza given.
--- NOTE | 2025-05-05 23:53 | PC.NURSE ---
Discharged via ambulance personnel x2 staff to [facility] at 23:53pm. Voided before transport. Called Mick echols at [facility] and updated re time pt left [facility] and norco 10/325mg 1 tab given at 23:44pm.
--- NOTE | 2025-05-06 07:21 | ESDS_ITS ---
<Statement entered by Jovana Velazquez MD - 05/10/25 08:57> I reviewed above note and agree with findings and plans. I have also personally examined the patient with medicine team and went over assessment and plan with medical team including internal combustion engine inspector and resident physician. Planned Discharge Date 05/06/25 DS: Providers Provider Date of admission: 04/19/25 16:13 Primary care physician: Zia Jorge MD Admitting Provider: Felecia Shin MD Attending Provider on Admission: Jovana Velazquez MD Consults: 04/19/25 11:35 Referral Wound Care Stat Comment: right coccyx please evaluate 04/19/25 18:23 Referral Registered Dietitian Routine Comment: Referral Wound Care Routine Comment: 04/19/25 18:33 Referral [place] Routine Comment: 04/19/25 18:42 Referral Registered Dietitian Routine Comment: 04/20/25 07:18 Consult to Oncology Routine Comment: Consulting Provider: Paul Dee 04/22/25 15:14 Consult to General Surgery Routine Comment: Right Pelvic Bleeding Consulting Provider: Baldemar Ureña Attending Provider on DC: Jovana Velazquez MD Discharging Provider: Jovana Velazquez MD Anticipated date of discharge: 05/05/25 DS: Diagnosis Problem List Completed Was Problem List Reviewed/Reconciled?: Yes Hospital Course Hospital Course Hospital course: Hospital course: Mr. 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 Dee, hepatitis B, right leg DVT s/p IVC filter 04/13/2025 who presented to the ED on 04/19/2025 due to profuse bleeding of the right pelvis sinus. Patient was recently discharged on April 18, 2025 for similar complaint, since going home patient continued to have bleeding, on presentation hemoglobin was 6.2, patient was admitted to intensive care unit for close monitoring for any further bleeding and possible rapid infusion of blood products. Patient was given 2 units PRBC, was started on IV antibiotics, patient was started on palliative radiation therapy by oncologist, was moved to [facility] for radiation dosing for sessions. With the progression of hospital course patient continued to have significant bleeding, general surgery was consulted and recommended IV tranexamic acid, transfusion of FFP, patient continues to have significant bleeding despite pressure dressing and other measures. Patient was transfused 1 unit of PRBC, posttransfusion hemoglobin did improve to 7.9 however patient continued to have bleeding with hemoglobin down trended to 6.3. Transfusion of 2 unit PRBC was ordered, posttransfusion hemoglobin has been stable however patient continued to have on and off oozing bleeding. Further plan was made to transfer patient to higher level of care for interventional radiology embolization of vessel due to continued and recurrent bleeding. Patient completed IV Antibiotic therapy for 7 days. Patient was accepted for transfer at [facility] on 04/27/2025, however was pending bed until date 05/05/2025 patient's hemoglobin and bleeding improved significantly, patient was hemodynamically stable, did have mild tachycardia, case was discussed with family with possible discharge to home and also hospice care was discussed with family as well. Patient and patient's family wanted to proceed with transfer to obtain opinion of an interventional radiologist, patient's wishes were requested. Family reported that they are already in contact with [place] hospice and oncologist, refused hospice care for now. Patient was eventually accepted to [facility] on 05/05/2025 and was transferred. Patient was stable for transfer. 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 Velazquez. Cindy Jamil PGY1 Disclaimer: This note was dictated by speech recognition. Minor errors in regional economic liaison may be present due to voice recognition software. Time Spent with Patient Time attestation: Total time spent providing and/or coordinating discharge services: Time spent: Greater than 30 minutes Exam Vital Signs Temp Pulse Resp BP Pulse Ox O2 Del Method O2 Flow Rate 97.6 F 108 H 23 H 116/79 100 Room Air 2 05/05/25 20:00 05/05/25 20:00 05/05/25 20:00 05/05/25 20:00 05/05/25 20:00 05/05/25 20:00 04/28/25 20:00 Narrative Exam Physical Exam General: Awake and in no acute distress. Conversational and non-toxic appearing. HEENT: Normocephalic, atraumatic, mucous membranes moist. Heart: Regular rate and regular rhythm, normal S1 and S2, no murmurs. Lungs: Clear to auscultation with no wheezing or crackles. Abdomen: Soft, nondistended, nontender, positive bowel sounds. ?No guarding or rebound tenderness. Neurologic: Alert and oriented x3, no gross neurological deficit, and patient able to move all 4 extremities. Extremities: Dressings on right pelvis, no active bleeding noted. Necrotic right gluteal ulcer wrapping in dressings. Skin: No rash or ecchymoses. Discharge Plan Plan Patient Disposition: [facility] Pt Being Transferred to: [facility] Service Needed for Transfer: Interventional Radiology Prescriptions/Referrals Prescriptions/Med Rec: No Action docusate calcium 240 mg capsule 240 mg PO QDAY Qty: 30 6RF magnesium hydroxide [Milk of Magnesia] 400 mg/5 mL Suspension 30 ml PO QDAY PRN (Reason: Constipation) Qty: 3780 0RF hydrocodone-acetaminophen 10-325 mg tablet 1 tab PO Q4H PRN (Reason: pain) Patient Comments: 1 tab orally every 4 hours As Needed for pain for 3 days, Max Daily Dose: 40 mg hydrocodone Referrals: Zia Jorge MD [Primary Care Provider] - Patient/Caregiver Discharge Instructions Print Language: Martiniquais Discharge Order Discharge Orders: Discharge (Routine); Ordered 05/05/25 Ordered By: Anitha Amador Quality Discharge Quality Measures none
== END 2025-05-05 23:53 | disposition short-term general hospital (02) | DRG 720 ==
LOC: SERX 16:08 → SERHOLD 16:59 → S2SX 17:09 → S3SX 04-20 16:35
PROVIDERS: Student in an Organized Health Care Education/Training Program; Admitting Provider Internal Medicine; Emergency Provider Emergency Medicine; PCP Family Medicine; Visit Provider Internal Medicine
DX: A41.9 Sepsis, unspecified organism (principal); L98.418 Non-pressure chronic ulcer of buttock with other specified severity; R57.1 Hypovolemic shock; L97.812 Non-pressure chronic ulcer of other part of right lower leg with fat layer exposed; C49.5 Malignant neoplasm of connective and soft tissue of pelvis; B19.10 Unspecified viral hepatitis B without hepatic coma; R57.8 Other shock; C78.00 Secondary malignant neoplasm of unspecified lung; E87.20 Acidosis, unspecified; D62 Acute posthemorrhagic anemia; Z95.828 Presence of other vascular implants and grafts; L02.214 Cutaneous abscess of groin; E87.6 Hypokalemia; K59.00 Constipation, unspecified; N17.9 Acute kidney failure, unspecified; R65.20 Severe sepsis without septic shock; Z51.5 Encounter for palliative care; Z86.718 Personal history of other venous thrombosis and embolism; Z87.891 Personal history of nicotine dependence; Z92.21 Personal history of antineoplastic chemotherapy; Z92.3 Personal history of irradiation
CPT/HCPCS: 36415; 36430; 71045; 71275; 74177; 77385; 80048; 80053; 80069; 80202; 81001; 83605; 83735; 84132; 84145; 85014; 85018; 85025; 85610; 85730; 86850; 86900; 86901; 86923; 86927; 87040; 87081; 93005; 93225; 96360; 96361; 96365; 96366; 96367; 99291; A4649; J0613; J0696; J1171; J2543; J3370; J3475; J3480; J3490; J7030; P9016; P9060; Q9967; A9270

== ENCOUNTER 2025-05-22 20:43 | Inpatient (IN) | payer MEDICAID, SELFPAY ==
--- NOTE | 2025-05-22 15:15 | PC.SS ---
ASW received a call from Charu Medina from [facility] and reported that the pt is one of theirs. Charu reported that when the pt is discharged he will be using [facility] care. EOC.
[2025-05-22 20:55] VITALS: BP 126/84; PULSE 101; RESP 21; TEMP 36.6; O2SAT 82
--- NOTE | 2025-05-22 20:56 | EKG_ITS ---
[facility] Test Date: 2025-05-22 Pat Name: DULCE MARIA STAI [facility] Gender: Male Natural Gas Inspector: BRADY : 1965 Requested By: Simba Morse Order Number: [id number] Reading MD: Simba Morse Measurements Intervals [place] Rate: 93 P: 61 KS: 155 QRS: 84 QRSD: 95 T: 263 QT: 380 QTc: 473 Interpretive Statements SINUS RHYTHM NONSPECIFIC T-WAVE ABNORMALITY Compared to ECG 04/21/2025 20:07:53 T-wave abnormality now present /store/S0/[id number].pdf
--- NOTE | 2025-05-22 21:25 | ESHP_ITS ---
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 Dee, hepatitis B, right leg DVT s/p IVC filter 04/13/2025 was transferred back from [facility] after treatment for tumor bleeding and hemorrhagic shock. He was initially admitted to [facility] ICU on 04/19/2025 due to profuse bleeding of the right pelvis mass, on presentation hemoglobin was 6.2, patient was given PRBC transfusion and was started on IV antibiotics. Patient continued to have significant bleeding despite multiple pRBC transfusions, general surgery was consulted and recommended IV tranexamic acid, transfusion of FFP, patient continues to have significant bleeding despite pressure dressing and other measures. Further plan was made to transfer patient to higher level of care for interventional radiology embolization of vessel due to continued and recurrent bleeding. Patient was transferred to [facility] on 05/05/2025 for further management of bleeding. Patient did not undergo any surgical or IR procedures due to poor prognosis, multiple pRBC, FFP and PLT were done. He was again started on antibiotics due to worsening WBCs likely due to infection of his wound. His bleeding has improved and he was off pressors. GOC discussion was held with the family, they agreed to switch him to DNR/DNI and agreed with further plan with hospice and transfer closer to home back to [facility]. Review of Systems Review of Systems Systems Reviewed: All systems reviewed, normal except as documented Exam Narrative Exam Gen: Well-developed and well-nourished ill and cachectic appearing male. HEENT: NCAT, PERRLA, EOMI, MMM, anicteric conjunctivae. CVS: normal S1 and S2. RRR. No M/R/G. Resp: CTA B/L. No rhonchi, rales, crackles or wheezing. Abd: soft, non-tender, non-distended. BS+ in all 4 quadrants. MSK: Good ROM in BUE & BLE. 3+ edema BLE, R>L. Large necrotic wound involving right buttock with several gauzes in it and some liquid stool. Neuro: somnolent and does not want to cooperate with exam. Able to move all 4 extremities. Results: Labs 05/22/25 21:34 05/22/25 21:34 Quality Measures Quality Measures VTE prophylaxis Medications Home Medications and Allergies Home Medications ?Medication ?Instructions ?Recorded ?Confirmed ?Type hydrocodone 10 mg-acetaminophen 1 tab PO Q4H PRN pain 04/20/25 04/20/25 History 325 mg tablet Allergies Allergy/AdvReac Type Severity Reaction Status Date / Time No Known Allergies Allergy Verified 05/02/25 19:27 Visit Medications Acetaminophen (Acetaminophen 325 Mg Tablet) 650 mg PO Q6H PRN PRN Reason: Pain Scale 1-3 (Mild) or fever Stop: 06/21/25 21:22 Hydrocodone Bitart/Acetaminophen (Hydrocodone/Apap 10/325 Tab) 1 tab PO Q4H PRN PRN Reason: PAIN SCALE 4-6 (Moderate Stop: 05/27/25 21:22 Meropenem 1,000 mg/ Sodium (Chloride) 50 mls @ 100 mls/hr IV Q12HR BRIAN Stop: 05/30/25 08:59 Morphine Sulfate (Morphine Sulf Inj 10 Mg/Ml Vial) 2 mg IVP Q2H PRN PRN Reason: PAIN SCALE 7-10 (Severe Stop: 05/27/25 21:22 Non-Formulary Medication (Entecavir) 0.5 mg PO Q48H BRIAN Stop: 06/21/25 21:29 Ondansetron HCl (Ondansetron Inj 2 Mg/Ml Inj 2 Ml) 4 mg IVP Q6H PRN; Protocol PRN Reason: NAUSEA OR VOMITING Stop: 06/21/25 20:55 Pantoprazole Sodium (Pantoprazole Inj 40 Mg Vial) 40 mg IVP QDAY BRIAN Stop: 06/22/25 08:59 Pharmacy Consult (Vancomycin Pharmacy To Dose 1 Each Each) 1 each IV QDAY BRIAN Stop: 06/22/25 08:59 Assessment & Plan Plan Patient is a 59 years old male with PMH of 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 Dee, hepatitis B, right leg DVT s/p IVC filter 04/13/2025 was transferred back from [facility] after treatment for tumor bleeding and hemorrhagic shock. Neuro: No active problem. Cardiovascular: #BLE pitting edema. #Right common femoral vein DVT. No ac due to bleeding from wound. s/p IVC filter 04/13/2025. Plan: - consider US doppler of LLE due to edema. Respiratory: No active problem. Gastrointestinal: #Hx of hepatitis B. AST/ALT WNL. Started on entecavir ppx at [facility]. Plan: - monitor with daily labs. - continue entecavir ppx. Renal: #LACHO. #Hypocalcemia. #Hyperphosphatemia. Creatinine from 05/22/2025 [facility] 2.84, labs on admission showed creatinine 2.5, BUN 35, eGFR 29, Ca 7.3, phos 5.5. Plan: - daily renal panel. - avoid nephrotoxic agents. - renally dose medications. - strict VIVIAN. Endocrine: No active problem. Infectious Disease: #Pelvic wound superinfection. WBCs from 05/22/2025 [facility] 30.4, labs on admission showed WBCs 34.5. Pelvic wound has stool in it and multiple gauzes, no active bleeding noted. Plan: - Continue meropenem (05/18 -) and vancomycin (05/14 -) as recommended by [facility]. - Wound care ordered. - Blood cultures x2 ordered. Hematology/Oncology: #Metastatic pleomorphic sarcoma of right pelvis, stage IV. Dx 11/2021, s/p excision, chemo and RT. Not on any treatment now. Plan: - Dr Dee oncology/hematology consulted. - pain control per scale APAP, [place], morphine. - Consider GOC discussion, hospice referral ordered. 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 Tested positive for acquired Hemophilia A and acquired Factor VIII inhibitor, see [facility] d/c summary. [facility] recommended Novesen, prednisone 70 mg QD and rituximab 375 mg/m2/dose Qweek. Plan: - Consider restarting this medications if hospice is no longer planned. - Dr Dee oncology/hematology consulted. #Normocytic anemia due to bleeding. Hemoglobin from 05/22/2025 [facility] 8.2, labs on admission showed hemoglobin 10.3, HCT 30.4%, PLT 179. Plan: - Transfuse if Hgb < 7. - Type and screen ordered. - coag panel and fibrinogen pending. - Monitor for bleeding. Diet: regular after swallow eval. DVT prophylaxis: SCDs. GI prophylaxis: Famotidine. Code status: DNR/DNI. Disposition: ICU. Plan of care discussed with attending Dr. Roman. Simba Morse MD, PGY 3. Disclaimer: This note was dictated by speech recognition. Minor errors in materials technician may be present due to voice recognition software. Attending Provider Attestation/Addendum I have examined the patient, reviewed labs and imaging findings, discussed the case with the resident(s), and reviewed entered orders. I agree with the plan of care as outlined in this note, with these additional summaries/recommendations: After examination of the patient and review of the clinical data, I feel that this patient needs admission to the hospital for further treatment and evaluation. Patient is a unfortunate 59-year-old male with a medical history of hepatitis B infection, right leg deep vein thrombosis status post IVC filter, stage IV metastatic sarcoma, acute blood loss anemia, and hypoalbuminemia presents back to [facility] on 05/22/2025 from [facility] for evaluation of IR embolization of bleeding vessel from pelvic tumor/wound. At [facility] patient continued to require multiple transfusions including PRBCs, FFP, and platelet transfusions. Given patient's hemodynamic instability, goals of care was held and patient did not undergo any surgical or interventional radiology procedures due to patient's poor prognosis. During goals of care at [facility], family has decided to change CODE STATUS to DNR/DNI and will proceed with hospice care. For now we will continue antibiotics for superimposed infection on severe pelvic wound. Consult wound care. Severe leukocytosis still present which is likely multifactorial secondary to underlying malignancy and severe wound. Patient has now developed acute kidney injury and on admission creatinine 2.5 and BUN 35. Unclear trigger at this time although we will monitor urinary output closely. Mild hyperphosphatemia present. No indication for dialysis at this time and if renal function worsens we will consult nephrology. Severe hypoalbuminemia present and consult dietary. Transfuse for hemoglobin less than 7 and not a candidate for anticoagulation given his recent history of bleeding. Patient is status post IVC filter for DVT. Case discussed with in-house acquisition analyst and recommends readmission back to the ICU given patient's risk for life-threatening bleed. Outpatient follow-up with oncology as desired for pleomorphic sarcoma of the right pelvis. Overall prognosis guarded. Please see residents note for additional details and management. Dr. Abel MD
[2025-05-22 22:00] LABS: Basophils # (Auto) 0.1 Thou/mm3 (0.0-0.2); Basophils % (Auto) 0 % (0-2.5); Eosinophils # (Auto) 0.0 Thou/mm3 (0.0-0.5); Eosinophils % (Auto) 0 % (0-10); Hematocrit 30.4 % (41.0-53.0); Hemoglobin 10.3 g/dL (13.5-16.0); Immature Granulocytes Auto 0.56 Thou/mm3 (0.00-0.00); Lymphocytes # (Auto) 0.2 Thou/mm3 (1.0-4.8); Lymphocytes % (Auto) 1 % (10-50); Mean Corpuscular HGB Conc 33.9 g/dl (31.0-37.0); Mean Corpuscular Hemoglobin 28.3 pg (25.0-35.0); Mean Corpuscular Volume 84 fL (80-100); Monocytes # (Auto) 0.4 Thou/mm3 (0.0-0.8); Monocytes % (Auto) 1 % (0-12); Neutrophils # (Auto) 33.3 Thou/mm3 (1.8-7.7); Neutrophils % (Auto) 97 % (37-80); Nucleated Red Blood Cell # 0.02 Thou/mm3 (0.00-0.00); Nucleated Red Blood Cell % 0 /100 WBC (0); Platelet Count 179 Thou/mm3 (140-440); RDW Standard Deviation 54.0 fL (35.1-43.9); Red Blood Count 3.64 Miln/mm3 (4.50-5.90); White Blood Count 34.5 Thou/mm3 (3.8-10.6)
[2025-05-22 22:27] VITALS: PULSE 85; RESP 14; RESP 97
[2025-05-22 22:37] LABS: Alanine Aminotransferase 24 U/L (10-49); Albumin, Serum 2.2 gm/dL (3.4-4.8); Albumin/Globulin Ratio 1.0 (1.2-2.2); Alkaline Phosphatase 133 U/L (46-116); Anion Gap 12 (7-16); Aspartate Amino Transferase 21 U/L (0-34); BUN/Creatinine Ratio 14 Ratio (12-20); Bilirubin,Total 0.5 mg/dL (0.3-1.2); Blood Urea Nitrogen 35 mg/dL (9-23); Calcium 7.3 mg/dL (8.3-10.6); Calcium (Corrected) 8.7 mg/dL (8.5-10.1); Carbon Dioxide 21.8 mMol/L (20.0-31.0); Chloride 102 mMol/L (98-107); Creatinine (Component) 2.5 mg/dL (0.6-1.3); Globulin 2.2 gm/dL (2.3-3.5); Glucose 118 mg/dL (74-106); Magnesium 2.2 mg/dL (1.6-2.6); Osmolality,Calculated 280 (275-295); Phosphorous 5.5 mg/dL (2.4-5.1); Potassium 4.2 mMol/L (3.4-5.1); Sodium 136 mMol/L (136-145); Total Protein 4.4 gm/dL (5.7-8.2); Troponin I < 0.002 ng/mL (0.0-0.045); eGFR 29 See Note
[2025-05-22 22:49] LABS: INR 0.9 (0.9-1.3); Partial Thromboplastin Time 51.4 Seconds (22.0-36.0); Prothrombin Time 9.6 Seconds (9.0-12.2)
[2025-05-22 22:56] LABS: Fibrinogen 235 mg/dL (175-375)
[2025-05-22 22:57] VITALS: BMI 23.3
[2025-05-22 22:58] LABS: Lactate (Lactic Acid) 1.2 mMol/L (0.4-2.0)
[2025-05-22 23:00] VITALS: BP 140/64; PULSE 87; RESP 14; O2SAT 90
[2025-05-23] VITALS (20 sets, daily range): BP systolic 102–151; BP diastolic 56–91; PULSE 70–99; RESP 8–98; TEMP 35.9–37.1; O2SAT 92–99; BMI 23.3
[2025-05-23] MEDS: Vancomycin Inj 2,000 MG in SODIUM CHLORIDE 0.9% 500 ML 500 ML 150 MG IV (00:17)
[2025-05-23 06:24] LABS: Basophils # (Auto) 0.1 Thou/mm3 (0.0-0.2); Basophils % (Auto) 0 % (0-2.5); Eosinophils # (Auto) 0.0 Thou/mm3 (0.0-0.5); Eosinophils % (Auto) 0 % (0-10); Hematocrit 28.4 % (41.0-53.0); Hemoglobin 10.0 g/dL (13.5-16.0); Immature Granulocytes Auto 0.42 Thou/mm3 (0.00-0.00); Lymphocytes # (Auto) 0.2 Thou/mm3 (1.0-4.8); Lymphocytes % (Auto) 1 % (10-50); Mean Corpuscular HGB Conc 35.2 g/dl (31.0-37.0); Mean Corpuscular Hemoglobin 28.7 pg (25.0-35.0); Mean Corpuscular Volume 82 fL (80-100); Monocytes # (Auto) 0.4 Thou/mm3 (0.0-0.8); Monocytes % (Auto) 1 % (0-12); Neutrophils # (Auto) 30.5 Thou/mm3 (1.8-7.7); Neutrophils % (Auto) 97 % (37-80); Nucleated Red Blood Cell # 0.02 Thou/mm3 (0.00-0.00); Nucleated Red Blood Cell % 0 /100 WBC (0); Platelet Count 175 Thou/mm3 (140-440); RDW Standard Deviation 53.6 fL (35.1-43.9); Red Blood Count 3.48 Miln/mm3 (4.50-5.90); White Blood Count 31.6 Thou/mm3 (3.8-10.6)
[2025-05-23 07:04] LABS: Alanine Aminotransferase 21 U/L (10-49); Albumin, Serum 2.1 gm/dL (3.4-4.8); Albumin/Globulin Ratio 1.0 (1.2-2.2); Alkaline Phosphatase 123 U/L (46-116); Anion Gap 14 (7-16); Aspartate Amino Transferase 18 U/L (0-34); BUN/Creatinine Ratio 15 Ratio (12-20); Bilirubin,Total 0.5 mg/dL (0.3-1.2); Blood Urea Nitrogen 33 mg/dL (9-23); Calcium 6.9 mg/dL (8.3-10.6); Calcium (Corrected) 8.4 mg/dL (8.5-10.1); Carbon Dioxide 22.2 mMol/L (20.0-31.0); Chloride 102 mMol/L (98-107); Creatinine (Component) 2.2 mg/dL (0.6-1.3); Estimated Creatinine Clearance 34.5 mL/min (>60); Globulin 2.1 gm/dL (2.3-3.5); Glucose 95 mg/dL (74-106); Magnesium 2.2 mg/dL (1.6-2.6); Osmolality,Calculated 282 (275-295); Phosphorous 5.1 mg/dL (2.4-5.1); Potassium 3.7 mMol/L (3.4-5.1); Sodium 138 mMol/L (136-145); Thyroid Stimulating Hormone 3.78 uIU/mL (0.55-4.78); Total Protein 4.2 gm/dL (5.7-8.2); eGFR 33 See Note
[2025-05-23 07:53] LABS: INR 0.9 (0.9-1.3); Partial Thromboplastin Time 58.3 Seconds (22.0-36.0); Prothrombin Time 10.3 Seconds (9.0-12.2)
--- NOTE | 2025-05-23 07:58 | ESCONSULT_ITS ---
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 Had postop XRT along with AIM chemo which was delivered at [facility] completed in 2021. Unfortunately recurrence was noted with PET 01/10/2025 showing significant recurrence in the pelvic area as well as right thigh, and subsequent imaging studies showed lung mets as well. Evaluated by [place] and referred for further palliative care as he would tolerate. Patient's main problem was pelvic pain and continued bleeding requiring multiple packed cells transfusions over the past few months, alleviated with radiation therapy to the right thigh area 2 weeks ago. Was referred back to [facility] for possible embolization procedure but this could not be performed. Was treated with pressure dressing FFP but no surgical procedures were performed. Patient is now returned to [facility] ICU, and during the meeting of family May 19, 2025 via telephone while patient was at [facility] decision was made to bring him back home and start hospice care. Patient CBC 31.6 with hemoglobin 10.0. 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 cc:: cc: Mike Chapa MD Past Medical History Past Medical History Comments PMH COMMENT: Had IVC filter placed 04/13/2025 history of hepatitis B Meds Home Medications and Allergies Home Medications ?Medication ?Instructions ?Recorded ?Confirmed ?Type hydrocodone 10 mg-acetaminophen 1 tab PO Q4H PRN pain 04/20/25 04/20/25 History 325 mg tablet Allergies Allergy/AdvReac Type Severity Reaction Status Date / Time No Known Allergies Allergy Verified 05/02/25 19:27 Exam Vital Signs Temp Pulse Resp BP Pulse Ox O2 Del Method 97.0 F 99 15 122/78 93 L Room Air 05/23/25 04:01 05/23/25 07:00 05/23/25 07:00 05/23/25 07:00 05/23/25 07:00 05/23/25 04:01 Narrative Exam Appears tired but comfortable this a.m. Results Labs 05/23/25 03:30 05/23/25 03:30 Labs: Short CBC 05/22/25 05/23/25 Range/Units 21:34 03:30 WBC 34.5 H 31.6 H (3.8-10.6) Thou/mm3 Hgb 10.3 L 10.0 L (13.5-16.0) g/dL Hct 30.4 L 28.4 L (41.0-53.0) % Plt Count 179 D 175 (140-440) Thou/mm3 BMP 05/22/25 05/23/25 21:34 03:30 Sodium 136 138 Potassium 4.2 3.7 D Chloride 102 102 Carbon Dioxide 21.8 22.2 BUN 35 H 33 H Creatinine 2.5 H 2.2 H Glucose 118 H 95 Calcium 7.3 L 6.9 L Cardiac Enzymes 05/22/25 Range/Units 21:34 Troponin I < 0.002 (0.0-0.045) ng/mL Liver Function 05/22/25 05/23/25 Range/Units 21:34 03:30 Total Bilirubin 0.5 0.5 (0.3-1.2) mg/dL AST 21 18 (0-34) U/L ALT 24 21 (10-49) U/L Alkaline Phosphatase 133 H 123 H (46-116) U/L Albumin 2.2 L 2.1 L (3.4-4.8) gm/dL Assessment and Plan Additional Assessment & Plan Additional Plan: 1. History of stage IIIb metastatic sarcoma right pelvis, prior surgery chemoradiation 2021 2. Recurrence local regionally as well as lung mets noted, with sepsis pain bleeding among the complications. 3. Various measures including reirradiation therapy to the pelvis, multiple transfusions, local wound care with partial relief of symptoms. 4. Had a telephone meeting with family while patient was at [facility], which could not perform any surgical procedures to cure the bleeding problem, patient was made DNR and expressed desire to return home and be placed under hospice program. 5. [facility] has been contacted and will attempt to have his home arranged so he could be sent home soon.
[2025-05-23] MEDS: FAMOTIDINE INJ 10 MG/ML VIAL 2 ML 20 MG IVP (08:42)
[2025-05-23] MEDS: MEROPENEM INJ 1,000 MG in SODIUM CHLORIDE 0.9% (Popper) 50 ML 100 MG IV (08:43)
--- NOTE | 2025-05-23 09:51 | ESPR_ITS ---
<Statement entered by Andrea Iqbal MD - 05/24/25 09:13> TOTAL TIME: 45MINUTES ON DIRECT MEDICAL CARE, MANAGEMENT - COORDINATION AND COUNSELING > 50% OF TOTAL TIME I saw and evaluated the patient. I reviewed the resident?s note and agree with findings and plan as documented in the resident?s note. 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 Dee, hepatitis B, right leg DVT s/p IVC filter 04/13/2025 was transferred back from [facility] [[email or web address]] after treatment for tumor bleeding and hemorrhagic shock. He was initially admitted to [facility] ICU on 04/19/2025 due to profuse bleeding of the right pelvis mass, on presentation hemoglobin was 6.2, patient was given PRBC transfusion and was started on IV antibiotics. Patient continued to have significant bleeding despite multiple pRBC transfusions, general surgery was consulted and recommended IV tranexamic acid, transfusion of FFP, patient continues to have significant bleeding despite pressure dressing and other measures. Further plan was made to transfer patient to higher level of care for interventional radiology embolization of vessel due to continued and recurrent bleeding. Patient was transferred to [facility] [[email or web address]] on 05/05/2025 for further management of bleeding. Patient did not undergo any surgical or IR procedures due to poor prognosis, multiple pRBC, FFP and PLT were done. He was again started on antibiotics due to worsening WBCs likely due to infection of his wound. His bleeding has improved and he was off pressors. GOC discussion was held with the family, they agreed to switch him to DNR/DNI and agreed with further plan with hospice and transfer closer to home back to [facility]. 05/23/25: Patient confused at times, has underlying component of hospital- acquired delirium, did receive Dilaudid prior to transfer. Patient reoriented today, alert and oriented x 3. Optimized pain regimen with fentanyl patch, oxycodone and for moderate to severe and Dilaudid for breakthrough. Started on bowel regimen with senna and MiraLAX. Discussed with patient's daughter on phone, agreeable to hospice, has further questions referral to hospice has been sent. Patient stable to be downgraded, downgraded to [facility]. Exam Vital Signs Temp Pulse Resp BP Pulse Ox O2 Del Method 97.0 F 99 15 122/78 93 L Room Air 05/23/25 04:01 05/23/25 07:00 05/23/25 07:00 05/23/25 07:00 05/23/25 07:00 05/23/25 04:01 Narrative Exam Gen: Well-developed and well-nourished ill and cachectic appearing male. HEENT: NCAT, PERRLA, EOMI, MMM, anicteric conjunctivae. CVS: normal S1 and S2. RRR. No M/R/G. Resp: CTA B/L. No rhonchi, rales, crackles or wheezing. Abd: soft, non-tender, non-distended. BS+ in all 4 quadrants. MSK: Good ROM in BUE & BLE. 3+ edema BLE, R>L. Large necrotic wound involving right buttock with several gauzes in it and some liquid stool. Neuro: Alert and oriented x 4. Able to move all 4 extremities. Objective Labs 05/23/25 03:30 05/23/25 03:30 Labs: Laboratory Results - last 24 hr 05/22/25 05/22/25 05/22/25 21:34 22:08 22:45 WBC 34.5 H RBC 3.64 L Hgb 10.3 L Hct 30.4 L MCV 84 MCH 28.3 MCHC 33.9 RDW Std Deviation 54.0 H Plt Count 179 D Neut % (Auto) 97 H Lymph % (Auto) 1 L [place] % (Auto) 1 Eos % (Auto) 0 Baso % (Auto) 0 Neut # (Auto) 33.3 H Lymph # (Auto) 0.2 L [place] # (Auto) 0.4 Eos # (Auto) 0.0 Baso # (Auto) 0.1 Immature Gran # (Auto) 0.56 H Absolute Nucleated RBC 0.02 H Immature Gran % 2 H Nucleated RBC % 0 PT 9.6 D INR 0.9 APTT 51.4 H D Fibrinogen 235 Sodium 136 Potassium 4.2 Chloride 102 Carbon Dioxide 21.8 Anion Gap 12 BUN 35 H Creatinine 2.5 H Estim Creat Clear Calc Not Performed. eGFR 29 L BUN/Creatinine Ratio 14 Glucose 118 H Calculated Osmolality 280 Lactic Acid 1.2 Calcium 7.3 L Corrected Calcium 8.7 Phosphorus 5.5 H Magnesium 2.2 Total Bilirubin 0.5 AST 21 ALT 24 Alkaline Phosphatase 133 H Troponin I < 0.002 Total Protein 4.4 L Albumin 2.2 L Globulin 2.2 L Albumin/Globulin Ratio 1.0 L TSH Blood Type B Positive Antibody Screen NEGATIVE Blood Bank Wristband ID Yes 05/23/25 03:30 WBC 31.6 H RBC 3.48 L Hgb 10.0 L Hct 28.4 L MCV 82 MCH 28.7 MCHC 35.2 RDW Std Deviation 53.6 H Plt Count 175 Neut % (Auto) 97 H Lymph % (Auto) 1 L [place] % (Auto) 1 Eos % (Auto) 0 Baso % (Auto) 0 Neut # (Auto) 30.5 H Lymph # (Auto) 0.2 L [place] # (Auto) 0.4 Eos # (Auto) 0.0 Baso # (Auto) 0.1 Immature Gran # (Auto) 0.42 H Absolute Nucleated RBC 0.02 H Immature Gran % 1 H Nucleated RBC % 0 PT 10.3 INR 0.9 APTT 58.3 H Fibrinogen Sodium 138 Potassium 3.7 D Chloride 102 Carbon Dioxide 22.2 Anion Gap 14 BUN 33 H Creatinine 2.2 H Estim Creat Clear Calc 34.5 L eGFR 33 L BUN/Creatinine Ratio 15 Glucose 95 Calculated Osmolality 282 Lactic Acid Calcium 6.9 L Corrected Calcium 8.4 L Phosphorus 5.1 Magnesium 2.2 Total Bilirubin 0.5 AST 18 ALT 21 Alkaline Phosphatase 123 H Troponin I Total Protein 4.2 L Albumin 2.1 L Globulin 2.1 L Albumin/Globulin Ratio 1.0 L TSH 3.78 D Blood Type Antibody Screen Blood Bank Wristband ID Quality Measures Quality Measures VTE prophylaxis Assessment & Plan Assessment Current Active Medications: Generic Name Dose Route Start Last Admin Trade Name Freq PRN Reason Stop Dose Admin Acetaminophen 650 mg 05/23/25 09:30 Acetaminophen 325 Mg Tablet PO 06/21/25 21:22 Q6H PRN Pain Scale 1-3 (Mild) or fever Hydrocodone Bitart/Acetaminophen 1 tab 05/22/25 21:23 Hydrocodone/Apap 10/325 Tab PO 05/27/25 21:22 Q4H PRN PAIN SCALE 4-6 (Moderate Famotidine 20 mg 05/23/25 09:00 05/23/25 08:42 Famotidine Inj 10 Mg/Ml Vial 2 Ml IVP 06/22/25 08:59 20 mg QDAY BRIAN Administration Fentanyl 25 mcg 05/23/25 09:30 Fentanyl 25 Mcg Transdermal Patch TOP 05/28/25 09:29 Q3D BRIAN Protocol Hydromorphone HCl 0.5 mg 05/23/25 09:26 Hydromorphone Inj 2 Mg/Ml Vial IVP 05/28/25 09:22 Q4HR PRN BREAKTHROUGH PAIN (SEVERE) Meropenem 1,000 mg/ Sodium 50 mls @ 100 mls/hr 05/23/25 09:00 05/23/25 08:43 Chloride IV 05/30/25 08:59 100 mls/hr Q12HR BRIAN Administration Morphine Sulfate 2 mg 05/23/25 09:30 Morphine Sulf Inj 10 Mg/Ml Vial IVP 05/27/25 21:22 Q2H PRN PAIN SCALE 7-10 (Severe Home Medication- 0.5 mg 05/23/25 09:00 Please Speak With PO 06/22/25 08:59 Patient Caregiver To Q48H BRIAN Have Rx Brought To [facility] Ondansetron HCl 4 mg 05/22/25 20:56 Ondansetron Inj 2 Mg/Ml Inj 2 Ml IVP 06/21/25 20:55 Q6H PRN NAUSEA OR VOMITING Protocol Oxycodone HCl 10 mg 05/23/25 09:30 Oxycodone Hcl 5 Mg Ir Tab PO 05/28/25 09:22 Q6HR PRN PAIN SCALE 7-10 (Severe Pharmacy Consult 1 each 05/23/25 09:00 Vancomycin Pharmacy To Dose 1 Each Each IV 06/22/25 08:59 QDAY PRN CONSULT Polyethylene Glycol 17 gm 05/23/25 09:46 Polyethylene Glycol 17 Gm Packet PO 06/22/25 09:44 QDAY PRN Constipation Sennosides 1 tab 05/23/25 09:46 Senna/Docusate Sod 1 Tab Tablet PO 06/22/25 09:44 QDAY BRIAN Protocol Plan Patient is a 59 years old male with PMH of 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 Dee, hepatitis B, right leg DVT s/p IVC filter 04/13/2025 was transferred back from [facility] [[email or web address]] after treatment for tumor bleeding and hemorrhagic shock. Neuro: #Confusion, A&O x 3 Differential diagnosis: Underlying pain medication, hospital-acquired delirium Diagnostic workup: -Reviewed [facility] [[email or web address]] records, resumed on similar pain management regimen -Reoriented patient, A&O x 3 Treatment: -Reorient frequently -Started on bowel regimen, bladder scan as needed #Chronic pain secondary to malignancy Diagnostic workup: -Patient on oxycodone and Dilaudid at [facility] [[email or web address] Treatment: -Fentanyl patch -Oxycodone as needed for moderate to severe pain -Dilaudid as needed for breakthrough pain Follow-up: - Adjust pain regimen as needed Cardiovascular: #BLE pitting edema. #Right common femoral vein DVT. Differential diagnosis: Contrast nephropathy, worsening nephrotic range proteinuria, history of hep B Diagnostic workup: -Patient had right lower extremity Doppler exam 05/19, negative for DVT -s/p IVC filter 04/13/2025. Treatment: -Continue to monitor -No anticoagulation/DVT prophylaxis due to active bleeding Follow-up: -Follow-up physical exam in a.m. Respiratory: Stable on room air. no active problem. Gastrointestinal: # Hepatitis B Diagnostic workup: -AST/ALT WNL. Started on entecavir ppx at [facility] [[email or web address] Treatment: - Continue Entecavir Follow-up: - Follow CMP in a.m. GI prophylaxis: Famotidine 20 IV daily Bowel movement: 05/22 Renal: #LACHO. #Hypocalcemia. #Hyperphosphatemia. Differential diagnosis: ATN 2/2 hypertension, MC, Prerenal, ?AIN Diagnostic workup: -Was not hypovolemic/hemorrhagic shock due to active bleeding -Poor p.o. intake -Patient received PPI, contrast at [facility] [[email or web address]] Treatment: -Monitor urine output -Will consider IV fluid as needed -Strict intake and output -Avoid nephrotoxic agent, renally dose medication Follow Up: -Renal panel in a.m. Endocrine: No active problem. Infectious Disease: #Pelvic wound superinfection. Diagnostic workup: -WBCs from 05/22/2025 [facility] [[email or web address]] 30.4, labs on admission showed WBCs 34.5. -Pelvic wound has stool in it and multiple gauzes, no active bleeding noted. Treatment: - Continue meropenem (05/18 -) and vancomycin (05/14 -) as recommended by [facility]. - Wound care ordered. - Blood cultures x2 ordered. Follow-up: - Follow cultures Hematology/Oncology: #Metastatic pleomorphic sarcoma of right pelvis, stage IV. Diagnostic workup: - Diagnosed November 2021, s/p excision, chemo and RT. - Follows Dr. Dee and Alex for medical oncology. 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 Diagnostic workup: - Patient had isolated elevated PTT, heme C/S with inhibitor titer positive c/w acquired hemophilia A. - Was seen by ship mate at [facility] [[email or web address]], received treatment with NovoSeven, rituximab and prednisone (first dose 05/10/25) Treatment: -Follow PT/PTT daily #Normocytic anemia due to chronic active bleeding. Patient has chronic active bleeding right pelvis wound Diagnostic workup: -Was admitted to ICU last month for hemorrhagic shock, transferred to [facility] [[email or web address]] for recurrent active bleeding -Patient was assessed by vascular surgery, IR and general surgery at [facility] [[email or web address]] per [facility] [[email or web address] team patient not a candidate for intervention -CTA AP 05/17 at [facility] [[email or web address]] showed no active extravasation -Hemoglobin today 10 Treatment: -Follow CBC in a.m., transfuse if hemoglobin less than 7 Diet: Dysphagia 2 diet DVT prophylaxis: SCDs. GI prophylaxis: Famotidine. Code status: DNR/DNI. Disposition: Downgraded to telemetry Case discussed with Attending Dr. Iqbal. Cindy Jamil MD Internal medicine resident PGY2 Disclaimer: This note was dictated by speech recognition. Minor errors in hand kiss setter may be present due to voice recognition software..
--- NOTE | 2025-05-23 10:48 | CHAP ---
Made a short visit. Said a silent prayer for the doctors.
[2025-05-23] MEDS: fentaNYL 25 mCg TRANSDERMAL PATCH TOP (11:22)
--- NOTE | 2025-05-23 13:28 | PD.RESPRO ---
Documentation for date of: 05/23/25 Exam Vital Signs Temp Pulse Resp BP Pulse Ox O2 Del Method 96.7 F L 86 8 L 117/86 H 95 Room Air 05/23/25 08:00 05/23/25 10:29 05/23/25 10:29 05/23/25 12:00 05/23/25 10:29 05/23/25 08:00 Objective Labs 05/23/25 03:30 05/23/25 03:30 Labs: Laboratory Results - last 24 hr 05/22/25 05/22/25 05/22/25 21:34 22:08 22:45 WBC 34.5 H RBC 3.64 L Hgb 10.3 L Hct 30.4 L MCV 84 MCH 28.3 MCHC 33.9 RDW Std Deviation 54.0 H Plt Count 179 D Neut % (Auto) 97 H Lymph % (Auto) 1 L [place] % (Auto) 1 Eos % (Auto) 0 Baso % (Auto) 0 Neut # (Auto) 33.3 H Lymph # (Auto) 0.2 L [place] # (Auto) 0.4 Eos # (Auto) 0.0 Baso # (Auto) 0.1 Immature Gran # (Auto) 0.56 H Absolute Nucleated RBC 0.02 H Immature Gran % 2 H Nucleated RBC % 0 PT 9.6 D INR 0.9 APTT 51.4 H D Fibrinogen 235 Sodium 136 Potassium 4.2 Chloride 102 Carbon Dioxide 21.8 Anion Gap 12 BUN 35 H Creatinine 2.5 H Estim Creat Clear Calc Not Performed. eGFR 29 L BUN/Creatinine Ratio 14 Glucose 118 H Calculated Osmolality 280 Lactic Acid 1.2 Calcium 7.3 L Corrected Calcium 8.7 Phosphorus 5.5 H Magnesium 2.2 Total Bilirubin 0.5 AST 21 ALT 24 Alkaline Phosphatase 133 H Troponin I < 0.002 Total Protein 4.4 L Albumin 2.2 L Globulin 2.2 L Albumin/Globulin Ratio 1.0 L TSH Blood Type B Positive Antibody Screen NEGATIVE Blood Bank Wristband ID Yes 05/23/25 03:30 WBC 31.6 H RBC 3.48 L Hgb 10.0 L Hct 28.4 L MCV 82 MCH 28.7 MCHC 35.2 RDW Std Deviation 53.6 H Plt Count 175 Neut % (Auto) 97 H Lymph % (Auto) 1 L [place] % (Auto) 1 Eos % (Auto) 0 Baso % (Auto) 0 Neut # (Auto) 30.5 H Lymph # (Auto) 0.2 L [place] # (Auto) 0.4 Eos # (Auto) 0.0 Baso # (Auto) 0.1 Immature Gran # (Auto) 0.42 H Absolute Nucleated RBC 0.02 H Immature Gran % 1 H Nucleated RBC % 0 PT 10.3 INR 0.9 APTT 58.3 H Fibrinogen Sodium 138 Potassium 3.7 D Chloride 102 Carbon Dioxide 22.2 Anion Gap 14 BUN 33 H Creatinine 2.2 H Estim Creat Clear Calc 34.5 L eGFR 33 L BUN/Creatinine Ratio 15 Glucose 95 Calculated Osmolality 282 Lactic Acid Calcium 6.9 L Corrected Calcium 8.4 L Phosphorus 5.1 Magnesium 2.2 Total Bilirubin 0.5 AST 18 ALT 21 Alkaline Phosphatase 123 H Troponin I Total Protein 4.2 L Albumin 2.1 L Globulin 2.1 L Albumin/Globulin Ratio 1.0 L TSH 3.78 D Blood Type Antibody Screen Blood Bank Wristband ID Quality Measures Quality Measures VTE prophylaxis Assessment & Plan Assessment Current Active Medications: Generic Name Dose Route Start Last Admin Trade Name Freq PRN Reason Stop Dose Admin Acetaminophen 650 mg 05/23/25 09:30 Acetaminophen 325 Mg Tablet PO 06/21/25 21:22 Q6H PRN Pain Scale 1-3 (Mild) or fever Hydrocodone Bitart/Acetaminophen 1 tab 05/22/25 21:23 Hydrocodone/Apap 10/325 Tab PO 05/27/25 21:22 Q4H PRN PAIN SCALE 4-6 (Moderate Famotidine 20 mg 05/23/25 09:00 05/23/25 08:42 Famotidine Inj 10 Mg/Ml Vial 2 Ml IVP 06/22/25 08:59 20 mg QDAY BRIAN Administration Fentanyl 25 mcg 05/23/25 09:30 05/23/25 11:22 Fentanyl 25 Mcg Transdermal Patch TOP 05/28/25 09:29 25 mcg Q3D BRIAN Administration Protocol Hydromorphone HCl 0.5 mg 05/23/25 09:26 Hydromorphone Inj 2 Mg/Ml Vial IVP 05/28/25 09:22 Q4HR PRN BREAKTHROUGH PAIN (SEVERE) Meropenem 1,000 mg/ Sodium 50 mls @ 100 mls/hr 05/23/25 09:00 05/23/25 08:43 Chloride IV 05/30/25 08:59 100 mls/hr Q12HR BRIAN Administration Morphine Sulfate 2 mg 05/23/25 09:30 Morphine Sulf Inj 10 Mg/Ml Vial IVP 05/27/25 21:22 Q2H PRN PAIN SCALE 7-10 (Severe Home Medication- 0.5 mg 05/23/25 09:00 Please Speak With PO 06/22/25 08:59 Patient Caregiver To Q48H BRIAN Have Rx Brought To [facility] Ondansetron HCl 4 mg 05/22/25 20:56 Ondansetron Inj 2 Mg/Ml Inj 2 Ml IVP 06/21/25 20:55 Q6H PRN NAUSEA OR VOMITING Protocol Oxycodone HCl 10 mg 05/23/25 09:30 Oxycodone Hcl 5 Mg Ir Tab PO 05/28/25 09:22 Q6HR PRN PAIN SCALE 7-10 (Severe Pharmacy Consult 1 each 05/23/25 09:00 Vancomycin Pharmacy To Dose 1 Each Each IV 06/22/25 08:59 QDAY PRN CONSULT Polyethylene Glycol 17 gm 05/23/25 09:46 Polyethylene Glycol 17 Gm Packet PO 06/22/25 09:44 QDAY PRN Constipation Sennosides 1 tab 05/23/25 09:46 Senna/Docusate Sod 1 Tab Tablet PO 06/22/25 09:44 QDAY BRIAN Protocol
--- NOTE | 2025-05-23 14:55 | PC.NURSE ---
pt has home med not available in pharm, unable to obtain med from family at this time, pharmacy notified
--- NOTE | 2025-05-23 15:07 | PC.SS ---
TITLE ASSISTANT left voicemail with patient's daughter, Lizett Robert ; to confirm discharge plan to have patient transition home with hospice services. Response pending.
--- NOTE | 2025-05-23 15:09 | PC.SS ---
[facility] notified bedside nurse to confirm if patient will d/c with IV antibiotics or transitioned to P.O. medications.
--- NOTE | 2025-05-23 15:17 | PC.SS ---
COMPOSING ROOM MACHINIST APPRENTICE received phone call from patient's daughter, Lizett Robert; confirming that discharge plan will be for patient to return home with [facility].
--- NOTE | 2025-05-23 15:40 | PC.SS ---
Hospice referral submitted on [facility]. Response is pending. Preferred agency is [place].
--- NOTE | 2025-05-23 16:12 | PC.SS ---
Transport request submitted to [facility]. Reference #[id number]. Preferred vendor [facility]. Request submitted on [employer]. Response pending.
--- NOTE | 2025-05-23 16:41 | PC.SS ---
Transport scheduled for 07:30 pm to home. [facility] to transport. CLERK STENOGRAPHER notified patient, family and bedside nurse.
--- NOTE | 2025-05-23 18:15 | PC.NURSE ---
PT is to be discharge home with hospice. Daughter Yao Robert was given discharge information over the phone. Daughter is aware and expecting hospice at her home this evening. ERMIAS Dhillon was the second Nurse to verify discharge instructions.
--- NOTE | 2025-05-23 18:54 | ESDS_ITS ---
<Statement entered by Jovana Velazquez MD - 05/28/25 11:45> I reviewed above note and agree with findings and plans. I have also personally examined the patient with medicine team and went over assessment and plan with medical team including physician general internal medicine and resident physician. Planned Discharge Date 05/23/25 DS: Providers Provider Date of admission: 05/22/25 20:43 Primary care physician: Mike Chapa MD Admitting Provider: Mike Chapa MD Attending Provider on Admission: Mike Chapa MD Consults: 05/22/25 21:10 Referral Hospice Stat Comment: 05/22/25 21:21 Consult to Oncology Stat Comment: metastatic pleomorphic sarcoma R pelvis Consulting Provider: Paul Dee 05/22/25 23:17 Referral Registered Dietitian Routine Comment: 05/23/25 03:53 Referral Wound Care Urgent Comment: Attending Provider on DC: Ramila Gonzalez MD Discharging Provider: Ramila Gonzalez MD DS: Diagnosis Problem List Completed Was Problem List Reviewed/Reconciled?: Yes Hospital Course Hospital Course Hospital course: Patient is a 59 years old male with PMH of 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 Dee, hepatitis B, right leg DVT s/p IVC filter 04/13/2025 was transferred back from [facility] after treatment for tumor bleeding and hemorrhagic shock. [facility] initial transfer on 05/06/2025 for possible IR embolization given recurrent bleeding secondary to sarcoma but given overall prognosis, patient is a poor surgical candidate. Patient will be discharge on 05/23/2025 with home hospice with pain management on board. Hospital Course: Patient was initially admitted on 05/16/2025 directly into the ICU secondary to concern for hypovolemic shock secondary to hemorrhage from right sarcoma mass on lower extremity. Patient was given PRBCs infusions started on IV antibiotics Patient continued to have significant bleeding despite multiple pRBC transfusions, general surgery was consulted and recommended IV tranexamic acid, transfusion of FFP, patient continues to have significant bleeding despite pressure dressing and other measures. Transfer initiated to tertiary level care center for interventional radiology embolization of vessel due recurrent bleeding. Patient was transferred to [facility] on 05/05/2025 for further management of bleeding. Patient did not undergo any surgical or IR procedures due to poor prognosis, multiple pRBC, FFP and PLT transfused. He was again started on antibiotics due to worsening WBCs likely due to infection of his wound. During this admission on 05/22/2025 through 05/23/2025 patient was started on IV antibiotics once again with meropenem and vancomycin secondary to pelvic support and postinfection on the sarcoma with repeat blood cultures ordered. Repeat blood cultures from 05/22/2025, pending but given patient's overall prognosis little benefit for speciation. Patient's WBC counts continue to uptrend which may be secondary to infection and malignancy itself. Patient has remained afebrile during this hospital course. LACHO noted on admission with creatinine of 2.84 from [facility] which is now down trended to 2.5. Acquired hemophilia A which patient was started on Novasen, prednisone 70 q. weekly but given patient's overall poor prognosis decision was made to not resume. Patient will transition to home with hospice overall poor prognosis and patient was made DNR/DNI. No further invasive intervention and fall is now shifted to comfort patient wanted to be discharged on pain management. No need for further antibiotics would have little changed on patient's overall prognosis and outcome. Instructions: -Please send home with mcnamara catheter given extensive wounds -Pain Management on board. -Dysphagia Diet 2 -Please follow up with your primary care provider within one week of discharge -If your symptoms worsen,please seek immediate medical attention and return to your nearest emergency room -If you do not have a primary care provider, you may follow up at the [facility] at [facility] [address], [place] [address], Home w/ Hospice #Hospice #Goals of Care #Metastatic pleomorphic sarcoma of right pelvis, stage IV. #Chronic pain secondary to malignancy #Altered Metnal Status #Pelvic wound superinfection. #BLE pitting edema. #LACHO. #Hypocalcemia. #Hyperphosphatemia. 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 #Normocytic anemia due to chronic active bleeding #Right common femoral vein DVT. #Hepatitis B - The patient's plan was discussed with attending Dr. Marcus Gonzalez MD PGY2 Internal Medicine Time Spent with Patient Time attestation: Total time spent providing and/or coordinating discharge services:at least thirty minutes of care and coordination. Time spent: Greater than 30 minutes Exam Vital Signs Temp Pulse Resp BP Pulse Ox O2 Del Method 98.7 F 86 8 L 105/77 98 Room Air 05/23/25 16:00 05/23/25 10:29 05/23/25 10:29 05/23/25 16:00 05/23/25 16:00 05/23/25 08:00 Narrative Exam General Appearance: Alert & Oriented X3, thin with pentecostal wasting and cachetic appearing, who is lying in bed in no acute distress. Large lesion noted on right upper lower extremity towards posterior region of biceps femoris. HEENT: Skull symmetrical and atraumatic. Conjunctivae pin and moist. Pupils equal, round, reactive to light and accommodation (PERRL). External ear without lesion or discharge. Cardio: Normal Rate and Rhythm with S1 and S2 heart sounds. No murmurs or extra heart sounds auscultated. No bruits on carotid auscultation. Pheripheral edema noted. Lungs: Symmetric with good expansion. Chest and back non-tender. Breath sounds vesicular without crackles, wheezing or rhonchi Abdomen: Non-tender, Non-distended, Normal Reactive Bowel Sounds Neuro: Alert, cooperative, oriented to person, place, and time. Speech clear. CN grossly intact. Upper motor strength 5/5 and Lower motor strength 5/5. Sensation intact. Discharge Plan Plan Patient Disposition: Home w/HOSPICE Patient condition on transfer: Stable Care Plan Goals: Instructions: -Please send home with mcnamara catheter given extensive wounds -Pain Management on board. -Dysphagia Diet 2 -Please follow up with your primary care provider within one week of discharge -If your symptoms worsen,please seek immediate medical attention and return to your nearest emergency room -If you do not have a primary care provider, you may follow up at the [facility] at [address], [place] [address], Prescriptions/Referrals Prescriptions/Med Rec: New acetaminophen 325 mg Tablet 650 mg PO Q6H PRN (Reason: Pain Scale 1-3 (Mild) or fever) 30 Days Qty: 30 0RF sennosides-docusate sodium 8.6-50 mg Tablet 1 tab PO QDAY 30 Days Qty: 30 0RF hydrocodone-acetaminophen 10-325 mg Tablet 1 tab PO Q4H MDD norco than 6 tablets of day PRN (Reason: pain (scale score 7-10)) 30 Days Qty: 30 0RF fentanyl 25 mcg/hr Patch 72 Hour 25 mcg top Q3D MDD 25 mcg every 3 days 20 Days Qty: 5 0RF famotidine (PF) 20 mg/2 mL Solution 20 mg IVP QDAY 30 Days Qty: 60 0RF Entecavir 0.5 mg PO Q48H 30 Days 0RF Continued docusate calcium 240 mg capsule 240 mg PO QDAY Qty: 30 6RF magnesium hydroxide [Milk of Magnesia] 400 mg/5 mL Suspension 30 ml PO QDAY PRN (Reason: Constipation) Qty: 3780 0RF Discontinued hydrocodone-acetaminophen 10-325 mg tablet 1 tab PO Q4H PRN (Reason: pain) Patient Comments: 1 tab orally every 4 hours As Needed for pain for 3 days, Max Daily Dose: 40 mg hydrocodone Referrals: Mike Chpaa MD [Primary Care Provider] - Patient/Caregiver Discharge Instructions Education Materials: Anemia Chemo, Cancer: Preventing Infections, Cancer Overview Print Language: Marshallese Stand Alone Forms: Elvia Award Info., Patient Portal Info Letter Discharge Order Discharge Orders: Discharge (Routine); Ordered 05/23/25 Ordered By: Ramila Gonzalez Quality Discharge Quality Measures VTE prophylaxis
== END 2025-05-23 19:36 | disposition hospice, home (50) | DRG 384 ==
PROVIDERS: Student in an Organized Health Care Education/Training Program; Admitting Provider Student in an Organized Health Care Education/Training Program; PCP Student in an Organized Health Care Education/Training Program; Visit Provider Student in an Organized Health Care Education/Training Program
DX: S31.819A Unspecified open wound of right buttock, initial encounter (principal); N17.9 Acute kidney failure, unspecified; E83.39 Other disorders of phosphorus metabolism; C49.5 Malignant neoplasm of connective and soft tissue of pelvis; D50.0 Iron deficiency anemia secondary to blood loss (chronic); D68.311 Acquired hemophilia; E83.51 Hypocalcemia; Z95.828 Presence of other vascular implants and grafts; B19.10 Unspecified viral hepatitis B without hepatic coma; F05 Delirium due to known physiological condition; I82.411 Acute embolism and thrombosis of right femoral vein; Z51.5 Encounter for palliative care; G89.3 Neoplasm related pain (acute) (chronic); R60.9 Edema, unspecified; Z66 Do not resuscitate; Z85.831 Personal history of malignant neoplasm of soft tissue
CPT/HCPCS: 36415; 80053; 83605; 83735; 84100; 84443; 84484; 85025; 85384; 85610; 85730; 86850; 86900; 86901; 87040; 87081; 93005; 94762; J2185; J3370; J3490; J7050; J7999

== ENCOUNTER 2025-05-26 22:11 | Inpatient (IN) | payer MEDICAID, SELFPAY ==
[2025-05-26] VITALS (8 sets, daily range): BP systolic 106–159; BP diastolic 57–115; PULSE 116–150; RESP 17–26; TEMP 37.2; O2SAT 88–99
--- NOTE | 2025-05-26 22:12 | EDNOTE_ITS ---
ED SOB =RME/HPI General Chief Complaint: Shortness of Breath/Dyspnea Stated Complaint: BREATHING PROBLEMS Time Seen by Provider: 05/26/25 22:14 Arrival date/time: 05/26/25 22:11 RME / HPI RME / HPI Narrative: Dr. Younger?s Main ED Evaluation: 59yo male who is currently on hospice with advanced myosarcoma of pelvis, known metastasis, history of hepatitis B, hemophilia A, prior DVT s/p IVC filter, recently admitted for hemorrhagic shock BIBA from home presents to the ED for complaints of increased agitation and shortness of breath despite increased doses of benzodiazepines and narcotic analgesics at home. Patient was found to be in moderate respiratory distress by EMS and was placed on high-flow nonrebreather mask. Upon ED arrival, patient desaturated to the mid-high 80s. Related Data Previous Rx's ?Medication ?Instructions ?Recorded magnesium hydroxide 400 mg/5 mL 30 ml PO QDAY PRN Cons tipation 12/15/24 oral suspension (Milk of Magnesia) #3,780 mL docusate calcium 240 mg capsule 240 mg PO QDAY #30 cap s 01/19/25 Entecavir 0.5 mg PO Q48H 30 days 05/23 acetaminophen 325 mg tablet 650 mg (2 x 325 mg) PO Q6H PRN 05/23/25 Pain Scale 1-3 (Mild) or fever 30 days #30 tabs famotidine (PF) 20 mg/2 mL 20 mg (2 mL) IVP QDAY 30 da ys #60 05/23/25 intravenous solution mL fentanyl 25 mcg/hr transdermal 25 mcg top Q3D 20 days #5 ea 05/23/25 patch hydrocodone 10 mg-acetaminophen 1 tab PO Q4H PRN pain (scale score 05/23/25 325 mg tablet 7-10) 30 days #30 tabs sennosides 8.6 mg-docusate sodium 1 tab PO QDAY 30 day s #30 tabs 05/23/25 50 mg tablet Allergies Allergy/AdvReac Type Severity Reaction Status Date / Time No Known Allergies Allergy Verified 05/02/25 19:27 Review of Systems Review of Systems Systems Reviewed: All systems reviewed, normal except as documented ED Exam Narrative Physical exam: GENERAL APPEARANCE: chronically ill appearing, currently gasping intermittently, in [id number] respiratory distress, is intermittently able to follow commands HEENT: Normocephalic, atraumatic; pupils equal, round, reactive to light; EOMI; mucous membranes pink, moist; oropharynx clear NECK: Supple, no JVD LUNGS: Diminished breath sounds bilaterally; no wheezes, no rales, no rhonchi HEART: tachycardic, regular rhythm; normal S1, S2; no murmurs ABDOMEN: non distended; normal BS; soft, no tenderness, no guarding, no rebound; no masses, no organomegaly, no hernia BACK: no CVA tenderness EXTREMITIES: atraumatic; 2+ pitting edema bilaterally NEUROLOGIC: cranial nerves II-XII grossly intact; no focal sensory or motor deficits PSYCHIATRIC: agitated mood and affect SKIN: warm, dry, normal color; no rashes Course Course Course Narrative: CXR is ordered for determining the etiology of shortness of breath. Quality Measures none Orders Category Date Time Status Kitchen Food Assembler STAT Care 05/26/25 22:19 Active Continuous Pulse Oximetry STAT Care 05/26/25 22:19 Completed EKG (ED ONLY) *Do not use* NOW Care 05/26/25 22:13 Completed EKG (ED ONLY) *Do not use* NOW Care 05/26/25 22:19 Completed Insert IV NOW Care 05/26/25 22:19 Active NPO STAT Care 05/26/25 22:19 Active Strict Intake and Output Routine Care 05/26/25 22:19 Ordered EKG (ED Only) Stat Exams 05/26/25 22:13 Ordered EKG (ED Only) Stat Exams 05/26/25 22:19 Ordered XR chest 1V portable Stat Exams 05/26/25 22:45 Completed XR chest 2V Stat Exams 05/26/25 22:19 Ordered ABG [Arterial Blood Gas] Stat Lab 05/26/25 23:20 Completed Arterial Blood Gas Stat Lab 05/26/25 22:25 Completed B-Type Natriuretic Peptide Stat Lab 05/26/25 22:54 Completed Blood Culture (Lab) Stat Lab 05/26/25 22:50 Received CBC Stat Lab 05/26/25 22:54 Completed Comprehensive Metabolic Panel Stat Lab 05/26/25 22:54 Completed Lactate (Lactic Acid) Stat Lab 05/26/25 22:54 Completed Lipase Stat Lab 05/26/25 22:54 Completed Magnesium Stat Lab 05/26/25 22:54 Completed Phosphorous Stat Lab 05/26/25 22:54 Completed Troponin I Stat Lab 05/26/25 22:54 Completed Urinalysis Stat Lab 05/26/25 22:34 Completed Urine Culture Stat Lab 05/26/25 22:34 Received ALBUTEROL RT 3ml [Proventil Rt 3ml] Med 05/26/25 22:23 Discontinued 10 mg INH X1 ONE Diltiazem Inj [Cardizem Inj] Med 05/26/25 22:28 Discontinued 10 mg IV X1 ONE Haloperidol Deca Inj [Haldol Inj] Med 05/26/25 23:03 Discontinued 10 mg IM X1 ONE Haloperidol Lactate [Haldol Inj] Med 05/26/25 23:10 Discontinued 10 mg IM X1 ONE Haloperidol Lactate [Haldol Inj] Med 05/26/25 22:28 Discontinued 5 mg IM X1 ONE Ipratropium Grayson Rt Diane [Atrovent Rt Diane] Med 05/26/25 22:24 Discontinued 0.5 mg INH X1 ONE Piper/Tazo 3.375 gm Premix [Zosyn] Med 05/26/25 22:19 Discontinued 3.375 gm in 50 ml IV X1 Ringers Lactated 1000 ml [Lactated Ringers] 1,000 ml Med 05/26/25 22:19 Discontinued IV 999 mls/hr BiPAP / CPAP NOW RT 05/26/25 22:17 Active Vital Signs Vital signs: Vital Signs Temperature 99 F 05/26/25 22:19 Pulse Rate 145 H 05/26/25 22:19 Respiratory Rate 26 H 05/26/25 22:19 Blood Pressure 159/115 H 05/26/25 22:19 Pulse Oximetry (%) 96 05/26/25 22:19 Oxygen Delivery Method Oxy Mask 05/26/25 22:19 Oxygen Flow Rate 12 05/26/25 22:19 Shortness of Breath / Dyspnea MDM Narrative MDM Narrative:: Scribe Attestation: 05/26/25 Sparkle Zaldivar am scribing for and in the presence of Dr. Younger. 59yo male who is currently on hospice with advanced myosarcoma of pelvis, known metastasis, history of hepatitis B, hemophilia A, prior DVT s/p IVC filter, recently admitted for hemorrhagic shock BIBA from home presents to the ED for complaints of increased agitation and shortness of breath despite increased doses of benzodiazepines and narcotic analgesics at home. Patient was found to be in moderate respiratory distress by EMS and was placed on high-flow nonrebreather mask. Please see PE findings. Patient notably in [id number] respiratory distress and is agitated. Labs demonstrated markedly elevated WBC count of 36k, chronically anemic with a hemoglobin of 9.8, and platelets of 146. CMP notable for mild renal insufficiency with Creatinine of 1.4, mildly elevated Glucose 156. ABG demonstrates profound hypoxia with pO2 of 50. Lactic Acid elevated at 4.9. CXR demonstrates near complete white out suggestive of ARDS. Informal bedside US demonstrated hyperdynamic myocardial function. Sepsis protocol initiated, blood cultures performed, and antibiotics given. Discussed at length with the family regarding the futility of aggressive intervention at this time. Patient has known metastatic sarcoma with evidence of multi-organ system failure. Recommend comfort care measures at this time and the daughter agrees. Of note, patient is a DNR. Hospitalist was consulted and agrees to admit the patient. Dx: acute sepsis, ARDS, necrotic pelvic wounds. Patient data External records reviewed:: [facility] previous records (Per chart review, patient was admitted here on 04/11/25 for sarcoma of pelvis.) and EMS form Clinical information provided by:: EMS Social determinants that could affect healthcare access:: none Patient has the following chronic illnesses:: currently on hospice with advanced myosarcoma of pelvis, known metastasis, hepatitis B, hemophilia A, prior DVT s/p IVC filter, recently admitted for hemorrhagic shock How is presenting disease/condition affected by chronic disease/condition?: caused by Evaluation data The following diagnostics were reviewed and interpreted by me:: lab results, radiology exam(s) and EKG tracing(s) Lab and/or radiology exams considered but not ordered:: none Interpretation Summary: EKG done at 2216, aFib RVR, rate of 144, no ectopy, right axis deviation, no ST segment changes, according to my interpretation. [facility] [facility] Report Signed Patient: DULCE MARIA TSAI. Record#: [id number] Birthdate: 1965 Age/Sex: 59 / M Location: [facility] Attending Dr: Ordering Physician: Sal Pastor DO Date of Service: 05/26/25 Procedure(s): XR chest 1V portable Accession Number(s): [id number] cc: Sal Pastor DO; Zia Jorge MD; Woody Fink MD~ Examination: Chest AP single view TECHNIQUE: AP portable supine chest single view Date and time: May 26, 2020 5:11 PM Comparison February 17, 2025 INDICATIONS: Chest pain and hypoxia today. FINDINGS: No significant cardiac enlargement Prominent vascular congestion extends extensive bilateral pneumonia and/or edema Large layering right pleural effusion Air distended stomach IMPRESSION: Extensive bilateral pneumonia and/or pulmonary edema Large layered right pleural effusion Dictated By: Woody Fink MD Signed By: <Electronically signed by Woody Fink MD in OV> 05/26/25 1828 Medications / Prescriptions Medications or Prescriptions considered but not ordered:: none Medication administrations:: Medication Administration History Acetaminophen (Acetaminophen 325 Mg Tablet) 650 mg PO Q6H PRN PRN Reason: Pain 1-3 and/or Fever >100.1 Stop: 06/26/25 00:24 Heparin Sodium (Porcine) (Heparin Sod Inj 5000 Unit/Ml Vial) 5,000 unit SC Q12HR [facility] Stop: 06/10/25 08:59 Hydromorphone HCl (Hydromorphone Inj 2 Mg/Ml Vial) 0.5 mg IVP Q6H PRN PRN Reason: Pain 7-10 Stop: 06/01/25 00:32 Magnesium Sulfate (Magnesium Sulfate Ivpb) 4 gm in 50 mls @ 12.5 mls/hr IV X1 ONE Stop: 05/27/25 04:28 Last Admin: 05/27/25 01:16 Dose: 12.5 mls/hr Documented By: KARLEY Piperacillin/Tazobactam/Dextrose (Zosyn) 50 mls @ 100 mls/hr IV Q6HR [facility] Stop: 06/03/25 03:59 Morphine Sulfate (Morphine Sulf Inj 10 Mg/Ml Vial) 0.5 mg IVP Q6H PRN PRN Reason: Pain 4-6 Ondansetron HCl (Ondansetron Inj 2 Mg/Ml Inj 2 Ml) 4 mg IVP Q6H PRN; Protocol PRN Reason: NAUSEA OR VOMITING Stop: 06/26/25 00:24 Pantoprazole Sodium (Pantoprazole Inj 40 Mg Vial) 40 mg IVP QDAY BRIAN Stop: 06/26/25 08:59 Sennosides (Senna Tablet) 1 tab PO QDAY PRN; Protocol PRN Reason: constipation Stop: 06/26/25 00:24 Discontinued Medications Albuterol (Albuterol Rt 2.5 Mg/3 Ml Nebu) 10 mg INH X1 ONE Stop: 05/26/25 22:24 Diltiazem HCl (Diltiazem Inj 5 Mg/Ml Vial 5 Ml) 10 mg IV X1 ONE Stop: 05/26/25 22:29 Last Admin: 05/26/25 22:44 Dose: 10 mg Documented By: ROCK Furosemide (Furosemide Inj 10 Mg/Ml 4ml Vial) 40 mg IVP X1 ONE Stop: 05/27/25 02:06 Haloperidol Decanoate (Haloperidol Deca Inj 50 Mg/Ml Vial) 10 mg IM X1 ONE Stop: 05/26/25 23:04 Last Admin: 05/26/25 23:17 Dose: Not Given Documented By: ROCK Non-Admin Reason: Cancelled by Provider Haloperidol Lactate (Haloperidol Lact Inj 5 Mg/Ml Vial) 5 mg IM X1 ONE Stop: 05/26/25 22:29 Last Admin: 05/26/25 22:40 Dose: 5 mg Documented By: ROCK Haloperidol Lactate (Haloperidol Lact Inj 5 Mg/Ml Vial) 10 mg IM X1 ONE Stop: 05/26/25 23:11 Last Admin: 05/26/25 23:25 Dose: 10 mg Documented By: ROCK Lactated Ringer's (Lactated Ringers) 1,000 mls @ 999 mls/hr IV .Q1H1M ONE Stop: 05/26/25 23:19 Last Infusion: 05/26/25 23:43 Dose: Infused Documented By: Admin: 05/26/25 22:41 Dose: 999 mls/hr Documented By: ROCK Piperacillin/Tazobactam/Dextrose (Zosyn) 3.375 gm in 50 mls @ 100 mls/hr IV X1 ONE Stop: 05/26/25 22:48 Last Infusion: 05/26/25 23:38 Dose: Infused Documented By: Admin: 05/26/25 23:09 Dose: 100 mls/hr Documented By: ROCK Lactated Ringer's (Lactated Ringers) 1,000 mls @ 75 mls/hr IV .[id number] BRIAN Stop: 05/27/25 13:49 Last Admin: 05/27/25 01:17 Dose: 75 mls/hr Documented By: KARLEY Ipratropium Grayson (Ipratropium Rt 0.5 Mg/ 2.5 Ml Nebu) 0.5 mg INH X1 ONE Stop: 05/26/25 22:25 Methylprednisolone Sodium Succinate (Methylprednisolone Sod Succ 62.5 Mg/Ml 2ml Vial) 125 mg IVP X1 ONE Stop: 05/27/25 01:54 Morphine Sulfate (Morphine Sulf Inj 10 Mg/Ml Vial) 1 mg IVP Q6H PRN PRN Reason: PAIN SCALE 7-10 (Severe Stop: 06/01/25 00:24 see above Consultations Consultation(s) initiated? (list below): Yes Consultation #1 (Physician, Specialty, Details): Discussed case with the resident physician, attending Dr. Duarte from Hospitalist service regarding admission. Discussed patients ED course, exam findings, labs, and radiology results. The Hospitalist agrees to accept the patient for admission. Time: 23:55 Diagnosis Shortness of Breath Differential Diagnosis: community acquired pneumonia and other (ARDS, respiratory failure, failure to thrive, metastatic CA) Most likely diagnosis given after review of the tests above:: see clinical impression below Admission Indicated Admission indicated?: indicated Admission Request Was there a request for admission?: Yes Admission Attestation Admission request attestation: Discussed case with [] from Hospitalist service regarding admission. Discussed patients ED course, exam findings, labs, and radiology results. The Hospitalist [agrees,declines] to accept the patient for admission. Disposition Plan Disposition Plan: Admit Critical Care Time Critical Care Time Critical Care Time: Yes Total Critical Care Time (min.): 40 Attestation: The high probability of sudden, clinically significant deterioration in the patient?s condition required the highest level of my preparedness to intervene urgently. The services I provided to this patient were to treat and/or prevent clinically significant deterioration. Services included the following: chart data review, reviewing nursing notes and/or old charts, documentation time, recruiting consultant collaboration regarding findings and treatment options, medication orders and management, direct patient care, vital sign assessments and ordering, interpreting and reviewing diagnostic studies and lab tests. Aggregate critical care time includes only time during which I was engaged in work directly related to the patient?s care, as described above, whether at bedside or elsewhere in the Emergency Department. It did not include time spent performing other reported procedures or the services of residents, students, nurses or physician assistants. Discharge Plan Plan Patient Disposition: Admit Acute Care w/in Hospital Problem List Clinical Impression: Sepsis, Acute respiratory distress syndrome (ARDS), Sarcoma of pelvis
[2025-05-26 22:31] LABS: Base Excess -2 (-3-3); HCO3 25 mEq/L (20-26); Inspired Oxygen, FIO2 30 %; O2 Saturation 64 % (91-98); PCO2 52 mmHg (32.0-48.0); pH, Arterial 7.29 (7.35-7.45)
[2025-05-26] MEDS: HALOPERIDOL LACT INJ 5 MG/ML VIAL IM (22:40)
[2025-05-26] MEDS: RINGERS LACTATED 1000 ML 1,000 ML 999 ML IV (22:41)
[2025-05-26 22:44] LABS: Allen Test Performed/OK; PO2 34 mmHg (83-108); Puncture Site Right Radial
[2025-05-26] MEDS: DILTIAZEM INJ 5 MG/ML VIAL 5 ML 10 MG IV (22:44)
--- NOTE | 2025-05-26 22:45 | XR_ITS ---
Examination: Chest AP single view TECHNIQUE: AP portable supine chest single view Date and time: May 26, 2020 5:11 PM Comparison February 17, 2025 INDICATIONS: Chest pain and hypoxia today. FINDINGS: No significant cardiac enlargement Prominent vascular congestion extends extensive bilateral pneumonia and/or edema Large layering right pleural effusion Air distended stomach IMPRESSION: Extensive bilateral pneumonia and/or pulmonary edema Large layered right pleural effusion
[2025-05-26 23:01] LABS: Collection Type, Urine Clean Catch
[2025-05-26 23:03] LABS: Basophils # (Auto) 0.1 Thou/mm3 (0.0-0.2); Basophils % (Auto) 0 % (0-2.5); Eosinophils # (Auto) 0.0 Thou/mm3 (0.0-0.5); Eosinophils % (Auto) 0 % (0-10); Hematocrit 29.6 % (41.0-53.0); Hemoglobin 9.8 g/dL (13.5-16.0); Immature Granulocytes Auto 1.33 Thou/mm3 (0.00-0.00); Lymphocytes # (Auto) 0.2 Thou/mm3 (1.0-4.8); Lymphocytes % (Auto) 1 % (10-50); Mean Corpuscular HGB Conc 33.1 g/dl (31.0-37.0); Mean Corpuscular Hemoglobin 28.7 pg (25.0-35.0); Mean Corpuscular Volume 87 fL (80-100); Monocytes # (Auto) 1.6 Thou/mm3 (0.0-0.8); Monocytes % (Auto) 5 % (0-12); Neutrophils # (Auto) 33.3 Thou/mm3 (1.8-7.7); Neutrophils % (Auto) 91 % (37-80); Nucleated Red Blood Cell # 0.00 Thou/mm3 (0.00-0.00); Nucleated Red Blood Cell % 0 /100 WBC (0); Platelet Count 146 Thou/mm3 (140-440); RDW Standard Deviation 59.0 fL (35.1-43.9); Red Blood Count 3.41 Miln/mm3 (4.50-5.90)
[2025-05-26 23:04] LABS: Lactate (Lactic Acid) 4.9 mMol/L (0.4-2.0)
[2025-05-26 23:08] LABS: White Blood Count 36.6 Thou/mm3 (3.8-10.6)
[2025-05-26] MEDS: PIPER/TAZO 3.375 GM PREMIX 3.375 GM/50 ML BAG IV (23:09)
[2025-05-26 23:22] LABS: Amorphous Crystals,Urine Present (Absent); Bacteria,Urine Rare; Bilirubin,Urine Negative (Negative); Blood,Urine 3+ (Negative); Budding Yeast,Urine Present; Clarity,Urine Turbid (Clear/Hazy); Color,Urine Yellow (Lt Yel-Yel); Glucose, Urine Negative (Negative); Granular Casts,Urine < 1 /hpf (0-1); Hyaline Casts,Urine 1 /hpf (0-1); Ketones,Urine Negative (Negative); Leukocyte Esterase,Urine Positive (Negative); Nitrite,Urine Negative (Negative); PH,Urine 6.0 (5.0-7.0); Protein,Urine 2+ (Neg - Trace); RBC,Urine 351 /hpf (0-3); Specific Gravity,Urine 1.026 (1.001-1.035); Squamous Epithelial Cell,Urine 1 /hpf (0-5); Urobilinogen,Urine Negative mg/dL (0.0-1.0); WBC,Urine 249 /hpf (0-5)
[2025-05-26 23:22] LABS: Base Excess -2 (-3-3); HCO3 24 mEq/L (20-26); Inspired Oxygen, FIO2 21 %; O2 Saturation 86 % (91-98); PCO2 45 mmHg (32.0-48.0); pH, Arterial 7.33 (7.35-7.45)
[2025-05-26] MEDS: HALOPERIDOL LACT INJ 5 MG/ML VIAL 10 MG IM (23:25)
[2025-05-26 23:26] LABS: Allen Test Performed/OK; PO2 50 mmHg (83-108); Puncture Site Right Brachial
--- NOTE | 2025-05-26 23:33 | PC.NURSE ---
Attempted to call family phone numbers on file. No answer.
--- NOTE | 2025-05-26 23:49 | PC.NURSE ---
MD Pastor talking with family at this time, gave update on plan of comfort care. family agreed and will come to see pt tomorrow
[2025-05-26 23:56] LABS: B-Type Natriuretic Peptide 472 pg/mL (0-100)
[2025-05-26 23:57] LABS: Alanine Aminotransferase 28 U/L (10-49); Albumin, Serum 2.1 gm/dL (3.4-4.8); Albumin/Globulin Ratio 1.0 (1.2-2.2); Alkaline Phosphatase 127 U/L (46-116); Anion Gap 15 (7-16); Aspartate Amino Transferase 17 U/L (0-34); BUN/Creatinine Ratio 21 Ratio (12-20); Bilirubin,Total 0.8 mg/dL (0.3-1.2); Blood Urea Nitrogen 29 mg/dL (9-23); Calcium 7.8 mg/dL (8.3-10.6); Calcium (Corrected) 9.3 mg/dL (8.5-10.1); Carbon Dioxide 20.9 mMol/L (20.0-31.0); Chloride 104 mMol/L (98-107); Creatinine (Component) 1.4 mg/dL (0.6-1.3); Globulin 2.2 gm/dL (2.3-3.5); Glucose 156 mg/dL (74-106); Lipase 24 U/L (12-53); Magnesium 1.8 mg/dL (1.6-2.6); Osmolality,Calculated 288 (275-295); Phosphorous 4.5 mg/dL (2.4-5.1); Potassium 3.6 mMol/L (3.4-5.1); Sodium 140 mMol/L (136-145); Total Protein 4.3 gm/dL (5.7-8.2); eGFR 58 See Note
[2025-05-26 23:59] LABS: Troponin I 0.090 ng/mL (0.0-0.045)
[2025-05-27] VITALS (12 sets, daily range): BP systolic 91–122; BP diastolic 64–96; PULSE 80–179; RESP 9–25; TEMP 35.7–36.4; O2SAT 89–99; BMI 21.9; BMI 22.0
--- NOTE | 2025-05-27 00:30 | PD.RESHP ---
Documentation for date of: 05/27/25 HPI History of Present Illness Chief complaint: shortness of breath History of present illness: 59-year-old male with a past medical history of metastatic cancer, hepatitis B, undifferentiated pleomorphic sarcoma of right pelvis, status post chemotherapy and excision and right leg, DVT s/p IVC filter 04/13/25 currently following with radiation oncologist Dr. Dee, who presented to the emergency room with a chief complaint shortness of breath. Patient was recently discharged on after he was admitted for bleeding from pelvic region requiring palliative radiation from Dr. Dee. 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 Patient presents today with shortness of breath. Per ED physician, patient's family is aware that the patient has the potential to deteroriate very quickly. In the ED, patient presented in acute hypoxic respiratory failure with vitals blood pressure 159/115, tachycardic heart rate 145, respiratory rate of 26, mildly febrile at 99 ?F and requiring BiPAP. Pertinent lab findings include WBC of 36.6, hemoglobin 9.8 with MCV of 87, platelet 146 ABG showed pH of 7.23, PCO2 of 45, PO2 of 50 and bicarb of 24. Other pertinent findings include BUN of 29, creatinine 1.4, lactic acid of 4.9, magnesium 1.8, troponin 0.090, BNP of 472 and urinalysis was negative for any signs of infection. Chest x-ray does show any extensive bilateral pneumonia with right-sided lung whiteout and pleural effusion. Patient will be admitted for acute hypoxic respiratory failure secondary to worsening of metastatic cancer and superimposed pneumonia and pleural effusion; goals of care discussions will be on the patient and patient's family Exam Vital Signs Temp Pulse Resp BP Pulse Ox O2 Del Method O2 Flow Rate 99 F 138 H 22 H 106/81 92 L BiPAP 12 05/26/25 22:19 05/26/25 23:52 05/26/25 23:52 05/26/25 23:52 05/26/25 23:52 05/26/25 23:52 05/26/25 22:19 FiO2 30 05/26/25 23:52 Narrative Exam Physical Exam: GENERAL: Appears debilitated, frail appearing HEENT: NC/AT. Dry mucosa. PERRLA CARDIO: Tachycardic with distant heart sounds, no obvious murmurs, no JVD. PULM: No coughing but currently on BiPAP. Bronchial breath sounds heard bilaterally GI: Abdomen soft, NT/ND, +BS. URO/OIL FURNACE INSTALLER: +Clifton catheter draining clear yellow urine SKIN/MSK/EXT: Patient's right pelvic wound bandaged without any oozing. +2 pitting edema up to feet. +1 Pedal pulses present B/L. NEURO: Oriented x0. 9?points Angela Coma Score E(2) V(2) M(5) Results: Labs 05/27/25 05:41 05/27/25 05:41 Labs: Short CBC 05/26/25 Range/Units 22:54 WBC 36.6 H* D (3.8-10.6) Thou/mm3 Hgb 9.8 L (13.5-16.0) g/dL Hct 29.6 L (41.0-53.0) % Plt Count 146 (140-440) Thou/mm3 BMP 05/26/25 22:54 Sodium 140 Potassium 3.6 Chloride 104 Carbon Dioxide 20.9 BUN 29 H Creatinine 1.4 H D Glucose 156 H Calcium 7.8 L Cardiac Enzymes 05/26/25 Range/Units 22:54 Troponin I 0.090 H* (0.0-0.045) ng/mL Liver Function 05/26/25 Range/Units 22:54 Total Bilirubin 0.8 (0.3-1.2) mg/dL AST 17 (0-34) U/L ALT 28 (10-49) U/L Alkaline Phosphatase 127 H (46-116) U/L Albumin 2.1 L (3.4-4.8) gm/dL Urine 05/26/25 Range/Units 22:34 Urine Color Yellow (Lt Yel-Yel) Urine Clarity Turbid A (Clear/Hazy) Urine pH 6.0 (5.0-7.0) Ur Specific [place] 1.026 (1.001-1.035) Urine Protein 2+ A (Neg - Trace) Urine Glucose (UA) Negative (Negative) ABG Interpretation ABG results: 05/26/25 05/26/25 22:25 23:20 ABG pH 7.29 L 7.33 L ABG pCO2 52 H 45 ABG pO2 34 L* 50 L* ABG HCO3 25 24 ABG O2 Saturation 64 L 86 L ABG Base Excess -2 -2 Quality Measures Quality Measures none Medications Home Medications and Allergies Home Medications ?Medication ?Instructions ?Recorded ?Confirmed ?Type bisacodyl 10 mg rectal suppository 10 mg MI TID PRN constipation 05/27/25 05/27/25 History hyoscyamine sulfate 0.125 mg 0.125 mg PO Q4H PRN dyspepsia 05/27/25 05/27/25 History sublingual tablet lorazepam 2 mg/mL oral concentrate 0.25 mg PO Q4H PRN agitation 05/27/25 05/27/25 History (Lorazepam Intensol) Allergies Allergy/AdvReac Type Severity Reaction Status Date / Time No Known Allergies Allergy Verified 05/02/25 19:27 Visit Medications Acetaminophen (Acetaminophen 325 Mg Tablet) 650 mg PO Q6H PRN PRN Reason: Pain 1-3 and/or Fever >100.1 Stop: 06/26/25 00:24 Heparin Sodium (Porcine) (Heparin Sod Inj 5000 Unit/Ml Vial) 5,000 unit SC Q12HR BRIAN Stop: 06/10/25 08:59 Lactated Ringer's (Lactated Ringers) 1,000 mls @ 75 mls/hr IV .[id number] BRIAN Stop: 05/27/25 13:49 Magnesium Sulfate (Magnesium Sulfate Ivpb) 4 gm in 50 mls @ 12.5 mls/hr IV X1 ONE Stop: 05/27/25 04:28 Morphine Sulfate (Morphine Sulf Inj 10 Mg/Ml Vial) 1 mg IVP Q6H PRN PRN Reason: PAIN SCALE 7-10 (Severe Stop: 06/01/25 00:24 Ondansetron HCl (Ondansetron Inj 2 Mg/Ml Inj 2 Ml) 4 mg IVP Q6H PRN; Protocol PRN Reason: NAUSEA OR VOMITING Stop: 06/26/25 00:24 Sennosides (Senna Tablet) 1 tab PO QDAY PRN; Protocol PRN Reason: constipation Stop: 06/26/25 00:24 Discontinued Medications Albuterol (Albuterol Rt 2.5 Mg/3 Ml Nebu) 10 mg INH X1 ONE Stop: 05/26/25 22:24 Diltiazem HCl (Diltiazem Inj 5 Mg/Ml Vial 5 Ml) 10 mg IV X1 ONE Stop: 05/26/25 22:29 Last Admin: 05/26/25 22:44 Dose: 10 mg Haloperidol Decanoate (Haloperidol Deca Inj 50 Mg/Ml Vial) 10 mg IM X1 ONE Stop: 05/26/25 23:04 Last Admin: 05/26/25 23:17 Dose: Not Given Haloperidol Lactate (Haloperidol Lact Inj 5 Mg/Ml Vial) 5 mg IM X1 ONE Stop: 05/26/25 22:29 Last Admin: 05/26/25 22:40 Dose: 5 mg Haloperidol Lactate (Haloperidol Lact Inj 5 Mg/Ml Vial) 10 mg IM X1 ONE Stop: 05/26/25 23:11 Last Admin: 05/26/25 23:25 Dose: 10 mg Lactated Ringer's (Lactated Ringers) 1,000 mls @ 999 mls/hr IV .Q1H1M ONE Stop: 05/26/25 23:19 Last Infusion: 05/26/25 23:43 Dose: Infused Piperacillin/Tazobactam/Dextrose (Zosyn) 3.375 gm in 50 mls @ 100 mls/hr IV X1 ONE Stop: 05/26/25 22:48 Last Infusion: 05/26/25 23:38 Dose: Infused Ipratropium [place] (Ipratropium Rt 0.5 Mg/ 2.5 Ml Nebu) 0.5 mg INH X1 ONE Stop: 05/26/25 22:25 Assessment & Plan Plan 59-year-old male with a past medical history of metastatic cancer, hepatitis B, undifferentiated pleomorphic sarcoma of right pelvis, status post chemotherapy and excision and right leg, DVT s/p IVC filter 04/13/25 currently following with radiation oncologist Dr. Dee, who presented to the emergency room with a chief complaint shortness of breath will be admitted for acute hypoxic respiratory failure secondary to worsening of metastatic cancer and superimposed pneumonia and pleural effusion; goals of care discussions will be on the patient and patient's family, #Acute hypoxic respiratory failure secondary to #Pleomorphic sarcoma with metastasis to the lungs #Sepsis #Superimposed pneumonia and pleural effusion, likely malignant effusion #Tachycardia As above, patient presenting with shortness of breath requiring BiPAP On examination, patient is normotensive but tachycardic with WBC of 36.6 - GCS of 9 but appears debilitated ABG shows pH of 7.33, [id number], PO2 of 50 and bicarb of 24 Chest x-ray does show any extensive bilateral pneumonia with right-sided lung whiteout and pleural effusion. Patient meets sepsis criteria with SIRS criteria met along with source of infection and evidence of endorgan dysfunction noted with a creatinine of 1.4 and lactic acidosis of 4.9 and troponin 0.090 Plan: IV Zosyn 3.375 every 6 Gentle IV fluid resuscitation LR 75 cc an hour for 1 bag (1 L) Multimodal pain management Follow-up on blood cultures Goals of care discussion with family #Elevated troponin, mild Likely secondary to NSTEMI type II, demand ischemia versus NSTEMI type I As noted below patient appears hypovolemic supply/demand mismatch, BNP of 472 Plan: Trending troponin every 6 hours Treating superimposed infection from dehydration #Pelvic wound #Acute blood loss anemia, stable Patient has history of sacral wound which has required palliative radiation to stop bleeding in the past Currently on examination the wound is bandaged and there is no oozing noted Plan: Wound care referral #LACHO #Prerenal azotemia #Lactic acidosis #Electrolyte abnormalities On examination, patient appears hypovolemic with prerenal azotemia as noted by BUN/creatinine ratio of greater than 20 Patient also has lactic acidosis likely from dehydration along with superimposed infection Plan: Gentle IV fluid resuscitation Avoid nephrotoxic agents Renally dose meds Follow-up with AM labs Health Maintenance: Lines: PIV, Clifton Diet: N.p.o. pending swallow screen Bowel: Senna as needed GI prophylaxis: Protonix DVT prophylaxis: Heparin subcu Dispo: IV antibiotics for pneumonia, goals of care discussion with family Code: DNR Patient seen and assessed with attending Dr. Felicia Gautam DO PGY-2 Internal Medicine - GME Attending Provider Attestation/Addendum After examination of the patient and review of the clinical data I feel that this patient needs admission to the hospital for further treatment/evaluation. I have discussed and was present for the essential components of the history, physical examination, diagnosis, and treatment plan with the resident. I agree with the patient's care as documented by the resident and amended herein by me. Latrell Duarte DO. Although this document has been carefully reviewed, there may still be some phonetic and other typographical errors. These errors are purely grammatical due to imperfections in the software program and should not be construed in any way to compromise the substance of the patient's medical care during this visit.
[2025-05-27] MEDS: Magnesium Sulfate 4 GM Ivpb 4 GM/50 ML BAG IV (01:16)
[2025-05-27] MEDS: RINGERS LACTATED 1000 ML 1,000 ML 75 ML IV (01:17)
[2025-05-27 01:59] LABS: Reflex Lactate? Y
[2025-05-27 02:47] LABS: Lactic Acid, 3 HR 4.1 mMol/L (0.4-2.0)
[2025-05-27] MEDS: MethylPREDNISolone SOD SUCC 62.5 MG/ML 2ML VIAL 125 MG IVP (03:30)
[2025-05-27] MEDS: PIPER/TAZO 3.375 GM PREMIX 3.375 GM/50 ML BAG IV ×2 (05:10→16:15)
[2025-05-27 06:30] LABS: Basophils # (Auto) 0.1 Thou/mm3 (0.0-0.2); Basophils % (Auto) 0 % (0-2.5); Eosinophils # (Auto) 0.0 Thou/mm3 (0.0-0.5); Eosinophils % (Auto) 0 % (0-10); Hematocrit 28.9 % (41.0-53.0); Hemoglobin 9.6 g/dL (13.5-16.0); Immature Granulocytes Auto 0.92 Thou/mm3 (0.00-0.00); Lymphocytes # (Auto) 0.1 Thou/mm3 (1.0-4.8); Lymphocytes % (Auto) 0 % (10-50); Mean Corpuscular HGB Conc 33.2 g/dl (31.0-37.0); Mean Corpuscular Hemoglobin 28.9 pg (25.0-35.0); Mean Corpuscular Volume 87 fL (80-100); Monocytes # (Auto) 1.3 Thou/mm3 (0.0-0.8); Monocytes % (Auto) 4 % (0-12); Neutrophils # (Auto) 28.8 Thou/mm3 (1.8-7.7); Neutrophils % (Auto) 92 % (37-80); Nucleated Red Blood Cell # 0.00 Thou/mm3 (0.00-0.00); Nucleated Red Blood Cell % 0 /100 WBC (0); Platelet Count 149 Thou/mm3 (140-440); RDW Standard Deviation 63.9 fL (35.1-43.9); Red Blood Count 3.32 Miln/mm3 (4.50-5.90); White Blood Count 31.3 Thou/mm3 (3.8-10.6)
[2025-05-27 06:58] LABS: Alanine Aminotransferase 28 U/L (10-49); Albumin, Serum 2.0 gm/dL (3.4-4.8); Albumin/Globulin Ratio 0.9 (1.2-2.2); Alkaline Phosphatase 116 U/L (46-116); Anion Gap 12 (7-16); Aspartate Amino Transferase 20 U/L (0-34); BUN/Creatinine Ratio 20 Ratio (12-20); Bilirubin,Total 0.9 mg/dL (0.3-1.2); Blood Urea Nitrogen 30 mg/dL (9-23); Calcium 7.5 mg/dL (8.3-10.6); Calcium (Corrected) 9.1 mg/dL (8.5-10.1); Carbon Dioxide 25.8 mMol/L (20.0-31.0); Chloride 103 mMol/L (98-107); Creatinine (Component) 1.5 mg/dL (0.6-1.3); Estimated Creatinine Clearance 50.0 mL/min (>60); Globulin 2.2 gm/dL (2.3-3.5); Glucose 133 mg/dL (74-106); Osmolality,Calculated 289 (275-295); Potassium 3.4 mMol/L (3.4-5.1); Sodium 141 mMol/L (136-145); Total Protein 4.2 gm/dL (5.7-8.2); eGFR 53 See Note
[2025-05-27 07:00] LABS: Troponin I 0.083 ng/mL (0.0-0.045)
[2025-05-27] MEDS: HEPARIN SOD INJ 5000 UNIT/ML VIAL SC (08:10)
--- NOTE | 2025-05-27 09:30 | PC.NURSE ---
Hospice medications including morphine solution, ativan solution, hydrocodone, tylenol and laxative suppository found at bedside. Verified medications with Kathryn MONSON, added to belongings list than taken to pharmacy, verified and left with Sanjana Pharmacist.
--- NOTE | 2025-05-27 10:39 | PC.SS ---
SS spoke to patient's dtrLizett who explained resident physicians requested to meet with her at bedside at 2pm. CodyrLizett is available by phone at 11am. Physicians are aware and will evaluate pt first before meeting with dtr.
[2025-05-27 10:48] LABS: Base Excess -1 (-3-3); HCO3 26 mEq/L (20-26); Inspired O2, VO2 Liters 3 L/min; O2 Saturation 98 % (91-98); PCO2 52 mmHg (32.0-48.0); PO2 96 mmHg (83-108); pH, Arterial 7.30 (7.35-7.45)
[2025-05-27 10:49] LABS: Allen Test Performed/OK; Puncture Site Right Radial
--- NOTE | 2025-05-27 12:00 | PD.RESPRO ---
Documentation for date of: 05/27/25 Subjective Subjective Interval history: Patient is a 59-year-old male with a past medical history of pleomorphic sarcoma who initially was following with the cancer center when he had locally advanced stage IIIb, now progressed to stage IV metastatic to pelvic right thigh and lungs. Overall poor prognosis, after Alex evaluation patient was referred back to [facility] for hospice-discharge on hospice on 05/23/2025. Readmitted overnight 05/27/2025 with worsening acute hypoxic respiratory failure found to have bilateral pleural effusion and altered mental status. [place] Coma Scale of 9. Patient started on BiPAP. Patient is DNR and DNI and cannot be admitted to ICU or intubated. Patient overall has a poor prognosis. Patient transition from BiPAP to high flow. Repeat ABG noted a pH of 7.3, pCO2 52, and PO2 96. Goals of care to be schedule today with family and kadeem's daughter who is decision maker. Exam Vital Signs Temp Pulse Resp BP Pulse Ox O2 Del Method O2 Flow Rate 97.3 F 126 H 18 107/75 89 L Nasal Cannula 2 05/27/25 19:06 05/27/25 19:40 05/27/25 19:40 05/27/25 19:06 05/27/25 19:40 05/27/25 16:00 05/27/25 19:40 FiO2 30 05/27/25 07:08 Narrative Exam General Appearance: Alert & Oriented X0, poor-nourished cachexia who is lying in bed in no acute distress. Extensive right upper thigh lesions. HEENT: Skull symmetrical and atraumatic. Conjunctivae pale pink and moist. Pupils equal, round, reactive to light and accommodation (PERRL). External ear without lesion or discharge. Cardio: Normal Rate and Rhythm with S1 and S2 heart sounds. No murmurs or extra heart sounds auscultated. No bruits on carotid auscultation. No peripheral edema or cyanosis. Lungs: Symmetric with good expansion. Chest and back non-tender. Breath sounds vesicular without crackles, wheezing or rhonchi Abdomen: Non-tender, Non-distended, Normal Reactive Bowel Sounds Neuro: Yes Alert, NO cooperative, NO oriented to person, NO place, and No time. CN grossly intact. Upper motor strength 2/5 and Lower motor strength 2/5. Sensation intact. Objective Labs 05/27/25 05:41 05/27/25 05:41 Labs: Laboratory Results - last 24 hr 05/26/25 05/26/25 05/26/25 22:25 22:34 22:54 WBC 36.6 H* D RBC 3.41 L Hgb 9.8 L Hct 29.6 L MCV 87 MCH 28.7 MCHC 33.1 RDW Std Deviation 59.0 H Plt Count 146 Neut % (Auto) 91 H Lymph % (Auto) 1 L [place] % (Auto) 5 Eos % (Auto) 0 Baso % (Auto) 0 Neut # (Auto) 33.3 H Lymph # (Auto) 0.2 L [place] # (Auto) 1.6 H Eos # (Auto) 0.0 Baso # (Auto) 0.1 Immature Gran # (Auto) 1.33 H Absolute Nucleated RBC 0.00 Immature Gran % 4 H Nucleated RBC % 0 Smear Path Review Cancelled Puncture Site Right Radial ABG pH 7.29 L ABG pCO2 52 H ABG pO2 34 L* ABG HCO3 25 ABG O2 Saturation 64 L ABG Base Excess -2 Oxygen Liter Flow FiO2 30 Sodium 140 Potassium 3.6 Chloride 104 Carbon Dioxide 20.9 Anion Gap 15 BUN 29 H Creatinine 1.4 H D Estim Creat Clear Calc Not Performed. eGFR 58 L BUN/Creatinine Ratio 21 H Glucose 156 H Calculated Osmolality 288 Lactic Acid 4.9 H* Calcium 7.8 L Corrected Calcium 9.3 Phosphorus 4.5 Magnesium 1.8 Total Bilirubin 0.8 AST 17 ALT 28 Alkaline Phosphatase 127 H Troponin I 0.090 H* B-Natriuretic Peptide 472 H* Total Protein 4.3 L Albumin 2.1 L Globulin 2.2 L Albumin/Globulin Ratio 1.0 L Lipase 24 Ur Collection Type Clean Catch Urine Color Yellow Urine Clarity Turbid A Urine pH 6.0 Ur Specific [place] 1.026 Urine Protein 2+ A Urine Glucose (UA) Negative Urine Ketones Negative Urine Blood 3+ A Urine Nitrite Negative Urine Bilirubin Negative Urine Urobilinogen (Auto) Negative Ur Leukocyte Esterase Positive Urine RBC 351 H Urine WBC 249 H Ur Squamous Epith Cells 1 Amorphous Crystals Present A Urine Bacteria Rare Hyaline Casts 1 Granular Casts < 1 Urine Yeast (Budding) Present A 05/26/25 05/27/25 05/27/25 23:20 02:25 05:41 WBC 31.3 H D RBC 3.32 L Hgb 9.6 L Hct 28.9 L MCV 87 MCH 28.9 MCHC 33.2 RDW Std Deviation 63.9 H Plt Count 149 Neut % (Auto) 92 H Lymph % (Auto) 0 L [place] % (Auto) 4 Eos % (Auto) 0 Baso % (Auto) 0 Neut # (Auto) 28.8 H Lymph # (Auto) 0.1 L [place] # (Auto) 1.3 H Eos # (Auto) 0.0 Baso # (Auto) 0.1 Immature Gran # (Auto) 0.92 H Absolute Nucleated RBC 0.00 Immature Gran % 3 H Nucleated RBC % 0 Smear Path Review Puncture Site Right Brachial ABG pH 7.33 L ABG pCO2 45 ABG pO2 50 L* ABG HCO3 24 ABG O2 Saturation 86 L ABG Base Excess -2 Oxygen Liter Flow FiO2 21 Sodium 141 Potassium 3.4 Chloride 103 Carbon Dioxide 25.8 Anion Gap 12 BUN 30 H Creatinine 1.5 H Estim Creat Clear Calc 50.0 L eGFR 53 L BUN/Creatinine Ratio 20 Glucose 133 H Calculated Osmolality 289 Lactic Acid 4.1 H* Calcium 7.5 L Corrected Calcium 9.1 Phosphorus Magnesium Total Bilirubin 0.9 AST 20 ALT 28 Alkaline Phosphatase 116 Troponin I 0.083 H* B-Natriuretic Peptide Total Protein 4.2 L Albumin 2.0 L Globulin 2.2 L Albumin/Globulin Ratio 0.9 L Lipase Ur Collection Type Urine Color Urine Clarity Urine pH Ur Specific [place] Urine Protein Urine Glucose (UA) Urine Ketones Urine Blood Urine Nitrite Urine Bilirubin Urine Urobilinogen (Auto) Ur Leukocyte Esterase Urine RBC Urine WBC Ur Squamous Epith Cells Amorphous Crystals Urine Bacteria Hyaline Casts Granular Casts Urine Yeast (Budding) 05/27/25 05/27/25 10:32 12:25 WBC RBC Hgb Hct MCV MCH MCHC RDW Std Deviation Plt Count Neut % (Auto) Lymph % (Auto) [place] % (Auto) Eos % (Auto) Baso % (Auto) Neut # (Auto) Lymph # (Auto) [place] # (Auto) Eos # (Auto) Baso # (Auto) Immature Gran # (Auto) Absolute Nucleated RBC Immature Gran % Nucleated RBC % Smear Path Review Puncture Site Right Radial ABG pH 7.30 L ABG pCO2 52 H ABG pO2 96 D ABG HCO3 26 ABG O2 Saturation 98 ABG Base Excess -1 Oxygen Liter Flow 3 FiO2 Sodium Potassium Chloride Carbon Dioxide Anion Gap BUN Creatinine Estim Creat Clear Calc eGFR BUN/Creatinine Ratio Glucose Calculated Osmolality Lactic Acid Calcium Corrected Calcium Phosphorus Magnesium Total Bilirubin AST ALT Alkaline Phosphatase Troponin I 0.058 H* B-Natriuretic Peptide Total Protein Albumin Globulin Albumin/Globulin Ratio Lipase Ur Collection Type Urine Color Urine Clarity Urine pH Ur Specific [place] Urine Protein Urine Glucose (UA) Urine Ketones Urine Blood Urine Nitrite Urine Bilirubin Urine Urobilinogen (Auto) Ur Leukocyte Esterase Urine RBC Urine WBC Ur Squamous Epith Cells Amorphous Crystals Urine Bacteria Hyaline Casts Granular Casts Urine Yeast (Budding) ABG Interpretation ABG results: 05/26/25 05/26/25 05/27/25 22:25 23:20 10:32 ABG pH 7.29 L 7.33 L 7.30 L ABG pCO2 52 H 45 52 H ABG pO2 34 L* 50 L* 96 D ABG HCO3 25 24 26 ABG O2 Saturation 64 L 86 L 98 ABG Base Excess -2 -2 -1 Quality Measures Quality Measures none Assessment & Plan Assessment Current Active Medications: Generic Name Dose Route Start Last Admin Trade Name Freq PRN Reason Stop Dose Admin Acetaminophen 650 mg 05/27/25 00:25 Acetaminophen 325 Mg Tablet PO 06/26/25 00:24 Q6H PRN Pain 1-3 and/or Fever >100.1 Atropine Sulfate 2 drop 05/27/25 18:21 Atropine Sulf Op Diane 1% 5 Ml Btl SL 06/26/25 18:20 Q4HR PRN SECRETIONS Glycopyrrolate 0.2 mg 05/27/25 18:21 Glycopyrrolate Inj 0.2 Mg/Ml Vial IV 06/26/25 18:20 QID PRN As needed for secretions Protocol Lorazepam 1 mg 05/27/25 18:21 Lorazepam 2 Mg/Ml Vial IVP 06/01/25 18:20 Q4HR PRN AGITATION (SEVERE) Morphine Sulfate 2 mg 05/27/25 18:21 05/27/25 18:30 Morphine Sulf Inj 10 Mg/Ml Vial IVP 06/01/25 18:20 2 mg Q30M PRN Administration PAIN Ondansetron HCl 4 mg 05/27/25 00:25 Ondansetron Inj 2 Mg/Ml Inj 2 Ml IVP 06/26/25 00:24 Q6H PRN NAUSEA OR VOMITING Protocol Scopolamine 1 mg 05/27/25 18:30 05/27/25 18:32 Scopolamine 1 Mg Tdsy TOP 06/26/25 18:29 1 mg Q3D BRIAN Administration Plan 59-year-old male with a past medical history of metastatic cancer, hepatitis B, undifferentiated pleomorphic sarcoma of right pelvis, status post chemotherapy and excision and right leg, DVT s/p IVC filter 04/13/25 currently following with radiation oncologist Dr. Dee, who presented to the emergency room with a chief complaint shortness of breath will be admitted for acute hypoxic respiratory failure secondary to worsening of metastatic cancer and superimposed pneumonia and pleural effusion; goals of care discussions will be on the patient and patient's family. #Goals of Care Patient's daughter, Lizett, spoke over the phone about overall poor prognosis given altered mental status with history of advance sarcoma. Patient's family and daughter scheduled to have goals of care with primary team at 2 PM. Patient will likely be transitioned to comfort. #Acute hypoxic respiratory failure secondary to #Pleomorphic sarcoma with metastasis to the lungs #Sepsis #Superimposed pneumonia and pleural effusion, likely malignant effusion #Tachycardia As above, patient presenting with shortness of breath requiring BiPAP On examination, patient is normotensive but tachycardic with WBC of 36.6 - GCS of 9 but appears debilitated ABG shows pH of 7.33, [id number], PO2 of 50 and bicarb of 24 Chest x-ray does show any extensive bilateral pneumonia with right-sided lung whiteout and pleural effusion. Patient meets sepsis criteria with SIRS criteria met along with source of infection and evidence of endorgan dysfunction noted with a creatinine of 1.4 and lactic acidosis of 4.9 and troponin 0.090 Plan: IV Zosyn 3.375 every 6 Gentle IV fluid resuscitation LR 75 cc an hour for 1 bag (1 L) Multimodal pain management Follow-up on blood cultures Goals of care discussion with family #Elevated troponin, mild Likely secondary to NSTEMI type II, demand ischemia versus NSTEMI type I As noted below patient appears hypovolemic supply/demand mismatch, BNP of 472 Plan: Trending troponin every 6 hours Treating superimposed infection from dehydration #Pelvic wound #Acute blood loss anemia, stable Patient has history of sacral wound which has required palliative radiation to stop bleeding in the past Currently on examination the wound is bandaged and there is no oozing noted Plan: Wound care referral #LACHO #Prerenal azotemia #Lactic acidosis #Electrolyte abnormalities On examination, patient appears hypovolemic with prerenal azotemia as noted by BUN/creatinine ratio of greater than 20 Patient also has lactic acidosis likely from dehydration along with superimposed infection Plan: Gentle IV fluid resuscitation Avoid nephrotoxic agents Renally dose meds Follow-up with AM labs Health Maintenance: Lines: PIV, Clif[place] Diet: N.p.o. Bowel: Senna as needed GI prophylaxis: Protonix DVT prophylaxis: Heparin subcu Dispo: IV antibiotics for pneumonia, goals of care discussion with family Code: DNR - The patient's plan was discussed with attending Dr. Marcus Gonzalez MD PGY2 Internal Medicine Attending Provider Attestation/Addendum 59-year-old male with undifferentiated pleomorphic sarcoma of the right pelvis with metastases status post chemoradiation and excision, DVT s/p IVC filter who was under hospice care however noted to have shortness of breath presented to the ER with worsening acute hypoxic respiratory failure likely related to superimposed bacterial infection, malignant effusion secondary to pleomorphic sarcoma with metastasis to the lung. Had a goals of care with family and patient will be DNR/DNI and had a FAST FOOD CASHIER last night secondary to agonal breathing and I presented to bedside and noted patient was noted to have agonal breathing and looks uncomfortable. Discussed with daughter regarding plan and she is in agreement to pursue comfort focused therapy. Will respect her decision and start patient on comfort focused therapy.I reviewed above note and agree with findings and plans. I have also personally examined the patient with medicine team and went over assessment and plan with medical team including internet sales representative and resident physician.
[2025-05-27 13:02] LABS: Troponin I 0.058 ng/mL (0.0-0.045)
--- NOTE | 2025-05-27 14:49 | PC.SS ---
Addendum entered by PAULO Omalley 05/27/25 15:46: SS update: SOFTWARE REQUIREMENTS ENGINEER and Dr. Jaquez present with patient, spouse Bee and daughter Lizett at bedside for Goals of Care discussion. Patient pointed at daughter Lizett Robert to make medical decisions on behalf of the patient. POLST form was completed at bedside. DNR selected. Selective treatment selected. No artificial means of nutrition including feeding tubes selected. Copy of POLST placed in patient chart and registration scanned into the system. Original Note: Follow up note: ROSE and Dr. Jaquez had goals of care meeting with family (patient's brother, dtr, and ). Family is requesting to speak with patient's sibling before deciding on comfort care or continue treatment.
--- NOTE | 2025-05-27 15:50 | PD.RESEVENT ---
Documentation for date of: 05/27/25 Event Note Event Note: Goals of care discussion was initiated with the patient, daughter Lizett, along with patient's as well as his son was present in the room. linotype worker Naomi was also present during the discussion. We went over patient's clinical course, recent hospital admission and discharge on hospice, patient's wishes regarding end-of-life treatment were discussed. We went over patient's terminal diagnosis of stage IV metastatic, of pelvis, venous thromboembolism, recent admission with pneumonia and left pleural effusion, sepsis. Patient currently encephalopathic, GCS 9/15, showing signs of respiratory distress, was initially started on BiPAP but now weaned off started on oxygen and nasal cannula. Patient was noticed taking agonal breaths, all of the above was discussed with the family members in the room, who agreed with patient's terminal diagnosis but were unable to come to a conclusion about withdrawing medical care initiating comfort focused care. Family members in the room wanted more time to decide and reach out to the extended family members out of town. POLST form was signed in the presence of social arturo Monique. At 6:15 PM a rapid response was called, for unstable vitals, hypotension hypoxia and agonal breathing. GCS noted to be 8/15 and patient was gasping for air. Patient's daughter Lizett and were present at the bedside, who agreed to begin comfort focused measures and withdrawing aggressive medical care. As result comfort care orders were initiated. Attending Dr. Velazquez and ERMIAS Peralta were present and witnessed the discussion. Quresh PGY3
--- NOTE | 2025-05-27 18:21 | EVENTNT_ITS ---
Documentation for date of: 05/27/25 Event Note Event Note: Rapid Response was called around 6:15Pm. SCHOOL ADMISSIONS REPRESENTATIVE was called for agonal breathing and upon initial encounter patient was altered and noted to have agonal breathing. Daughter and decision maker ( Lizett Robert) at bedside and updated her about her father current condition. Updated her that he appears uncomfortable. I did bring up comfort focus therapy once again and told her that her father seems uncomfortable at the moment. She agreed to proceed with comfort care and she understand this would lead to . She is in agreement. As a result, will start comfort focus therapy. This discussion was witnessed by nurse Peralta.
[2025-05-27] MEDS: MORPHINE SULF INJ 10 MG/ML VIAL 2 MG IVP ×3 (18:30→22:53)
[2025-05-27] MEDS: SCOPOLAMINE 1 MG TDSY TOP (18:32)
[2025-05-27] MEDS: GLYCOPYRROLATE INJ 0.2 MG/ML VIAL IV (20:37)
[2025-05-28] VITALS: PULSE 127; PULSE 161; RESP 18; O2SAT 97
[2025-05-28] MEDS: MORPHINE SULF INJ 10 MG/ML VIAL 2 MG IVP ×3 (01:34→12:13)
[2025-05-28 04:00] VITALS: PULSE 120; RESP 18; O2SAT 98
[2025-05-28 06:00] VITALS: BMI 22.0
[2025-05-28 06:09] VITALS: BP 117/77; PULSE 115; O2SAT 97
[2025-05-28 07:53] VITALS: BP 113/73; PULSE 115; RESP 10; TEMP 36.3; O2SAT 95
--- NOTE | 2025-05-28 11:05 | PC.SS ---
1053 Dr. Velazquez, E Residents, and SS met with patient's daughter Lizett at bedside who stated she would like patient to continue with comfort care and remain in the hospital. [address] Velazquez patient can discharge home if family can receive patient on comfort care. SS attempted to contact patient's daughter Lizett [phone] to confirm if family can receive patient today in the home and to confirm if patient will be continuing with [facility]. Per chart review, patient was connected with [facility].
--- NOTE | 2025-05-28 12:37 | PD.DPN ---
Documentation for date of: 05/28/25 Pronouncement Note Date and Time of Date of : 05/28/25 Time of : 12:37 PCOD Preliminary cause of : Cardiopulmonary arrest Summary Additional details: Our team was called to pronounce the of patient Chung Peres. Upon examination, spontaneous movement were absent. Non-response to verbal or tactile stimuli. No active heart or breath sounds were noted after 2 continuous minute of auscultation. Pupils were unresponsive to light, corneal reflexes absent, patient unresponsive to external stimuli. Patient was pronounced on 05/28/2025 approximately 12:37 PM at [facility] Attending Dr. Velazquez was notified. The patient's family was present at bedside & consoled. 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 Patient was readmitted on 05/27/2025 with acute hypoxic respiratory failure secondary to pleural effusion likely malignant in nature given past medical history of pleomorphic sarcoma with mets to the lungs. Patient was transition to comfort care plan 05/27/2025 and all aggressive medical intervention was withdrawn per goals of care discussion. - The patient's plan was discussed with attending Dr Marcus Gonzalez MD PGY2 Internal Medicine Additional Data Attending physician: Jovana Velazquez MD
--- NOTE | 2025-05-28 12:47 | PD.DDS ---
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 Patient was readmitted on 05/27/2025 with acute hypoxic respiratory failure secondary to pleural effusion likely malignant in nature given past medical history of pleomorphic sarcoma with mets to the lungs. Patient had multiple admissions this year secondary to soft tissue abscess superimposed to wounds to the right upper extremities likely secondary sarcoma of pelvis. Patient also previous admission directly into the ICU for hypovolemic shock secondary to acute blod loss from upper extremity at sarcoma lesion site. Patient overall had a poor prognosis given metastatic carcinoma. Patient followed with [facility] and no further medical interventions were recommended for cancer treatment given advance disease progression. Patient also followed up with [facility] for possible artery embolization given repeated acute blood loss from sarcoma lesion with worsening anemia, but given overall condition, patient was a poor surgical candidate. Despite multiple attempts for aggressive medical management kadeem was a poor candidate. On this admission on 05/27/2025, patient was re-admitted for bilateral pleural effusion in acute hypoxic respiratory failure, patient was started on bipap, transitioned to high flow, and eventually nasal cannual. Antibiotics were resumed upon admission, as Leukocytosis noted, likely multi-factorial from soft tissue infection of the right upper thigh near sarcoma lesion, pneumonia from pleural effusion, and likely malignancy. Patient transitioned to comfort care and morphine pushes added. All other medical management was withdrawn, including antibiotics. Patient was expected to given overall prognosis, altered mental status upon admission and overall work of breathing. Patient likely from cardiopulmonary arrest given comfort measures with contributing factors of metastatic pleomorphic carcinoma with metastatic lesions to lungs. Patient was surrounded by family, including daughter, life partner, and sisters at bedside. Patient's family consoled at bedside. Our team was called to pronounce the of patient Chung Peres. Upon examination, spontaneous movement were absent. Non-response to verbal or tactile stimuli. No active heart or breath sounds were noted after 2 continuous minute of auscultation. Pupils were unresponsive to light, corneal reflexes absent, patient unresponsive to external stimuli. Patient was pronounced on 05/28/2025 approximately 12:37 PM at [facility]. Attending Dr. Velazquez was notified. The patient's family was present at bedside & consoled. #Goals of Care #Comfort measures #Acute hypoxic respiratory failure secondary to #Altered Mental Status #Pleomorphic sarcoma with metastasis to the lungs #Sepsis #Superimposed pneumonia and pleural effusion, likely malignant effusion #Tachycardia #Elevated troponin, mild #Pelvic wound #Acute blood loss anemia, stable #LACHO #Prerenal azotemia #Lactic acidosis #Electrolyte abnormalities Patient on 05/28/2025 at approximately 12:37 PM - The patient's plan was discussed with attending Dr. Marcus Gonzalez MD PGY2 Internal Medicine Additional Data Attending physician: Jovana Velazquez MD Visit Providers Provider Primary care physician: Zia Jorge MD Consults: 05/27/25 00:51 Referral Wound Care Routine Comment: 05/27/25 10:49 Referral Nutritional Services Routine Comment: Instructions: Wounds, previously on hospice Diagnosis PCOD Cause of : Cardiopulmonary arrest Contributing Factors (1) Acute hypoxic respiratory failure: (2) Metastatic sarcoma: (3) Cancer-related pain: (4) Severe anemia: (5) Sarcoma of pelvis: (6) Cellulitis and abscess of right leg: Discharge Plan Problem List Was Problem List Reviewed/Reconciled?: Yes Plan Patient Disposition: Prescriptions/Referrals Prescriptions/Med Rec: No Action acetaminophen 325 mg Tablet 650 mg PO Q6H PRN (Reason: Pain Scale 1-3 (Mild) or fever) 30 Days Qty: 30 0RF hydrocodone-acetaminophen 10-325 mg Tablet 1 tab PO Q4H MDD norco than 6 tablets of day PRN (Reason: pain (scale score 7-10)) 30 Days Qty: 30 0RF lorazepam [Lorazepam Intensol] 2 mg/mL concentrate 0.25 mg PO Q4H PRN (Reason: agitation) bisacodyl 10 mg suppository 10 mg OR TID PRN (Reason: constipation) hyoscyamine sulfate 0.125 mg tablet, sublingual 0.125 mg PO Q4H PRN (Reason: dyspepsia) Referrals: Zia Jorge MD [Primary Care Provider] - Patient/Caregiver Discharge Instructions Print Language: Estonian
--- NOTE | 2025-05-28 14:48 | PC.NURSE ---
I notified pharmacy that pt's daughter wants his medications disposed of.
== END 2025-05-28 12:37 | disposition expired | DRG 720 ==
LOC: SERX 22:40 → SERHOLD 05-27 01:03 → S2NX 05-27 05:45 → S3SX 05-28 04:36
PROVIDERS: Admitting Provider Student in an Organized Health Care Education/Training Program; Emergency Provider Emergency Medicine; PCP Family Medicine; Visit Provider Internal Medicine
DX: A41.9 Sepsis, unspecified organism (principal); J96.01 Acute respiratory failure with hypoxia; Z66 Do not resuscitate; C78.00 Secondary malignant neoplasm of unspecified lung; J18.9 Pneumonia, unspecified organism; J91.0 Malignant pleural effusion; C49.5 Malignant neoplasm of connective and soft tissue of pelvis; I21.A1 Myocardial infarction type 2; E86.0 Dehydration; D62 Acute posthemorrhagic anemia; N17.9 Acute kidney failure, unspecified; E87.20 Acidosis, unspecified; G89.3 Neoplasm related pain (acute) (chronic); G93.41 Metabolic encephalopathy; I46.9 Cardiac arrest, cause unspecified; L02.415 Cutaneous abscess of right lower limb; L03.115 Cellulitis of right lower limb; Z51.5 Encounter for palliative care; E86.1 Hypovolemia; R57.1 Hypovolemic shock; D66 Hereditary factor VIII deficiency; Z87.01 Personal history of pneumonia (recurrent); Z92.21 Personal history of antineoplastic chemotherapy; Z92.3 Personal history of irradiation; Z86.718 Personal history of other venous thrombosis and embolism; Z95.828 Presence of other vascular implants and grafts
CPT/HCPCS: 36415; 36600; 71045; 80053; 81001; 82803; 83605; 83690; 83735; 83880; 84100; 84484; 85025; 87040; 87086; 87811; 94640; 94660; 96361; 96365; 96372; 96375; J1630; J1644; J2270; J2470; J2543; J2919; J3475; J3490; J7120; A9270; J1596